=== PATIENT | male | born 1970 | race Caucasian/White ===

== ENCOUNTER 2016-10-11 14:03 | Emergency (ER) | payer MEDICAID, OTHER ==
[~2016-10-11] VITALS: Ht 182.9 cm; Wt 65.0 kg
[~2016-10-11 14:03] MED LIST: BACT800T5 PO; CIPR-9 PO; HYDR-3533 PO; Z.0.NO CURRENT MEDS
[2016-10-11 14:05] VITALS: BP 124/67; PULSE 94; RESP 15; TEMP 98.2; O2SAT 98
--- NOTE | 2016-10-11 15:57 | PD ---
HPI Chief Complaint: Injury Time Seen by Provider: 15:57 Travel History International Travel<30 days: No Contact w/Intl Traveler<30days: No Traveled to known affect area: No History of Present Illness HPI 46-year-old male presents to emergency Department with complaint of right hand pain since yesterday. He said he fell on his hand in some bushes and thought it would get better on its own but it gotten worse. He does have some scratches on his hand. He reports being up-to-date on his tetanus vaccination. Denies paresthesias, loss of sensation. Reports decreased range of motion to his second and third fingers secondary to pain and swelling. Denies fever, chills. Reports nausea without vomiting. Has taken some BC powder with minimal relief of symptoms. No known allergies. Denies significant past medical history. No other modifying factors or associated signs and symptoms. PFSH Past Medical History Diabetes: No Diminished Hearing: No Social History Alcohol Use: Yes ("ALL KINDS OF ALCOHOL AND VODKA") Tobacco Use: Yes (10 CIGARETTES DAY) Substance Use: Yes Allergies-Medications (Allergen,Severity, Reaction): Coded Allergies: No Known Allergies (Verified , 10/11/16) Reported Meds & Prescriptions Reported Meds & Active Scripts Active Ibuprofen 800 Mg Tab 800 Mg PO Q6HR PRN Bactrim DS (Sulfamethoxazole-Trimethoprim) 800-160 Mg Tab 1 Tab PO BID 10 Days Keflex (Cephalexin) 500 Mg Cap 500 Mg PO Q6H 10 Days Review of Systems Except as stated in HPI: all other systems reviewed are Neg Physical Exam Narrative GENERAL: Well-nourished, well-developed patient, in no acute distress; afebrile , nontoxic-appearing SKIN: Warm and dry. Right hand with multiple small abrasions. Right second finger and Dorsal aspect of right hand at the second and third metacarpal area with edema and erythema; with warmth to touch; and with red streaking from the area of the arm about mid forearm. No axillary lymphadenopathy. The right upper extremity is supple and non-tense with 2+ radial pulse and sensory intact and without edema. HEAD: Atraumatic. Normocephalic. EYES: Pupils equal and round. No scleral icterus. No injection or drainage. ENT: Mucosa pink and moist. Airway patent. NECK: Trachea midline. CARDIOVASCULAR: Regular rate. RESPIRATORY: No accessory muscle use. GASTROINTESTINAL: Flat. MUSCULOSKELETAL: Right hand at the second and third fingers there was decreased range of motion; with erythema, edema; no obvious deformity; with tenderness on palpation; sensory intact to all fingers. No obvious deformities. No clubbing. No cyanosis. NEUROLOGICAL: Awake and alert. Oriented 3. No obvious cranial nerve deficits. Motor grossly within normal limits. Normal speech. PSYCHIATRIC: Appropriate mood and affect; insight and judgment normal. Data Data Last Documented VS Vital Signs Date Time Temp Pulse Resp B/P Pulse Ox O2 Delivery O2 Flow Rate FiO2 10/11/16 14:05 98.2 94 15 124/67 98 Orders Clindamycin Inj (Cleocin Inj) (10/11/16 16:00) Ketorolac Inj (Toradol Inj) (10/11/16 16:00) Hand, Complete ([id number]) (10/11/16 15:58) [facility] Medical Decision Making Medical Screen Exam Complete: Yes Emergency Medical Condition: Yes Medical Record Reviewed: Yes Differential Diagnosis Hand fracture, hand sprain, cellulitis Narrative Course 46-year-old male with right hand injury and cellulitis. Patient is afebrile and nontoxic-appearing. He denies fever, chills. Reports nausea without vomiting. Toradol and clindamycin 600 mg IM ordered. Right hand x-ray ordered. 1648: And x-ray concludesSoft-tissue swelling involving the right second digit without fracture or dislocation. Arturo bandage provided for support. The patient will be treated for cellulitis. Ibuprofen, Keflex, Bactrim prescribed for home. Instructed patient to return to the emergency department in 2 days for recheck. Patient verbalizes understanding and agreement with treatment plan. Patient is medically cleared and stable for discharge. Discussed reasons to return to the emergency department. Instructed patient to follow up with primary care provider. Patient agrees with treatment plan. The patients vital signs are stable and the patient is stable for outpatient follow-up and treatment. Patient discharged home, stable and in no acute distress. Diagnosis Primary Impression: Sprain of right hand Qualified Code: S63.91XA - Sprain of right hand, initial encounter Additional Impression: Cellulitis of right hand Referrals: Primary Care Physician Patient Instructions: Cellulitis (ED), General Instructions, Hand Sprain (ED) Departure Forms: Tests/Procedures, Work Release Enter return to work date: Oct 15, 2016 Additional Instructions: Antibiotics as prescribed and complete full course Tylenol or ibuprofen as directed and as needed to reduce pain Rest, ice, compress, and elevate extremity to decrease pain and inflammation Arturo wrap for support Splint for support Avoid aggravating activity; increase activity as tolerated Follow-up with primary care provider Return to the emergency department in 2 days for recheck Return to the emergency department immediately with worsening symptoms Med/Other Pt SpecificInfo: Prescription(s) given Scripts Ibuprofen 800 Mg Reg286 Mg PO Q6HR PRN (PAIN) #30 TAB Ref 0 Prov:Rosalva Mak 10/11/16 Sulfamethoxazole-Trimethoprim (Bactrim DS)800-160 Mg Tab1 Tab PO BID 10 Days Ref 0 Prov:Rosalva Mak 10/11/16 Cephalexin (Keflex)500 Mg [id number] Mg PO Q6H 10 Days Ref 0 Prov:Rosalva Mak 10/11/16 Disposition: 01 DISCHARGE HOME Condition: Stable Rosalva Mak Oct 11, 2016 15:57
[2016-10-11] MEDS ORDERED: CLINDAMYCIN PHOS 600 MG/4 ML VIAL IM ONE (16:00)
[2016-10-11] MEDS ORDERED: KETOROLAC TROMETHAMINE 60 MG/2 ML (IM) VIAL IM ONE (16:00)
--- NOTE | 2016-10-11 16:38 | RADRPT ---
EXAM DATE/TIME: 10/11/2016 16:14 [facility] COMPARISON: No previous studies available for comparison. INDICATIONS : Patient fell yesterday and hurt second digit. MEDICAL HISTORY : None. SURGICAL HISTORY : None. ENCOUNTER: Initial ACUITY: 2 days PAIN SCORE: 10/10 LOCATION: Right second digit. FINDINGS: Soft-tissue swelling is noted involving the right second digit. There is no acute fracture or disloc ation of the right second digit. The remainder of the right hand is intact without fracture or dislo cation. CONCLUSION: Soft-tissue swelling involving the right second digit without fracture or dislocation. Rik Mata MD on October 11, 2016 at 16:29 Board Certified Radiologist. This report was verified electronically.
[2016-10-11] MEDS ORDERED: IBUP800T23 PO (16:50)
[2016-10-11] MEDS ORDERED: BACT800T5 PO (16:50)
[2016-10-11] MEDS ORDERED: CEPH-460 PO (16:50)
== END 2016-10-11 17:43 | disposition home or self-care (01) ==
LOC: NETRI 14:03
DX: S63.91XA Sprain of unspecified part of right wrist and hand, initial encounter (principal); L03.113 Cellulitis of right upper limb; W17.89XA Other fall from one level to another, initial encounter; Y92.007 Garden or yard of unspecified non-institutional (private) residence as the place of occurrence of the external cause
CPT/HCPCS: 73130; 96372; 99283; J1885

== ENCOUNTER 2016-10-16 13:43 | Inpatient (IN) | payer MEDICAID ==
[~2016-10-16] VITALS: Ht 172.7 cm; Wt 76.8 kg
[~2016-10-16 13:43] MED LIST changes: +CEPH-460 PO; -CIPR-9 PO; -HYDR-3533 PO; +IBUP800T23 PO; -Z.0.NO CURRENT MEDS
[2016-10-16 14:30] VITALS: BP 127/89; PULSE 90; RESP 20; TEMP 98.9; O2SAT 97
[2016-10-16] MEDS ORDERED: SODIUM CHLOR 0.9% 1000 ML INJ 1,000 ML IV SCH (14:54)
[2016-10-16] MEDS ORDERED: ACETAMINOPHEN 325 MG TAB PO PRN ×2 (15:00→16:15)
[2016-10-16] MEDS ORDERED: FLUMAZENIL 0.5 MG/5 ML VIAL IV PUSH PRN (15:00)
[2016-10-16] MEDS ORDERED: KETOROLAC TROMETHAMINE 30 MG/ML (IVP) VIAL IV PUSH ONE (15:00)
[2016-10-16] MEDS ORDERED: ONDANSETRON HCL 4 MG/2 ML VIAL IV PUSH PRN (15:00)
[2016-10-16] MEDS ORDERED: LORazepam 2 MG TAB PO PRN (15:00)
[2016-10-16] MEDS ORDERED: LORazepam 2 MG/ML VIAL IV PUSH PRN ×3 (15:00)
[2016-10-16] MEDS ORDERED: CLINDAMYCIN INJ 600 MG in SODIUM CHLORIDE 0.9% INJ 100 ML IV ONE (15:00)
[2016-10-16] MEDS ORDERED: ONDANSETRON HCL 4 MG/2 ML VIAL IVP ONE (15:00)
[2016-10-16] MEDS ORDERED: PROPOFOL 200 MG/20 ML AMP IV ONE (15:24)
[2016-10-16] MEDS ORDERED: ePHEDrine/NS 25 MG/5 ML SYR IV ONE (15:24)
[2016-10-16] MEDS ORDERED: ONDANSETRON HCL 4 MG/2 ML VIAL IV PUSH ONE (15:24)
[2016-10-16] MEDS ORDERED: SODIUM CHLOR 0.9% 1000 ML INJ 1,000 ML IV ONE (15:24)
[2016-10-16 15:33] LABS: AUTOMATED NEUTROPHIL # 8.4 TH/MM3 (1.8-7.7); BASOPHIL # 0.1 TH/MM3 (0-0.2); BASOPHIL % 0.7 % (0.0-2.0); EOSINOPHIL % 0.3 % (0.0-4.0); HEMATOCRIT 42.6 % (39.0-51.0); HEMO FLAGS DIFF FINAL; LYMPH % 11.2 % (9.0-44.0); LYMPHOCYTE # 1.2 TH/MM3 (1.0-4.8); MEAN CELL VOLUME 91.5 FL (80.0-100.0); MEAN CORPUSCULAR HEMOGLOBIN 30.6 PG (27.0-34.0); MEAN CORPUSCULAR HGB CONC 33.4 % (32.0-36.0); MONO % 9.6 % (0.0-8.0); NEUT % 78.2 % (16.0-70.0); PLATELET COUNT 282 TH/MM3 (150-450); RED BLOOD COUNT 4.65 MIL/MM3 (4.50-5.90); RED CELL DISTRIBUTION WIDTH 16.5 % (11.6-17.2); WHITE BLOOD COUNT 10.8 TH/MM3 (4.0-11.0)
--- NOTE | 2016-10-16 15:45 | PD ---
HPI Chief Complaint: Skin Problem Time Seen by Provider: 15:40 Travel History International Travel<30 days: No Contact w/Intl Traveler<30days: No Traveled to known affect area: No History of Present Illness HPI 46-year-old male that presents to the ED for evaluation of possible infection to his right index finger. Patient states that he was seen here last week and was given shots of antibiotics and told to take OTC meds. Patient states that he was noncompliant and he did not even feel the medications. Per patient he couldn't afford them. Patient comes here by ambulance complaining of severe pain to the right index finger. Per patient the pain is 8 out of 10. Patient is also a chronic alcoholic. He drinks heavily. Per patient he drank this morning but he states that he couldn't keep much down because he feels nauseous and feels that he has a fever. He states that he cannot move the right finger anymore because of the swelling. Per patient the pain does not radiate but stays in the finger. Patient has no PCP. Patient denies any history of IV drug abuse recently. He does have a history of substance abuse. He has no allergies to medication. No abdominal pain. Per patient he only feels nauseous and feels that he has chills and sweats. PFSH Past Medical History Diabetes: No Diminished Hearing: No Social History Alcohol Use: Yes ("ALL KINDS OF ALCOHOL AND VODKA") Tobacco Use: Yes (10 CIGARETTES DAY) Substance Use: Yes Allergies-Medications (Allergen,Severity, Reaction): Coded Allergies: No Known Allergies (Verified , 10/11/16) Reported Meds & Prescriptions Reported Meds & Active Scripts Active Ibuprofen 800 Mg Tab 800 Mg PO Q6HR PRN Bactrim DS (Sulfamethoxazole-Trimethoprim) 800-160 Mg Tab 1 Tab PO BID 10 Days Keflex (Cephalexin) 500 Mg Cap 500 Mg PO Q6H 10 Days Review of Systems Except as stated in HPI: all other systems reviewed are Neg Physical Exam Narrative GENERAL: SKIN: Warm and dry. HEAD: Atraumatic. Normocephalic. EYES: Pupils equal and round. No scleral icterus. No injection or drainage. ENT: No nasal bleeding or discharge. Mucous membranes pink and moist. Tongue is midline. No uvula deviation. NECK: Trachea midline. No JVD. CARDIOVASCULAR: Regular rate and rhythm. No murmurs, S3, S4. RESPIRATORY: No accessory muscle use. Clear to auscultation. Breath sounds equal bilaterally. GASTROINTESTINAL: Abdomen soft, non-tender, nondistended. Hepatic and splenic margins not palpable. MUSCULOSKELETAL: Extremities without clubbing, cyanosis, or edema. No obvious deformities. Patient has no range of motion of the right index finger. Patient keeps it flexed about 45. Patient cannot extend it or flex it without severe pain. Patient has a lot of erythema and purulence noted on the digit between the MIP and PIP joint. Good capillary refill. No obvious sign of tendon involvement but hard to assess because patient does have severe erythema and purulence on the finger. NEUROLOGICAL: Awake and alert. No obvious cranial nerve deficits. Motor grossly within normal limits. Five out of 5 muscle strength in the arms and legs. Normal speech. PSYCHIATRIC: Appropriate mood and affect; insight and judgment normal. Data Data Orders Complete Blood Count With Diff (10/16/16 14:40) Comprehensive Metabolic Panel (10/16/16 14:40) Lactic Acid Sepsis Protocol (10/16/16 14:40) Urinalysis - C+S If Indicated (10/16/16 14:40) Blood Culture (10/16/16 14:40) Blood Glucose (10/16/16 14:40) Ecg Monitoring (10/16/16 14:40) Iv Access Insert/Monitor (10/16/16 14:40) Oximetry (10/16/16 14:40) Oxygen Administration (10/16/16 14:40) Finger ([id number]) (10/16/16 ) Clindamycin Inj (Cleocin Inj) (10/16/16 15:00) Ondansetron Inj (Zofran Inj) (10/16/16 15:00) Sodium Chlor 0.9% 1000 Ml Inj (Ns 1000 M (10/16/16 14:54) Alcohol Withdrawal Asmt-Ciwa ONCE (10/16/16 14:54) Ondansetron Inj (Zofran Inj) (10/16/16 15:00) Acetaminophen (Tylenol) (10/16/16 15:00) Flumazenil Inj (Romazicon Inj) (10/16/16 15:00) Lorazepam (Ativan) (10/16/16 15:00) Lorazepam Inj (Ativan Inj) (10/16/16 15:00) Lorazepam (Ativan) (10/16/16 15:00) Lorazepam Inj (Ativan Inj) (10/16/16 15:00) Lorazepam Inj (Ativan Inj) (10/16/16 15:00) Lorazepam Inj (Ativan Inj) (10/16/16 15:00) Ketorolac Inj (Toradol Inj) (10/16/16 15:00) Wound Culture And Gram Stain (10/16/16 15:34) Morphine Inj (Morphine Inj) (10/16/16 16:00) Electrocardiogram (10/16/16 ) Labs Laboratory Tests Test 10/16/16 14:20 White Blood Count 10.8 TH/MM3 Red Blood Count 4.65 MIL/MM3 Hemoglobin 14.2 GM/DL Hematocrit 42.6 % Mean Corpuscular Volume 91.5 FL Mean Corpuscular Hemoglobin 30.6 PG Mean Corpuscular Hemoglobin 33.4 % Concent Red Cell Distribution Width 16.5 % Platelet Count 282 TH/MM3 Mean Platelet Volume 8.1 FL Neutrophils (%) (Auto) 78.2 % Lymphocytes (%) (Auto) 11.2 % Monocytes (%) (Auto) 9.6 % Eosinophils (%) (Auto) 0.3 % Basophils (%) (Auto) 0.7 % Neutrophils # (Auto) 8.4 TH/MM3 Lymphocytes # (Auto) 1.2 TH/MM3 Monocytes # (Auto) 1.0 TH/MM3 Eosinophils # (Auto) 0.0 TH/MM3 Basophils # (Auto) 0.1 TH/MM3 CBC Comment DIFF FINAL Differential Comment MDM Medical Decision Making Medical Screen Exam Complete: Yes Emergency Medical Condition: Yes Medical Record Reviewed: Yes Interpretation(s) CBC Diagram 10/16/16 14:20 xray showed no sign of acute disease Differential Diagnosis Abscesses versus cellulitis versus wound infection versus tenosynovitis Narrative Course 46-year-old male that presents to the ED for evaluation of right index finger infection. Patient was properly examined and was found to have signs and symptoms concerning for severe infection of the right index finger. Patient states finger is twice the size as the other fingers. Erythema and purulence noted. At this time I believe the patient will likely benefit from surgical incision and drainage. I spoke with Dr. Eathiraju over the phone who wanted patient to be admitted to help us and he will come here and evaluated. Patient was evaluated by the hand surgeon who agrees the patient does require surgery to fix the infection. He agrees with IV antibiotics and admission to medicine. Patient was told this and agrees with plan. Surgeon was the patient to be nothing by mouth. Labs were ordered. X-rays were ordered. Labs and imaging were for the most part okay. No sign of any other acute disease. [facility] contacted and Dr Patel agrees to admission. Diagnosis Primary Impression: Infection of index finger Additional Impression: Alcohol intoxication Qualified Code: F10.120 - Alcohol intoxication, uncomplicated Admitting Information Admitting Physician Requests: Alphonse Castaneda Oct 16, 2016 15:45
[2016-10-16] MEDS ORDERED: MORPHINE SULFATE 4 MG/ML INJ IV PUSH ONE (16:00)
--- NOTE | 2016-10-16 16:13 | HHI.HP ---
[facility] No Primary Care Physician Admission Diagnosis right index finger abscess with cellulitis, noncompliance, alcohol Diagnoses: Travel History International Travel<30 Days: No Contact w/Intl Traveler <30 Da: No Traveled to Known Affected Are: No Past Family Social History Allergies: Coded Allergies: No Known Allergies (Verified , 10/16/16) Physical Exam Physical Exam GENERAL: This is a well-nourished, well-developed patient, in no apparent distress. SKIN: No rashes, ecchymoses or lesions. Cool and dry. HEAD: Atraumatic. Normocephalic. No temporal or scalp tenderness. EYES: Pupils equal round and reactive. Extraocular motions intact. No scleral icterus. No injection or drainage. ENT: Nose without bleeding, purulent drainage or septal hematoma. Throat without erythema, tonsillar hypertrophy or exudate. Uvula midline. Airway patent. NECK: Trachea midline. No JVD or lymphadenopathy. Supple, nontender, no meningeal signs. CARDIOVASCULAR: Regular rate and rhythm without murmurs, gallops, or rubs. RESPIRATORY: Clear to auscultation. Breath sounds equal bilaterally. No wheezes , rales, or rhonchi. GASTROINTESTINAL: Abdomen soft, non-tender, nondistended. No hepato-splenomegaly , or palpable masses. No guarding. MUSCULOSKELETAL: Extremities without clubbing, cyanosis, or edema. No joint tenderness, effusion, or edema noted. No calf tenderness. Negative Homans sign bilaterally. NEUROLOGICAL: Awake and alert. Cranial nerves II through XII intact. Motor and sensory grossly within normal limits. Five out of 5 muscle strength in all muscle groups. Normal speech. Laboratory Laboratory Tests Test 10/16/16 14:20 White Blood Count 10.8 Red Blood Count 4.65 Hemoglobin 14.2 Hematocrit 42.6 Mean Corpuscular Volume 91.5 Mean Corpuscular Hemoglobin 30.6 Mean Corpuscular Hemoglobin 33.4 Concent Red Cell Distribution Width 16.5 Platelet Count 282 Mean Platelet Volume 8.1 Neutrophils (%) (Auto) 78.2 Lymphocytes (%) (Auto) 11.2 Monocytes (%) (Auto) 9.6 Eosinophils (%) (Auto) 0.3 Basophils (%) (Auto) 0.7 Neutrophils # (Auto) 8.4 Lymphocytes # (Auto) 1.2 Monocytes # (Auto) 1.0 Eosinophils # (Auto) 0.0 Basophils # (Auto) 0.1 CBC Comment DIFF FINAL Differential Comment Date/Time Procedure Status Source Growth 10/16/16 14:30 Aerobic Blood Culture Received Blood Peripheral Pending 10/16/16 14:30 Anaerobic Blood Culture Received Blood Peripheral Pending Result Diagram: 10/16/16 1420 Anirudh Patel DO Oct 16, 2016 4:13 pm
[2016-10-16 16:15] VITALS: BP 134/86; PULSE 89; RESP 20; TEMP 98.9; O2SAT 97
[2016-10-16 16:15] LABS: ALT (GPT) 36 U/L (12-78); ANION GAP 9 MEQ/L (5-15); AST (GOT) 40 U/L (15-37); BICARBONATE 26.2 MEQ/L (21.0-32.0); BLOOD UREA NITROGEN 5 MG/DL (7-18); CHLORIDE 105 MEQ/L (98-107); GLOMERULAR FILTRATION RATE 116 ML/MIN (>89); POTASSIUM 3.5 MEQ/L (3.5-5.1); SODIUM (NA) 140 MEQ/L (136-145)
[2016-10-16] MEDS ORDERED: MAGNESIUM HYDROXIDE SUSP 30 ML CUP PO PRN (16:15)
[2016-10-16] MEDS ORDERED: NALOXONE HCL 0.4 MG/ML AMP IV PRN (16:15)
[2016-10-16] MEDS ORDERED: TEMAZEPAM 15 MG CAP PO PRN (16:15)
[2016-10-16] MEDS ORDERED: Vancomycin Consult Pharmacy 1 EA OTHER SCH (16:15)
[2016-10-16 16:17] LABS: ALKALINE PHOSPHATASE 103 U/L (45-117); TOTAL BILIRUBIN ADULT 0.6 MG/DL (0.2-1.0)
--- NOTE | 2016-10-16 16:17 | RADRPT ---
EXAM DATE/TIME: 10/16/2016 15:10 [facility] COMPARISON: HAND RIGHT COMPLETE ([id number]), October 11, 2016, 16:14. INDICATIONS : Right second finger pain. Seeping wound. Previous falling injury. MEDICAL HISTORY : None. SURGICAL HISTORY : None. ENCOUNTER: Initial ACUITY: 1 week PAIN SCORE: 10/10 LOCATION: Right hand, 2nd finger FINDINGS: 3 views of the right second digit. There is diffuse soft tissue edema of the index finger. Bone align ment within normal limits. No evidence of fracture. No evidence of bone erosion. CONCLUSION: Severe diffuse soft tissue swelling of the index finger. No fracture identified. Dung Mitchell MD on October 16, 2016 at 16:14 Board Certified Radiologist. This report was verified electronically.
--- NOTE | 2016-10-16 16:43 | MB ---
cc: BROOKLYNN QUIJANO DATE OF CONSULTATION 10/16/16 REASON FOR CONSULTATION Right index finger infection. HISTORY OF PRESENT ILLNESS The patient is a 45-year-old right-hand dominant male who presented to the ED with complaints of infection of the right index finger of several days duration. He gives history of laceration to the region. The patient was seen in the emergency room initially and was put on p.o. antibiotics for couple of days ago. The patient did not take the antibiotics because of financial issues. He is presenting today with worsening pain involving the right index finger. He also complains of mild drainage of the purulent material over the index finger region. He also complains of numbness over the fingertip. The patient also complains of worsening pain with range of motion of the finger. The patient complains of stiffness of the right index finger. Denies any fever. PAST MEDICAL HISTORY/SURGICAL HISTORY Are noted Examination of right index finger reveals swelling involving the whole finger with redness. There is also evidence of pockets of purulent material over the dorsal aspect of the proximal phalanx and over the PIP joint region. Flexion deformity noted at the PIP joint region. Prominence also noted over the volar aspect of the index finger flexor tendon sheath region. He has intact capillary refill. Decreased sensation noted over the fingertip. Range of motion of the index finger is associated with pain and limited. Purulent material is being drained to pressure over the PIP joint region. No streaking proximal erythema noted. IMAGING STUDIES X-rays of the right index finger were reviewed; shows soft tissue swelling around the index finger. LABORATORY DATA Blood work is awaited. ASSESSMENT A 46-year-old male with infection right index finger with questionable PIP joint involvement. PLAN Admit the patient for IV antibiotics and we will take him emergently for incision and drainage. The patient has been advised to be nothing by mouth. Brooklynn Quijano MD SE/ /3:30 PM /4:38 PM [facility]
[2016-10-16] MEDS: LORazepam 1 MG TAB PO PRN (16:45)
[2016-10-16 16:49] LABS: BLOOD, URINE NEG (NEG); COMMENT (UR) CATH-CULT NOT IND; CULTURE IF INDICATED CATH CULTURE NOT IND; GLUCOSE,URINE NEG (NEG); KETONE, URINE NEG (NEG); NITRITE,URINE NEG (NEG); PH, URINE 6.5 (5.0-8.5); URINE COLOR LIGHT-YELLOW (YELLW/STRAW)
[2016-10-16 17:00] VITALS: BP 109/67; PULSE 82; RESP 18; O2SAT 99
[2016-10-16] MEDS: CIPROFLOXACIN 400 MG PREMIX 200 ML IV SCH (17:40)
[2016-10-16] MEDS: SODIUM CHLOR 0.9% 1000 ML INJ 1,000 ML IV SCH ×2 (17:40→20:15)
[2016-10-16] MEDS ORDERED: BUPIVACAINE HCL PF 0.5% 30 ML VIAL ONE (17:43)
[2016-10-16] MEDS ORDERED: BACITRACIN TOP OINT 15 GM TUBE ONE (17:44)
[2016-10-16] MEDS ORDERED: LIDOCAINE HCL 2% 50 ML VIAL ONE ×2 (17:44→17:45)
--- NOTE | 2016-10-16 17:49 | HHI.HP ---
[facility] No Primary Care Physician Admission Diagnosis right index finger abscess with cellulitis, noncompliance, alcohol Diagnoses: Chief Complaint: Right index finger infection. Travel History International Travel<30 Days: No Contact w/Intl Traveler <30 Da: No Traveled to Known Affected Are: No History of Present Illness Mr. Saldivar is a pleasant 46-year-old male with no significant medical history who presents back to the emergency department due to worsening right index finger infection, fever and chills that started several days ago. Patient came to the emergency department 2 days ago and was discharged after receiving intramuscular clindamycin and by mouth prescription of Keflex. Patient did not have money and thus did not fill prescription for Keflex. His index finger infection Getting worse and he reports subjective fever and chills. He also noted pus drainage from the right index finger. His hand is swollen and painful and the pain extends up to his elbow. Denies any chest pain , shortness of breath, cough. Denies any changes in bowel or bladder habits. Review of Systems ROS Limitations: Other (negative except as noted in the history of present illness) Past Family Social History Past Medical History No significant medical history Past Surgical History No major surgery in the past Reported Medications Does not take any medication on a regular basis. He was discharged with the following prescription two days prior to this admission: Ibuprofen 800 Mg Tab 800 Mg PO Q6HR PRN Bactrim DS (Sulfamethoxazole-Trimethoprim) 800-160 Mg Tab 1 Tab PO BID 10 Days Keflex (Cephalexin) 500 Mg Cap 500 Mg PO Q6H 10 Days Allergies: Coded Allergies: No Known Allergies (Verified , 10/16/16) Family History Mother COPD, diabetes. Dad still living at 77. Social History Smokes 10 cigarettes a day. Drinks 2-3 beers a day. Denies any illicit drug use. Per ER report patient has a history of substance abuse. Physical Exam Vital Signs Vital Signs Date Time Temp Pulse Resp B/P Pulse Ox O2 Delivery O2 Flow Rate FiO2 10/16/16 17:41 18 10/16/16 17:41 18 10/16/16 17:00 82 18 109/67 99 Room Air 10/16/16 16:15 98.9 89 20 134/86 97 Room Air 10/16/16 16:15 97 Room Air 10/16/16 14:30 98.9 90 20 127/89 97 Physical Exam GENERAL: This is a well-nourished, well-developed patient, in no apparent distress. SKIN: No rashes, ecchymoses or lesions. Warm and dry. HEAD: Atraumatic. Normocephalic. No temporal or scalp tenderness. EYES: Pupils equal round and reactive. No injection or drainage. ENT: Nose without bleeding, purulent drainage or septal hematoma. Airway patent. NECK: Trachea midline. No lymphadenopathy. Supple, nontender, no meningeal signs. CARDIOVASCULAR: Regular rate and rhythm without murmurs, gallops, or rubs. No JVD. RESPIRATORY: Clear to auscultation. Breath sounds equal bilaterally. No wheezes , rales, or rhonchi. GASTROINTESTINAL: Abdomen soft, non-tender, nondistended. No guarding. MUSCULOSKELETAL: Extremities without clubbing, cyanosis, or edema. Right index finger swollen, erythematous, draining with pus. Swelling and pain extends to the hand. Unable to move his right index finger much. NEUROLOGICAL: Awake and alert. Cranial nerves II through XII intact. No focal neurological deficits. Normal speech. Laboratory Laboratory Tests Test 10/16/16 10/16/16 14:20 15:00 White Blood Count 10.8 Red Blood Count 4.65 Hemoglobin 14.2 Hematocrit 42.6 Mean Corpuscular Volume 91.5 Mean Corpuscular Hemoglobin 30.6 Mean Corpuscular Hemoglobin 33.4 Concent Red Cell Distribution Width 16.5 Platelet Count 282 Mean Platelet Volume 8.1 Neutrophils (%) (Auto) 78.2 Lymphocytes (%) (Auto) 11.2 Monocytes (%) (Auto) 9.6 Eosinophils (%) (Auto) 0.3 Basophils (%) (Auto) 0.7 Neutrophils # (Auto) 8.4 Lymphocytes # (Auto) 1.2 Monocytes # (Auto) 1.0 Eosinophils # (Auto) 0.0 Basophils # (Auto) 0.1 CBC Comment DIFF FINAL Differential Comment Sodium Level 140 Potassium Level 3.5 Chloride Level 105 Carbon Dioxide Level 26.2 Anion Gap 9 Blood Urea Nitrogen 5 Creatinine 0.73 Estimat Glomerular Filtration 116 Rate Random Glucose 82 Lactic Acid Level 2.0 Calcium Level 9.2 Total Bilirubin 0.6 Aspartate Amino Transf 40 (AST/SGOT) Alanine Aminotransferase 36 (ALT/SGPT) Alkaline Phosphatase 103 Total Protein 8.4 Albumin 3.9 Urine Color LIGHT-YELLOW Urine Turbidity CLEAR Urine pH 6.5 Urine Specific Freer 1.004 Urine Protein NEG Urine Glucose (UA) NEG Urine Ketones NEG Urine Occult Blood NEG Urine Nitrite NEG Urine Bilirubin NEG Urine Urobilinogen LESS THAN 2.0 Urine Leukocyte Esterase NEG Urine RBC LESS THAN 1 Urine WBC 1 Microscopic Urinalysis Comment CATH-CULT NOT IND Date/Time Procedure Status Source Growth 10/16/16 16:30 Gram Stain - Final Resulted Wound Finger 10/16/16 16:30 Wound Culture Resulted Wound Finger Pending 10/16/16 14:30 Aerobic Blood Culture Received Blood Peripheral Pending 10/16/16 14:30 Anaerobic Blood Culture Received Blood Peripheral Pending Result Diagram: 10/16/16 1420 10/16/16 1420 Imaging Last Impressions Finger X-Ray 10/16/16 0000 Signed Impressions: Service Date/Time: Sunday, October 16, 2016 15:10 - CONCLUSION: Severe diffuse soft tissue swelling of the index finger. No fracture identified. Dung Mitchell MD Assessment and Plan Problem List: (1) Infection of index finger ICD Code: L08.9 Status: Acute Assessment and Plan Mr. Saldivar, 46 came to the ED due to right index finger infection, pus drainage , pain. He noticed index finger swelling several days ago and was seen in the ED 2-3 days ago. He was discharged after receiving IM clindamycin and he was advised to take by mouth Keflex. Patient did not fill his prescription. - Right index finger infection - purulent. - Failed outpatient therapy --> Indication for in-patient management. - Likely organism Staph Aureus. Gram Neg and anaerobic bacteria are also possible. - Hand surgery consulted. Patient will undergo I&D this evening. - Percocet and Morphine PRN for pain. - Start Vancomycin and Cipro IV for infection. - Follow C&S. - Tobacco abuse - Alcohol abuse - Counselled patient regarding smoke cessation. He does not want to quit. Full code. SCDs. Physician Certification 2 Midnight Certification Type: Admission for Inpatient Services Order for Inpatient Services The services are ordered in accordance with Medicare regulations or non- Medicare payer requirements, as applicable. In the case of services not specified as inpatient-only, they are appropriately provided as inpatient services in accordance with the 2-midnight benchmark. Estimated LOS (days): 2 days is the estimated time the patient will need to remain in the hospital, assuming treatment plan goals are met and no additional complications. Post-Hospital Plan: Home Anirudh Patel DO Oct 16, 2016 5:49 pm
[2016-10-16] MEDS ORDERED: VANCOMYCIN INJ 1,250 MG in SODIUM CHLOR 0.9% 250 ML INJ 250 ML IV ONE (18:00)
[2016-10-16 18:29] VITALS: BP 112/76
[2016-10-16] MEDS ORDERED: NEOMYCIN/POLYMYXIN 1 ML G.U. IRRIGANT TOPICAL ONE (18:59)
[2016-10-16] MEDS ORDERED: fentaNYL CITRATE 250 MCG/5 ML AMP ONE (19:05)
[2016-10-16] MEDS ORDERED: MIDAZOLAM HCL 2 MG/2 ML VIAL ONE (19:05)
[2016-10-16] MEDS ORDERED: MORPHINE SULFATE 4 MG/ML INJ ONE (19:05)
[2016-10-16] MEDS ORDERED: DO NOT ADM ANY ANTICOAGULANT DRUGS XX PRN (19:57)
--- NOTE | 2016-10-16 19:57 | PD.OP ---
Operative Report Preoperative Diagnosis: (1) Infection of index finger Postoperative Diagnosis: (1) Septic arthritis of interphalangeal joint of finger of right hand Procedure: Incision, drainage, arthrotomy, excisional debridement Proximal interphalangeal joint right index finger Anesthesia: general Surgeon: Josh Shi Trestleman(s): alonso Operation and Findings: septic arthritis PIP joint right index finger necrotic extensor mechanism right index finger PIP joint region extensive subcutaneous necrotic tissue right index finger Josh Sih MD Oct 16, 2016 19:57
[2016-10-16] MEDS ORDERED: DEXAMETHASONE SOD PHOS 4 MG/ML VIAL ONE (20:00)
[2016-10-16] MEDS: ONDANSETRON HCL 4 MG/2 ML VIAL IVP PRN (20:24)
[2016-10-16] MEDS ORDERED: *morphine SULFATE 8 MG/ML PERIprocedure ONLY ONE (20:36)
[2016-10-16] MEDS: SODIUM CHLORIDE 0.9% FLUSH 10 ML FLUSH IV FLUSH SCH (20:41)
[2016-10-16] MEDS ORDERED: VANCOMYCIN INJ 1,300 MG in SODIUM CHLORID 0.9% 500 ML INJ 500 ML IV SCH (21:00)
[2016-10-16 21:30] VITALS: BP 119/62; PULSE 80; RESP 18; TEMP 97.6; O2SAT 98
--- NOTE | 2016-10-16 22:27 | EKG ---
Date Performed: 10/16/2016 Time Performed: 16:10:23 PTAGE: 46 years EKG: Sinus rhythm BORDERLINE LEFT AXIS DEVIATION RIGHT BUNDLE BRANCH BLOCK ABNORMAL ECG PREVIOUS TRACING : 07/14/2005 20.20 Compared to prior tracing no significant change DOCTOR: Terri Echevarria Interpretating Date/Time 10/16/2016 22:25:51
[2016-10-17] VITALS (7 sets, daily range): BP systolic 98–113; BP diastolic 54–66; PULSE 68–96; RESP 16–18; TEMP 96.6–98.9; O2SAT 94–99
[2016-10-17] MEDS: LORazepam 2 MG/ML VIAL IV PUSH PRN ×3 (02:38→12:40)
[2016-10-17] MEDS: CIPROFLOXACIN 400 MG PREMIX 200 ML IV SCH ×2 (05:05→16:43)
[2016-10-17 05:22] LABS: BASOPHIL % 0.1 % (0.0-2.0); BICARBONATE 22.8 MEQ/L (21.0-32.0); HEMATOCRIT 39.8 % (39.0-51.0); HEMO FLAGS DIFF FINAL; LYMPH % 2.2 % (9.0-44.0); LYMPHOCYTE # 0.2 TH/MM3 (1.0-4.8); MEAN CELL VOLUME 92.6 FL (80.0-100.0); MEAN CORPUSCULAR HEMOGLOBIN 30.3 PG (27.0-34.0); MEAN CORPUSCULAR HGB CONC 32.8 % (32.0-36.0); MONO % 1.9 % (0.0-8.0); NEUT % 95.8 % (16.0-70.0); PLATELET COUNT 247 TH/MM3 (150-450); POTASSIUM 4.5 MEQ/L (3.5-5.1); RED CELL DISTRIBUTION WIDTH 16.3 % (11.6-17.2); WHITE BLOOD COUNT 10.4 TH/MM3 (4.0-11.0)
[2016-10-17] MEDS: VANCOMYCIN INJ 1,300 MG in SODIUM CHLORID 0.9% 500 ML INJ 500 ML IV SCH ×2 (06:40→17:47)
[2016-10-17] MEDS: SODIUM CHLORIDE 0.9% FLUSH 10 ML FLUSH IV FLUSH SCH ×2 (08:04→21:00)
[2016-10-17] MEDS: oxyCODONE/ACETAMINOPHEN 7.5 MG/325 MG TAB PO PRN ×2 (08:08→22:46)
--- NOTE | 2016-10-17 10:11 | HHI.PR ---
Subjective Remarks Follow-up for right index finger infection. She does currently doing well. He underwent surgical I&D yesterday. He is scheduled for repeat I&D today. No fever documented. The patient felt hot and chills. Objective Vitals Vital Signs Date Time Temp Pulse Resp B/P Pulse Ox O2 Delivery O2 Flow Rate FiO2 10/17/16 08:00 97.7 70 16 98/54 98 10/17/16 04:00 96.9 96 18 107/59 97 10/17/16 00:00 97.1 68 18 113/66 99 10/16/16 21:30 97.6 80 18 119/62 98 10/16/16 20:45 98.2 84 14 122/73 96 Nasal Cannula 3 10/16/16 20:30 89 14 116/57 96 Nasal Cannula 3 10/16/16 20:15 96 14 135/82 96 Nasal Cannula 3 10/16/16 20:00 113 16 127/84 93 Nasal Cannula 3 10/16/16 19:57 97.5 117 16 134/83 96 Nasal Cannula 3 10/16/16 18:29 78 18 112/76 97 10/16/16 17:41 18 10/16/16 17:41 18 10/16/16 17:00 82 18 109/67 99 Room Air 10/16/16 16:15 98.9 89 20 134/86 97 Room Air 10/16/16 16:15 97 Room Air 10/16/16 14:30 98.9 90 20 127/89 97 I/O 10/16/16 10/16/16 10/16/16 10/17/16 10/17/16 10/17/16 07:00 15:00 23:00 07:00 15:00 23:00 Intake Total 1700 ml 480 ml Output Total 20 ml 600 ml Balance 1680 ml -120 ml Intake Oral 0 ml 480 ml IV Total 600 ml Other 1100 ml Output Urine Total 0 ml 600 ml Estimated Blood Loss 20 ml Other 0 ml # Bowel Movements 0 Result Diagram: 10/17/16 0358 10/17/16 0358 Imaging Last Impressions Finger X-Ray 10/16/16 0000 Signed Impressions: Service Date/Time: Sunday, October 16, 2016 15:10 - CONCLUSION: Severe diffuse soft tissue swelling of the index finger. No fracture identified. Dung Mitchell MD Objective Remarks GENERAL: Alert, NAD. SKIN: Warm and dry. HEAD: Normocephalic. EYES: No scleral icterus. No injection or drainage. NECK: Supple, trachea midline. No JVD or lymphadenopathy. CARDIOVASCULAR: Regular rate and rhythm without murmurs, gallops, or rubs. RESPIRATORY: Breath sounds equal bilaterally. No accessory muscle use. GASTROINTESTINAL: Abdomen soft, non-tender, nondistended. MUSCULOSKELETAL: No cyanosis, or edema. Right arm attached to the poll to keep it elevated. BACK: Nontender without obvious deformity. No CVA tenderness. Procedures 10/16/2016 septic arthritis PIP joint right index finger necrotic extensor mechanism right index finger PIP joint region extensive subcutaneous necrotic tissue right index finger A/P Problem List: (1) Infection of index finger ICD Code: L08.9 Status: Acute Assessment and Plan Mr. Saldivar, 46 came to the ED due to right index finger infection, pus drainage , pain. He noticed index finger swelling several days ago and was seen in the ED 2-3 days ago. He was discharged after receiving IM clindamycin and he was advised to take by mouth Keflex. Patient did not fill his prescription. - Right index finger infection - purulent. - Failed outpatient therapy --> Indication for in-patient management. - Likely organism Staph Aureus. Gram Neg and anaerobic bacteria are also possible. - Hand surgery consulted. Patient will undergo repeat I&D today. - Percocet and Morphine PRN for pain. - Continue Vancomycin and Cipro IV for infection. - Follow C&S. - Tobacco abuse - Alcohol abuse - On 10/16/2016, Counselled patient regarding smoke cessation. He does not want to quit. Full code. SCDs. Potential discharge on 10/19/2016. Anirudh Patel DO Oct 17, 2016 10:11 am
[2016-10-17] MEDS: SODIUM CHLORIDE 0.9% FLUSH 10 ML FLUSH IV FLUSH PRN (12:40)
[2016-10-17] MEDS: SODIUM CHLOR 0.9% 1000 ML INJ 1,000 ML IV SCH ×2 (13:00→22:48)
[2016-10-17] MEDS ORDERED: NEOMYCIN/POLYMYXIN 1 ML G.U. IRRIGANT IRRIGATION ONE (15:14)
[2016-10-17] MEDS ORDERED: PROPOFOL 200 MG/20 ML AMP IV ONE (15:15)
[2016-10-17] MEDS ORDERED: LACTATED RINGER'S 1000 ML INJ 1,000 ML IV ONE (15:15)
[2016-10-17] MEDS ORDERED: ONDANSETRON HCL 4 MG/2 ML VIAL IV PUSH ONE (15:15)
[2016-10-17] MEDS ORDERED: MUPIROCIN 2% OINT 22 GM TUBE ONE (16:39)
[2016-10-17] MEDS ORDERED: BUPIVACAINE HCL PF 0.5% 30 ML VIAL ONE (16:39)
[2016-10-17] MEDS ORDERED: LIDOCAINE HCL 2% 50 ML VIAL ONE (16:39)
[2016-10-17] MEDS ORDERED: fentaNYL CITRATE 250 MCG/5 ML AMP ONE (16:40)
[2016-10-17] MEDS ORDERED: MIDAZOLAM HCL 2 MG/2 ML VIAL ONE (16:40)
[2016-10-17] MEDS ORDERED: FAMOTIDINE 20 MG/2 ML VIAL ONE (16:40)
[2016-10-17] MEDS ORDERED: DEXAMETHASONE SOD PHOS 4 MG/ML VIAL ONE (16:44)
[2016-10-17] MEDS ORDERED: ACETAMINOPHEN 1000 MG/100 ML VIAL IV ONE (17:08)
--- NOTE | 2016-10-17 18:09 | PD.OP ---
Operative Report Preoperative Diagnosis: (1) Septic arthritis of interphalangeal joint of finger of right hand Postoperative Diagnosis: (1) Septic arthritis of interphalangeal joint of finger of right hand Procedure: exploration, excisional debridement, wash Proximal interphalangeal joint right index finger Anesthesia: general Surgeon: Josh Shi Contingents Supervisor(s): alonso Operation and Findings: septic arthritis with necrotic soft tissue including extensor mechanism PIP joint right index finger Josh Shi MD Oct 17, 2016 18:09
[2016-10-17] MEDS: NICOTINE 14 MG/24 HR PATCH T-DERMAL SCH (22:48)
[2016-10-18] MEDS: LORazepam 2 MG/ML VIAL IV PUSH PRN (02:13)
[2016-10-18] MEDS: CIPROFLOXACIN 400 MG PREMIX 200 ML IV SCH ×2 (05:14→15:49)
[2016-10-18] MEDS: oxyCODONE/ACETAMINOPHEN 7.5 MG/325 MG TAB PO PRN ×4 (05:41→22:16)
[2016-10-18] MEDS: LORazepam 1 MG TAB PO PRN ×2 (05:41→22:16)
[2016-10-18] MEDS: VANCOMYCIN INJ 1,300 MG in SODIUM CHLORID 0.9% 500 ML INJ 500 ML IV SCH ×2 (06:00→18:00)
[2016-10-18] MEDS ORDERED: PROPOFOL 200 MG/20 ML AMP IV ONE (07:47)
[2016-10-18] MEDS ORDERED: ONDANSETRON HCL 4 MG/2 ML VIAL IV PUSH ONE (07:47)
[2016-10-18 08:00] VITALS: BP 106/62; PULSE 87; RESP 16; TEMP 97.1; O2SAT 99
[2016-10-18] MEDS: SODIUM CHLORIDE 0.9% FLUSH 10 ML FLUSH IV FLUSH SCH ×2 (09:00→19:29)
[2016-10-18] MEDS: SODIUM CHLOR 0.9% 1000 ML INJ 1,000 ML IV SCH ×2 (09:00→18:13)
[2016-10-18] MEDS: REMOVE OLD PATCH T-DERMAL SCH (09:00)
[2016-10-18] MEDS: MORPHINE SULFATE 8 MG/ML INJ IV PUSH PRN (09:14)
[2016-10-18] MEDS: NICOTINE 14 MG/24 HR PATCH T-DERMAL SCH (09:16)
--- NOTE | 2016-10-18 09:29 | MP ---
cc: JOSH QUIJANO MD DATE OF SURGERY: October 16, 2016 PREOPERATIVE DIAGNOSIS Infection right index finger. POSTOPERATIVE DIAGNOSIS Septic arthritis proximal interphalangeal joint right index finger. PROCEDURE Incision and drainage, arthrotomy, wash and excisional debridement proximal interphalangeal joint right index finger. SURGEON Dr. Quijano. ANESTHESIA General. ESTIMATED BLOOD LOSS Minimal. TOURNIQUET TIME 33 minutes at 250 mmHg. SPECIMEN Specimen was sent for culture and sensitivity, one from the subcutaneous region, one from the PIP joint right index finger. CONDITION The patient was recovered and sent to the recovery room in stable condition. INDICATION The patient is a 46-year-old male who presented to the ED with complaints of worsening pain/swelling involving the right index finger. The patient was seen in the ED 3-4 days ago, he was found to have infection of the right index finger. He was put on p.o. antibiotics. The patient could not afford p.o. antibiotics so he ended up with worsening pain. He presented to the ED with worsening painful symptoms involving the right index finger. On examination he had swelling involving the whole of the right index finger with the pockets of pus over the dorsal aspect of the PIP joint and the proximal phalanx region. The patient had diffuse tenderness and range of motion was very limited and painful. He did have decreased sensation over the pulp of the finger. X-ray showed diffuse soft tissue swelling and white count was 10.8 with neutrophil shift of 78%. The patient was consented for incision and drainage. He was explained the risks and benefits of the procedure. PROCEDURE The patient was brought to the operating room, under general anesthesia, the right upper extremity was thoroughly prepped and draped. After limb elevation the tourniquet was inflated to 250 mmHg. Incision was then made in a curvilinear fashion over the dorsal aspect of the PIP joint. Skin flaps were elevated. He had extensive necrotic tissue and purulent material within the subcutaneous region of the index finger. There was rent in the extensor mechanism over the PIP joint with purulent material from the region. There was extensive necrosis of the extensor mechanism both over the proximal phalanx, PIP joint region and over the middle phalanx region. Excisional debridement of necrotic tissue was carried out. The rent in the extensor mechanism was opened up proximally. There was extensive necrotic material surrounding the proximal phalanx which was debrided. The PIP joint was opened through this rent and he had partial loss of extensor tendon over the central slip region. The triangular ligament over the middle phalanx region was also necrotic with separation of the lateral bands of the middle phalanx region. Excisional debridement of necrotic tissue was carried out from the dorsal surface of the proximal phalanx and middle phalanx region. Excisional debridement of necrotic tissue of the extensor mechanism was carried out. Part of the extensor mechanism was also left intact which was not necrotic and appeared to be viable. Thorough wash was given using normal saline mixed with irrigant and hydrogen peroxide, about 1 liter of solution was used. Tourniquet was deflated. Total tourniquet time was 33 minutes. He had good distal circulation after release of tourniquet. Bleeding points were cauterized with bipolar cautery. Packing of the wounds were carried out and the skin flaps were loosely approximated using 4-0 Nylon in a horizontal mattress interrupted fashion. About 4 ccs of local anesthesia containing 2% lidocaine, 1% Marcaine was injected dorsally as a block. Dry dressing was applied which was held in place by Ann and betty Castaneda. He had good distal circulation at the end of the procedure. The patient was recovered and sent to the recovery room in stable condition. Plan will be to continue with IV antibiotics. We will obtain infectious disease consult and bring the patient tomorrow again for repeat wash and debridement. Josh Quijano MD SE/LORENA /8:01 PM /9:12 AM KHOA
--- NOTE | 2016-10-18 11:15 | HHI.PR ---
Subjective Remarks Follow-up for right index finger infection. Patient is doing well. No fever, chills. Initially he wanted to go home. However, after discussing with patient' s about his index finger infection and implication of not receiving proper medical and surgical care, he decided to stay in the hospital and consent for surgical intervention. Objective Vitals Vital Signs Date Time Temp Pulse Resp B/P Pulse Ox O2 Delivery O2 Flow Rate FiO2 10/18/16 08:00 97.1 87 16 106/62 99 10/17/16 23:55 96.6 78 17 106/59 94 10/17/16 20:00 98.9 80 17 104/55 97 10/17/16 18:25 90 16 130/80 100 Nasal Cannula 2 10/17/16 18:15 73 16 125/58 100 Nasal Cannula 2 10/17/16 18:09 97.6 86 15 114/78 100 Nasal Cannula 2 10/17/16 16:00 98.0 82 16 100/56 99 10/17/16 12:00 97.9 73 16 100/ 98 I/O 10/17/16 10/17/16 10/17/16 10/18/16 10/18/16 10/18/16 07:00 15:00 23:00 07:00 15:00 23:00 Intake Total 480 ml 2271 ml 980 ml 827 ml Output Total 600 ml 700 ml 610 ml 400 ml Balance -120 ml 1571 ml 370 ml 427 ml Intake Oral 480 ml 240 ml 280 ml 360 ml IV Total 2031 ml 467 ml Other 700 ml Output Urine Total 600 ml 700 ml 600 ml 400 ml Estimated Blood Loss 10 ml # Bowel Movements 0 0 Result Diagram: 10/17/16 0358 10/17/16 0358 Imaging Last Impressions Finger X-Ray 10/16/16 0000 Signed Impressions: Service Date/Time: Sunday, October 16, 2016 15:10 - CONCLUSION: Severe diffuse soft tissue swelling of the index finger. No fracture identified. Dung Mitchell MD Objective Remarks GENERAL: Alert, NAD. SKIN: Warm and dry. HEAD: Normocephalic. EYES: No scleral icterus. No injection or drainage. NECK: Supple, trachea midline. No JVD or lymphadenopathy. CARDIOVASCULAR: Regular rate and rhythm without murmurs, gallops, or rubs. RESPIRATORY: Breath sounds equal bilaterally. No accessory muscle use. GASTROINTESTINAL: Abdomen soft, non-tender, nondistended. MUSCULOSKELETAL: No cyanosis, or edema. Right arm attached to the poll to keep it elevated. BACK: Nontender without obvious deformity. No CVA tenderness. Procedures 10/16/2016 septic arthritis PIP joint right index finger necrotic extensor mechanism right index finger PIP joint region extensive subcutaneous necrotic tissue right index finger 10/17/2016 exploration, excisional debridement, wash Proximal interphalangeal joint right index finger 10/18/2016 exploration, excisional debridement, wash Proximal interphalangeal joint right index finger A/P Problem List: (1) Infection of index finger ICD Code: L08.9 Status: Acute Assessment and Plan Mr. Saldivar, 46 came to the ED due to right index finger infection, pus drainage , pain. He noticed index finger swelling several days ago and was seen in the ED 2-3 days ago. He was discharged after receiving IM clindamycin and he was advised to take by mouth Keflex. Patient did not fill his prescription. Culture growing MRSA and group B strep. Patient underwent 3 separate surgical intervention by hand surgery. - Right index finger infection - purulent. - Failed outpatient therapy --> Indication for in-patient management. - Cx growing MRSA and Group B Strep. - Percocet and Morphine PRN for pain. - We started patient empirically on Vancomycin and Cipro IV for infection. - ID consulted and currently patient is on Vancomycin. Cipro discontinued on 10/18/2016. - He will need a PICC line to continue IV abx for 2 weeks. - Tobacco abuse - Alcohol abuse - On 10/16/2016, Counselled patient regarding smoke cessation. He does not want to quit. Full code. SCDs. Discharge plan: Patient wants to go home on 10/19/2016. However, we will discharge him once okay with Hand surgery. Anirudh Patel DO Oct 18, 2016 11:15
[2016-10-18] MEDS: ONDANSETRON HCL 4 MG/2 ML VIAL IVP PRN (11:32)
[2016-10-18 12:00] VITALS: BP 109/61; PULSE 71; RESP 16; TEMP 97; O2SAT 99
[2016-10-18] MEDS ORDERED: BUPIVACAINE HCL PF 0.5% 30 ML VIAL ONE (12:35)
[2016-10-18] MEDS ORDERED: LIDOCAINE HCL 2% 50 ML VIAL ONE (12:35)
[2016-10-18] MEDS ORDERED: NEOMYCIN/POLYMYXIN 1 ML G.U. IRRIGANT TOPICAL ONE (13:42)
[2016-10-18] MEDS ORDERED: BACITRACIN TOP OINT 15 GM TUBE ONE (14:12)
--- NOTE | 2016-10-18 14:31 | PD.OP ---
Operative Report Preoperative Diagnosis: (1) Septic arthritis of interphalangeal joint of finger of right hand Postoperative Diagnosis: (1) Septic arthritis of interphalangeal joint of finger of right hand Procedure: exploration, excisional debridement, wash Proximal interphalangeal joint right index finger Anesthesia: general Surgeon: Josh Shi Home Care Manager Rn(s): alonso Operation and Findings: minimal necrotic tissue of the extensor mechanism and sub cutaneous tissue right index finger Josh Shi MD Oct 18, 2016 14:31
[2016-10-18] MEDS ORDERED: fentaNYL CITRATE 250 MCG/5 ML AMP ONE (14:38)
[2016-10-18] MEDS ORDERED: MIDAZOLAM HCL 2 MG/2 ML VIAL ONE (14:38)
[2016-10-18] MEDS ORDERED: *morphine SULFATE 8 MG/ML PERIprocedure ONLY ONE (14:57)
[2016-10-18 16:00] VITALS: BP 124/75; PULSE 82; RESP 16; TEMP 95.4; O2SAT 100
[2016-10-18] MEDS ORDERED: PHARMACY ORDERED LAB XX ONE (17:45)
[2016-10-18 20:00] VITALS: BP 104/51; PULSE 101; RESP 17; TEMP 97.1; O2SAT 98
--- NOTE | 2016-10-18 20:27 | MB ---
cc: ALEXSANDER NIEVES MD,SUJEYTANNER DATE OF CONSULTATION: 10/18/[address] Patel REASON FOR CONSULTATION Septic arthritis of the right index finger. Culture growing MRSA and Group A strep. HISTORY OF PRESENT ILLNESS This is a 46-year-old white male who presented to the emergency department with a right index finger wound. The patient was initially seen in the emergency department on October 11. At that time, he had he had an injury to the finger when he fell on his hands while working with bushes. He was felt to have a sprain of the hand and also was felt to have cellulitis. He was given clindamycin IM and was given a prescription for Keflex and Bactrim. He did not fill the prescriptions. He presented again on October 16 with pain to his right index finger. He reportedly was also having nausea and he was having difficulty moving the finger and had severe swelling as well. X-ray was performed and it showed severe diffuse soft tissue swelling of the index finger. No fracture was identified. The patient was evaluated by hand surgery and he was taken to surgery for I&D of the finger and arthrotomy of the PIP joint. Culture was sent on 10/16 and it came back with MRSA, Staph aureus and Group A beta strep. The patient has undergone two other debridements including debridement today. He states that he has no other complaint besides some pain in the index finger. He is awake and alert. He has no fever, chills, nausea or vomiting. White blood cell count is normal. PAST MEDICAL HISTORY The patient denies diabetes, hypertension or other past medical history. ALLERGIES NO KNOWN DRUG ALLERGIES. MEDICATIONS 1. Vancomycin. 2. Nicotine patch. 3. Ciprofloxacin. 4. Percocet 7.5 q.6 p.r.n. 5. Morphine sulfate p.r.n. 6. Zofran. 7. Ativan. SOCIAL HISTORY The patient smokes 10 cigarettes a day. Positive alcohol use. No illicit drugs. 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 FAMILY HISTORY Noncontributory. REVIEW OF SYSTEMS Negative on 10-point review except for pain in the right hand. PHYSICAL EXAMINATION GENERAL: He is a slender male, he is in no acute distress. He is awake and alert and oriented. VITAL SIGNS: Temperature 95.4, BP 124/75, respirations 16, heart rate 82. HEENT: Extraocular movements grossly intact. Pupils reactive to light without icterus. Oropharynx - no visible lesions. NECK: Supple without adenopathy. LUNGS: Clear breath sounds bilateral. HEART: Regular rate and rhythm without murmurs, rubs or gallops. ABDOMEN: Bowel sounds present, soft, no tenderness appreciated. RECTAL: Not performed. EXTREMITIES: No clubbing, no cyanosis or edema except for the right hand where there is obvious edema. The right hand is wrapped in a surgical dressing which overlies the wound at the right index finger. The dressing was not taken down for inspection at this time. NEUROLOGIC: Nonfocal. SKIN: No diffuse rash. PSYCHIATRIC: The patient calm and cooperative. LABORATORY DATA WBC 10.4, platelets 247, creatinine 0.79, BUN 11. IMPRESSION Septic arthritis of the right PIP index finger joint. Infection due to MRSA. RECOMMENDATIONS 1. Continue vancomycin intravenous. 2. Discontinue ciprofloxacin. 3. Plan on intravenous vancomycin for two weeks from the time of positive culture. Thank you for this consultation. Alexsander Nieves MD FD/JF /6:00 PM /7:58 PM MTDD
[2016-10-19] VITALS: BP 112/61; PULSE 83; RESP 17; TEMP 97.6; O2SAT 97
[2016-10-19 04:00] VITALS: BP 111/66; PULSE 74; RESP 17; TEMP 97.3; O2SAT 96
[2016-10-19] MEDS: SODIUM CHLOR 0.9% 1000 ML INJ 1,000 ML IV SCH ×3 (05:00→22:00)
[2016-10-19] MEDS: VANCOMYCIN INJ 1,300 MG in SODIUM CHLORID 0.9% 500 ML INJ 500 ML IV SCH ×2 (05:01→17:47)
[2016-10-19] MEDS: CIPROFLOXACIN 400 MG PREMIX 200 ML IV SCH (05:01)
[2016-10-19] MEDS: oxyCODONE/ACETAMINOPHEN 7.5 MG/325 MG TAB PO PRN ×4 (05:27→21:59)
[2016-10-19 08:00] VITALS: BP 109/65; PULSE 67; RESP 12; TEMP 97.1; O2SAT 98
[2016-10-19] MEDS: MORPHINE SULFATE 8 MG/ML INJ IV PUSH PRN (08:07)
[2016-10-19] MEDS: SODIUM CHLORIDE 0.9% FLUSH 10 ML FLUSH IV FLUSH PRN (08:08)
[2016-10-19] MEDS: NICOTINE 14 MG/24 HR PATCH T-DERMAL SCH (08:10)
[2016-10-19] MEDS: REMOVE OLD PATCH T-DERMAL SCH (08:10)
[2016-10-19] MEDS: SODIUM CHLORIDE 0.9% FLUSH 10 ML FLUSH IV FLUSH SCH ×2 (09:00→22:00)
[2016-10-19] MEDS ORDERED: OXYC1TAB35 PO (09:10)
[2016-10-19] MEDS ORDERED: ZYVO600T PO (09:10)
--- NOTE | 2016-10-19 09:15 | HHI.FF ---
Face to Face Verification Diagnosis: (1) Septic arthritis of interphalangeal joint of finger of right hand Home Health Nursing Order: Medical education Signs/symptoms of disease process Wound care and dressing changes Nursing assessment with vital signs I have seen patient Priyank Saldivar on 10/19/16. My clinical findings support the need for the requested home health care services because: Deconditioned w/ increased weakness Need for psychosocial assistance Impaired cognition/judgement High risk of falls Infection w/ risk of complications I certify that my clinical findings support that this patient is homebound because: Post-op weakness Unsafe to leave home unassisted Need for psychosocial assistance Unable to use public transportation Anirudh Patel DO Oct 19, 2016 9:15 am
--- NOTE | 2016-10-19 09:26 | HHI.PR ---
Subjective Remarks Follow-up for right index finger infection. Patient is doing well. No fever, chills. He does feel somewhat dizzy when gets up. Wants to go home. He is not very interested to do IV abx. He would prefer to do oral abx. Objective Vitals Vital Signs Date Time Temp Pulse Resp B/P Pulse Ox O2 Delivery O2 Flow Rate FiO2 10/19/16 04:00 97.3 74 17 111/66 96 10/19/16 00:00 97.6 83 17 112/61 97 10/18/16 20:00 97.1 101 17 104/51 98 10/18/16 16:00 95.4 82 16 124/75 100 10/18/16 15:29 98.7 69 20 115/74 96 Room Air 10/18/16 15:15 69 20 115/74 96 Room Air 10/18/16 15:00 84 20 118/53 99 Room Air 10/18/16 14:45 79 20 121/79 99 Nasal Cannula 2 10/18/16 14:33 98.7 72 20 126/79 100 Nasal Cannula 2 10/18/16 12:00 97.0 71 16 109/61 99 I/O 10/18/16 10/18/16 10/18/16 10/19/16 10/19/16 10/19/16 07:00 15:00 23:00 07:00 15:00 23:00 Intake Total 827 ml 300 ml 530 ml 240 ml Output Total 400 ml 300 ml 300 ml Balance 427 ml 300 ml 230 ml -60 ml Intake Oral 360 ml 0 ml 480 ml 240 ml IV Total 467 ml 50 ml Other 300 ml Output Urine Total 400 ml 300 ml 300 ml # Voids 1 # Bowel Movements 0 Result Diagram: 10/17/16 0358 10/19/16 0330 Imaging Last Impressions Finger X-Ray 10/16/16 0000 Signed Impressions: Service Date/Time: Sunday, October 16, 2016 15:10 - CONCLUSION: Severe diffuse soft tissue swelling of the index finger. No fracture identified. Dung Mitchell MD Objective Remarks GENERAL: Alert, NAD. SKIN: Warm and dry. HEAD: Normocephalic. EYES: No scleral icterus. No injection or drainage. NECK: Supple, trachea midline. No JVD or lymphadenopathy. CARDIOVASCULAR: Regular rate and rhythm without murmurs, gallops, or rubs. RESPIRATORY: Breath sounds equal bilaterally. No accessory muscle use. GASTROINTESTINAL: Abdomen soft, non-tender, nondistended. MUSCULOSKELETAL: No cyanosis, or edema. right hand wrapped. Able to move his fingers. BACK: Nontender without obvious deformity. No CVA tenderness. Procedures 10/16/2016 septic arthritis PIP joint right index finger necrotic extensor mechanism right index finger PIP joint region extensive subcutaneous necrotic tissue right index finger 10/17/2016 exploration, excisional debridement, wash Proximal interphalangeal joint right index finger 10/18/2016 exploration, excisional debridement, wash Proximal interphalangeal joint right index finger A/P Problem List: (1) Infection of index finger ICD Code: L08.9 Status: Acute Assessment and Plan Mr. Saldivar, 46 came to the ED due to right index finger infection, pus drainage , pain. He noticed index finger swelling several days ago and was seen in the ED 2-3 days ago. He was discharged after receiving IM clindamycin and he was advised to take by mouth Keflex. Patient did not fill his prescription. Culture growing MRSA and group B strep. Patient underwent 3 separate surgical intervention by hand surgery. - Right index finger infection - purulent. - Failed outpatient therapy --> Indication for in-patient management. - Cx growing MRSA and Group B Strep. - Percocet and Morphine PRN for pain. - We started patient empirically on Vancomycin and Cipro IV for infection. - ID consulted and currently patient is on Vancomycin. Cipro discontinued on 10/18/2016. - Discussed with ID --> Zyvox for two weeks would be reasonable. CM to look into Zyvox arrangement for the patient. - Discussed with Dr. Lee (Hand surgery). After evaluating patient in the afternoon, if Hand surgery clears him for discharge, we will discharge him home. - Will try to arrange home health. - Dizziness - probably due to medications and less fluid intake. Encouraged patient to increase his fluid intake. - Tobacco abuse - Alcohol abuse - On 10/16/2016, Counselled patient regarding smoke cessation. He does not want to quit. Full code. SCDs. Discharge plan: Patient wants to go home on today, 10/19/2016. May discharge him later in the afternoon ONLY if okay with Hand surgery. Anirudh Patel DO Oct 19, 2016 9:26 am
[2016-10-19] MEDS: LORazepam 1 MG TAB PO PRN (10:20)
[2016-10-19 12:00] VITALS: BP 131/58; PULSE 90; RESP 16; TEMP 97; O2SAT 98
--- NOTE | 2016-10-19 14:04 | HHI.PR ---
Subjective Remarks complains of mild pain over the right index finger complaint with limb elevation no fever no tingling or numbness Objective Vital Signs Date Time Temp Pulse Resp B/P Pulse Ox O2 Delivery O2 Flow Rate FiO2 10/19/16 12:35 18 10/19/16 12:00 97.0 90 16 131/58 98 10/19/16 08:12 18 10/19/16 08:00 97.1 67 12 109/65 98 10/19/16 04:00 97.3 74 17 111/66 96 10/19/16 00:00 97.6 83 17 112/61 97 10/18/16 20:00 97.1 101 17 104/51 98 10/18/16 16:00 95.4 82 16 124/75 100 10/18/16 15:29 98.7 69 20 115/74 96 Room Air 10/18/16 15:15 69 20 115/74 96 Room Air 10/18/16 15:00 84 20 118/53 99 Room Air 10/18/16 14:45 79 20 121/79 99 Nasal Cannula 2 10/18/16 14:33 98.7 72 20 126/79 100 Nasal Cannula 2 I/O 10/18/16 10/18/16 10/18/16 10/19/16 10/19/16 10/19/16 07:00 15:00 23:00 07:00 15:00 23:00 Intake Total 827 ml 300 ml 530 ml 240 ml Output Total 400 ml 300 ml 300 ml Balance 427 ml 300 ml 230 ml -60 ml Intake Oral 360 ml 0 ml 480 ml 240 ml IV Total 467 ml 50 ml Other 300 ml Output Urine Total 400 ml 300 ml 300 ml # Voids 1 # Bowel Movements 0 right index finger: dressing in place. examination after removal of dressing reveals wound with packing in place decreased swelling no active drainage. flexion deformity noted at the PIP joint range of motion of finger is limited intact sensation distally cultures: positive for MRSA Result Diagram: 10/17/16 0358 10/19/16 0330 Assessment and Plan Assessment and Plan 46 year old male with septic arthritis PIP joint right index finger s/p multiple debridements Plan: packing removed, finger soaked in dilute betadine solution for 10 mins dry dressing applied active and passive range of motion exercises Continue with IV antibiotics based on ID recommendations hand surgery will follow Josh Shi MD Oct 19, 2016 14:04
--- NOTE | 2016-10-19 14:40 | HHI.FF ---
Infusion Therapy Location of Infusion Therapy: Ambulatory Infusion Therapy Order Patient Information Patient Weight 76.8 kg Diagnosis: (1) Septic arthritis of interphalangeal joint of finger of right hand Coded Allergies: *MDRO Multi-Drug Resistant Organism (Verified Allergy, Intermediate, ) 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 (10/17/2016) Administer Medication Vancomycin 2 grams IV q 24 hours Stop Treatment: Nov 02, 2016 Additional Information Venous access: PICC Line Additional Instructions [x] Peripheral flush and dressing changes per protocol [x] Implanted port and central online retailer: * Implanted port: 10 ml Normal Saline followed by 5 ml Heparin 100 units/ml Heparin flush after each use and monthly to maintain. [] May leave port accessed during therapy. [] May leave peripheral site accessed for duration of therapy. [x] If patient has SOB or respiratory distress, check oxygen saturation. If less than 90% or clinical signs of respiratory distress, administer oxygen at 2 L/min. via nasal cannula and notify physician. [x] Anaphylaxis/Reaction orders: * Stop infusion. * Keep IV line open with saline flush. * Notify physician. * Monitor vital signs every 15 minutes until symptoms resolve. * Check Oxygen saturation; Oxygen at 2 L/min. via nasal cannula if less than 90% or clinical signs of respiratory distress. * Administer diphenhydramine (Benadryl) 25 mg IV STAT, (unless patient has received as pre-med). May repeat once, if necessary. * Solu-Cortef 250 mg IVP over 30-60 seconds, use 100 mg vials for each dissolution. * Epinephrine (1mg/1 ml) 0.3 mg subcutaneously or IVP now with any signs of respiratory distress. * Check with physician for new additional pre-med orders if patient is re- challenged or re-treated. [x] May remove PICC line when treatment complete, after confirming with Physician. [x] If the patient is admitted to the hospital, the ED, or transferred via [facility] , complete transfer form including medication reconciliation order sheet. Laboratory Tests Weekly Labs: BMP, Vancomycin Trough Marko Branham MD Oct 19, 2016 14:40
--- NOTE | 2016-10-19 14:55 | HHI.IDPN ---
Note Infectious Disease Note patient notes pain in the r. index finger along with dizziness and nausea. Receiving IV morphine. Notes also ringing in the ears. Afebrile. PAST MEDICAL HISTORY The patient denies diabetes, hypertension or other past medical history. ALLERGIES NO KNOWN DRUG ALLERGIES. ANTIBIOTICS Vancomycin. Current Medications Medications (Trade) Dose Ordered Sig/Shan Route PRN Reason Start Time Stop Time Status Last Admin Dose Admin Flumazenil (Romazicon Inj) 0.2 mg Q1M PRN IV PUSH SEE LABEL COMMENTS 10/16/16 15:00 Lorazepam (Ativan) 1 mg Q4H PRN PO CIWA 8 - 10 10/16/16 15:00 10/19/16 10:20 Lorazepam (Ativan Inj) 1 mg Q4H PRN IV PUSH CIWA 8 - 10 10/16/16 15:00 Lorazepam (Ativan) 2 mg Q2H PRN PO CIWA 11-14 10/16/16 15:00 Lorazepam (Ativan Inj) 2 mg Q2H PRN IV PUSH CIWA 11-14 10/16/16 15:00 10/18/16 02:13 Lorazepam (Ativan Inj) 2 mg Q1H PRN IV PUSH CIWA 15-20 10/16/16 15:00 Lorazepam (Ativan Inj) 2 mg Q15M PRN IV PUSH CIWA > 20 10/16/16 15:00 Sodium Chloride (NS Flush) 2 ml UNSCH PRN IV FLUSH FLUSH AFTER USING IV ACCESS 10/16/16 16:15 10/19/16 08:08 Sodium Chloride (NS Flush) 2 ml BID IV FLUSH 10/16/16 21:00 10/19/16 09:00 Acetaminophen (Tylenol) 650 mg Q4H PRN PO headache, fever, pain 1-4 10/16/16 16:15 10/18/16 19:28 Ondansetron HCl (Zofran Inj) 4 mg Q6H PRN IVP NAUSEA OR VOMITING 10/16/16 16:15 10/18/16 11:32 Magnesium Hydroxide (Milk Of Magnesia Liq) 30 ml Q12H PRN PO CONSTIPATION 10/16/16 16:15 Temazepam (Restoril) 15 mg HS PRN PO INSOMNIA 10/16/16 16:15 Naloxone HCl 0.4 mg 0.4 mg UNSCH PRN IV SEE LABEL COMMENTS 10/16/16 16:15 Pharmacy Profile Note (Vancomycin Consult Pharmacy) 0 ml @ 0 mls/hr UNSCH OTHER 10/16/16 16:15 Oxycodone/ Acetaminophen 1 tab 1 tab Q6H PRN PO PAIN SCALE 5 TO 10 10/16/16 17:00 10/19/16 11:35 Vancomycin HCl/ Sodium Chloride (Vancomycin Inj/ NS 500 ml Inj) 513 ml @ 250 mls/hr Q12H IV 10/17/16 06:00 10/19/16 05:01 Nicotine (Habitrol 14 Mg Patch.24 Hr) 1 patch DAILY T-DERMAL 10/17/16 21:45 10/19/16 08:10 Miscellaneous Information 1 DAILY T-DERMAL 10/18/16 09:00 10/19/16 08:10 Miscellaneous Information SPECIFIC LAB TO BE DRAWN:VANCO TROUGH DATE TO BE DR... ONCE ONCE .XX 10/19/16 17:45 10/19/16 17:46 Sodium Chloride (NS 1000 ml Inj) 1,000 ml @ 125 mls/hr Q8H IV 10/19/16 15:00 SOCIAL HISTORY The patient smokes 10 cigarettes a day. Positive alcohol use. No illicit drugs. 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 OBJ: Vital Signs Date Time Temp Pulse Resp B/P Pulse Ox O2 Delivery O2 Flow Rate FiO2 10/19/16 12:35 18 10/19/16 12:00 97.0 90 16 131/58 98 10/19/16 08:12 18 10/19/16 08:00 97.1 67 12 109/65 98 10/19/16 04:00 97.3 74 17 111/66 96 10/19/16 00:00 97.6 83 17 112/61 97 10/18/16 20:00 97.1 101 17 104/51 98 10/18/16 16:00 95.4 82 16 124/75 100 10/18/16 15:29 98.7 69 20 115/74 96 Room Air 10/18/16 15:15 69 20 115/74 96 Room Air 10/18/16 15:00 84 20 118/53 99 Room Air Laboratory Tests Test 10/19/16 03:30 Creatinine 0.76 MG/DL Estimat Glomerular Filtration 111 ML/MIN Rate Microbiology Date/Time Procedure Status Source Growth 10/16/16 16:30 Gram Stain - Final Complete Wound Finger 10/16/16 16:30 Wound Culture - Final Complete S. Aureus Mrsa Staphylococcus Aureus Group A Beta Strep 10/16/16 19:11 Gram Stain - Final Resulted Abscess Finger 10/16/16 19:11 Wound Culture - Preliminary Resulted Group A Beta Strep Staphylococcus Aureus S. Aureus Mrsa 10/16/16 19:11 Acid Fast Stain - Final Resulted Abscess Finger NO ACID FAST BACILLI SEEN 10/16/16 19:11 Mycobacterial Culture Resulted Abscess Finger Pending 10/16/16 19:11 Fungal Smear - Final Resulted Abscess Finger NO FUNGAL ELEMENTS SEEN. 10/16/16 19:11 Fungal Culture Resulted Abscess Finger Pending 10/16/16 19:12 Gram Stain - Final Complete Abscess Finger 10/16/16 19:12 Wound Culture - Final Complete Group A Beta Strep Staphylococcus Aureus S. Aureus Mrsa 10/16/16 19:12 Acid Fast Stain - Final Resulted Abscess Finger NO ACID FAST BACILLI SEEN 10/16/16 19:12 Mycobacterial Culture Resulted Abscess Finger Pending 10/16/16 19:12 Fungal Smear - Final Resulted Abscess Finger NO FUNGAL ELEMENTS SEEN. 10/16/16 19:12 Fungal Culture Resulted Abscess Finger Pending PHYSICAL EXAMINATION GENERAL: Distress from dizziness. He is awake and alert and oriented. HEENT: Extraocular movements grossly intact. Pupils reactive to light without icterus. Oropharynx - no visible lesions. NECK: Supple without adenopathy. LUNGS: Clear breath sounds. HEART: Regular rate and rhythm without murmurs, rubs or gallops. ABDOMEN: Bowel sounds present, soft, no tenderness. EXTREMITIES: No clubbing, no cyanosis. Right index finger wound clean. (+)erythema and swelling. NEUROLOGIC: Nonfocal. SKIN: No diffuse rash. PSYCHIATRIC: The patient calm and cooperative. IMPRESSION Septic arthritis of the right PIP index finger joint. Infection due to MRSA, strep, staph aureus. RECOMMENDATIONS Continue Vancomycin intravenous for 2 more weeks until 11/02/16. I have written the orders for infusion therapy and asked case management to arrange. This will likely be on Saturday before arrangements for antibiotics and transportation to the infusion clinic can be made. Patient made aware of the seriousness of his infection and the need to be compliant. I have ordered PICC. Discussed with Dr. Shi. I will sign off now. Please call ID if further input is needed. Marko Branham MD Oct 19, 2016 14:55
[2016-10-19] MEDS: ONDANSETRON HCL 4 MG/2 ML VIAL IVP PRN (15:21)
[2016-10-19 16:00] VITALS: BP_SYST 115; BP_SYST 122; BP_SYST 130; BP_DIAS 65; BP_DIAS 71; BP_DIAS 77; PULSE 78; RESP 16; TEMP 98; O2SAT 98
[2016-10-19] MEDS ORDERED: SODIUM CHLORIDE 0.9% FLUSH 10 ML FLUSH IV FLUSH PRN (17:15)
--- NOTE | 2016-10-19 17:34 | RADRPT ---
EXAM DATE/TIME: 10/19/2016 17:25 [facility] COMPARISON: CHEST SINGLE AP, March 17, 2016, 12:54. INDICATIONS : Evaluate for picc line placement. MEDICAL HISTORY : None. SURGICAL HISTORY : None. ENCOUNTER: Subsequent ACUITY: 1 day PAIN SCORE: 0/10 LOCATION: chest FINDINGS: A single view of the chest demonstrates the lungs to be symmetrically aerated without evidence of mas s, infiltrate or effusion. The cardiomediastinal contours are unremarkable. Osseous structures are intact. CONCLUSION: PICC line in good position without pneumothorax. Nicola Min MD FACR on October 19, 2016 at 17:32 Board Certified Radiologist. This report was verified electronically.
[2016-10-19] MEDS ORDERED: PHARMACY ORDERED LAB ONE (17:45)
[2016-10-19 20:00] VITALS: BP 115/69; PULSE 67; RESP 20; TEMP 98.3; O2SAT 99
[2016-10-20] VITALS: BP 120/80; PULSE 68; RESP 20; TEMP 97.8; O2SAT 97
[2016-10-20] MEDS: VANCOMYCIN INJ 1,300 MG in SODIUM CHLORID 0.9% 500 ML INJ 500 ML IV SCH ×2 (04:51→17:42)
[2016-10-20] MEDS: oxyCODONE/ACETAMINOPHEN 7.5 MG/325 MG TAB PO PRN ×3 (04:51→18:37)
[2016-10-20] MEDS: SODIUM CHLOR 0.9% 1000 ML INJ 1,000 ML IV SCH ×4 (04:52→21:19)
[2016-10-20 08:00] VITALS: BP 116/72; PULSE 67; RESP 20; TEMP 95.7; O2SAT 99
--- NOTE | 2016-10-20 08:05 | HHI.PR ---
Subjective Remarks Patient seen and examined this morning. His vitals are stable, he is afebrile. He is complaining of some dizziness that he has been experiencing since his surgery, but overall this is improving each day. He is tolerating his diet. He is ambulatory without issues. He has a place to say upon discharge. Plan explained to patient that he will be discharged Saturday once his IV abx arranged. He agreed with plan. Objective Vital Signs Date Time Temp Pulse Resp B/P Pulse Ox O2 Delivery O2 Flow Rate FiO2 10/20/16 00:00 97.8 68 20 120/80 97 10/19/16 20:00 98.3 67 20 115/69 99 10/19/16 18:33 18 10/19/16 16:00 122/71 10/19/16 16:00 130/77 10/19/16 16:00 98.0 78 16 115/65 98 10/19/16 12:00 97.0 90 16 131/58 98 10/19/16 08:12 18 10/19/16 08:00 97.1 67 12 109/65 98 I/O 10/19/16 10/19/16 10/19/16 10/20/16 10/20/16 10/20/16 07:00 15:00 23:00 07:00 15:00 23:00 Intake Total 240 ml 640 ml 480 ml 960 ml Output Total 300 ml 1650 ml 800 ml 1400 ml Balance -60 ml -1010 ml -320 ml -440 ml Intake Oral 240 ml 640 ml 480 ml 960 ml Output Urine Total 300 ml 1650 ml 800 ml 1400 ml # Bowel Movements 1 1 Result Diagram: 10/17/16 0358 10/19/16 0330 Imaging Last Impressions Chest X-Ray 10/19/16 0000 Signed Impressions: Service Date/Time: Wednesday, October 19, 2016 17:25 - CONCLUSION: PICC line in good position without pneumothorax. Nicola Min MD FACR Finger X-Ray 10/16/16 0000 Signed Impressions: Service Date/Time: Sunday, October 16, 2016 15:10 - CONCLUSION: Severe diffuse soft tissue swelling of the index finger. No fracture identified. Dung Mitchell MD Other Results GENERAL: Alert, NAD, eating breakfast. SKIN: Warm and dry. HEAD: Normocephalic. EYES: No scleral icterus. No injection or drainage. NECK: Supple, trachea midline. No JVD or lymphadenopathy. CARDIOVASCULAR: Regular rate and rhythm without murmurs, gallops, or rubs. RESPIRATORY: Breath sounds equal bilaterally. No accessory muscle use. GASTROINTESTINAL: Abdomen soft, non-tender, nondistended. MUSCULOSKELETAL: No cyanosis, or edema. right hand wrapped. Able to move his fingers. BACK: Nontender without obvious deformity. No CVA tenderness. A/P Problem List: (1) Alcohol intoxication ICD Code: F10.129 (2) Infection of index finger ICD Code: L08.9 (3) Cigar smoker ICD Code: F17.290 Assessment and Plan 46-year-old male with right index finger infection who failed outpatient treatment status post surgical intervention by hand surgery 3. The patient was essentially supposed to be discharged home yesterday pending clearance by hand surgery. 1. Right index finger infection: Culture positive for MRSA and group B strep. The patient was empirically treated with vancomycin and Cipro upon admission to the hospital, is currently just on vancomycin. Case management was assisted with getting Vancomycin (for approximately 2 weeks upon discharge) for the patient as an outpatient. He had a PICC line placed yesterday. Per IDs note, arrangements for outpatient antibiotics, transportation to the transfusion center likely not to be complete until Saturday. Case management is assisting with this. 2. Tobacco use: Counseled. Nicotine patch. 3. Alcohol abuse: Counseled. She will protocol. Fluids: Normal saline at 125 cc/h Electrolytes: Within normal limits Nutrition: Regular diet as tolerated Bilateral SCDs for DVT prophylaxis Discharge Planning Patient to be discharged Saturday, per case management note when antibiotic will be approved by insurance and set up as an outpatient. Problem Qualifiers (1) Alcohol intoxication: Qualified Code: F10.120 - Alcohol intoxication, uncomplicated Aida Rodriguez MD R3 Oct 20, 2016 08:05
[2016-10-20] MEDS: REMOVE OLD PATCH T-DERMAL SCH (08:37)
[2016-10-20] MEDS: NICOTINE 14 MG/24 HR PATCH T-DERMAL SCH (08:37)
[2016-10-20] MEDS: SODIUM CHLORIDE 0.9% FLUSH 10 ML FLUSH IV FLUSH SCH ×3 (08:37→21:00)
[2016-10-20 12:00] VITALS: BP 114/70; PULSE 60; RESP 20; TEMP 97.8; O2SAT 98
[2016-10-20 16:00] VITALS: BP 124/96; PULSE 82; RESP 19; TEMP 97.9; O2SAT 96
[2016-10-20 20:00] VITALS: BP 106/63; PULSE 70; RESP 18; TEMP 95.6; O2SAT 99
--- NOTE | 2016-10-20 22:52 | MP ---
cc: BROOKLYNN QUIJANO DATE OF SURGERY 10/17/16 PREOPERATIVE DIAGNOSIS Septic arthritis proximal interphalangeal joint right index finger. POSTOPERATIVE DIAGNOSIS Septic arthritis proximal interphalangeal joint right index finger. PROCEDURE Exploration, excisional debridement, wash proximal interphalangeal joint right index finger. SURGEON Dr. Yuli Quijano ANESTHESIA General ESTIMATED BLOOD LOSS Minimal TOURNIQUET TIME 23 minutes at 250 mmHg DISPOSITION PACU stable. PROCEDURE IN DETAIL The patient is a 46-year-old male admitted with history of infection of the right index finger. The patient had exploration yesterday and was found to have septic arthritis involving the proximal interphalangeal joint of the right index finger along with necrotic extensor mechanism. He had wash, exploration, arthrotomy and excisional debridement. He was brought in today for repeat debridement and wash. The patient was explained risk and benefits of the procedure. The patient was brought to the operating room under general anesthesia. The right upper extremity was thoroughly prepped and draped. After limb elevation, tourniquet was inflated 250 mmHg. The previously placed sutures to hold the skin flaps were removed. There was evidence of necrotic material involving the extensor mechanism. There was also evidence of inflammatory tissue over the dorsal aspect of the proximal phalanx and middle phalanx region. No evidence of purulent material was noted. The flap of skin also had lesions. Excisional debridement of necrotic extensor mechanism and granulation tissue from the dorsal aspect of the proximal phalanx and middle phalanx region and from the PIP joint was carried out. Thorough wash was given using normal saline mixed with irrigant and normal saline mixed with peroxide, about a liter of solution was used. Also noted was he had loss of the triangular ligament holding the lateral bands and also had deficiency of the central tendon partially. Tourniquet was deflated. Total tourniquet time was 23 minutes. He had good distal circulation on release of tourniquet. Bleeding points were cauterized with bipolar cautery. Skin flaps were then approximated using 4-0 nylon in a horizontal mattress interrupted fashion. After packing the wound loosely with 1/4" Iodoform packing material, Bulky hand dressing was applied. The patient was recovered, sent to go stable condition. The patient was found MRSA on cultures. We will continue with IV antibiotics will plan to bring the patient tomorrow for repeat wash and debridement. MD MONE Lorenzana /6:13 PM /10:36 PM [facility] SYSTEMAnnmarie
[2016-10-21] VITALS: BP_SYST 107; BP_SYST 125; BP_DIAS 70; BP_DIAS 77; PULSE 63; PULSE 65; RESP 18; TEMP 96.6; TEMP 96.7; O2SAT 100; O2SAT 94
[2016-10-21] MEDS: oxyCODONE/ACETAMINOPHEN 7.5 MG/325 MG TAB PO PRN ×4 (01:06→20:28)
[2016-10-21] MEDS: VANCOMYCIN INJ 1,300 MG in SODIUM CHLORID 0.9% 500 ML INJ 500 ML IV SCH ×2 (04:52→17:59)
[2016-10-21] MEDS ORDERED: PHARMACY ORDERED LAB ONE (05:45)
--- NOTE | 2016-10-21 07:30 | HHI.PR ---
Subjective Remarks Patient seen and examined this morning. His vitals are stable, he is afebrile. He is complaining of some dizziness that he has been experiencing since his surgery, but overall this is improving each day. He is tolerating his diet. He is ambulatory without issues. Reports some electrical shock like pain in the finger that makes it difficult for him to sleep. Plan explained to patient that he will be discharged Saturday once his IV abx arranged. He agreed with plan. Objective Vital Signs Date Time Temp Pulse Resp B/P Pulse Ox O2 Delivery O2 Flow Rate FiO2 10/21/16 00:00 96.7 63 18 125/77 100 10/20/16 20:00 95.6 70 18 106/63 99 10/20/16 16:00 97.9 82 19 124/96 96 10/20/16 12:00 97.8 60 20 114/70 98 10/20/16 11:37 18 10/20/16 08:00 95.7 67 20 116/72 99 I/O 10/20/16 10/20/16 10/20/16 10/21/16 10/21/16 10/21/16 07:00 15:00 23:00 07:00 15:00 23:00 Intake Total 960 ml 1038 ml 1910 ml 1195 ml Output Total 1400 ml 1750 ml 450 ml 700 ml Balance -440 ml -712 ml 1460 ml 495 ml Intake Oral 960 ml 1038 ml 960 ml 240 ml IV Total 950 ml 955 ml Output Urine Total 1400 ml 1750 ml 450 ml 700 ml # Bowel Movements 0 Result Diagram: 10/17/16 0358 10/21/16 0500 Imaging Last Impressions Chest X-Ray 10/19/16 0000 Signed Impressions: Service Date/Time: Wednesday, October 19, 2016 17:25 - CONCLUSION: PICC line in good position without pneumothorax. Nicola Min MD FACR Finger X-Ray 10/16/16 0000 Signed Impressions: Service Date/Time: Sunday, October 16, 2016 15:10 - CONCLUSION: Severe diffuse soft tissue swelling of the index finger. No fracture identified. Dung Mitchell MD Objective Remarks GENERAL: Alert, NAD, eating breakfast. SKIN: Warm and dry. HEAD: Normocephalic. EYES: No scleral icterus. No injection or drainage. NECK: Supple, trachea midline. No JVD or lymphadenopathy. CARDIOVASCULAR: Regular rate and rhythm without murmurs, gallops, or rubs. RESPIRATORY: Breath sounds equal bilaterally. No accessory muscle use. GASTROINTESTINAL: Abdomen soft, non-tender, nondistended. MUSCULOSKELETAL: No cyanosis, or edema. right hand wrapped. Able to move his fingers. BACK: Nontender without obvious deformity. No CVA tenderness. A/P Problem List: (1) Alcohol intoxication ICD Code: F10.129 (2) Infection of index finger ICD Code: L08.9 (3) Cigar smoker ICD Code: F17.290 Assessment and Plan 46-year-old male with right index finger infection who failed outpatient treatment status post surgical intervention by hand surgery 3. The patient was essentially supposed to be discharged home yesterday pending clearance by hand surgery. 1. Right index finger infection: Culture positive for MRSA and group B strep. The patient was empirically treated with vancomycin and Cipro upon admission to the hospital, is currently just on vancomycin. Case management was assisted with getting Vancomycin (for approximately 2 weeks upon discharge) for the patient as an outpatient. He had a PICC line placed 10/18. Per IDs note, arrangements for outpatient antibiotics, transportation to the transfusion center likely not to be complete until Saturday. Case management is assisting with this. - For his "shock like pain" he is experiencing, will try him on some gabapentin and see if this helps 2. Tobacco use: Counseled. Nicotine patch. 3. Alcohol abuse: Counseled. She will protocol. Fluids: HLIV Electrolytes: Within normal limits Nutrition: Regular diet as tolerated Bilateral SCDs for DVT prophylaxis Discharge Planning Patient to be discharged Saturday, per case management note when antibiotic will be approved by insurance and set up as an outpatient. Problem Qualifiers (1) Alcohol intoxication: Qualified Code: F10.120 - Alcohol intoxication, uncomplicated Aida Rodriguez MD R3 Oct 21, 2016 07:30
[2016-10-21] MEDS ORDERED: GABAPENTIN 400 MG CAP PO ONE (07:45)
[2016-10-21 08:00] VITALS: BP 118/65; PULSE 63; RESP 16; TEMP 95.4; O2SAT 98
[2016-10-21] MEDS: NICOTINE 14 MG/24 HR PATCH T-DERMAL SCH (08:13)
[2016-10-21] MEDS: SODIUM CHLORIDE 0.9% FLUSH 10 ML FLUSH IV FLUSH SCH ×3 (08:16→20:28)
[2016-10-21] MEDS: REMOVE OLD PATCH T-DERMAL SCH (08:17)
[2016-10-21 12:00] VITALS: BP 114/70; PULSE 79; RESP 16; TEMP 96.7; O2SAT 100
[2016-10-21 16:00] VITALS: BP 112/69; PULSE 70; RESP 16; TEMP 98; O2SAT 99
--- NOTE | 2016-10-21 19:08 | PD.ORT.PN ---
Subjective Subjective Remarks Patient reports pain controlled right hand. Reports paresthesias on dorsum of index finger. Objective Vitals Vital Signs Date Time Temp Pulse Resp B/P Pulse Ox O2 Delivery O2 Flow Rate FiO2 10/21/16 16:00 98.0 70 16 112/69 99 10/21/16 14:58 18 10/21/16 12:00 96.7 79 16 114/70 100 10/21/16 08:00 95.4 63 16 118/65 98 10/21/16 00:00 96.7 63 18 125/77 100 10/20/16 20:00 95.6 70 18 106/63 99 I/O 10/20/16 10/20/16 10/20/16 10/21/16 10/21/16 10/21/16 07:00 15:00 23:00 07:00 15:00 23:00 Intake Total 960 ml 1038 ml 1910 ml 1195 ml 240 ml Output Total 1400 ml 1750 ml 450 ml 700 ml Balance -440 ml -712 ml 1460 ml 495 ml 240 ml Intake Oral 960 ml 1038 ml 960 ml 240 ml 240 ml IV Total 950 ml 955 ml Output Urine Total 1400 ml 1750 ml 450 ml 700 ml # Voids 3 # Bowel Movements 0 0 Result Diagram: 10/17/16 0358 10/21/16 0500 Objective Remarks Dressing removed, finger soaked, healing incision on dorsum without purulence, extensor lag, able to fire fds/fdp, sensation decreased tip of finger, <2 sec capillary refill Assessment & Plan Assessment and Plan 46 year old male with septic arthritis PIP joint right index finger s/p multiple debridements Plan: Dressing changed, daily dressing changes active and passive range of motion exercises Continue with IV antibiotics based on ID recommendations ok to d/c tomorrow per hand surgery with followup with Dr Lee this week Kenisha Varma MD Oct 21, 2016 19:07
[2016-10-21 20:00] VITALS: BP 143/78; PULSE 79; RESP 20; TEMP 98.2; O2SAT 100
[2016-10-22] VITALS: BP 139/74; PULSE 82; RESP 20; TEMP 97.6; O2SAT 97
[2016-10-22] MEDS: oxyCODONE/ACETAMINOPHEN 7.5 MG/325 MG TAB PO PRN ×2 (04:44→11:55)
[2016-10-22] MEDS: VANCOMYCIN INJ 1,300 MG in SODIUM CHLORID 0.9% 500 ML INJ 500 ML IV SCH (04:44)
[2016-10-22] MEDS: NICOTINE 14 MG/24 HR PATCH T-DERMAL SCH (07:55)
[2016-10-22] MEDS: REMOVE OLD PATCH T-DERMAL SCH (07:55)
[2016-10-22] MEDS: SODIUM CHLORIDE 0.9% FLUSH 10 ML FLUSH IV FLUSH SCH ×2 (07:56)
[2016-10-22 08:00] VITALS: BP 111/59; PULSE 78; RESP 14; TEMP 97.3; O2SAT 99
--- NOTE | 2016-10-22 17:12 | HHI.DS ---
Discharge Summary Admission Date Oct 16, 2016 at 17:49 Discharge Date: Oct 22, 2016 Admitting Diagnosis right index finger abscess with cellulitis, noncompliance, alcohol (1) Septic arthritis of interphalangeal joint of finger of right hand ICD Code: M00.841 Diagnosis: Principal (2) Alcohol intoxication ICD Code: F10.129 Diagnosis: Principal Procedures 10/16/2016 septic arthritis PIP joint right index finger necrotic extensor mechanism right index finger PIP joint region extensive subcutaneous necrotic tissue right index finger 10/17/2016 exploration, excisional debridement, wash Proximal interphalangeal joint right index finger 10/18/2016 exploration, excisional debridement, wash Proximal interphalangeal joint right index finger Brief History - From Admission Mr. Saldivar is a pleasant 46-year-old male with no significant medical history who presents back to the emergency department due to worsening right index finger infection, fever and chills that started several days ago. Patient came to the emergency department 2 days ago and was discharged after receiving intramuscular clindamycin and by mouth prescription of Keflex. Patient did not have money and thus did not fill prescription for Keflex. His index finger infection Getting worse and he reports subjective fever and chills. He also noted pus drainage from the right index finger. His hand is swollen and painful and the pain extends up to his elbow. Denies any chest pain , shortness of breath, cough. Denies any changes in bowel or bladder habits. CBC/BMP: 10/21/16 0500 Significant Findings Laboratory Tests Test 10/19/16 10/21/16 17:36 05:00 Vancomycin Level Trough 12.8 MCG/ML 12.9 MCG/ML (5.0-10.0) (5.0-10.0) Imaging Last Impressions Chest X-Ray 10/19/16 0000 Signed Impressions: Service Date/Time: Wednesday, October 19, 2016 17:25 - CONCLUSION: PICC line in good position without pneumothorax. Nicola Min MD FACR Finger X-Ray 10/16/16 0000 Signed Impressions: Service Date/Time: Sunday, October 16, 2016 15:10 - CONCLUSION: Severe diffuse soft tissue swelling of the index finger. No fracture identified. Dung Mitchell MD PE at Discharge GENERAL: Alert, NAD. SKIN: Warm and dry. HEAD: Normocephalic. EYES: No scleral icterus. No injection or drainage. NECK: Supple, trachea midline. No JVD or lymphadenopathy. CARDIOVASCULAR: Regular rate and rhythm without murmurs, gallops, or rubs. RESPIRATORY: Breath sounds equal bilaterally. No accessory muscle use. GASTROINTESTINAL: Abdomen soft, non-tender, nondistended. MUSCULOSKELETAL: No cyanosis, or edema. right hand wrapped. Able to move his fingers. sensation intact. BACK: Nontender without obvious deformity. No CVA tenderness. Pt update on day of discharge f/u hand infection. patient has no complaint. Denied any pain. Patient anxious to go home. remains afebrile Hospital Course 46-year-old male with right index finger infection who failed outpatient treatment 1. Right index finger infection: ID and hand surgeon consulted in which patient had multiple exploration, excisional debridement, wash proximal interphalangeal joint right index finger X 3 by hand surgeon. Culture positive for MRSA and group B strep. The patient was empirically treated with vancomycin and Cipro upon admission to the hospital,then cipro was d/c and vancomycin continued He had a PICC line placed 10/18. patient dc on vancomycin per ID. Infusion set up by case management. 2. Tobacco use: Counseled. Nicotine patch. 3. Alcohol abuse: Counseled. He was put on CIWA protocol Pt Condition on Discharge: Good Discharge Disposition: Disch w/ Home Health Serv Discharge Time: <= 30 minutes Discharge Instructions DIET: Follow Instructions for: Heart Healthy Diet Activities you can perform: See Additionl Instruction Other Activity Instructions: active and passive range of motion exercises Follow up Referrals: Hand Surgery - 1 Week with Josh Shi MD PCP Follow-up - 1 Week New Medications: Oxycodone-Acetaminophen (Oxycodone-Acetaminophen) 7.5-325 mg Tab 1 TAB PO Q6H PRN PAIN SCALE 5 TO 10 #30 TAB Discontinued Medications: Cephalexin (Keflex) 500 Mg Cap 500 MG PO Q6H Infection Days 10 Ref 0 CAP Ibuprofen (Ibuprofen) 800 Mg Tab 800 MG PO Q6HR PRN PAIN #30 Ref 0 TAB Sulfamethoxazole-Trimethoprim (Bactrim DS) 800-160 Mg Tab 1 TAB PO BID Infection Days 10 Ref 0 TAB Minoo Adame MD Oct 22, 2016 17:12
--- NOTE | 2016-10-23 11:42 | MP ---
cc: BROOKLYNN QUIJANO MD DATE OF SURGERY: 10/18/2016 PREOPERATIVE DIAGNOSIS Septic arthritis proximal interphalangeal joint, right index finger. POSTOPERATIVE DIAGNOSIS Septic arthritis proximal interphalangeal joint, right index finger. PROCEDURE Exploration, excisional debridement, wash, proximal interphalangeal joint right index finger. SURGEON Dr. Quijano ANESTHESIA General. ESTIMATED BLOOD LOSS Minimal. TOURNIQUET TIME 22 minutes at 250 mmHg. SPECIMEN Specimen was discarded. DISPOSITION To PACU stable. INDICATION The patient is a 46-year-old male admitted with a right index finger infection. The patient underwent multiple excisional debridements for septic arthritis proximal interphalangeal joint. He was brought in today for repeat procedure and wash. He was explained the risks and benefits of the procedure. DETAILS OF PROCEDURE The patient was brought to the operating room and induced under general anesthesia. The right upper extremity was thoroughly prepped and draped. After limb elevation the tourniquet was inflated to 250 mmHg. The previously placed sutures were removed and skin flaps were elevated. There was evidence of minimal necrotic tissue involving the extensor mechanism which was debrided. There was also evidence of necrotic tissue in the subcutaneous region which was debrided. The patient as previously noted had a loss of triangular ligament between the lateral bands as well as a partial rent in the central slip of the extensor tendon. Thorough wash was given initially with hydrogen peroxide mixed with normal saline and then normal saline mixed with irrigant. About a liter of solution was used. The rent in the extensor mechanism was loosely approximated using 3-0 Vicryl in an interrupted fashion. The lateral bands were then approximated over the dorsal aspect of the middle phalanx using 5-0 Vicryl in a multiple interrupted fashion. Tourniquet was deflated. Total tourniquet time was 23 minutes.He had good distal circulation after the release of tourniquet. The wound was packed with 1/4 inch Iodoform packing material. The skin was loosely approximated using 4-0 nylon in a horizontal mattress fashion. About 3 cc of local anesthesia containing a mixture of 2% lidocaine and 0.5% Marcaine was injected as a digital block proximally. A bulky hand dressing was applied which was held in place by [facility]. The patient was recovered and sent to the recovery room in stable condition. The plan will be to continue with IV antibiotics based on Infectious Disease recommendations. MD ZAHIDA Lorenzana /2:36 PM /11:34 AM [facility] HOSPITALAnnmarie
== END 2016-10-22 14:24 | disposition home health service (06) | DRG 514 ==
LOC: HOR 13:43 → NEDA 16:09 → OBSVTOIN 17:49 → N07A 20:58
PROVIDERS: ADMIT Hospitalist; ATTEND Family Medicine
PROC: 0RBW0ZZ Excision of Right Finger Phalangeal Joint, Open Approach (ICD-10-PCS; principal; 2016-10-16 18:39)
PROC: 0RBW0ZZ Excision of Right Finger Phalangeal Joint, Open Approach (ICD-10-PCS; 2016-10-17)
PROC: 0RBW0ZZ Excision of Right Finger Phalangeal Joint, Open Approach (ICD-10-PCS; 2016-10-18)
PROC: 02HV33Z Insertion of Infusion Device into Superior Vena Cava, Percutaneous Approach (ICD-10-PCS; 2016-10-19)
DX: M00.041 Staphylococcal arthritis, right hand (principal); B95.62 Methicillin resistant Staphylococcus aureus infection as the cause of diseases classified elsewhere; M00.2 Other streptococcal arthritis and polyarthritis; B95.0 Streptococcus, group A, as the cause of diseases classified elsewhere; F17.210 Nicotine dependence, cigarettes, uncomplicated; R42 Dizziness and giddiness; F10.10 Alcohol abuse, uncomplicated; Z91.14 Patient's other noncompliance with medication regimen
CPT/HCPCS: 36569; 71010; 73140; 76937; 80048; 80053; 80202; 81001; 82565; 83605; 85025; 86403; 87015; 87040; 87070; 87102; 87116; 87147; 87186; 87205; 87206; 93005; J0131; J0744; J1100; J1642; J1885; J2060; J2250; J2270; J2405; J3010; J3370; J7030; J7040; J7120

== ENCOUNTER 2016-10-30 15:27 | Inpatient (IN) | payer MEDICAID ==
[~2016-10-30] VITALS: Ht 180.3 cm; Wt 63.2 kg
[~2016-10-30 15:27] MED LIST changes: -BACT800T5 PO; -CEPH-460 PO; -IBUP800T23 PO; +OXYC1TAB35 PO
[2016-10-30 15:37] VITALS: BP 112/68; PULSE 78; RESP 20; TEMP 98; O2SAT 97
--- NOTE | 2016-10-30 15:41 | PD ---
Physical Exam Time Seen by Provider: 15:39 Narrative 46 year old male presents with R 3rd finger pain, gradually worsening, admitted here on 10/16 for finger infection. Had [address] Shi during hospitalization. Home health nurse called Dr. Shi today who recommended ED evaluation. VSS Seen at triage desk. Awaiting bed placement. Data Data Last Documented VS Vital Signs Date Time Temp Pulse Resp B/P Pulse Ox O2 Delivery O2 Flow Rate FiO2 10/30/16 15:37 98.0 78 20 112/68 97 Room Air [facility] Medical Record Reviewed: Yes Supervised Visit with MELLISSA: Yes Tal Leiva Oct 30, 2016 15:41
[2016-10-30] MEDS ORDERED: SODIUM CHLOR 0.9% 1000 ML INJ 1,000 ML IV SCH (16:00)
--- NOTE | 2016-10-30 16:13 | PD ---
HPI Chief Complaint: Skin Problem Time Seen by Provider: 15:47 Travel History International Travel<30 days: No Contact w/Intl Traveler<30days: No Traveled to known affect area: No History of Present Illness HPI 46-year-old male complaining of pain and redness swelling right index finger. Patient was admitted on October 16, 2016 with right index finger abscess and septic arthritis. Patient had surgery done by Dr. Shi on the right index finger and was given IV antibiotic. She was given IV vancomycin and had the PICC line placement on the left arm. Patient was discharged for outpatient IV vancomycin infusion. Patient states that he took the PICC line out 2 days ago. Patient has not had any IV antibiotics for the past 3 days. Patient states that he drank beers today prior coming to the emergency room. Patient complains of severe sharp pain localized to the right index finger. Patient denies any pain radiation. On a scale of 1-10 the pain is a 10. PFSH Past Medical History Medical History: Denies Significant Hx Diminished Hearing: No Tetanus Vaccination: < 5 Years Influenza Vaccination: No Social History Alcohol Use: Yes ("ALL KINDS OF ALCOHOL AND VODKA" - 4 BEERS TODAY) Tobacco Use: Yes (10 CIGARETTES DAY) Substance Use: No (PT DENIES) Allergies-Medications (Allergen,Severity, Reaction): Coded Allergies: *MDRO Multi-Drug Resistant Organism (Verified Allergy, Intermediate, ) 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 (10/17/2016) Reported Meds & Prescriptions Reported Meds & Active Scripts Active Oxycodone-Acetaminophen 7.5-325 mg Tab 1 Tab PO Q6H PRN Review of Systems General / Constitutional: No: Fever Eyes: No: Visual changes HENT: No: Headaches Cardiovascular: No: Chest Pain or Discomfort Respiratory: No: Shortness of Breath Gastrointestinal: No: Abdominal Pain Genitourinary: No: Dysuria Musculoskeletal: Positive: Pain Skin: No Rash Neurologic: No: Weakness Psychiatric: No: Depression Endocrine: No: Polydipsia Hematologic/Lymphatic: No: Easy Bruising Physical Exam Narrative GENERAL: Well-nourished, well-developed patient. SKIN: Focused skin assessment warm/dry. HEAD: Normocephalic. EYES: No scleral icterus. No injection or drainage. NECK: Supple, trachea midline. No JVD or lymphadenopathy. CARDIOVASCULAR: Regular rate and rhythm without murmurs, gallops, or rubs. RESPIRATORY: Breath sounds equal bilaterally. No accessory muscle use. GASTROINTESTINAL: Abdomen soft, non-tender, nondistended. MUSCULOSKELETAL: No cyanosis, or edema. BACK: Nontender without obvious deformity. No CVA tenderness. Examination the right index finger shows redness swelling tenderness of the right index finger with healing wound on the dorsal aspect of the right index finger. No discharge noted. No induration. Data Data Last Documented VS Vital Signs Date Time Temp Pulse Resp B/P Pulse Ox O2 Delivery O2 Flow Rate FiO2 10/30/16 15:50 18 10/30/16 15:37 98.0 78 112/68 97 Room Air Orders Complete Blood Count With Diff (10/30/16 15:56) Basic Metabolic Panel (Bmp) (10/30/16 15:56) Prothrombin Time / Inr (Pt) (10/30/16 15:56) Act Partial Throm Time (Ptt) (10/30/16 15:56) Blood Culture (10/30/16 15:56) Iv Access Insert/Monitor (10/30/16 15:56) Ecg Monitoring (10/30/16 15:56) Oximetry (10/30/16 15:56) Sodium Chlor 0.9% 1000 Ml Inj (Ns 1000 M (10/30/16 16:00) MDM Medical Decision Making Medical Screen Exam Complete: Yes Emergency Medical Condition: Yes Differential Diagnosis Differential diagnosis including healing wound right index finger, cellulitis, septic arthritis. Narrative Course 46-year-old male with right index finger redness swelling tenderness. Patient has history of septic arthritis right index finger status post right index finger surgery. Patient took the PICC line out 2 days ago and has not get any antibiotic IV since then. Patient was on IV vancomycin. I spoke with Dr. Lee, advised medical admission and hand surgeon consultation. Vancomycin 1 g IV given. Morphine 4 mg IV. Zofran 4 mg IV. Normal saline solution 1 25 cc an hour. Diagnosis Primary Impression: Septic arthritis of interphalangeal joint of finger of right hand Additional Impression: Noncompliance Admitting Information Admitting Physician Requests: Admit Jong Rodgers MD Oct 30, 2016 16:13
[2016-10-30] MEDS ORDERED: ONDANSETRON HCL 4 MG/2 ML VIAL IV PUSH ONE (16:15)
[2016-10-30] MEDS ORDERED: MORPHINE SULFATE 4 MG/ML INJ IV PUSH ONE (16:15)
[2016-10-30] MEDS ORDERED: VANCOMYCIN INJ 1,000 MG in SODIUM CHLOR 0.9% 250 ML INJ 250 ML IV ONE ×2 (16:15→18:00)
[2016-10-30 16:29] LABS: AUTOMATED NEUTROPHIL # 5.5 TH/MM3 (1.8-7.7); BASOPHIL # 0.1 TH/MM3 (0-0.2); BASOPHIL % 1.7 % (0.0-2.0); EOSINOPHIL # 0.1 TH/MM3 (0-0.4); EOSINOPHIL % 0.7 % (0.0-4.0); HEMATOCRIT 39.1 % (39.0-51.0); HEMO FLAGS DIFF FINAL; LYMPH % 19.7 % (9.0-44.0); LYMPHOCYTE # 1.5 TH/MM3 (1.0-4.8); MEAN CELL VOLUME 90.6 FL (80.0-100.0); MEAN CORPUSCULAR HEMOGLOBIN 30.4 PG (27.0-34.0); MEAN CORPUSCULAR HGB CONC 33.5 % (32.0-36.0); NEUT % 70.9 % (16.0-70.0); PLATELET COUNT 375 TH/MM3 (150-450); RED BLOOD COUNT 4.31 MIL/MM3 (4.50-5.90); RED CELL DISTRIBUTION WIDTH 16.4 % (11.6-17.2); WHITE BLOOD COUNT 7.8 TH/MM3 (4.0-11.0)
[2016-10-30 16:41] LABS: APTT (PATIENT) 28.7 SEC (24.3-30.1); INTERNATIONAL NORMALIZED RATIO 0.9 RATIO; PROTHROMBIN TIME - PATIENT 10.1 SEC (9.8-11.6)
[2016-10-30 16:49] LABS: BICARBONATE 24.9 MEQ/L (21.0-32.0); POTASSIUM 3.8 MEQ/L (3.5-5.1)
[2016-10-30] MEDS ORDERED: ONDANSETRON HCL 4 MG/2 ML VIAL IVP PRN (17:00)
[2016-10-30] MEDS ORDERED: NALOXONE HCL 0.4 MG/ML AMP IV PRN (17:00)
[2016-10-30] MEDS ORDERED: ACETAMINOPHEN 325 MG TAB PO PRN (17:00)
[2016-10-30] MEDS ORDERED: MAGNESIUM HYDROXIDE SUSP 30 ML CUP PO PRN (17:00)
[2016-10-30] MEDS: SODIUM CHLOR 0.9% 1000 ML INJ 1,000 ML IV SCH (17:02)
[2016-10-30 17:05] VITALS: BP 87/49; PULSE 70; RESP 18; O2SAT 97
[2016-10-30] MEDS ORDERED: Vancomycin Consult Pharmacy 1 EA OTHER SCH (17:15)
[2016-10-30] MEDS ORDERED: oxyCODONE/ACETAMINOPHEN 5 MG/325 MG TAB PO PRN (17:15)
[2016-10-30 17:24] VITALS: O2SAT 97
[2016-10-30] MEDS: PANTOPRAZOLE SOD 40 MG DELAYED RELEASE TAB PO SCH (17:30)
[2016-10-30] MEDS: FOLIC ACID 1 MG TAB PO SCH (17:30)
[2016-10-30] MEDS ORDERED: LORazepam 2 MG/ML VIAL IV PUSH PRN ×2 (17:30)
[2016-10-30] MEDS ORDERED: cloNIDine HCL 0.1 MG TAB PO PRN (17:30)
[2016-10-30] MEDS ORDERED: SODIUM CHLOR 0.9% 1000 ML INJ 1,000 ML IV ONE (17:30)
[2016-10-30] MEDS: THIAMINE HCL 100 MG TAB PO SCH (17:30)
[2016-10-30] MEDS ORDERED: FLUMAZENIL 0.5 MG/5 ML VIAL IV PUSH PRN (17:30)
[2016-10-30] MEDS: MULTIVITAMINS/MINERALS THERAPEUTIC TAB PO SCH (17:30)
[2016-10-30] MEDS ORDERED: LORazepam 2 MG TAB PO PRN (17:30)
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
--- NOTE | 2016-10-30 18:12 | MB ---
cc: BROOKLYNN QUIJANO DATE OF CONSULTATION 10/30/16 REASON FOR CONSULTATION Right index finger infection. HISTORY OF PRESENT ILLNESS The patient is a 46-year-old male seen by me for right index finger infection. The patient was found to have septic arthritis involving the PIP joint of the right index finger. The patient underwent multiple debridements and wash. the patient was discharged home on IV antibiotics. He had a PICC line placed. The patient was having home care nurse for daily dressing changes. The patient two days ago pulled of his PICC line and he is not having any dressing and he has been doing yard work without any dressing over the right index finger. The home care nurse called in today as he is noncompliant with the antibiotics or dressing. The patient was sent to the hospital for the same. The patient complains of pain and deformity of the right index finger. Denies any drainage. Denies any fever. He also complains of limited range of motion of the right index finger. PAST SURGICAL HISTORY Arthrotomy wash, debridement right index finger PIP joint about 10 days ago. PHYSICAL EXAMINATION The patient is alert, oriented x3. Examination of right index finger reveals open wound with scab on the dorsal aspect of the PIP joint with devitalized extensor mechanism, questionable exposure of the PIP joint noted. There is flexion deformity of the PIP joint, surrounding swelling and erythema noted. No drainage noted. Range of motion of the index finger PIP joint is limited and painful. He has intact sensation distally. ASSESSMENT A 46-year-old male with septic arthritis proximal interphalangeal joint right index finger status post debridement with open wound and exposed joint. PLAN Admit the patient for IV antibiotics. We will obtain infectious disease consult and post him tomorrow for joint debridement and wound VAC placement. We will keep n.p.o. from 7 a.m. Brooklynn Quijano MD SE/ /5:54 PM /6:02 PM KHOA
[2016-10-30 18:44] LABS: INDIRECT BILIRUBIN 0.3 MG/DL (0.0-0.8); TOTAL BILIRUBIN ADULT 0.4 MG/DL (0.2-1.0)
[2016-10-30 19:00] VITALS: O2SAT 97
[2016-10-30 20:00] VITALS: BP 112/70; PULSE 74; RESP 17; TEMP 96; O2SAT 100
[2016-10-30] MEDS: SODIUM CHLORIDE 0.9% FLUSH 10 ML FLUSH IV FLUSH SCH (21:00)
[2016-10-31] VITALS: BP 114/64; PULSE 76; RESP 17; TEMP 98; O2SAT 98
[2016-10-31] MEDS: DOCUSATE SODIUM 100 MG CAP PO SCH ×3 (00:20→20:42)
[2016-10-31] MEDS: ACETAMINOPHEN/HYDROcodone 325 MG/10 MG TAB PO PRN ×4 (00:22→18:08)
[2016-10-31] MEDS: SODIUM CHLOR 0.9% 1000 ML INJ 1,000 ML IV SCH (00:23)
[2016-10-31] MEDS: VANCOMYCIN INJ 1,250 MG in SODIUM CHLOR 0.9% 250 ML INJ 250 ML IV SCH ×3 (03:41→15:45)
[2016-10-31 07:56] LABS: BASOPHIL % 0.5 % (0.0-2.0); EOSINOPHIL # 0.2 TH/MM3 (0-0.4); EOSINOPHIL % 3.8 % (0.0-4.0); HEMATOCRIT 38.7 % (39.0-51.0); HEMO FLAGS DIFF FINAL; LYMPH % 14.9 % (9.0-44.0); MEAN CELL VOLUME 90.9 FL (80.0-100.0); MEAN CORPUSCULAR HGB CONC 33.1 % (32.0-36.0); MONO % 6.2 % (0.0-8.0); NEUT % 74.6 % (16.0-70.0); PLATELET COUNT 337 TH/MM3 (150-450); RED BLOOD COUNT 4.26 MIL/MM3 (4.50-5.90); RED CELL DISTRIBUTION WIDTH 16.6 % (11.6-17.2); WHITE BLOOD COUNT 6.6 TH/MM3 (4.0-11.0)
[2016-10-31 08:00] VITALS: BP 100/60; PULSE 67; RESP 16; TEMP 97.2; O2SAT 98
[2016-10-31 08:13] LABS: ANION GAP 8 MEQ/L (5-15); AST (GOT) 36 U/L (15-37); BICARBONATE 26.9 MEQ/L (21.0-32.0); BLOOD UREA NITROGEN 9 MG/DL (7-18); CHLORIDE 104 MEQ/L (98-107); GLOMERULAR FILTRATION RATE 108 ML/MIN (>89); POTASSIUM 4.1 MEQ/L (3.5-5.1); SODIUM (NA) 139 MEQ/L (136-145)
[2016-10-31 08:19] LABS: ALKALINE PHOSPHATASE 92 U/L (45-117); ALT (GPT) 35 U/L (12-78); TOTAL BILIRUBIN ADULT 0.6 MG/DL (0.2-1.0)
[2016-10-31] MEDS: FOLIC ACID 1 MG TAB PO SCH (09:32)
[2016-10-31] MEDS: MULTIVITAMINS/MINERALS THERAPEUTIC TAB PO SCH (09:32)
[2016-10-31] MEDS: SODIUM CHLORIDE 0.9% FLUSH 10 ML FLUSH IV FLUSH SCH ×2 (09:33→20:42)
[2016-10-31] MEDS: PANTOPRAZOLE SOD 40 MG DELAYED RELEASE TAB PO SCH (09:33)
[2016-10-31] MEDS: THIAMINE HCL 100 MG TAB PO SCH (09:33)
--- NOTE | 2016-10-31 10:03 | HHI.PR ---
Subjective Remarks The pt said that the vancomycin continues to make him nauseous. Otherwise he had questions about the procedure later today. He says his blurry vision comes and goes. Objective Vitals Vital Signs Date Time Temp Pulse Resp B/P Pulse Ox O2 Delivery O2 Flow Rate FiO2 10/31/16 08:00 97.2 67 16 100/60 98 10/31/16 00:00 98.0 76 17 114/64 98 10/30/16 20:00 96.0 74 17 112/70 100 10/30/16 19:00 97 10/30/16 17:24 97 21 10/30/16 17:05 70 18 87/49 97 Room Air 10/30/16 15:50 18 10/30/16 15:37 98.0 78 20 112/68 97 Room Air I/O 10/30/16 10/30/16 10/30/16 10/31/16 10/31/16 10/31/16 07:00 15:00 23:00 07:00 15:00 23:00 Intake Total 240 ml 240 ml Output Total 800 ml Balance 240 ml -560 ml Intake Oral 240 ml 240 ml Output Urine Total 800 ml # Voids 1 Result Diagram: 10/31/16 0620 10/31/16 0620 Objective Remarks GENERAL: This is a well-nourished, well-developed patient, vomiting. SKIN: No rashes, ecchymoses or lesions. Cool and dry. HEAD: Atraumatic. Normocephalic. No temporal or scalp tenderness. EYES: Pupils equal round and reactive. Extraocular motions intact. No scleral icterus. No injection or drainage. ENT: Nose without bleeding, purulent drainage or septal hematoma. Throat without erythema, tonsillar hypertrophy or exudate. Uvula midline. Airway patent. NECK: Trachea midline. No JVD or lymphadenopathy. Supple, nontender, no meningeal signs. CARDIOVASCULAR: Regular rate and rhythm without murmurs, gallops, or rubs. RESPIRATORY: Clear to auscultation. Breath sounds equal bilaterally. No wheezes , rales, or rhonchi. GASTROINTESTINAL: Abdomen soft, non-tender, nondistended. No hepato-splenomegaly , or palpable masses. No guarding. MUSCULOSKELETAL: Extremities with clubbing. Right hand and index with dressing, CDI. No calf tenderness. Negative Homans sign bilaterally. NEUROLOGICAL: Awake and alert. Cranial nerves II through XII intact. Motor and sensory grossly within normal limits. Five out of 5 muscle strength in all muscle groups. Normal speech. Medications and IVs Current Medications Medications (Trade) Dose Ordered Sig/Shan Route Start Time Stop Time Status Last Admin (NS 1000 ml Inj) 1,000 ml @ 125 mls/hr Q8H IV 10/30/16 16:15 10/31/16 00:23 (NS Flush) 2 ml UNSCH PRN IV FLUSH 10/30/16 17:00 (NS Flush) 2 ml BID IV FLUSH 10/30/16 21:00 10/31/16 09:33 (Tylenol) 650 mg Q4H PRN PO 10/30/16 17:00 (Zofran Inj) 4 mg Q6H PRN IVP 10/30/16 17:00 (Colace) 100 mg Q12H PO 10/30/16 21:00 10/31/16 09:33 (Milk Of Magnesia Liq) 30 ml Q12H PRN PO 10/30/16 17:00 (Narcan Inj) 0.4 mg UNSCH PRN IV 10/30/16 17:00 (Humphrey 10-325 Mg) 1 tab Q4H PRN PO 10/30/16 17:15 10/31/16 09:32 Hydromorphone HCl 1 mg 1 mg Q3H PRN IV 10/30/16 17:15 (Vancomycin Consult Pharmacy) 0 ml @ 0 mls/hr UNSCH OTHER 10/30/16 17:15 (Protonix) 40 mg DAILY PO 10/30/16 17:30 10/31/16 09:33 (Folate) 1 mg DAILY PO 10/30/16 17:30 11/04/16 17:29 10/31/16 09:32 (Vitamin B1) 100 mg DAILY PO 10/30/16 17:30 10/31/16 09:33 (Theragran M Tab) 1 tab DAILY PO 10/30/16 17:30 11/04/16 17:29 10/31/16 09:32 (Catapres) 0.1 mg Q6H PRN PO 10/30/16 17:30 (Romazicon Inj) 0.2 mg Q1M PRN IV PUSH 10/30/16 17:30 (Ativan) 1 mg Q4H PRN PO 10/30/16 17:30 (Ativan) 2 mg Q2H PRN PO 10/30/16 17:30 (Ativan Inj) 2 mg Q1H PRN IV PUSH 10/30/16 17:30 (Ativan Inj) 2 mg Q15M PRN IV PUSH 10/30/16 17:30 Acetaminophen/ Hydrocodone Bitart 1 tab 1 tab Q6H PRN PO 10/30/16 18:15 (Vancomycin Inj/ NS 250 ml Inj) 262.5 ml @ 250 mls/hr Q12H IV 10/31/16 03:00 10/31/16 03:41 Miscellaneous Information SPECIFIC LAB TO BE DRAWN:VANCO TROUGH DATE TO BE DRAyan.. ONCE ONCE .XX 11/01/16 14:45 11/01/16 14:46 Current Medications Medications (Trade) Dose Ordered Sig/Shan Route Start Time Stop Time Status Last Admin (NS 1000 ml Inj) 1,000 ml @ 125 mls/hr Q8H IV 10/30/16 16:15 10/31/16 00:23 (NS Flush) 2 ml UNSCH PRN IV FLUSH 10/30/16 17:00 (NS Flush) 2 ml BID IV FLUSH 10/30/16 21:00 10/31/16 09:33 (Tylenol) 650 mg Q4H PRN PO 10/30/16 17:00 (Zofran Inj) 4 mg Q6H PRN IVP 10/30/16 17:00 (Colace) 100 mg Q12H PO 10/30/16 21:00 10/31/16 09:33 (Milk Of Magnesia Liq) 30 ml Q12H PRN PO 10/30/16 17:00 (Narcan Inj) 0.4 mg UNSCH PRN IV 10/30/16 17:00 (Humphrey 10-325 Mg) 1 tab Q4H PRN PO 10/30/16 17:15 10/31/16 09:32 Hydromorphone HCl 1 mg 1 mg Q3H PRN IV 10/30/16 17:15 (Vancomycin Consult Pharmacy) 0 ml @ 0 mls/hr UNSCH OTHER 10/30/16 17:15 (Protonix) 40 mg DAILY PO 10/30/16 17:30 10/31/16 09:33 (Folate) 1 mg DAILY PO 10/30/16 17:30 11/04/16 17:29 10/31/16 09:32 (Vitamin B1) 100 mg DAILY PO 10/30/16 17:30 10/31/16 09:33 (Theragran M Tab) 1 tab DAILY PO 10/30/16 17:30 11/04/16 17:29 10/31/16 09:32 (Catapres) 0.1 mg Q6H PRN PO 10/30/16 17:30 (Romazicon Inj) 0.2 mg Q1M PRN IV PUSH 10/30/16 17:30 (Ativan) 1 mg Q4H PRN PO 10/30/16 17:30 (Ativan) 2 mg Q2H PRN PO 10/30/16 17:30 (Ativan Inj) 2 mg Q1H PRN IV PUSH 10/30/16 17:30 (Ativan Inj) 2 mg Q15M PRN IV PUSH 10/30/16 17:30 Acetaminophen/ Hydrocodone Bitart 1 tab 1 tab Q6H PRN PO 10/30/16 18:15 (Vancomycin Inj/ NS 250 ml Inj) 262.5 ml @ 250 mls/hr Q12H IV 10/31/16 03:00 10/31/16 03:41 Miscellaneous Information SPECIFIC LAB TO BE DRAWN:VANCO TROUGH DATE TO BE DRAyan.. ONCE ONCE .XX 11/01/16 14:45 11/01/16 14:46 A/P Assessment and Plan Mr. Saldivar is a 46-year-old male who presented today with recurrent right index finger pain and infection. He initially lacerated his hand on a brigitte paint can, subsequently infected with MRSA, being admitted for septic arthritis on 10/16, underwent three I & D's of right index finger and discharged with PICC line, HHC and Vancomycin IV scheduled until 11/03. Septic arthritis Recurrent secondary to noncompliance. Hand surgery consult appreciated. Reviewed previous cultures, which grew Strep A, Staph aureus, and MRSA sensitive to vancomycin. - Resume IV vancomycin with pharmacy to assist with dosing. Discuss with ID about changing it as the pt endorses nausea with every dose. - Blood cultures drawn and pending. - Pain control with Humphrey and Dilaudid per pain scale. - antiemetics as needed. - debridement and wound vac 10/31 per hand surgery. Chronic alcohol abuse Does not appear to be withdrawing. - CIWA protocol. - Seizure precautions. - Folate, thiamine and multivitamin ordered. - Consult CM ETOH alcohol abuse. - Cessation instruction provided. Hypotension Possibly secondary to infection vs N/V. - IV fluids as needed. Nausea and vomiting Pt seems to think it's s/t vancomycin. LFT's and Lipase unremarkable. - Zofran as needed. - Protonix 40 mg PO daily. - KUB. - discuss with ID about changing vancomycin. DVT prophylaxis: SCDs. Discharge Planning Awaiting clinical improvement. Juliocesar Garay DO Oct 31, 2016 10:03
[2016-10-31] MEDS ORDERED: METOCLOPRAMIDE HCL 10 MG/2 ML VIAL IV PUSH ONE (10:15)
[2016-10-31] MEDS: DEXT 5%-NACL 0.9% 1000 ML INJ 1,000 ML IV SCH ×2 (11:09→20:42)
--- NOTE | 2016-10-31 11:31 | RADRPT ---
EXAM DATE/TIME: 10/31/2016 10:37 [facility] COMPARISON: CHEST SINGLE AP, March 17, 2016, 12:54. CT ABDOMEN & PELVIS W CONTRAST, March 17, 2016, 14:02. INDICATIONS : Vomiting. MEDICAL HISTORY : Severe diffuse soft tissue swelling of the index finger. SURGICAL HISTORY : None. ENCOUNTER: Subsequent ACUITY: 1 week PAIN SCORE: 0/10 LOCATION: Abdomen. FINDINGS: Supine view of the abdomen was performed. The abdominal bowel gas pattern is normal. No abnormal ma sses, calcifications, or organomegaly is seen. Costochondral calcification is identified on the righ t. The osseous structures are otherwise unremarkable. CONCLUSION: No acute disease. Arthur Molina MD on October 31, 2016 at 11:20 Board Certified Radiologist. This report was verified electronically.
[2016-10-31 12:00] VITALS: BP 109/68; PULSE 63; RESP 17; TEMP 96.9; O2SAT 99
[2016-10-31] MEDS ORDERED: PROPOFOL 200 MG/20 ML AMP IV ONE (13:37)
[2016-10-31] MEDS ORDERED: LACTATED RINGER'S 1000 ML INJ 1,000 ML IV ONE (13:37)
[2016-10-31] MEDS ORDERED: ONDANSETRON HCL 4 MG/2 ML VIAL IV PUSH ONE (13:37)
[2016-10-31] MEDS ORDERED: DEXAMETHASONE SOD PHOS 4 MG/ML VIAL ONE (14:52)
[2016-10-31] MEDS ORDERED: MIDAZOLAM HCL 2 MG/2 ML VIAL ONE (14:52)
[2016-10-31] MEDS ORDERED: LIDOCAINE HCL 2% 50 ML VIAL ONE (15:13)
[2016-10-31] MEDS ORDERED: VANCOMYCIN HCL 1000 MG VIAL ONE (15:20)
[2016-10-31] MEDS ORDERED: FAMOTIDINE 20 MG/2 ML VIAL ONE (15:25)
[2016-10-31] MEDS ORDERED: DO NOT ADM ANY ANTICOAGULANT DRUGS PRN (16:54)
[2016-10-31] MEDS ORDERED: fentaNYL CITRATE 250 MCG/5 ML AMP ONE (17:08)
[2016-10-31 17:40] VITALS: BP 112/55; PULSE 59; RESP 17; TEMP 96.6; O2SAT 98
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
[2016-10-31 20:00] VITALS: BP 103/50; PULSE 70; RESP 20; TEMP 98.1; O2SAT 97
[2016-11-01] VITALS (7 sets, daily range): BP systolic 104–114; BP diastolic 53–62; PULSE 63–84; RESP 17–21; TEMP 98–98.6; O2SAT 96–100
[2016-11-01] MEDS: ACETAMINOPHEN/HYDROcodone 325 MG/5 MG TAB PO PRN (01:01)
[2016-11-01] MEDS: VANCOMYCIN INJ 1,250 MG in SODIUM CHLOR 0.9% 250 ML INJ 250 ML IV SCH ×2 (02:52→14:52)
[2016-11-01] MEDS: DOCUSATE SODIUM 100 MG CAP PO SCH ×2 (07:43→20:39)
[2016-11-01] MEDS: SODIUM CHLORIDE 0.9% FLUSH 10 ML FLUSH IV FLUSH SCH ×2 (07:43→21:00)
[2016-11-01] MEDS: PANTOPRAZOLE SOD 40 MG DELAYED RELEASE TAB PO SCH (07:43)
[2016-11-01] MEDS: THIAMINE HCL 100 MG TAB PO SCH (07:43)
[2016-11-01] MEDS: FOLIC ACID 1 MG TAB PO SCH (07:43)
[2016-11-01] MEDS: ACETAMINOPHEN/HYDROcodone 325 MG/10 MG TAB PO PRN ×4 (07:43→20:40)
[2016-11-01] MEDS: MULTIVITAMINS/MINERALS THERAPEUTIC TAB PO SCH (07:43)
--- NOTE | 2016-11-01 12:23 | HHI.PR ---
Subjective Remarks The patient was eating lunch. He said that his pain was relatively controlled on the pain pills. He was wondering if he would need further surgery. He had no acute complaints at this time. No further nausea or vomiting. Objective Vitals Vital Signs Date Time Temp Pulse Resp B/P Pulse Ox O2 Delivery O2 Flow Rate FiO2 11/01/16 11:51 98.4 65 17 104/54 99 11/01/16 08:43 17 11/01/16 08:19 98.1 63 17 107/57 97 11/01/16 04:00 98.1 63 21 110/53 96 11/01/16 00:02 98.0 66 19 114/55 96 10/31/16 20:00 98.1 70 20 103/50 97 10/31/16 18:29 3.00 10/31/16 17:40 96.6 59 17 112/55 98 10/31/16 17:30 66 16 124/73 94 Room Air 10/31/16 17:15 68 16 123/77 96 Room Air 10/31/16 17:00 73 16 133/77 94 Room Air 10/31/16 16:59 97.4 94 16 128/82 98 Room Air I/O 10/31/16 10/31/16 10/31/16 11/01/16 11/01/16 11/01/16 07:00 15:00 23:00 07:00 15:00 23:00 Intake Total 240 ml 2703 ml 1971 ml 1168 ml 120 ml Output Total 800 ml 975 ml 1510 ml 2500 ml Balance -560 ml 1728 ml 461 ml -1332 ml 120 ml Intake Oral 240 ml 0 ml 460 ml 120 ml 120 ml IV Total 2703 ml 511 ml 1048 ml Other 1000 ml Output Urine Total 800 ml 975 ml 1500 ml 2500 ml Estimated Blood Loss 10 ml Other 0 ml # Voids 1 # Bowel Movements 0 0 0 Result Diagram: 10/31/16 0620 10/31/16 0620 Imaging Last Impressions Abdomen X-Ray 10/31/16 0000 Signed Impressions: Service Date/Time: Monday, October 31, 2016 10:37 - CONCLUSION: No acute disease. Arthur Molina MD Objective Remarks GENERAL: This is a well-nourished, well-developed patient in [facility]. SKIN: No rashes, ecchymoses or lesions. Cool and dry. HEAD: Atraumatic. Normocephalic. No temporal or scalp tenderness. EYES: Pupils equal round and reactive. Extraocular motions intact. No scleral icterus. No injection or drainage. ENT: Nose without bleeding, purulent drainage or septal hematoma. Throat without erythema, tonsillar hypertrophy or exudate. Uvula midline. Airway patent. NECK: Trachea midline. No JVD or lymphadenopathy. Supple, nontender, no meningeal signs. CARDIOVASCULAR: Regular rate and rhythm without murmurs, gallops, or rubs. RESPIRATORY: Clear to auscultation. Breath sounds equal bilaterally. No wheezes , rales, or rhonchi. GASTROINTESTINAL: Abdomen soft, non-tender, nondistended. No hepato-splenomegaly , or palpable masses. No guarding. MUSCULOSKELETAL: Extremities with clubbing. Right hand and index with dressing, wound vac in place. NEUROLOGICAL: Awake and alert. Cranial nerves II through XII intact. Motor and sensory grossly within normal limits. Five out of 5 muscle strength in all muscle groups. Normal speech. PSYCH: Mood and affect appropriate. Procedures Right hand debridement/ wound vac placement 10/31. Medications and IVs Current Medications Medications (Trade) Dose Ordered Sig/Shan Route Start Time Stop Time Status Last Admin (NS Flush) 2 ml UNSCH PRN IV FLUSH 10/30/16 17:00 (NS Flush) 2 ml BID IV FLUSH 10/30/16 21:00 10/31/16 09:33 (Tylenol) 650 mg Q4H PRN PO 10/30/16 17:00 (Zofran Inj) 4 mg Q6H PRN IVP 10/30/16 17:00 (Colace) 100 mg Q12H PO 10/30/16 21:00 11/01/16 07:43 (Milk Of Magnesia Liq) 30 ml Q12H PRN PO 10/30/16 17:00 (Narcan Inj) 0.4 mg UNSCH PRN IV 10/30/16 17:00 ([place] 10-325 Mg) 1 tab Q4H PRN PO 10/30/16 17:15 11/01/16 11:52 Hydromorphone HCl 1 mg 1 mg Q3H PRN IV 10/30/16 17:15 (Vancomycin Consult Pharmacy) 0 ml @ 0 mls/hr UNSCH OTHER 10/30/16 17:15 (Protonix) 40 mg DAILY PO 10/30/16 17:30 11/01/16 07:43 (Folate) 1 mg DAILY PO 10/30/16 17:30 11/04/16 17:29 11/01/16 07:43 (Vitamin B1) 100 mg DAILY PO 10/30/16 17:30 11/01/16 07:43 (Theragran M Tab) 1 tab DAILY PO 10/30/16 17:30 11/04/16 17:29 11/01/16 07:43 (Catapres) 0.1 mg Q6H PRN PO 10/30/16 17:30 (Romazicon Inj) 0.2 mg Q1M PRN IV PUSH 10/30/16 17:30 (Ativan) 1 mg Q4H PRN PO 10/30/16 17:30 (Ativan) 2 mg Q2H PRN PO 10/30/16 17:30 (Ativan Inj) 2 mg Q1H PRN IV PUSH 10/30/16 17:30 (Ativan Inj) 2 mg Q15M PRN IV PUSH 10/30/16 17:30 Acetaminophen/ Hydrocodone Bitart 1 tab 1 tab Q6H PRN PO 10/30/16 18:15 11/01/16 01:01 (Vancomycin Inj/ NS 250 ml Inj) 262.5 ml @ 250 mls/hr Q12H IV 10/31/16 03:00 11/01/16 02:52 Miscellaneous Information SPECIFIC LAB TO BE DRAWN:VANCO TROUGH DATE TO BE DRAyan.. ONCE ONCE .XX 11/01/16 14:45 11/01/16 14:46 Miscellaneous Information ALL NURSING DEPARTME... UNSCH PRN .XX 10/31/16 16:54 11/01/16 16:53 A/P Assessment and Plan Mr. Saldivar is a 46-year-old male who presented today with recurrent right index finger pain and infection. He initially lacerated his hand on a brigitte paint can, subsequently infected with MRSA, being admitted for septic arthritis on 10/16, underwent three I & D's of right index finger and discharged with PICC line, HHC and Vancomycin IV scheduled until 11/03. Septic arthritis Recurrent secondary to noncompliance. Hand surgery consult appreciated. Reviewed previous cultures, which grew Strep A, Staph aureus, and MRSA sensitive to vancomycin. Debridement and wound vac 10/31 per hand surgery. - Resume IV vancomycin with pharmacy to assist with dosing. - Blood cultures drawn and NGTD. - Pain control with [place] and Dilaudid per pain scale. - antiemetics as needed. - wound care per hand surgery. Chronic alcohol abuse Does not appear to be withdrawing. - CIWA protocol. - Seizure precautions. - Folate, thiamine and multivitamin ordered. - Consult CM ETOH alcohol abuse. - Cessation instruction provided. Nausea and vomiting Pt seems to think it's s/t vancomycin. KUB, LFT's and Lipase unremarkable. Seems to be resolved. - Zofran as needed. - Protonix 40 mg PO daily. - ADAT. DVT prophylaxis: SCDs. Discharge Planning Awaiting clinical improvement. Juliocesar Garay DO Nov 01, 2016 12:23
--- NOTE | 2016-11-01 13:02 | MP ---
cc: BROOKLYNN QUIJANO MD DATE OF SURGERY October 31, 2016 PREOPERATIVE DIAGNOSIS Septic arthritis proximal interphalangeal joint right index finger. POSTOPERATIVE DIAGNOSIS Septic arthritis proximal interphalangeal joint right index finger. PROCEDURE Excisional debridement and wound VAC application right index finger. SURGEON Dr. Quijano ANESTHESIA General. ESTIMATED BLOOD LOSS Minimal. TOURNIQUET TIME 17 minutes at 250 mmHg2. DISPOSITION To PACU stable. SPECIMEN Sent for pathology. INDICATIONS FOR PROCEDURE The patient is a 46-year-old male diagnosed with septic arthritis involving the right index finger PIP joint. The patient underwent multiple debridements and was discharged home on a PICC line. The patient was not compliant with the PICC line and the dressing. He was readmitted to the hospital for open wound over the dorsal aspect of the PIP joint. The patient also had apparently taken off the sutures and was not having any dressings and the wound care nurse phoned in and he was brought into the hospital for IV antibiotics and possible repeat debridement. On examination he had flexion deformity of the PIP joint with a scab and exposed PIP joint. The length of the open wound was about 3-4 mm in width at the PIP joint of about 0.5 cm. He had surrounding swelling and erythema. He was consented for excisional debridement of wound, possible wound VAC application proximal interphalangeal joint right index finger. The risks and benefits of the procedure was explained to the patient. OPERATIVE PROCEDURE The patient was brought to the operating room and under general anesthesia the right upper extremity was thoroughly prepped and draped. After limb elevation for 2 minutes, the tourniquet was inflated to 250 mmHg. The scab was excised from the region. On excising the scab there was evidence of exposed PIP joint. The extensor mechanism over the dorsal aspect of the PIP joint was scabbed and devitalized. An excisional debridement of the necrotic extensor tendon was carried out. This resulted in complete exposure of the PIP joint on the dorsal aspect with no extensor mechanism. Skin flaps were elevated, the skin edges were trimmed and using curette granulation tissue was cleared over the dorsal surface of the PIP joint and the remaining extensor mechanism. Thorough wash was given using normal saline mixed with vancomycin. There was softening of the bone over the base of the middle phalanx which was rongeured and specimen was sent for pathology to rule out osteomyelitis. The tourniquet was deflated at 17 minutes. He had good distal circulation of his tourniquet. Bleeding points were cauterized with bipolar cautery. The patient was made to proceed with wound VAC application. We will bring the patient in in two days' time. Wound VAC was applied and over the index finger and was set to a pressure of 125 mm intermittent, 3 minutes on and 1 minute off. The patient had good distal circulation at the end of the procedure. This was held in place by Sof-Rol and Arturo wrap. PLAN The plan will be to continue with IV vancomycin based on Infectious Disease recommendation. We will bring the patient back in 2 days' time for repeat debridement, would VAC application, possible closure. Brooklynn Quijano MD SE/SSB /5:04 PM /12:47 PM KHOA
[2016-11-01] MEDS ORDERED: PHARMACY ORDERED LAB ONE (14:45)
--- NOTE | 2016-11-01 17:06 | HHI.PR ---
Subjective Remarks complains of mild pain complaint with limb elevation wound vac on Objective Vital Signs Date Time Temp Pulse Resp B/P Pulse Ox O2 Delivery O2 Flow Rate FiO2 11/01/16 12:52 19 11/01/16 11:51 98.4 65 17 104/54 99 11/01/16 09:07 98 21 11/01/16 08:19 98.1 63 17 107/57 97 11/01/16 04:00 98.1 63 21 110/53 96 11/01/16 00:02 98.0 66 19 114/55 96 10/31/16 20:00 98.1 70 20 103/50 97 10/31/16 18:29 3.00 10/31/16 17:40 96.6 59 17 112/55 98 10/31/16 17:30 66 16 124/73 94 Room Air 10/31/16 17:15 68 16 123/77 96 Room Air I/O 10/31/16 10/31/16 10/31/16 11/01/16 11/01/16 11/01/16 07:00 15:00 23:00 07:00 15:00 23:00 Intake Total 240 ml 2703 ml 1971 ml 1168 ml 1663 ml Output Total 800 ml 975 ml 1510 ml 2500 ml 1200 ml Balance -560 ml 1728 ml 461 ml -1332 ml 463 ml Intake Oral 240 ml 0 ml 460 ml 120 ml 1080 ml IV Total 2703 ml 511 ml 1048 ml 583 ml Other 1000 ml Output Urine Total 800 ml 975 ml 1500 ml 2500 ml 1200 ml Drainage Total 0 ml Estimated Blood Loss 10 ml Other 0 ml # Voids 1 # Bowel Movements 0 0 0 0 right index finger: wound vac in place. intact distal circulation decreased sensation over the dorsal aspect. path: pending Result Diagram: 10/31/16 0620 10/31/16 0620 Assessment and Plan Assessment and Plan 46 year old male with septic boutonniere deformity right index finger s/p debridement and wound vac placement Plan: for repeat surgery tomorrow 11/02, debridement, possible closure, possible wound vac application keep the patient npo from midnight limb elevation continue with wound vac. Josh Shi MD Nov 01, 2016 17:06
[2016-11-02] VITALS: BP 109/60; PULSE 78; RESP 20; TEMP 97.6; O2SAT 97
[2016-11-02] MEDS: ACETAMINOPHEN/HYDROcodone 325 MG/10 MG TAB PO PRN ×5 (00:58→22:31)
[2016-11-02] MEDS: VANCOMYCIN 1,500 MG/NS 500 ML IV SCH ×6 (02:39→15:00)
[2016-11-02 04:00] VITALS: BP 114/64; PULSE 84; RESP 18; TEMP 98; O2SAT 99
[2016-11-02] MEDS: THIAMINE HCL 100 MG TAB PO SCH (07:35)
[2016-11-02] MEDS: DOCUSATE SODIUM 100 MG CAP PO SCH ×2 (07:35→20:29)
[2016-11-02] MEDS: MULTIVITAMINS/MINERALS THERAPEUTIC TAB PO SCH (07:35)
[2016-11-02] MEDS: FOLIC ACID 1 MG TAB PO SCH (07:35)
[2016-11-02] MEDS: PANTOPRAZOLE SOD 40 MG DELAYED RELEASE TAB PO SCH (07:35)
[2016-11-02] MEDS: SODIUM CHLORIDE 0.9% FLUSH 10 ML FLUSH IV FLUSH SCH ×2 (07:36→20:29)
[2016-11-02 08:00] VITALS: BP 102/62; PULSE 63; RESP 18; TEMP 97.9; O2SAT 99
--- NOTE | 2016-11-02 11:43 | HHI.PR ---
Subjective Remarks The patient was complaining of pain in his hand. He said he worked with occupational therapist. He said he has still not had a bowel movement. He was waiting for pain medication. No other acute complaints. Discussed with nursing. Objective Vitals Vital Signs Date Time Temp Pulse Resp B/P Pulse Ox O2 Delivery O2 Flow Rate FiO2 11/02/16 08:36 19 11/02/16 08:00 97.9 63 18 102/62 99 11/02/16 04:00 98.0 84 18 114/64 99 11/02/16 00:00 97.6 78 20 109/60 97 11/01/16 20:00 98.2 73 20 111/62 100 11/01/16 17:18 98.6 84 19 109/62 100 11/01/16 11:51 98.4 65 17 104/54 99 I/O 11/01/16 11/01/16 11/01/16 11/02/16 11/02/16 11/02/16 07:00 15:00 23:00 07:00 15:00 23:00 Intake Total 1168 ml 1663 ml 480 ml 500 ml 0 ml Output Total 2500 ml 1200 ml 400 ml 400 ml Balance -1332 ml 463 ml 80 ml 100 ml 0 ml Intake Oral 120 ml 1080 ml 480 ml 0 ml 0 ml IV Total 1048 ml 583 ml 0 ml 500 ml Output Urine Total 2500 ml 1200 ml 400 ml 400 ml Drainage Total 0 ml 0 ml 0 ml # Bowel Movements 0 0 0 0 Result Diagram: 10/31/16 0620 11/02/16 0425 Imaging Last Impressions Abdomen X-Ray 10/31/16 0000 Signed Impressions: Service Date/Time: Monday, October 31, 2016 10:37 - CONCLUSION: No acute disease. Arthur Molina MD Objective Remarks GENERAL: This is a well-nourished, well-developed patient in [facility]. SKIN: No rashes, ecchymoses or lesions. Cool and dry. HEAD: Atraumatic. Normocephalic. No temporal or scalp tenderness. EYES: Pupils equal round and reactive. Extraocular motions intact. No scleral icterus. No injection or drainage. ENT: Nose without bleeding, purulent drainage or septal hematoma. Throat without erythema, tonsillar hypertrophy or exudate. Uvula midline. Airway patent. NECK: Trachea midline. No JVD or lymphadenopathy. Supple, nontender, no meningeal signs. CARDIOVASCULAR: Regular rate and rhythm without murmurs, gallops, or rubs. RESPIRATORY: Clear to auscultation. Breath sounds equal bilaterally. No wheezes , rales, or rhonchi. GASTROINTESTINAL: Abdomen soft, non-tender, nondistended. No hepato-splenomegaly , or palpable masses. No guarding. MUSCULOSKELETAL: Extremities with clubbing. Right hand and index with dressing, wound vac in place. NEUROLOGICAL: Awake and alert. Cranial nerves II through XII intact. Motor and sensory grossly within normal limits. Five out of 5 muscle strength in all muscle groups. Normal speech. PSYCH: Mood and affect appropriate. Procedures Right hand debridement/ wound vac placement 10/31. Medications and IVs Current Medications Medications (Trade) Dose Ordered Sig/Shan Route Start Time Stop Time Status Last Admin (NS Flush) 2 ml UNSCH PRN IV FLUSH 10/30/16 17:00 (NS Flush) 2 ml BID IV FLUSH 10/30/16 21:00 11/01/16 21:00 (Tylenol) 650 mg Q4H PRN PO 10/30/16 17:00 (Zofran Inj) 4 mg Q6H PRN IVP 10/30/16 17:00 (Colace) 100 mg Q12H PO 10/30/16 21:00 11/02/16 07:35 (Milk Of Magnkathrine Liq) 30 ml Q12H PRN PO 10/30/16 17:00 (Narcan Inj) 0.4 mg UNSCH PRN IV 10/30/16 17:00 ([place] 10-325 Mg) 1 tab Q4H PRN PO 10/30/16 17:15 11/02/16 07:36 Hydromorphone HCl 1 mg 1 mg Q3H PRN IV 10/30/16 17:15 (Vancomycin Consult Pharmacy) 0 ml @ 0 mls/hr UNSCH OTHER 10/30/16 17:15 (Protonix) 40 mg DAILY PO 10/30/16 17:30 11/02/16 07:35 (Folate) 1 mg DAILY PO 10/30/16 17:30 11/04/16 17:29 11/02/16 07:35 (Vitamin B1) 100 mg DAILY PO 10/30/16 17:30 11/02/16 07:35 (Theragran M Tab) 1 tab DAILY PO 10/30/16 17:30 11/04/16 17:29 11/02/16 07:35 (Catapres) 0.1 mg Q6H PRN PO 10/30/16 17:30 (Romazicon Inj) 0.2 mg Q1M PRN IV PUSH 10/30/16 17:30 (Ativan) 1 mg Q4H PRN PO 10/30/16 17:30 (Ativan) 2 mg Q2H PRN PO 10/30/16 17:30 (Ativan Inj) 2 mg Q1H PRN IV PUSH 10/30/16 17:30 (Ativan Inj) 2 mg Q15M PRN IV PUSH 10/30/16 17:30 Acetaminophen/ Hydrocodone Bitart 1 tab 1 tab Q6H PRN PO 10/30/16 18:15 11/01/16 01:01 (Vancomycin Inj/ NS 500 ml Inj) 515 ml @ 257.5 mls/ hr Q12H IV 11/02/16 03:00 11/02/16 02:39 Miscellaneous Information SPECIFIC LAB TO BE DRAWN:VANCOMYCIN TROUGH DATE TO... ONCE ONCE .XX 11/04/16 02:45 11/04/16 02:46 A/P Assessment and Plan Mr. Saldivar is a 46-year-old male who presented today with recurrent right index finger pain and infection. He initially lacerated his hand on a brigitte paint can, subsequently infected with MRSA, being admitted for septic arthritis on 10/16, underwent three I & D's of right index finger and discharged with PICC line, HHC and Vancomycin IV scheduled until 11/03. Septic arthritis Recurrent secondary to noncompliance. Hand surgery consult appreciated. Reviewed previous cultures, which grew Strep A, Staph aureus, and MRSA sensitive to vancomycin. Debridement and wound vac 10/31 per hand surgery. - Resumed IV vancomycin with pharmacy to assist with dosing. - Blood cultures drawn and NGTD. - Pain control with [place] and Dilaudid per pain scale. - antiemetics as needed. - wound care per hand surgery. Further surgery scheduled 11/02. Chronic alcohol abuse Does not appear to be withdrawing. - CIWA protocol. - Seizure precautions. - Folate, thiamine and multivitamin ordered. - Consult CM ETOH alcohol abuse. - Cessation instruction provided. Nausea and vomiting Pt seems to think it's s/t vancomycin. KUB, LFT's and Lipase unremarkable. Seems to be resolved. - Zofran as needed. - Protonix 40 mg PO daily. - ADAT. DVT prophylaxis: SCDs. Discharge Planning Awaiting hand surgery clearance. Juliocesar Garay DO Nov 02, 2016 11:43
[2016-11-02] MEDS: SENNOSIDES 8.6 MG TAB PO SCH (11:45)
[2016-11-02] MEDS: POLYETHYLENE GLYCOL 17 GM PKG PO SCH (11:45)
[2016-11-02 12:00] VITALS: BP 102/63; PULSE 60; RESP 17; TEMP 97.8; O2SAT 98
[2016-11-02] MEDS ORDERED: MIDAZOLAM HCL 2 MG/2 ML VIAL ONE (13:20)
[2016-11-02] MEDS ORDERED: VANCOMYCIN HCL 1000 MG VIAL ONE (14:00)
[2016-11-02] MEDS ORDERED: SODIUM CHLORIDE 0.9% 20 ML VIAL ONE (14:04)
[2016-11-02] MEDS ORDERED: BACITRACIN TOP OINT 15 GM TUBE ONE (14:27)
--- NOTE | 2016-11-02 14:51 | PD.OP ---
Operative Report Preoperative Diagnosis: (1) Septic arthritis of interphalangeal joint of finger of right hand Postoperative Diagnosis: (1) Septic arthritis of interphalangeal joint of finger of right hand Procedure: exploration, wash, excisional debridement and partial closure right index PIP joint region Anesthesia: general Surgeon: Josh Shi Child Life Therapist(s): alonso Operation and Findings: septic boutonniere PIP joint right index finger devitalized extensor mechanism no purulence noted Josh Shi MD Nov 02, 2016 14:51
[2016-11-02] MEDS ORDERED: PROPOFOL 200 MG/20 ML AMP IV ONE (15:06)
[2016-11-02] MEDS ORDERED: *morphine SULFATE 8 MG/ML PERIprocedure ONLY ONE (15:07)
[2016-11-02] MEDS ORDERED: DO NOT ADM ANY ANTICOAGULANT DRUGS PRN (15:30)
[2016-11-02 16:00] VITALS: BP 114/69; PULSE 64; RESP 18; TEMP 97.3; O2SAT 100
[2016-11-02] MEDS: HYDROmorphone HCL PF 1 MG/ML VIAL IV PRN (18:39)
[2016-11-02 20:26] VITALS: BP 110/59; PULSE 80; RESP 16; TEMP 97.7; O2SAT 98
[2016-11-03 00:02] VITALS: BP 99/61; PULSE 69; RESP 16; TEMP 98.8; O2SAT 98
[2016-11-03] MEDS ORDERED: PHARMACY ORDERED LAB ONE (02:45)
[2016-11-03] MEDS: ACETAMINOPHEN/HYDROcodone 325 MG/10 MG TAB PO PRN ×4 (03:00→22:07)
[2016-11-03] MEDS: VANCOMYCIN 1,500 MG/NS 500 ML IV SCH ×2 (03:18)
[2016-11-03] MEDS: HYDROmorphone HCL PF 1 MG/ML VIAL IV PRN (05:00)
[2016-11-03 08:00] VITALS: BP 104/63; PULSE 66; RESP 21; TEMP 97.1; O2SAT 100
[2016-11-03 09:35] VITALS: O2SAT 96
[2016-11-03] MEDS: POLYETHYLENE GLYCOL 17 GM PKG PO SCH (10:12)
[2016-11-03] MEDS: PANTOPRAZOLE SOD 40 MG DELAYED RELEASE TAB PO SCH (10:12)
[2016-11-03] MEDS: SENNOSIDES 8.6 MG TAB PO SCH (10:12)
[2016-11-03] MEDS: THIAMINE HCL 100 MG TAB PO SCH (10:12)
[2016-11-03] MEDS: DOCUSATE SODIUM 100 MG CAP PO SCH ×2 (10:13→21:00)
[2016-11-03] MEDS: FOLIC ACID 1 MG TAB PO SCH (10:13)
[2016-11-03] MEDS: MULTIVITAMINS/MINERALS THERAPEUTIC TAB PO SCH (10:13)
[2016-11-03] MEDS ORDERED: KETOROLAC TROMETHAMINE 30 MG/ML (IVP) VIAL IV PUSH ONE ×2 (11:00)
--- NOTE | 2016-11-03 11:08 | HHI.PR ---
Subjective Remarks The patient said that he was finally able to get some rest. He said he still has not had a bowel movement. He did say he had a new tingling sensation in his right hand. He said it was gone now but it was there following the surgery yesterday. No other acute complaints. Objective Vitals Vital Signs Date Time Temp Pulse Resp B/P Pulse Ox O2 Delivery O2 Flow Rate FiO2 11/03/16 08:00 97.1 66 21 104/63 100 11/03/16 00:02 98.8 69 16 99/61 98 11/02/16 20:26 97.7 80 16 110/59 98 11/02/16 16:43 20 11/02/16 16:00 97.3 64 18 114/69 100 11/02/16 15:25 98.2 62 20 114/57 99 Nasal Cannula 2 11/02/16 15:15 62 20 114/57 99 Nasal Cannula 2 11/02/16 15:00 67 20 106/62 100 Nasal Cannula 2 11/02/16 14:47 98.2 76 20 116/70 98 Nasal Cannula 2 11/02/16 12:00 97.8 60 17 102/63 98 I/O 11/02/16 11/02/16 11/02/16 11/03/16 11/03/16 11/03/16 07:00 15:00 23:00 07:00 15:00 23:00 Intake Total 500 ml 1250 ml 680 ml 716 ml Output Total 400 ml 1230 ml 800 ml 600 ml Balance 100 ml 20 ml -120 ml 116 ml Intake Oral 0 ml 0 ml 480 ml 360 ml IV Total 500 ml 500 ml 200 ml 356 ml Other 750 ml Output Urine Total 400 ml 1200 ml 800 ml 600 ml Drainage Total 0 ml 0 ml Estimated Blood Loss 30 ml # Bowel Movements 0 0 Result Diagram: 10/31/16 0620 11/03/16 0441 Imaging Last Impressions Abdomen X-Ray 10/31/16 0000 Signed Impressions: Service Date/Time: Monday, October 31, 2016 10:37 - CONCLUSION: No acute disease. Arthur Molina MD Objective Remarks GENERAL: This is a well-nourished, well-developed patient in [facility]. SKIN: No rashes, ecchymoses or lesions. Cool and dry. HEAD: Atraumatic. Normocephalic. No temporal or scalp tenderness. EYES: Pupils equal round and reactive. Extraocular motions intact. No scleral icterus. No injection or drainage. ENT: Nose without bleeding, purulent drainage or septal hematoma. Throat without erythema, tonsillar hypertrophy or exudate. Uvula midline. Airway patent. NECK: Trachea midline. No JVD or lymphadenopathy. Supple, nontender, no meningeal signs. CARDIOVASCULAR: Regular rate and rhythm without murmurs, gallops, or rubs. RESPIRATORY: Clear to auscultation. Breath sounds equal bilaterally. No wheezes , rales, or rhonchi. GASTROINTESTINAL: Abdomen soft, non-tender, nondistended. No hepato-splenomegaly , or palpable masses. No guarding. MUSCULOSKELETAL: Extremities without clubbing. Right hand and index with dressing, wound vac in place. Circulation intact. NEUROLOGICAL: Awake and alert. Cranial nerves II through XII intact. Motor and sensory grossly within normal limits. Five out of 5 muscle strength in all muscle groups. Normal speech. PSYCH: Mood and affect appropriate. Procedures Right hand debridement/ wound vac placement 10/31. Exploration, wash, excisional debridement and partial closure right index PIP joint region 11/02. Medications and IVs Current Medications Medications (Trade) Dose Ordered Sig/Shan Route Start Time Stop Time Status Last Admin (NS Flush) 2 ml UNSCH PRN IV FLUSH 10/30/16 17:00 (NS Flush) 2 ml BID IV FLUSH 10/30/16 21:00 11/02/16 20:29 (Tylenol) 650 mg Q4H PRN PO 10/30/16 17:00 (Zofran Inj) 4 mg Q6H PRN IVP 10/30/16 17:00 (Colace) 100 mg Q12H PO 10/30/16 21:00 11/03/16 10:13 (Milk Of Magnesia Liq) 30 ml Q12H PRN PO 10/30/16 17:00 (Narcan Inj) 0.4 mg UNSCH PRN IV 10/30/16 17:00 ([place] 10-325 Mg) 1 tab Q4H PRN PO 10/30/16 17:15 11/03/16 10:18 Hydromorphone HCl 1 mg 1 mg Q3H PRN IV 10/30/16 17:15 11/03/16 05:00 (Vancomycin Consult Pharmacy) 0 ml @ 0 mls/hr UNSCH OTHER 10/30/16 17:15 (Protonix) 40 mg DAILY PO 10/30/16 17:30 11/03/16 10:12 (Folate) 1 mg DAILY PO 10/30/16 17:30 11/04/16 17:29 11/03/16 10:13 (Vitamin B1) 100 mg DAILY PO 10/30/16 17:30 11/03/16 10:12 (Theragran M Tab) 1 tab DAILY PO 10/30/16 17:30 11/04/16 17:29 11/03/16 10:13 (Catapres) 0.1 mg Q6H PRN PO 10/30/16 17:30 (Romazicon Inj) 0.2 mg Q1M PRN IV PUSH 10/30/16 17:30 (Ativan) 1 mg Q4H PRN PO 10/30/16 17:30 (Ativan) 2 mg Q2H PRN PO 10/30/16 17:30 (Ativan Inj) 2 mg Q1H PRN IV PUSH 10/30/16 17:30 (Ativan Inj) 2 mg Q15M PRN IV PUSH 10/30/16 17:30 ([place] 5-325 Mg) 1 tab Q6H PRN PO 10/30/16 18:15 11/01/16 01:01 (Senokot) 17.2 mg DAILY PO 11/02/16 11:45 11/03/16 10:12 (Miralax) 17 gm DAILY PO 11/02/16 11:45 11/03/16 10:12 Miscellaneous Information ALL NURSING DEPARTME... UNSCH PRN .XX 11/02/16 15:30 11/03/16 15:29 (Vancomycin Inj/ NS 250 ml Inj) 262.5 ml @ 262.5 mls/ hr Q12H IV 11/03/16 15:00 Miscellaneous Information SPECIFIC LAB TO BE RYDER... ONCE ONCE .XX 11/05/16 02:45 11/05/16 02:46 (Toradol Inj) 15 mg ONCE ONCE IV PUSH 11/03/16 11:00 11/03/16 11:01 UNV (Toradol Inj) 15 mg ONCE ONCE IV PUSH 11/03/16 11:00 11/03/16 11:01 UNV A/P Assessment and Plan Mr. Saldivar is a 46-year-old male who presented today with recurrent right index finger pain and infection. He initially lacerated his hand on a brigitte paint can, subsequently infected with MRSA, being admitted for septic arthritis on 10/16, underwent three I & D's of right index finger and discharged with PICC line, HHC and Vancomycin IV scheduled until 11/03. Septic arthritis Recurrent secondary to noncompliance. Hand surgery consult appreciated. Reviewed previous cultures, which grew Strep A, Staph aureus, and MRSA sensitive to vancomycin. Debridement and wound vac 10/31 per hand surgery. S/p exploration, wash, excisional debridement and partial closure right index PIP joint region 11/02. - Resumed IV vancomycin with pharmacy to assist with dosing. - Blood cultures drawn and NGTD. - Pain control with [place] and Dilaudid per pain scale. Toradol as needed. - antiemetics as needed. - wound care per hand surgery. Chronic alcohol abuse Does not appear to be withdrawing. - CIWA protocol. - Seizure precautions. - Folate, thiamine and multivitamin ordered. - Consult CM ETOH alcohol abuse. - Cessation instruction provided. Nausea and vomiting Pt seems to think it's s/t vancomycin. KUB, LFT's and Lipase unremarkable. Seems to be resolved. - Zofran as needed. - Protonix 40 mg PO daily. - ADAT. Constipation The pt still has not had a bowel movement. He says this is typical for him. - continue bowel regimen. Add lactulose. DVT prophylaxis: SCDs. Discharge Planning Awaiting hand surgery clearance. Juliocesar Garay DO Nov 03, 2016 11:08
[2016-11-03] MEDS ORDERED: LACTULOSE SYRUP 20 GM/30 ML CUP PO ONE (11:15)
[2016-11-03] MEDS: SODIUM CHLORIDE 0.9% FLUSH 10 ML FLUSH IV FLUSH SCH ×2 (11:44→22:06)
[2016-11-03 12:00] VITALS: BP 109/59; PULSE 73; RESP 19; TEMP 97.9; O2SAT 100
[2016-11-03] MEDS: VANCOMYCIN INJ 1,250 MG in SODIUM CHLOR 0.9% 250 ML INJ 250 ML IV SCH (14:44)
[2016-11-03 16:00] VITALS: BP 129/71; PULSE 81; RESP 18; TEMP 98.8; O2SAT 100
--- NOTE | 2016-11-03 17:40 | MP ---
cc: JOSH QUIJANO MD DATE OF SURGERY: 11/03/2016. PREOPERATIVE DIAGNOSIS: Septic arthritis proximal interphalangeal joint right index finger. POSTOPERATIVE DIAGNOSIS: Septic arthritis proximal interphalangeal joint right index finger. OPERATIVE PROCEDURE PERFORMED: Exploration, wash, excisional debridement and partial closure of the proximal interphalangeal joint region right index finger. SURGEON: Josh Quijano M.D. ANESTHESIA: General. ESTIMATED BLOOD LOSS: Minimal. TOURNIQUET TIME: 19 minutes at 250 mmHg. DISPOSITION: The patient was recovered and sent to the recovery room in good condition. INDICATIONS FOR THE PROCEDURE: The patient is a 46-year-old male with septic arthritis of the proximal interphalangeal joint status post multiple debridements who was brought in two days ago for excisional debridement, wash and wound VAC application. The patient was brought in today for exploration, wash and possible change of wound the wound VAC. He was explained the risks and benefits of the procedure. DESCRIPTION OF THE PROCEDURE IN DETAIL: The patient was brought to the operating room. Under general anesthesia, the wound VAC was removed. The right upper extremity was thoroughly prepped and draped. After limb elevation, the tourniquet was inflated to 250 mmHg. On exploration, he had exposed proximal interphalangeal joint with flexion deformity of the proximal interphalangeal joint and devitalized remaining extensor mechanism. No evidence of purulence within the joint or surrounding region noted. Skin flaps were elevated and no evidence of purulent material was noted over the lateral aspect. Thorough wash was given with normal saline mixed with hydrogen peroxide and this was then followed by normal saline mixed with vancomycin. I was able to bring the skin together at the proximal aspect of the wound. The skin over the proximal interphalangeal joint region was still tight and so decision was made to proceed with partial closure with Vesseloops. Karissa and Vesseloops were placed and this was tied in a shoelace pattern loosely approximating the skin edges. The tourniquet was deflated. The total tourniquet time was 19 minutes. He had good distal circulation after release of the tourniquet. Bleeding was controlled with pressure. Xeroform and bacitracin dressing was applied. A finger dressing was applied which was held in place by Sof-Rol and BETSY wrap. He had good distal circulation at the end of the procedure. The patient was recovered sent to recovery in stable condition. The plan will be to take the patient for possible full closure of the wound in two days time. Will continue with limb elevation and IV antibiotics. Josh Quijano MD SE/ANASTACIA /2:55 PM /5:24 PM KHOA
--- NOTE | 2016-11-03 18:10 | HHI.PR ---
Subjective Remarks complains of mild pain complaint with limb elevation also complains of numbness over the dorsal aspect of the index finger Objective Vital Signs Date Time Temp Pulse Resp B/P Pulse Ox O2 Delivery O2 Flow Rate FiO2 11/03/16 16:00 98.8 81 18 129/71 100 11/03/16 12:00 97.9 73 19 109/59 100 11/03/16 11:46 16 11/03/16 09:35 96 21 11/03/16 08:00 97.1 66 21 104/63 100 11/03/16 00:02 98.8 69 16 99/61 98 11/02/16 20:26 97.7 80 16 110/59 98 I/O 11/02/16 11/02/16 11/02/16 11/03/16 11/03/16 11/03/16 07:00 15:00 23:00 07:00 15:00 23:00 Intake Total 500 ml 1250 ml 680 ml 716 ml 900 ml Output Total 400 ml 1230 ml 800 ml 600 ml 2 ml Balance 100 ml 20 ml -120 ml 116 ml 898 ml Intake Oral 0 ml 0 ml 480 ml 360 ml 900 ml IV Total 500 ml 500 ml 200 ml 356 ml Other 750 ml Output Urine Total 400 ml 1200 ml 800 ml 600 ml Stool Total 2 ml Drainage Total 0 ml 0 ml Estimated Blood Loss 30 ml # Voids 4 # Bowel Movements 0 0 1 right index finger: dressing in place intact sensation over the pulp region. decreased sensation over the dorsal aspect limited range of motion Result Diagram: 10/31/16 0620 11/03/16 0441 Assessment and Plan Assessment and Plan 46 year old male with septic boutonniere deformity right index finger s/p multiple debridements and partial closure of the incision site Plan: for repeat surgery tomorrow 11/04/16 for wash and possible closure keep the patient npo from midnight limb elevation Josh Shi MD Nov 03, 2016 18:10
[2016-11-03 20:00] VITALS: BP 118/56; PULSE 70; RESP 16; TEMP 98.1; O2SAT 96
[2016-11-04 00:25] VITALS: BP 110/63; PULSE 71; RESP 17; TEMP 97.9; O2SAT 97
[2016-11-04] MEDS: ACETAMINOPHEN/HYDROcodone 325 MG/10 MG TAB PO PRN ×4 (01:55→21:34)
[2016-11-04] MEDS: VANCOMYCIN INJ 1,250 MG in SODIUM CHLOR 0.9% 250 ML INJ 250 ML IV SCH ×2 (01:55→15:40)
[2016-11-04] MEDS ORDERED: MUPIROCIN 2% OINT 22 GM TUBE ONE (07:43)
[2016-11-04] MEDS ORDERED: LIDOCAINE HCL 2% 50 ML VIAL ONE (07:43)
[2016-11-04] MEDS ORDERED: BUPIVACAINE HCL PF 0.5% 30 ML VIAL ONE (07:43)
[2016-11-04] MEDS ORDERED: VANCOMYCIN HCL 1000 MG VIAL ONE (08:05)
--- NOTE | 2016-11-04 08:55 | PD.OP ---
Operative Report Preoperative Diagnosis: (1) Septic arthritis of interphalangeal joint of finger of right hand Postoperative Diagnosis: (1) Septic arthritis of interphalangeal joint of finger of right hand Procedure: exploration, wash, excisional debridement and closure PIP joint right index finger Anesthesia: general Surgeon: Josh Shi Lumber Buyer(s): alonso Operation and Findings: minimal devitalized tissues extensor mechanism, no purulence PIP joint region right index finger Josh Shi MD Nov 04, 2016 08:55
[2016-11-04] MEDS: SENNOSIDES 8.6 MG TAB PO SCH (09:00)
[2016-11-04] MEDS: DOCUSATE SODIUM 100 MG CAP PO SCH ×2 (09:00→21:00)
[2016-11-04] MEDS: POLYETHYLENE GLYCOL 17 GM PKG PO SCH (09:00)
[2016-11-04] MEDS ORDERED: DO NOT ADM ANY ANTICOAGULANT DRUGS PRN (09:30)
[2016-11-04] MEDS: THIAMINE HCL 100 MG TAB PO SCH (10:16)
[2016-11-04] MEDS: FOLIC ACID 1 MG TAB PO SCH (10:17)
[2016-11-04] MEDS: PANTOPRAZOLE SOD 40 MG DELAYED RELEASE TAB PO SCH (10:17)
[2016-11-04] MEDS: MULTIVITAMINS/MINERALS THERAPEUTIC TAB PO SCH (10:17)
[2016-11-04] MEDS: SODIUM CHLORIDE 0.9% FLUSH 10 ML FLUSH IV FLUSH SCH ×2 (10:21→21:00)
--- NOTE | 2016-11-04 11:01 | MP ---
cc: BROOKLYNN QUIJANO MD DATE OF SURGERY: 11/04/2016 PREOPERATIVE DIAGNOSIS: Septic arthritis, proximal interphalangeal joint right index finger. POSTOPERATIVE DIAGNOSIS Septic arthritis, proximal interphalangeal joint right index finger. PROCEDURE Exploration, wash, excisional debridement and closure, proximal interphalangeal joint region, right index finger. SURGEON Dr. Quijano ANESTHESIA General ESTIMATED BLOOD LOSS Minimal. TOURNIQUET No tourniquet was used. The patient was recovered and is in stable condition. INDICATIONS FOR PROCEDURE The patient is a 46-year-old male diagnosed with septic arthritis proximal interphalangeal joint status post multiple debridements and wound Vac application was brought in today for wash and possible closure of the wound. The patient was explained the risk and benefits of the procedure. DESCRIPTION OF PROCEDURE The patient was brought to the operating room under general anesthesia. The right upper extremity was thoroughly prepped and draped. The previously placed vessel loop obtaining partial closure of the wound was removed. The skin flaps were elevated and excisional debridement of devitalized extensor mechanism was carried out. No evidence of purulence was noted. Thorough wash was given using normal saline mixed with hydrogen peroxide and this was then followed by normal saline mixed with vancomycin. The skin edges were freshened and the skin was approximated over the PIP joint region with multiple 4-0 nylon mattress sutures. Packing of the wound was carried out with one-fourth iodoform packing material. No tourniquet was used. He had good distal circulation at the end of the procedure. About 1 cc of 0.5% Marcaine was injected proximally as a block. Xeroform, bacitracin dressing applied. Bulky hand dressing was applied which was held in place by Sof-Rol and bias hand wrap. The patient was recovered sent to the Recovery Room in stable condition. The plan will be to change the packing tomorrow and see how the patient progresses and continue with IV antibiotics. Brooklynn Quijano MD SE/NARCISA /8:58 AM /10:39 AM KHOA
[2016-11-04] MEDS ORDERED: PROPOFOL 200 MG/20 ML AMP IV ONE (11:54)
[2016-11-04] MEDS ORDERED: ONDANSETRON HCL 4 MG/2 ML VIAL IV PUSH ONE (11:54)
[2016-11-04] MEDS ORDERED: ePHEDrine/NS 25 MG/5 ML SYR IV ONE (11:54)
[2016-11-04 12:00] VITALS: BP 108/55; PULSE 73; RESP 18; TEMP 96; O2SAT 100
--- NOTE | 2016-11-04 14:18 | HHI.PR ---
Subjective Remarks The patient was anxious to go home soon. He said the procedure went well today. He wanted to know if he would be able to get antibiotics at home versus going to the infusion Center. No acute complaints. Objective Vitals Vital Signs Date Time Temp Pulse Resp B/P Pulse Ox O2 Delivery O2 Flow Rate FiO2 11/04/16 12:00 96.0 73 18 108/55 100 11/04/16 09:25 97.8 62 14 106/62 98 Room Air 11/04/16 09:15 65 14 110/60 98 Room Air 11/04/16 09:00 73 14 114/55 99 Room Air 11/04/16 08:59 97.7 65 14 118/67 99 Room Air 11/04/16 00:25 97.9 71 17 110/63 97 11/03/16 20:00 98.1 70 16 118/56 96 11/03/16 16:00 98.8 81 18 129/71 100 I/O 11/03/16 11/03/16 11/03/16 11/04/16 11/04/16 11/04/16 07:00 15:00 23:00 07:00 15:00 23:00 Intake Total 716 ml 900 ml 580 ml 300 ml Output Total 600 ml 2 ml 700 ml 5 ml Balance 116 ml 898 ml -120 ml 295 ml Intake Oral 360 ml 900 ml 580 ml 0 ml IV Total 356 ml 50 ml Other 250 ml Output Urine Total 600 ml 700 ml Stool Total 2 ml Estimated Blood Loss 5 ml # Voids 4 3 0 # Bowel Movements 1 1 1 Result Diagram: 10/31/16 0620 11/04/16 0425 Imaging Last Impressions Abdomen X-Ray 10/31/16 0000 Signed Impressions: Service Date/Time: Monday, October 31, 2016 10:37 - CONCLUSION: No acute disease. Arthur Molina MD Objective Remarks GENERAL: This is a well-nourished, well-developed patient in [facility]. SKIN: No rashes, ecchymoses or lesions. Cool and dry. HEAD: Atraumatic. Normocephalic. No temporal or scalp tenderness. EYES: Pupils equal round and reactive. Extraocular motions intact. No scleral icterus. No injection or drainage. ENT: Nose without bleeding, purulent drainage or septal hematoma. Throat without erythema, tonsillar hypertrophy or exudate. Uvula midline. Airway patent. NECK: Trachea midline. No JVD or lymphadenopathy. Supple, nontender, no meningeal signs. CARDIOVASCULAR: Regular rate and rhythm without murmurs, gallops, or rubs. RESPIRATORY: Clear to auscultation. Breath sounds equal bilaterally. No wheezes , rales, or rhonchi. GASTROINTESTINAL: Abdomen soft, non-tender, nondistended. No hepato-splenomegaly , or palpable masses. No guarding. MUSCULOSKELETAL: Extremities without clubbing. Right hand and index with dressing. NEUROLOGICAL: Awake and alert. Cranial nerves II through XII intact. Motor and sensory grossly within normal limits. Five out of 5 muscle strength in all muscle groups. Normal speech. PSYCH: Mood and affect appropriate. Procedures Right hand debridement/ wound vac placement 10/31. Exploration, wash, excisional debridement and partial closure right index PIP joint region 11/02. Medications and IVs Current Medications Medications (Trade) Dose Ordered Sig/Shan Route Start Time Stop Time Status Last Admin (NS Flush) 2 ml UNSCH PRN IV FLUSH 10/30/16 17:00 (NS Flush) 2 ml BID IV FLUSH 10/30/16 21:00 11/04/16 10:21 (Tylenol) 650 mg Q4H PRN PO 10/30/16 17:00 (Zofran Inj) 4 mg Q6H PRN IVP 10/30/16 17:00 (Colace) 100 mg Q12H PO 10/30/16 21:00 11/03/16 10:13 (Milk Of Magnesia Liq) 30 ml Q12H PRN PO 10/30/16 17:00 (Narcan Inj) 0.4 mg UNSCH PRN IV 10/30/16 17:00 ([place] 10-325 Mg) 1 tab Q4H PRN PO 10/30/16 17:15 11/04/16 10:17 Hydromorphone HCl 1 mg 1 mg Q3H PRN IV 10/30/16 17:15 11/03/16 05:00 (Vancomycin Consult Pharmacy) 0 ml @ 0 mls/hr UNSCH OTHER 10/30/16 17:15 (Protonix) 40 mg DAILY PO 10/30/16 17:30 11/04/16 10:17 (Folate) 1 mg DAILY PO 10/30/16 17:30 11/04/16 17:29 11/04/16 10:17 (Vitamin B1) 100 mg DAILY PO 10/30/16 17:30 11/04/16 10:16 (Theragran M Tab) 1 tab DAILY PO 10/30/16 17:30 11/04/16 17:29 11/04/16 10:17 (Catapres) 0.1 mg Q6H PRN PO 10/30/16 17:30 (Romazicon Inj) 0.2 mg Q1M PRN IV PUSH 10/30/16 17:30 (Ativan) 1 mg Q4H PRN PO 10/30/16 17:30 (Ativan) 2 mg Q2H PRN PO 10/30/16 17:30 (Ativan Inj) 2 mg Q1H PRN IV PUSH 10/30/16 17:30 (Ativan Inj) 2 mg Q15M PRN IV PUSH 10/30/16 17:30 ([place] 5-325 Mg) 1 tab Q6H PRN PO 10/30/16 18:15 11/01/16 01:01 (Senokot) 17.2 mg DAILY PO 11/02/16 11:45 11/03/16 10:12 Polyethylene Glycol 17 gm 17 gm DAILY PO 11/02/16 11:45 11/03/16 10:12 (Vancomycin Inj/ NS 250 ml Inj) 262.5 ml @ 262.5 mls/ hr Q12H IV 11/03/16 15:00 11/04/16 01:55 Miscellaneous Information SPECIFIC LAB TO BE RYDER... ONCE ONCE .XX 11/05/16 02:45 11/05/16 02:46 Miscellaneous Information ALL NURSING DEPARTME... UNSCH PRN .XX 11/04/16 09:30 11/05/16 09:29 A/P Assessment and Plan Mr. Saldivar is a 46-year-old male who presented today with recurrent right index finger pain and infection. He initially lacerated his hand on a brigitte paint can, subsequently infected with MRSA, being admitted for septic arthritis on 10/16, underwent three I & D's of right index finger and discharged with PICC line, HHC and Vancomycin IV scheduled until 11/03. Septic arthritis Recurrent secondary to noncompliance. Hand surgery consult appreciated. Reviewed previous cultures, which grew Strep A, Staph aureus, and MRSA sensitive to vancomycin. Debridement and wound vac 10/31 per hand surgery. S/p exploration, wash, excisional debridement and partial closure right index PIP joint region 11/02. S/p exploration, wash, excisional debridement and closure PIP joint right index finger 11/04. - Resumed IV vancomycin with pharmacy to assist with dosing. ID following. - Blood cultures drawn and NGTD. - Pain control with [place] and Dilaudid per pain scale. Toradol as needed. - antiemetics as needed. - wound care per hand surgery. Chronic alcohol abuse Does not appear to be withdrawing. - CIWA protocol. - Seizure precautions. - Folate, thiamine and multivitamin ordered. - Consult CM ETOH alcohol abuse. - Cessation instruction provided. Constipation The pt still has not had a bowel movement. He says this is typical for him. - continue bowel regimen. Add lactulose. Resolved. DVT prophylaxis: SCDs. Discharge Planning Awaiting hand surgery clearance. Juliocesar Garay DO Nov 04, 2016 14:18
[2016-11-04 15:59] VITALS: BP 108/57; PULSE 80; RESP 17; TEMP 98.1; O2SAT 99
[2016-11-04 20:00] VITALS: BP 108/52; PULSE 75; RESP 18; TEMP 98.2; O2SAT 98
[2016-11-04 21:37] VITALS: O2SAT 99
[2016-11-04] MEDS: HYDROmorphone HCL PF 1 MG/ML VIAL IV PRN (23:00)
[2016-11-04] MEDS: SODIUM CHLORIDE 0.9% FLUSH 10 ML FLUSH IV FLUSH PRN (23:01)
[2016-11-05] VITALS: BP 110/58; PULSE 76; RESP 20; TEMP 97.8; O2SAT 99
[2016-11-05] MEDS ORDERED: PHARMACY ORDERED LAB ONE (02:45)
[2016-11-05] MEDS: VANCOMYCIN INJ 1,250 MG in SODIUM CHLOR 0.9% 250 ML INJ 250 ML IV SCH (02:47)
[2016-11-05 08:00] VITALS: BP 104/60; PULSE 71; RESP 17; TEMP 98.2; O2SAT 97
[2016-11-05] MEDS: DOCUSATE SODIUM 100 MG CAP PO SCH ×2 (08:03→20:39)
[2016-11-05] MEDS: SENNOSIDES 8.6 MG TAB PO SCH (08:03)
[2016-11-05] MEDS: POLYETHYLENE GLYCOL 17 GM PKG PO SCH (08:03)
[2016-11-05] MEDS: PANTOPRAZOLE SOD 40 MG DELAYED RELEASE TAB PO SCH (08:03)
[2016-11-05] MEDS: THIAMINE HCL 100 MG TAB PO SCH (08:03)
[2016-11-05] MEDS: HYDROmorphone HCL PF 1 MG/ML VIAL IV PRN ×3 (08:04→23:00)
[2016-11-05] MEDS: SODIUM CHLORIDE 0.9% FLUSH 10 ML FLUSH IV FLUSH SCH ×2 (08:04→20:40)
[2016-11-05] MEDS: ACETAMINOPHEN/HYDROcodone 325 MG/10 MG TAB PO PRN ×2 (11:57→20:40)
[2016-11-05 12:00] VITALS: BP 114/60; PULSE 73; RESP 18; TEMP 97.5; O2SAT 98
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
--- NOTE | 2016-11-05 14:30 | HHI.PR ---
Subjective Remarks The patient was resting comfortably in bed. He was disappointed that he would have to be in the hospital until the end of October. He said he had some pain along the digits surgery but otherwise was doing well. He has been having bowel movements. Discussed with infectious disease. Objective Vitals Vital Signs Date Time Temp Pulse Resp B/P Pulse Ox O2 Delivery O2 Flow Rate FiO2 11/05/16 12:00 97.5 73 18 114/60 98 11/05/16 08:00 98.2 71 17 104/60 97 11/04/16 21:37 99 21 11/04/16 20:00 98.2 75 18 108/52 98 11/04/16 15:59 98.1 80 17 108/57 99 I/O 11/04/16 11/04/16 11/04/16 11/05/16 11/05/16 11/05/16 07:00 15:00 23:00 07:00 15:00 23:00 Intake Total 1020 ml 480 ml 480 ml 120 ml Output Total 5 ml 700 ml 700 ml Balance 1015 ml -220 ml -220 ml 120 ml Intake Oral 720 ml 480 ml 480 ml 120 ml IV Total 50 ml Other 250 ml Output Urine Total 700 ml 700 ml Estimated Blood Loss 5 ml # Voids 3 4 # Bowel Movements 1 0 0 0 Result Diagram: 11/04/16 0425 Imaging Last Impressions Abdomen X-Ray 10/31/16 0000 Signed Impressions: Service Date/Time: Monday, October 31, 2016 10:37 - CONCLUSION: No acute disease. Arthur Molina MD Objective Remarks GENERAL: This is a well-nourished, well-developed patient in [facility]. SKIN: No rashes, ecchymoses or lesions. Cool and dry. HEAD: Atraumatic. Normocephalic. No temporal or scalp tenderness. EYES: Pupils equal round and reactive. Extraocular motions intact. No scleral icterus. No injection or drainage. ENT: Nose without bleeding, purulent drainage or septal hematoma. Throat without erythema, tonsillar hypertrophy or exudate. Uvula midline. Airway patent. NECK: Trachea midline. No JVD or lymphadenopathy. Supple, nontender, no meningeal signs. CARDIOVASCULAR: Regular rate and rhythm without murmurs, gallops, or rubs. RESPIRATORY: Clear to auscultation. Breath sounds equal bilaterally. No wheezes , rales, or rhonchi. GASTROINTESTINAL: Abdomen soft, non-tender, nondistended. No hepato-splenomegaly , or palpable masses. No guarding. MUSCULOSKELETAL: Extremities without clubbing. Right hand and index with dressing. NEUROLOGICAL: Awake and alert. Cranial nerves II through XII intact. Motor and sensory grossly within normal limits. Five out of 5 muscle strength in all muscle groups. Normal speech. PSYCH: Mood and affect appropriate. Procedures Right hand debridement/ wound vac placement 10/31. Exploration, wash, excisional debridement and partial closure right index PIP joint region 11/02. Medications and IVs Current Medications Medications (Trade) Dose Ordered Sig/Shan Route Start Time Stop Time Status Last Admin (NS Flush) 2 ml UNSCH PRN IV FLUSH 10/30/16 17:00 11/04/16 23:01 (NS Flush) 2 ml BID IV FLUSH 10/30/16 21:00 11/05/16 08:04 (Tylenol) 650 mg Q4H PRN PO 10/30/16 17:00 (Zofran Inj) 4 mg Q6H PRN IVP 10/30/16 17:00 (Colace) 100 mg Q12H PO 10/30/16 21:00 11/05/16 08:03 (Milk Of Magnkathrine Liq) 30 ml Q12H PRN PO 10/30/16 17:00 (Narcan Inj) 0.4 mg UNSCH PRN IV 10/30/16 17:00 ([place] 10-325 Mg) 1 tab Q4H PRN PO 10/30/16 17:15 11/05/16 11:57 Hydromorphone HCl 1 mg 1 mg Q3H PRN IV 10/30/16 17:15 11/05/16 08:04 (Vancomycin Consult Pharmacy) 0 ml @ 0 mls/hr UNSCH OTHER 10/30/16 17:15 (Protonix) 40 mg DAILY PO 10/30/16 17:30 11/05/16 08:03 (Vitamin B1) 100 mg DAILY PO 10/30/16 17:30 11/05/16 08:03 (Catapres) 0.1 mg Q6H PRN PO 10/30/16 17:30 (Romazicon Inj) 0.2 mg Q1M PRN IV PUSH 10/30/16 17:30 (Ativan) 1 mg Q4H PRN PO 10/30/16 17:30 (Ativan) 2 mg Q2H PRN PO 10/30/16 17:30 (Ativan Inj) 2 mg Q1H PRN IV PUSH 10/30/16 17:30 (Ativan Inj) 2 mg Q15M PRN IV PUSH 10/30/16 17:30 ([place] 5-325 Mg) 1 tab Q6H PRN PO 10/30/16 18:15 11/01/16 01:01 (Senokot) 17.2 mg DAILY PO 11/02/16 11:45 11/05/16 08:03 Polyethylene Glycol 17 gm 17 gm DAILY PO 11/02/16 11:45 11/05/16 08:03 (Vancomycin Inj/ NS 250 ml Inj) 250 ml @ 250 mls/hr Q8H IV 11/05/16 14:00 Miscellaneous Information SPECIFIC LAB TO BE DRAWN:VA... ONCE ONCE .XX 11/07/16 01:45 11/07/16 01:46 A/P Assessment and Plan Mr. Saldivar is a 46-year-old male who presented today with recurrent right index finger pain and infection. He initially lacerated his hand on a brigitte paint can, subsequently infected with MRSA, being admitted for septic arthritis on 10/16, underwent three I & D's of right index finger and discharged with PICC line, HHC and Vancomycin IV scheduled until 11/03. Septic arthritis Recurrent secondary to noncompliance. Hand surgery consult appreciated. Reviewed previous cultures, which grew Strep A, Staph aureus, and MRSA sensitive to vancomycin. Blood cultures with no growth. Debridement and wound vac 10/31 per hand surgery. S/p exploration, wash, excisional debridement and partial closure right index PIP joint region 11/02. S/p exploration, wash, excisional debridement and closure PIP joint right index finger 11/04. - Resumed IV vancomycin with pharmacy to assist with dosing. ID following. Stop date 11/18. Pt will need to complete treatment in-house s/t noncompliance. - Pain control with [place] and Dilaudid per pain scale. Toradol as needed. - antiemetics as needed. - wound care per hand surgery. Chronic alcohol abuse Does not appear to be withdrawing. - CIWA protocol. - Seizure precautions. - Folate, thiamine and multivitamin ordered. - Consult CM ETOH alcohol abuse. - Cessation instruction provided. Constipation The pt still has not had a bowel movement. He says this is typical for him. - continue bowel regimen. Add lactulose. Resolved. DVT prophylaxis: SCDs. Discharge Planning D/c following last dose of antibiotics 11/18. Juliocesar Garay DO Nov 05, 2016 14:30
[2016-11-05] MEDS: VANCOMYCIN 1,000 MG/NS 250 ML IV SCH ×4 (15:35→22:53)
[2016-11-05 16:00] VITALS: BP 122/59; PULSE 89; RESP 20; TEMP 97.8; O2SAT 98
--- NOTE | 2016-11-05 17:17 | HHI.PR ---
Subjective Remarks complains of mild pain complaint with limb elevation also complains of numbness over the dorsal aspect of the index finger Objective Vital Signs Date Time Temp Pulse Resp B/P Pulse Ox O2 Delivery O2 Flow Rate FiO2 11/05/16 12:00 97.5 73 18 114/60 98 11/05/16 08:00 98.2 71 17 104/60 97 11/04/16 21:37 99 21 11/04/16 20:00 98.2 75 18 108/52 98 I/O 11/04/16 11/04/16 11/04/16 11/05/16 11/05/16 11/05/16 07:00 15:00 23:00 07:00 15:00 23:00 Intake Total 1020 ml 480 ml 480 ml 880 ml Output Total 5 ml 700 ml 700 ml 1000 ml Balance 1015 ml -220 ml -220 ml -120 ml Intake Oral 720 ml 480 ml 480 ml 880 ml IV Total 50 ml Other 250 ml Output Urine Total 700 ml 700 ml 1000 ml Estimated Blood Loss 5 ml # Voids 3 4 # Bowel Movements 1 0 0 0 0 examination of the right index finger: intact dressing mild gaping of the wound noted mild surrounding swelling and erythema noted decreased sensation dorsally limited range of motion at the PIP joint with flexion deformity intact capillary refill Result Diagram: 11/04/16 0425 Assessment and Plan Assessment and Plan 46 year old male with septic boutonniere deformity right index finger s/p multiple debridements and closure of the incision site Plan: Surrounding skin is cleaned with alcohol wipes packing was pulled out a little bit dry dressing applied active and passive range of motion exercises hand surgery will follow. Josh Shi MD Nov 05, 2016 17:17
[2016-11-06] MEDS: ACETAMINOPHEN/HYDROcodone 325 MG/10 MG TAB PO PRN ×3 (04:13→22:00)
[2016-11-06] MEDS: VANCOMYCIN 1,000 MG/NS 250 ML IV SCH ×4 (07:20→13:39)
[2016-11-06 08:00] VITALS: BP 104/57; PULSE 69; RESP 16; TEMP 96.8; O2SAT 100
[2016-11-06] MEDS: SENNOSIDES 8.6 MG TAB PO SCH (09:00)
[2016-11-06] MEDS: POLYETHYLENE GLYCOL 17 GM PKG PO SCH (09:00)
[2016-11-06] MEDS: THIAMINE HCL 100 MG TAB PO SCH (09:00)
[2016-11-06] MEDS: DOCUSATE SODIUM 100 MG CAP PO SCH ×2 (09:00→21:38)
[2016-11-06] MEDS: SODIUM CHLORIDE 0.9% FLUSH 10 ML FLUSH IV FLUSH SCH ×2 (09:12→21:38)
[2016-11-06] MEDS: ACETAMINOPHEN/HYDROcodone 325 MG/5 MG TAB PO PRN (09:13)
[2016-11-06] MEDS: PANTOPRAZOLE SOD 40 MG DELAYED RELEASE TAB PO SCH (09:13)
[2016-11-06] MEDS: HYDROmorphone HCL PF 1 MG/ML VIAL IV PRN (11:31)
[2016-11-06 12:00] VITALS: BP 97/54; PULSE 77; RESP 17; TEMP 97.1; O2SAT 98
--- NOTE | 2016-11-06 15:57 | HHI.PR ---
Subjective Remarks The patient was complaining of significant pain in the finger he had surgery on. He also noticed that he had dry skin on his right forearm. He also requested a nicotine patch. Discussed with nursing. Objective Vitals Vital Signs Date Time Temp Pulse Resp B/P Pulse Ox O2 Delivery O2 Flow Rate FiO2 11/06/16 12:00 97.1 77 17 97/54 98 11/06/16 08:00 96.8 69 16 104/57 100 11/06/16 05:13 18 11/05/16 23:30 18 11/05/16 16:00 97.8 89 20 122/59 98 I/O 11/05/16 11/05/16 11/05/16 11/06/16 11/06/16 11/06/16 07:00 15:00 23:00 07:00 15:00 23:00 Intake Total 480 ml 880 ml 610 ml Output Total 700 ml 1000 ml 900 ml Balance -220 ml -120 ml -290 ml Intake Oral 480 ml 880 ml 360 ml IV Total 250 ml Output Urine Total 700 ml 1000 ml 900 ml # Bowel Movements 0 0 0 Result Diagram: 11/06/16 0545 Imaging Last Impressions Abdomen X-Ray 10/31/16 0000 Signed Impressions: Service Date/Time: Monday, October 31, 2016 10:37 - CONCLUSION: No acute disease. Arthur Molina MD Objective Remarks GENERAL: This is a well-nourished, well-developed patient in [facility]. SKIN: No rashes, ecchymoses or lesions. Cool and dry. HEAD: Atraumatic. Normocephalic. No temporal or scalp tenderness. EYES: Pupils equal round and reactive. Extraocular motions intact. No scleral icterus. No injection or drainage. ENT: Nose without bleeding, purulent drainage or septal hematoma. Throat without erythema, tonsillar hypertrophy or exudate. Uvula midline. Airway patent. NECK: Trachea midline. No JVD or lymphadenopathy. Supple, nontender, no meningeal signs. CARDIOVASCULAR: Regular rate and rhythm without murmurs, gallops, or rubs. RESPIRATORY: Clear to auscultation. Breath sounds equal bilaterally. No wheezes , rales, or rhonchi. GASTROINTESTINAL: Abdomen soft, non-tender, nondistended. No hepato-splenomegaly , or palpable masses. No guarding. MUSCULOSKELETAL: Extremities without clubbing. Right hand and index with dressing. NEUROLOGICAL: Awake and alert. Cranial nerves II through XII intact. Motor and sensory grossly within normal limits. Five out of 5 muscle strength in all muscle groups. Normal speech. PSYCH: Mood and affect appropriate. Procedures Right hand debridement/ wound vac placement 10/31. Exploration, wash, excisional debridement and partial closure right index PIP joint region 11/02. Medications and IVs Current Medications Medications (Trade) Dose Ordered Sig/Shan Route Start Time Stop Time Status Last Admin (NS Flush) 2 ml UNSCH PRN IV FLUSH 10/30/16 17:00 11/04/16 23:01 (NS Flush) 2 ml BID IV FLUSH 10/30/16 21:00 11/06/16 09:12 (Tylenol) 650 mg Q4H PRN PO 10/30/16 17:00 (Zofran Inj) 4 mg Q6H PRN IVP 10/30/16 17:00 (Colace) 100 mg Q12H PO 10/30/16 21:00 11/05/16 20:39 (Milk Of Magnesia Liq) 30 ml Q12H PRN PO 10/30/16 17:00 (Narcan Inj) 0.4 mg UNSCH PRN IV 10/30/16 17:00 ([place] 10-325 Mg) 1 tab Q4H PRN PO 10/30/16 17:15 11/06/16 04:13 Hydromorphone HCl 1 mg 1 mg Q3H PRN IV 10/30/16 17:15 11/06/16 11:31 (Vancomycin Consult Pharmacy) 0 ml @ 0 mls/hr UNSCH OTHER 10/30/16 17:15 (Protonix) 40 mg DAILY PO 10/30/16 17:30 11/06/16 09:13 (Vitamin B1) 100 mg DAILY PO 10/30/16 17:30 11/06/16 09:00 (Catapres) 0.1 mg Q6H PRN PO 10/30/16 17:30 (Romazicon Inj) 0.2 mg Q1M PRN IV PUSH 10/30/16 17:30 (Ativan) 1 mg Q4H PRN PO 10/30/16 17:30 (Ativan) 2 mg Q2H PRN PO 10/30/16 17:30 (Ativan Inj) 2 mg Q1H PRN IV PUSH 10/30/16 17:30 (Ativan Inj) 2 mg Q15M PRN IV PUSH 10/30/16 17:30 ([place] 5-325 Mg) 1 tab Q6H PRN PO 10/30/16 18:15 11/06/16 09:13 (Senokot) 17.2 mg DAILY PO 11/02/16 11:45 11/05/16 08:03 Polyethylene Glycol 17 gm 17 gm DAILY PO 11/02/16 11:45 11/05/16 08:03 (Vancomycin Inj/ NS 250 ml Inj) 250 ml @ 250 mls/hr Q8H IV 11/05/16 14:00 11/06/16 13:39 Miscellaneous Information SPECIFIC LAB TO BE DRAWN:VANCO TROUGH DATE TO... ONCE ONCE .XX 11/06/16 21:45 11/06/16 21:46 A/P Assessment and Plan Mr. Saldivar is a 46-year-old male who presented today with recurrent right index finger pain and infection. He initially lacerated his hand on a brigitte paint can, subsequently infected with MRSA, being admitted for septic arthritis on 10/16, underwent three I & D's of right index finger and discharged with PICC line, HHC and Vancomycin IV scheduled until 11/03. Septic arthritis Recurrent secondary to noncompliance. Hand surgery consult appreciated. Reviewed previous cultures, which grew Strep A, Staph aureus, and MRSA sensitive to vancomycin. Blood cultures with no growth. Debridement and wound vac 10/31 per hand surgery. S/p exploration, wash, excisional debridement and partial closure right index PIP joint region 11/02. S/p exploration, wash, excisional debridement and closure PIP joint right index finger 11/04. - Resumed IV vancomycin with pharmacy to assist with dosing. ID following. Stop date 11/18. Pt will need to complete treatment in-house s/t noncompliance. - Pain control with [place] and Dilaudid per pain scale. Toradol as needed. Wean narcotics. - antiemetics as needed. - wound care per hand surgery. Chronic alcohol abuse Does not appear to be withdrawing. - CIWA protocol. - Seizure precautions. - Folate, thiamine and multivitamin ordered. - Consult CM ETOH alcohol abuse. - Cessation instruction provided. Constipation The pt still has not had a bowel movement. He says this is typical for him. - continue bowel regimen. Add lactulose. Resolved. DVT prophylaxis: SCDs. Discharge Planning D/c following last dose of antibiotics 11/18. Juliocesar Garay DO Nov 06, 2016 15:57
[2016-11-06 16:00] VITALS: BP 105/59; PULSE 70; RESP 17; TEMP 97.5; O2SAT 98
[2016-11-06] MEDS ORDERED: KETOROLAC TROMETHAMINE 30 MG/ML (IVP) VIAL IV PUSH ONE (17:00)
[2016-11-06] MEDS: NICOTINE 14 MG/24 HR PATCH T-DERMAL SCH (18:39)
[2016-11-06 20:00] VITALS: BP 105/54; PULSE 72; RESP 18; TEMP 97.9; O2SAT 99
[2016-11-06] MEDS ORDERED: PHARMACY ORDERED LAB ONE (21:45)
[2016-11-06] MEDS: LACTIC ACID (AMMONIUM LACTATE) 12% LOTION 225 GM BTL TOPICAL SCH (21:59)
[2016-11-07] VITALS: BP 121/63; PULSE 71; RESP 16; TEMP 97.8; O2SAT 100
[2016-11-07] MEDS: VANCOMYCIN 1,000 MG/NS 250 ML IV SCH ×6 (02:13→17:30)
[2016-11-07] MEDS: ACETAMINOPHEN/HYDROcodone 325 MG/10 MG TAB PO PRN ×4 (04:13→18:21)
[2016-11-07 08:00] VITALS: BP 92/55; PULSE 62; RESP 18; TEMP 97.4; O2SAT 100
[2016-11-07] MEDS: DOCUSATE SODIUM 100 MG CAP PO SCH ×2 (09:00→21:00)
[2016-11-07] MEDS: POLYETHYLENE GLYCOL 17 GM PKG PO SCH (09:00)
[2016-11-07] MEDS: SENNOSIDES 8.6 MG TAB PO SCH (09:00)
[2016-11-07] MEDS: REMOVE OLD PATCH T-DERMAL SCH (09:00)
[2016-11-07] MEDS: PANTOPRAZOLE SOD 40 MG DELAYED RELEASE TAB PO SCH (09:49)
[2016-11-07] MEDS: THIAMINE HCL 100 MG TAB PO SCH (09:51)
[2016-11-07] MEDS: NICOTINE 14 MG/24 HR PATCH T-DERMAL SCH (09:51)
[2016-11-07] MEDS: SODIUM CHLORIDE 0.9% FLUSH 10 ML FLUSH IV FLUSH SCH ×2 (09:52→22:29)
[2016-11-07] MEDS: LACTIC ACID (AMMONIUM LACTATE) 12% LOTION 225 GM BTL TOPICAL SCH ×2 (09:54→22:36)
--- NOTE | 2016-11-07 09:54 | HHI.PR ---
Subjective Remarks Patient reports that he is feeling ok. Pain on the finger is controlled. He does not have much motion in the finger joints. Afebrile. Objective Vitals Vital Signs Date Time Temp Pulse Resp B/P Pulse Ox O2 Delivery O2 Flow Rate FiO2 11/07/16 08:00 97.4 62 18 92/55 100 11/07/16 00:00 97.8 71 16 121/63 100 11/06/16 23:00 18 11/06/16 20:00 97.9 72 18 105/54 99 11/06/16 16:00 97.5 70 17 105/59 98 11/06/16 12:00 97.1 77 17 97/54 98 I/O 11/06/16 11/06/16 11/06/16 11/07/16 11/07/16 11/07/16 07:00 15:00 23:00 07:00 15:00 23:00 Intake Total 610 ml 960 ml 490 ml 360 ml Output Total 900 ml Balance -290 ml 960 ml 490 ml 360 ml Intake Oral 360 ml 960 ml 240 ml 360 ml IV Total 250 ml 250 ml Output Urine Total 900 ml # Voids 5 3 3 # Bowel Movements 0 2 0 0 Result Diagram: 11/06/16 0545 Imaging Last Impressions Abdomen X-Ray 10/31/16 0000 Signed Impressions: Service Date/Time: Monday, October 31, 2016 10:37 - CONCLUSION: No acute disease. Arthur Molina MD Objective Remarks GENERAL: This is a well-nourished, well-developed patient, in no apparent distress. CARDIOVASCULAR: Regular rate and rhythm without murmurs, gallops, or rubs. RESPIRATORY: Clear to auscultation. Breath sounds equal bilaterally. No wheezes , rales, or rhonchi. GASTROINTESTINAL: Abdomen soft, non-tender, nondistended. Normal active bowel sounds MUSCULOSKELETAL: RIght index finger has a clean dressing and is wrapped. He has no motion in the finger joints. NEURO: Alert & Oriented x4 to person, place, time, situation. Moves all ext x4 Procedures Right hand debridement/ wound vac placement 10/31. Exploration, wash, excisional debridement and partial closure right index PIP joint region 11/02. A/P Assessment and Plan 46-year-old male who presented today with recurrent right index finger pain and infection. He initially lacerated his hand on a brigitte paint can, subsequently infected with MRSA, admitted for septic arthritis on 10/16, underwent three I & D 's of right index finger and discharged with PICC line, HHC and Vancomycin IV scheduled until 11/03. Patient discontinued HHC and took out his PICC. He returned with worsening infection: Septic arthritis Recurrent secondary to noncompliance. Hand surgery consult appreciated. Reviewed previous cultures, which grew Strep A, Staph aureus, and MRSA sensitive to vancomycin. Blood cultures with no growth. Debridement and wound vac 10/31 per hand surgery. S/p exploration, wash, excisional debridement and partial closure right index PIP joint region 11/02. S/p exploration, wash, excisional debridement and closure PIP joint right index finger 11/04. - Continue IV vancomycin with pharmacy to assist with dosing. ID following. Stop date 11/18. Pt will need to complete treatment in-house s/t noncompliance. - Pain control with [place] and Dilaudid per pain scale. Toradol as needed. Wean narcotics. - antiemetics as needed. - wound care per hand surgery. Chronic alcohol abuse: Out of withdrawal window: - Cessation instruction provided. DVT prophylaxis: SCDs. Discharge Planning Patient to complete antibiotics on 11/18, then can be discharged. Lisa Velasquez MD Nov 07, 2016 09:54
[2016-11-07 12:00] VITALS: BP 101/61; PULSE 69; RESP 18; TEMP 97.7; O2SAT 100
[2016-11-07 16:00] VITALS: BP 107/62; PULSE 84; RESP 18; TEMP 96.9; O2SAT 95
[2016-11-07 20:00] VITALS: BP 130/61; PULSE 73; RESP 16; TEMP 97.9; O2SAT 100
[2016-11-07] MEDS: HYDROmorphone HCL PF 1 MG/ML VIAL IV PRN (22:32)
[2016-11-08] VITALS: BP 101/55; PULSE 64; RESP 16; TEMP 97.8; O2SAT 96
[2016-11-08] MEDS: VANCOMYCIN 1,000 MG/NS 250 ML IV SCH ×6 (03:28→17:22)
[2016-11-08] MEDS: ACETAMINOPHEN/HYDROcodone 325 MG/10 MG TAB PO PRN ×5 (04:14→23:34)
[2016-11-08 08:00] VITALS: BP 99/50; PULSE 63; RESP 18; TEMP 97.1; O2SAT 100
[2016-11-08] MEDS: REMOVE OLD PATCH T-DERMAL SCH (09:00)
[2016-11-08] MEDS: DOCUSATE SODIUM 100 MG CAP PO SCH ×3 (09:00→21:21)
[2016-11-08] MEDS: POLYETHYLENE GLYCOL 17 GM PKG PO SCH (09:00)
[2016-11-08] MEDS: SENNOSIDES 8.6 MG TAB PO SCH (09:00)
[2016-11-08] MEDS: PANTOPRAZOLE SOD 40 MG DELAYED RELEASE TAB PO SCH (09:10)
[2016-11-08] MEDS: THIAMINE HCL 100 MG TAB PO SCH (09:10)
[2016-11-08] MEDS: SODIUM CHLORIDE 0.9% FLUSH 10 ML FLUSH IV FLUSH SCH ×2 (09:10→21:00)
[2016-11-08] MEDS: NICOTINE 14 MG/24 HR PATCH T-DERMAL SCH (09:11)
[2016-11-08] MEDS: LACTIC ACID (AMMONIUM LACTATE) 12% LOTION 225 GM BTL TOPICAL SCH ×2 (09:11→21:00)
--- NOTE | 2016-11-08 09:26 | HHI.PR ---
Subjective Remarks Patient reports he is feeling okay. Pain is controlled. No fevers or chills. Objective Vitals Vital Signs Date Time Temp Pulse Resp B/P Pulse Ox O2 Delivery O2 Flow Rate FiO2 11/08/16 08:00 97.1 63 18 99/50 100 11/08/16 05:14 18 11/08/16 00:00 97.8 64 16 101/55 96 11/07/16 23:02 18 11/07/16 20:00 97.9 73 16 130/61 100 11/07/16 16:00 96.9 84 18 107/62 95 11/07/16 12:00 97.7 69 18 101/61 100 I/O 11/07/16 11/07/16 11/07/16 11/08/16 11/08/16 11/08/16 07:00 15:00 23:00 07:00 15:00 23:00 Intake Total 360 ml 720 ml 620 ml 480 ml Output Total 300 ml 400 ml Balance 360 ml 420 ml 220 ml 480 ml Intake Oral 360 ml 480 ml 620 ml 480 ml IV Total 240 ml Output Urine Total 300 ml 400 ml # Voids 3 3 # Bowel Movements 0 0 0 0 Result Diagram: 11/06/16 0545 Objective Remarks GENERAL: This is a well-nourished, well-developed patient, in no apparent distress. CARDIOVASCULAR: Regular rate and rhythm without murmurs, gallops, or rubs. RESPIRATORY: Clear to auscultation. Breath sounds equal bilaterally. No wheezes , rales, or rhonchi. GASTROINTESTINAL: Abdomen soft, non-tender, nondistended. Normal active bowel sounds MUSCULOSKELETAL: Right index finger has a clean dressing and is wrapped. He has no motion in the finger joints. NEURO: Alert & Oriented x4 to person, place, time, situation. Moves all ext x4 Procedures Right hand debridement/ wound vac placement 10/31. Exploration, wash, excisional debridement and partial closure right index PIP joint region 11/02. A/P Assessment and Plan 46-year-old male who presented today with recurrent right index finger pain and infection. He initially lacerated his hand on a brigitte paint can, subsequently infected with MRSA, admitted for septic arthritis on 10/16, underwent three I & D 's of right index finger and discharged with PICC line, HHC and Vancomycin IV scheduled until 11/03. Patient discontinued HHC and took out his PICC. He returned with worsening infection: Septic arthritis Recurrent secondary to noncompliance. Hand surgery consult appreciated. Reviewed previous cultures, which grew Strep A, Staph aureus, and MRSA sensitive to vancomycin. Blood cultures with no growth. Debridement and wound vac 10/31 per hand surgery. S/p exploration, wash, excisional debridement and partial closure right index PIP joint region 11/02. S/p exploration, wash, excisional debridement and closure PIP joint right index finger 11/04. - Continue IV vancomycin with pharmacy to assist with dosing. ID following. Stop date 11/18. Pt will need to complete treatment in-house s/t noncompliance. He understand the need to continue with treatment. - Pain control with [place] and Dilaudid per pain scale. Toradol as needed. Wean narcotics. - antiemetics as needed. - wound care per hand surgery. Chronic alcohol abuse: Out of withdrawal window: - Cessation instruction provided. DVT prophylaxis: SCDs. Discharge Planning Patient to complete antibiotics on 11/18, then can be discharged. Lisa Velasquez MD Nov 08, 2016 09:26
[2016-11-08 12:00] VITALS: BP 103/56; PULSE 65; RESP 18; TEMP 96.9; O2SAT 100
--- NOTE | 2016-11-08 12:59 | HHI.PR ---
Subjective Remarks complains of mild pain complains of deformity and stiffness complaint with limb elevation also complains of numbness over the dorsal aspect of the index finger Objective Vital Signs Date Time Temp Pulse Resp B/P Pulse Ox O2 Delivery O2 Flow Rate FiO2 11/08/16 12:00 96.9 65 18 103/56 100 11/08/16 08:00 97.1 63 18 99/50 100 11/08/16 05:14 18 11/08/16 00:00 97.8 64 16 101/55 96 11/07/16 23:02 18 11/07/16 20:00 97.9 73 16 130/61 100 11/07/16 16:00 96.9 84 18 107/62 95 I/O 11/07/16 11/07/16 11/07/16 11/08/16 11/08/16 11/08/16 07:00 15:00 23:00 07:00 15:00 23:00 Intake Total 360 ml 720 ml 620 ml 480 ml 502 ml Output Total 300 ml 400 ml Balance 360 ml 420 ml 220 ml 480 ml 502 ml Intake Oral 360 ml 480 ml 620 ml 480 ml IV Total 240 ml 502 ml Output Urine Total 300 ml 400 ml # Voids 3 3 # Bowel Movements 0 0 0 0 right index finger: sutures in place mild swelling and erythema noted flexion deformity noted at the PIP joint limited range of motion at the PIP and DIP joints. 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 Josh Shi MD Nov 08, 2016 12:59
[2016-11-08 16:00] VITALS: BP 101/56; PULSE 64; RESP 19; TEMP 98.2; O2SAT 100
[2016-11-08 20:00] VITALS: BP 129/67; PULSE 86; RESP 16; TEMP 99.4; O2SAT 100
[2016-11-08] MEDS: HYDROmorphone HCL PF 1 MG/ML VIAL IV PRN (21:21)
[2016-11-08 23:36] VITALS: BP 108/58; PULSE 81; RESP 16; TEMP 98.4; O2SAT 98
[2016-11-09] MEDS ORDERED: PHARMACY ORDERED LAB ONE (01:45)
[2016-11-09] MEDS: VANCOMYCIN 1,000 MG/NS 250 ML IV SCH ×2 (02:29)
[2016-11-09 08:00] VITALS: BP 104/57; PULSE 79; RESP 14; TEMP 97; O2SAT 100
[2016-11-09] MEDS: ACETAMINOPHEN/HYDROcodone 325 MG/10 MG TAB PO PRN ×3 (08:21→17:59)
[2016-11-09] MEDS: THIAMINE HCL 100 MG TAB PO SCH (08:21)
[2016-11-09] MEDS: PANTOPRAZOLE SOD 40 MG DELAYED RELEASE TAB PO SCH (08:21)
[2016-11-09] MEDS: REMOVE OLD PATCH T-DERMAL SCH (08:22)
[2016-11-09] MEDS: SODIUM CHLORIDE 0.9% FLUSH 10 ML FLUSH IV FLUSH SCH ×2 (08:22→21:36)
[2016-11-09] MEDS: NICOTINE 14 MG/24 HR PATCH T-DERMAL SCH (08:22)
[2016-11-09] MEDS: DOCUSATE SODIUM 100 MG CAP PO SCH ×2 (08:25→21:00)
[2016-11-09] MEDS: SENNOSIDES 8.6 MG TAB PO SCH (08:25)
[2016-11-09] MEDS: POLYETHYLENE GLYCOL 17 GM PKG PO SCH (08:25)
[2016-11-09] MEDS: VANCOMYCIN INJ 1,100 MG in SODIUM CHLOR 0.9% 250 ML INJ 250 ML IV SCH ×2 (10:27→17:54)
[2016-11-09] MEDS: LACTIC ACID (AMMONIUM LACTATE) 12% LOTION 225 GM BTL TOPICAL SCH ×2 (10:28→21:00)
[2016-11-09 12:00] VITALS: BP 115/63; PULSE 77; RESP 18; TEMP 97.4; O2SAT 99
[2016-11-09 16:00] VITALS: BP 117/58; PULSE 80; RESP 20; TEMP 96.8; O2SAT 99
--- NOTE | 2016-11-09 17:15 | HHI.PR ---
Subjective Remarks complains of mild pain complains of deformity and stiffness complaint with limb elevation has been wearing finger splint Objective Vital Signs Date Time Temp Pulse Resp B/P Pulse Ox O2 Delivery O2 Flow Rate FiO2 11/09/16 16:00 96.8 80 20 117/58 99 11/09/16 12:00 97.4 77 18 115/63 99 11/09/16 09:21 16 11/09/16 08:00 97.0 79 14 104/57 100 11/08/16 23:36 98.4 81 16 108/58 98 11/08/16 22:43 18 11/08/16 20:00 99.4 86 16 129/67 100 I/O 11/08/16 11/08/16 11/08/16 11/09/16 11/09/16 11/09/16 07:00 15:00 23:00 07:00 15:00 23:00 Intake Total 480 ml 982 ml 610 ml 360 ml 1450 ml Output Total 700 ml 800 ml Balance 480 ml 282 ml 610 ml 360 ml 650 ml Intake Oral 480 ml 480 ml 360 ml 360 ml 1200 ml IV Total 502 ml 250 ml 250 ml Output Urine Total 700 ml 800 ml # Voids 3 3 3 # Bowel Movements 0 0 0 0 2 right index finger: dressing and splint in place sutured incision site no purulence mild erythema mild flexion deformity range of motion painful Result Diagram: 11/08/161935 Assessment and Plan Assessment and Plan 46 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 other surgical options discussed with the patient included amputation. hand surgery will follow. Josh Shi MD Nov 09, 2016 17:15
--- NOTE | 2016-11-09 17:26 | HHI.PR ---
Subjective Remarks Follow up right index finger infection and pain. Patient seen and examined today. He states his pain is still there but is only worse when he hits it against something. He states he takes the Dilaudid at night and that helps him sleep with the pain. Denies any fever, chills, chest pain or sob. Objective Vitals Vital Signs Date Time Temp Pulse Resp B/P Pulse Ox O2 Delivery O2 Flow Rate FiO2 11/09/16 16:00 96.8 80 20 117/58 99 11/09/16 12:00 97.4 77 18 115/63 99 11/09/16 09:21 16 11/09/16 08:00 97.0 79 14 104/57 100 11/08/16 23:36 98.4 81 16 108/58 98 11/08/16 22:43 18 11/08/16 20:00 99.4 86 16 129/67 100 I/O 11/08/16 11/08/16 11/08/16 11/09/16 11/09/16 11/09/16 07:00 15:00 23:00 07:00 15:00 23:00 Intake Total 480 ml 982 ml 610 ml 360 ml 1450 ml Output Total 700 ml 800 ml Balance 480 ml 282 ml 610 ml 360 ml 650 ml Intake Oral 480 ml 480 ml 360 ml 360 ml 1200 ml IV Total 502 ml 250 ml 250 ml Output Urine Total 700 ml 800 ml # Voids 3 3 3 # Bowel Movements 0 0 0 0 2 Result Diagram: 11/08/161935 Objective Remarks GENERAL: This is a well-nourished, well-developed patient, in no apparent distress. CARDIOVASCULAR: Regular rate and rhythm without murmurs, gallops, or rubs. RESPIRATORY: Clear to auscultation. Breath sounds equal bilaterally. No wheezes , rales, or rhonchi. GASTROINTESTINAL: Abdomen soft, non-tender, nondistended. Normal active bowel sounds MUSCULOSKELETAL: Right index finger is in a splint and is wrapped. He has no motion in the finger joints. NEURO: Alert & Oriented x4 to person, place, time, situation. Moves all ext x4 Procedures Right hand debridement/ wound vac placement 10/31. Exploration, wash, excisional debridement and partial closure right index PIP joint region 11/02. Procedures Right hand debridement/ wound vac placement 10/31. Exploration, wash, excisional debridement and partial closure right index PIP joint region 11/02. Medications and IVs Current Medications Medications (Trade) Dose Ordered Sig/Shan Route Start Time Stop Time Status Last Admin (NS Flush) 2 ml UNSCH PRN IV FLUSH 10/30/16 17:00 11/04/16 23:01 (NS Flush) 2 ml BID IV FLUSH 10/30/16 21:00 11/09/16 08:22 (Tylenol) 650 mg Q4H PRN PO 10/30/16 17:00 (Zofran Inj) 4 mg Q6H PRN IVP 10/30/16 17:00 (Colace) 100 mg Q12H PO 10/30/16 21:00 11/06/16 21:38 (Milk Of Magnkathrine Liq) 30 ml Q12H PRN PO 10/30/16 17:00 (Narcan Inj) 0.4 mg UNSCH PRN IV 10/30/16 17:00 Acetaminophen/ Hydrocodone Bitart 1 tab 1 tab Q4H PRN PO 10/30/16 17:15 11/09/16 12:46 (Vancomycin Consult Pharmacy) 0 ml @ 0 mls/hr UNSCH OTHER 10/30/16 17:15 (Protonix) 40 mg DAILY PO 10/30/16 17:30 11/09/16 08:21 (Vitamin B1) 100 mg DAILY PO 10/30/16 17:30 11/09/16 08:21 (Catapres) 0.1 mg Q6H PRN PO 10/30/16 17:30 (Romazicon Inj) 0.2 mg Q1M PRN IV PUSH 10/30/16 17:30 (Ativan) 1 mg Q4H PRN PO 10/30/16 17:30 (Ativan) 2 mg Q2H PRN PO 10/30/16 17:30 11/09/16 10:49 (Ativan Inj) 2 mg Q1H PRN IV PUSH 10/30/16 17:30 (Ativan Inj) 2 mg Q15M PRN IV PUSH 10/30/16 17:30 (Senokot) 17.2 mg DAILY PO 11/02/16 11:45 11/05/16 08:03 (Miralax) 17 gm DAILY PO 11/02/16 11:45 11/05/16 08:03 ([place] 5-325 Mg) 1 tab Q4H PRN PO 11/06/16 17:00 (Dilaudid Pf Inj) 0.5 mg Q6H PRN IV 11/06/16 21:00 11/08/16 21:21 (Habitrol 14 Mg Patch.24 Hr) 1 patch DAILY T-DERMAL 11/06/16 17:00 11/09/16 08:22 Miscellaneous Information 1 DAILY T-DERMAL 11/07/16 09:00 11/09/16 08:22 Lactic Acid 1 applic 1 applic BID TOPICAL 11/06/16 21:00 11/09/16 10:28 (Vancomycin Inj/ NS 250 ml Inj) 261 ml @ 250 mls/hr Q8H IV 11/09/16 10:00 11/09/16 10:27 Miscellaneous Information SPECIFIC LAB TO BE RYDER... ONCE ONCE .XX 11/10/16 09:45 11/10/16 09:46 A/P Problem List: (1) Septic arthritis of interphalangeal joint of finger of right hand ICD Code: M00.841 Status: Acute Assessment and Plan 46-year-old male who presented today with recurrent right index finger pain and infection. He initially lacerated his hand on a brigitte paint can, subsequently infected with MRSA, admitted for septic arthritis on 10/16, underwent three I & D 's of right index finger and discharged with PICC line, HHC and Vancomycin IV scheduled until 11/03. Patient discontinued HHC and took out his PICC. He returned with worsening infection: Septic arthritis Recurrent secondary to noncompliance. Hand surgery consult appreciated. Reviewed previous cultures, which grew Strep A, Staph aureus, and MRSA sensitive to vancomycin. Blood cultures with no growth. Debridement and wound vac 10/31 per hand surgery. S/p exploration, wash, excisional debridement and partial closure right index PIP joint region 11/02. S/p exploration, wash, excisional debridement and closure PIP joint right index finger 11/04. - Continue IV vancomycin with pharmacy to assist with dosing. ID following. Stop date 11/18. Pt will need to complete treatment in-house s/t noncompliance. He understand the need to continue with treatment. - Pain control with [place] and Dilaudid per pain scale. Toradol as needed. Wean narcotics. - antiemetics as needed. - wound care per hand surgery, Cont finger splint per hand surgery Chronic alcohol abuse: Out of withdrawal window: - Cessation instruction provided. DVT prophylaxis: SCDs. Discussed with Patient and Dr. Booth Discharge Planning Once patient completes IV antibiotics on 11/18 Kenisha Gee Nov 09, 2016 17:26
[2016-11-09] MEDS: SODIUM CHLORIDE 0.9% FLUSH 10 ML FLUSH IV FLUSH PRN (17:54)
[2016-11-09 20:00] VITALS: BP 104/58; PULSE 85; RESP 20; TEMP 98.1; O2SAT 100
[2016-11-10] VITALS: BP 105/55; PULSE 86; RESP 18; TEMP 97.9; O2SAT 97
[2016-11-10] MEDS: ACETAMINOPHEN/HYDROcodone 325 MG/10 MG TAB PO PRN ×3 (00:30→18:49)
[2016-11-10] MEDS: LORazepam 1 MG TAB PO PRN ×2 (00:36→10:34)
[2016-11-10] MEDS: HYDROmorphone HCL PF 1 MG/ML VIAL IV PRN ×3 (02:48→22:30)
[2016-11-10] MEDS: VANCOMYCIN INJ 1,100 MG in SODIUM CHLOR 0.9% 250 ML INJ 250 ML IV SCH ×2 (02:48→10:34)
[2016-11-10 08:00] VITALS: BP 107/57; PULSE 76; RESP 20; TEMP 97.9; O2SAT 98
[2016-11-10] MEDS: LACTIC ACID (AMMONIUM LACTATE) 12% LOTION 225 GM BTL TOPICAL SCH ×2 (09:00→20:54)
[2016-11-10] MEDS: DOCUSATE SODIUM 100 MG CAP PO SCH ×2 (09:00→20:54)
[2016-11-10] MEDS: SODIUM CHLORIDE 0.9% FLUSH 10 ML FLUSH IV FLUSH SCH ×2 (09:00→20:54)
[2016-11-10] MEDS: SENNOSIDES 8.6 MG TAB PO SCH (09:00)
[2016-11-10] MEDS: REMOVE OLD PATCH T-DERMAL SCH (09:00)
[2016-11-10] MEDS: POLYETHYLENE GLYCOL 17 GM PKG PO SCH (09:00)
[2016-11-10] MEDS: PANTOPRAZOLE SOD 40 MG DELAYED RELEASE TAB PO SCH (09:34)
[2016-11-10] MEDS: THIAMINE HCL 100 MG TAB PO SCH (09:34)
[2016-11-10] MEDS: NICOTINE 14 MG/24 HR PATCH T-DERMAL SCH (09:34)
[2016-11-10] MEDS ORDERED: PHARMACY ORDERED LAB ONE (09:45)
[2016-11-10 12:00] VITALS: BP 121/68; PULSE 76; RESP 20; TEMP 96.1; O2SAT 100
--- NOTE | 2016-11-10 14:26 | HHI.PR ---
Subjective Remarks Follow-up for right index finger infection and anxiety. This patient states that he's been having a lot of anxiety regarding all the problems with his finger. He states that normally when he stopped the hospital he also has a lot of stressors and anxiety, but not as bad as when he is in the hospital. He is requesting Ativan. He states that he has not been sleeping well. He denies any fevers or chills. He understands that benzodiazepines can be addictive, states he is only addicted to alcohol. He voices understanding that alcohol will eventually cause significant health problems. He would like to avoid amputation of his right index finger if possible. He is no longer able to extend his right index finger. Objective Vitals Vital Signs Date Time Temp Pulse Resp B/P Pulse Ox O2 Delivery O2 Flow Rate FiO2 11/10/16 12:00 96.1 76 20 121/68 100 11/10/16 08:00 97.9 76 20 107/57 98 11/10/16 03:26 16 11/10/16 01:30 18 11/10/16 00:00 97.9 86 18 105/55 97 11/09/16 20:00 98.1 85 20 104/58 100 11/09/16 16:00 96.8 80 20 117/58 99 I/O 11/09/16 11/09/16 11/09/16 11/10/16 11/10/16 11/10/16 07:00 15:00 23:00 07:00 15:00 23:00 Intake Total 360 ml 1450 ml 610 ml 730 ml Output Total 800 ml 1000 ml Balance 360 ml 650 ml 610 ml -270 ml Intake Oral 360 ml 1200 ml 360 ml 480 ml IV Total 250 ml 250 ml 250 ml Output Urine Total 800 ml 1000 ml # Voids 3 1 # Bowel Movements 0 2 0 Result Diagram: 11/08/16 1936 Imaging Last Impressions Abdomen X-Ray 10/31/16 0000 Signed Impressions: Service Date/Time: Monday, October 31, 2016 10:37 - CONCLUSION: No acute disease. Arthur Molina MD Objective Remarks GENERAL: Well-developed well-nourished. In no acute distress. SKIN: Warm and dry. Right index finger as below. HEENT: Normocephalic. Pupils equal and round. Mucous membranes pink and moist. CARDIOVASCULAR: Regular rate and rhythm. No murmur appreciated. RESPIRATORY: No accessory muscle use. Clear to auscultation. Breath sounds equal bilaterally. GASTROINTESTINAL: Abdomen soft, non-tender, nondistended. Bowel sounds x4. MUSCULOSKELETAL: Right index finger in a splint and clean dressing. Radial and ulnar pulses on the right arm intact. No clubbing or cyanosis. No edema. NEUROLOGICAL: Awake and alert. No focal neurological deficits. Moves upper and lower extremities spontaneously. Normal speech. PSYCHIATRIC: Slightly anxious mood and affect; insight and judgment normal. Procedures Right hand debridement/ wound vac placement 10/31. Exploration, wash, excisional debridement and partial closure right index PIP joint region 11/02. A/P Problem List: (1) Septic arthritis of interphalangeal joint of finger of right hand ICD Code: M00.841 Status: Acute Assessment and Plan 46-year-old male who presented today with recurrent right index finger pain and infection. He initially lacerated his hand on a brigitte paint can, subsequently infected with MRSA, admitted for septic arthritis on 10/16, underwent three I & D 's of right index finger and discharged with PICC line, HHC and Vancomycin IV scheduled until 11/03. Patient discontinued HHC and took out his PICC. He returned with worsening infection: Septic arthritis Recurrent secondary to noncompliance. Hand surgery consult appreciated. Reviewed previous cultures, which grew Strep A, Staph aureus, and MRSA sensitive to vancomycin. Blood cultures with no growth. Debridement and wound vac 10/31 per hand surgery. S/p exploration, wash, excisional debridement and partial closure right index PIP joint region 11/02. S/p exploration, wash, excisional debridement and closure PIP joint right index finger 11/04. - Continue IV vancomycin with pharmacy to assist with dosing. ID following. Stop date 11/18. Pt will need to complete treatment in-house s/t noncompliance. He understand the need to continue with treatment. - Pain control with [place] prn and IV Dilaudid for breakthrough. - wound care per hand surgery, Cont finger splint per hand surgery Chronic alcohol abuse: - Out of withdrawal window, no further need for CIWA - Again counseled on cessation Anxiety/insomnia: - Discussed with RN - Counseled against using benzodiazepines long-term - Agreeable to start on citalopram - Temazepam as needed for sleep QUIRINO?: Creatinine being monitored for vancomycin, currently most recently 1.18, increased from 0.92 previously. Pharmacy consulted for vancomycin dosing. Follow-up BMP today. DVT prophylaxis: SCDs. Discharge Planning Discharge planning once patient completes IV antibiotics on 11/18. Miguel Stephens Nov 10, 2016 14:26
[2016-11-10 16:00] VITALS: BP 121/54; PULSE 90; RESP 18; TEMP 98.1; O2SAT 99
[2016-11-10 18:56] LABS: BICARBONATE 28.1 MEQ/L (21.0-32.0)
[2016-11-10 20:00] VITALS: BP 111/57; PULSE 87; RESP 20; TEMP 98.5; O2SAT 98
[2016-11-10] MEDS: VANCOMYCIN INJ 1,500 MG in SODIUM CHLORID 0.9% 500 ML INJ 500 ML IV SCH (22:25)
[2016-11-11] VITALS: BP 97/52; PULSE 73; RESP 20; TEMP 98.4; O2SAT 100
[2016-11-11] MEDS: ACETAMINOPHEN/HYDROcodone 325 MG/10 MG TAB PO PRN ×3 (02:21→17:25)
[2016-11-11] MEDS: TEMAZEPAM 15 MG CAP PO PRN (02:21)
[2016-11-11 08:00] VITALS: BP 104/59; PULSE 73; RESP 18; TEMP 97.5; O2SAT 100
--- NOTE | 2016-11-11 08:07 | HHI.PR ---
Subjective Remarks Follow-up for right index finger infection and insomnia. Patient states that he got a few hours of good sleep last night. He does complain of sharp pain in his right index finger, but was going to wait for the nurse for pain medicine when she came in. He denies any fevers or chills. Objective Vitals Vital Signs Date Time Temp Pulse Resp B/P Pulse Ox O2 Delivery O2 Flow Rate FiO2 11/11/16 00:00 98.4 73 20 97/52 100 11/10/16 20:00 98.5 87 20 111/57 98 11/10/16 16:00 98.1 90 18 121/54 99 11/10/16 12:00 96.1 76 20 121/68 100 I/O 11/10/16 11/10/16 11/10/16 11/11/16 11/11/16 11/11/16 07:00 15:00 23:00 07:00 15:00 23:00 Intake Total 730 ml 480 ml 360 ml 240 ml Output Total 1000 ml 400 ml Balance -270 ml 480 ml -40 ml 240 ml Intake Oral 480 ml 480 ml 360 ml 240 ml IV Total 250 ml Output Urine Total 1000 ml 400 ml # Voids 1 2 # Bowel Movements 1 0 0 Result Diagram: 11/10/16 1711 Objective Remarks GENERAL: Well-developed well-nourished. In no acute distress. SKIN: Warm and dry. Right index finger as below. HEENT: Normocephalic. Pupils equal and round. Mucous membranes pink and moist. CARDIOVASCULAR: Regular rate and rhythm. No murmur appreciated. RESPIRATORY: No accessory muscle use. Clear to auscultation. Breath sounds equal bilaterally. GASTROINTESTINAL: Abdomen soft, non-tender, nondistended. Bowel sounds x4. MUSCULOSKELETAL: Right index finger in a splint and clean dressing. Radial and ulnar pulses on the right arm intact. No clubbing or cyanosis. No edema. NEUROLOGICAL: Awake and alert. No focal neurological deficits. Moves upper and lower extremities spontaneously. Normal speech. PSYCHIATRIC: Slightly anxious mood and affect; insight and judgment normal. Procedures Right hand debridement/ wound vac placement 10/31. Exploration, wash, excisional debridement and partial closure right index PIP joint region 11/02. A/P Problem List: (1) Septic arthritis of interphalangeal joint of finger of right hand ICD Code: M00.841 Status: Acute Assessment and Plan 46-year-old male who presented today with recurrent right index finger pain and infection. He initially lacerated his hand on a brigitte paint can, subsequently infected with MRSA, admitted for septic arthritis on 10/16, underwent three I & D 's of right index finger and discharged with PICC line, HHC and Vancomycin IV scheduled until 11/03. Patient discontinued HHC and took out his PICC. He returned with worsening infection: Septic arthritis Recurrent secondary to noncompliance. Hand surgery consult appreciated. Reviewed previous cultures, which grew Strep A, Staph aureus, and MRSA sensitive to vancomycin. Blood cultures with no growth. Debridement and wound vac 10/31 per hand surgery. S/p exploration, wash, excisional debridement and partial closure right index PIP joint region 11/02. S/p exploration, wash, excisional debridement and closure PIP joint right index finger 11/04. - Continue IV vancomycin with pharmacy to assist with dosing. ID following. Stop date 11/18. Pt will need to complete treatment in-house s/t noncompliance. He understand the need to continue with treatment. - Pain control with [place] prn and IV Dilaudid for breakthrough. - wound care per hand surgery, Cont finger splint per hand surgery Chronic alcohol abuse: - Out of withdrawal window, no further need for CIWA - Again counseled on cessation Anxiety/insomnia: - Discussed with RN - Counseled against using benzodiazepines long-term - Agreeable to start on citalopram - Temazepam as needed for sleep Increased creatinine: Creatinine being monitored for vancomycin. Creatinine did increase to 1.18, up from 0.92 previously. Pharmacy consulted for vancomycin dosing. Follow-up BMP with stable creatinine 1.12. Continue to monitor and follow-up creatinine levels. DVT prophylaxis: SCDs. Discharge Planning Discharge planning once patient completes IV antibiotics on 11/18. Miguel Stephens Nov 11, 2016 08:07 Trisha Lara MD Nov 11, 2016 17:34
[2016-11-11] MEDS: VANCOMYCIN INJ 1,500 MG in SODIUM CHLORID 0.9% 500 ML INJ 500 ML IV SCH ×2 (08:43→22:44)
[2016-11-11] MEDS: NICOTINE 14 MG/24 HR PATCH T-DERMAL SCH (08:43)
[2016-11-11] MEDS: REMOVE OLD PATCH T-DERMAL SCH (08:44)
[2016-11-11] MEDS: THIAMINE HCL 100 MG TAB PO SCH (08:45)
[2016-11-11] MEDS: CITALOPRAM HYDROBROMIDE 20 MG TAB PO SCH (08:45)
[2016-11-11] MEDS: SODIUM CHLORIDE 0.9% FLUSH 10 ML FLUSH IV FLUSH SCH ×2 (08:46→21:00)
[2016-11-11] MEDS: PANTOPRAZOLE SOD 40 MG DELAYED RELEASE TAB PO SCH (08:46)
[2016-11-11] MEDS: SENNOSIDES 8.6 MG TAB PO SCH (08:46)
[2016-11-11] MEDS: DOCUSATE SODIUM 100 MG CAP PO SCH ×2 (08:46→21:00)
[2016-11-11] MEDS: POLYETHYLENE GLYCOL 17 GM PKG PO SCH (08:46)
[2016-11-11] MEDS: LACTIC ACID (AMMONIUM LACTATE) 12% LOTION 225 GM BTL TOPICAL SCH ×2 (08:53→21:35)
[2016-11-11] MEDS ORDERED: FLUoxetine HCL 20 MG CAP PO SCH (09:00)
[2016-11-11 12:00] VITALS: BP 110/56; PULSE 78; RESP 18; TEMP 97.4; O2SAT 100
[2016-11-11] MEDS: HYDROmorphone HCL PF 1 MG/ML VIAL IV PRN ×2 (12:23→21:40)
[2016-11-11 20:00] VITALS: BP 101/59; PULSE 78; RESP 17; TEMP 98.1; O2SAT 100
[2016-11-12] VITALS: BP 104/57; PULSE 78; RESP 17; TEMP 97.1; O2SAT 98
[2016-11-12] MEDS: ACETAMINOPHEN/HYDROcodone 325 MG/5 MG TAB PO PRN (01:02)
[2016-11-12] MEDS: HYDROmorphone HCL PF 1 MG/ML VIAL IV PRN ×3 (04:09→17:20)
[2016-11-12] MEDS: POLYETHYLENE GLYCOL 17 GM PKG PO SCH (07:48)
[2016-11-12] MEDS: SENNOSIDES 8.6 MG TAB PO SCH (07:48)
[2016-11-12] MEDS: DOCUSATE SODIUM 100 MG CAP PO SCH ×2 (07:48→21:00)
[2016-11-12] MEDS: NICOTINE 14 MG/24 HR PATCH T-DERMAL SCH (07:51)
[2016-11-12] MEDS: THIAMINE HCL 100 MG TAB PO SCH (07:52)
[2016-11-12] MEDS: REMOVE OLD PATCH T-DERMAL SCH (07:52)
[2016-11-12] MEDS: PANTOPRAZOLE SOD 40 MG DELAYED RELEASE TAB PO SCH (07:52)
[2016-11-12] MEDS: ACETAMINOPHEN/HYDROcodone 325 MG/10 MG TAB PO PRN ×2 (07:52→21:02)
[2016-11-12] MEDS: CITALOPRAM HYDROBROMIDE 20 MG TAB PO SCH (07:52)
[2016-11-12] MEDS: LACTIC ACID (AMMONIUM LACTATE) 12% LOTION 225 GM BTL TOPICAL SCH ×2 (07:53→21:00)
[2016-11-12 08:00] VITALS: BP 90/50; PULSE 71; RESP 17; TEMP 97; O2SAT 97
[2016-11-12] MEDS: SODIUM CHLORIDE 0.9% FLUSH 10 ML FLUSH IV FLUSH SCH ×2 (09:00→21:03)
[2016-11-12] MEDS ORDERED: PHARMACY ORDERED LAB ONE (09:45)
[2016-11-12] MEDS: VANCOMYCIN INJ 1,500 MG in SODIUM CHLORID 0.9% 500 ML INJ 500 ML IV SCH ×2 (10:19→21:02)
[2016-11-12 12:00] VITALS: BP 95/63; PULSE 68; RESP 18; TEMP 97.8; O2SAT 97
--- NOTE | 2016-11-12 13:21 | HHI.PR ---
Subjective Remarks complains of mild pain complaint with limb elevation has been wearing finger splint Objective Vital Signs Date Time Temp Pulse Resp B/P Pulse Ox O2 Delivery O2 Flow Rate FiO2 11/12/16 12:00 97.8 68 18 95/63 97 11/12/16 08:00 97.0 71 17 90/50 97 11/12/16 00:00 97.1 78 17 104/57 98 11/11/16 22:10 20 11/11/16 20:00 98.1 78 17 101/59 100 I/O 11/11/16 11/11/16 11/11/16 11/12/16 11/12/16 11/12/16 07:00 15:00 23:00 07:00 15:00 23:00 Intake Total 240 ml 800 ml 480 ml 240 ml Output Total 500 ml 150 ml Balance 240 ml 300 ml 330 ml 240 ml Intake Oral 240 ml 800 ml 480 ml 240 ml Output Urine Total 500 ml 150 ml # Voids 2 2 2 # Bowel Movements 0 1 right index finger: splint in place surgical incision site clean and dry with sutures in place mild surrounding redness range of motion is limited Result Diagram: 11/12/16 0945 Assessment and Plan Assessment and Plan 46 year 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 Josh Shi MD Nov 12, 2016 13:21
--- NOTE | 2016-11-12 13:31 | HHI.PR ---
Subjective Remarks Follow up for right index finger infection and insomnia. Patient seen and examined, Dr. Lee at bedside as well changing right index finger dressing. Patient states that pain is well controlled. Tolerating PO diet, with occasional nausea. Positive BM yesterday. Denies any shortness of breath, chest pain or vomiting. Objective Vitals Vital Signs Date Time Temp Pulse Resp B/P Pulse Ox O2 Delivery O2 Flow Rate FiO2 11/12/16 12:00 97.8 68 18 95/63 97 11/12/16 08:00 97.0 71 17 90/50 97 11/12/16 00:00 97.1 78 17 104/57 98 11/11/16 22:10 20 11/11/16 20:00 98.1 78 17 101/59 100 I/O 11/11/16 11/11/16 11/11/16 11/12/16 11/12/16 11/12/16 07:00 15:00 23:00 07:00 15:00 23:00 Intake Total 240 ml 800 ml 480 ml 240 ml Output Total 500 ml 150 ml Balance 240 ml 300 ml 330 ml 240 ml Intake Oral 240 ml 800 ml 480 ml 240 ml Output Urine Total 500 ml 150 ml # Voids 2 2 2 # Bowel Movements 0 1 Result Diagram: 11/12/16 0945 Imaging Last Impressions Abdomen X-Ray 10/31/16 0000 Signed Impressions: Service Date/Time: Monday, October 31, 2016 10:37 - CONCLUSION: No acute disease. Arthur Molina MD Objective Remarks GENERAL: Well-nourished, well-developed patient in [facility]. SKIN: Warm and dry. No rash. HEAD: Normocephalic. Atraumatic. EYES: Pupils equal and round. No scleral icterus. No injection or drainage. ENT: No nasal bleeding or discharge. Mucous membranes pink and moist. NECK: Supple. Trachea midline. CARDIOVASCULAR: Regular rate and rhythm. S1, S2 noted. No murmur appreciated. RESPIRATORY: No accessory muscle use. Clear to auscultation. Breath sounds equal bilaterally. GASTROINTESTINAL: Abdomen soft, non-tender, nondistended. Normoactive bowel sounds x4. MUSCULOSKELETAL: Right index finger dressing noted, changed by Dr. Lee today. Sutures intact. Limited ROM to right index finger. Small amount of erythema noted. Bilateral radial pulses present. NEUROLOGICAL: Awake and alert. No obvious cranial nerve deficits. Motor grossly within normal limits. 5/5 muscle strength in bilateral upper and lower extremities. Normal speech. PSYCHIATRIC: Appropriate mood and affect; insight and judgment normal. Procedures Right hand debridement/ wound vac placement 10/31. Exploration, wash, excisional debridement and partial closure right index PIP joint region 11/02. A/P Problem List: (1) Septic arthritis of interphalangeal joint of finger of right hand ICD Code: M00.841 Status: Acute Assessment and Plan 46-year-old male who presented today with recurrent right index finger pain and infection. He initially lacerated his hand on a brigitte paint can, subsequently infected with MRSA, admitted for septic arthritis on 10/16, underwent three I & D 's of right index finger and discharged with PICC line, HHC and Vancomycin IV scheduled until 11/03. Patient discontinued HHC and took out his PICC. He returned with worsening infection: Septic arthritis Recurrent secondary to noncompliance. Hand surgery following. Previous cultures reviewed, Strep A, Staph aureus, and MRSA sensitive to vancomycin. Blood cultures with no growth. Debridement and wound vac 10/31 per hand surgery. S/p exploration, wash, excisional debridement and partial closure right index PIP joint region 11/02. S/p exploration, wash, excisional debridement and closure PIP joint right index finger 11/04. - Continue IV vancomycin with pharmacy to assist with dosing. ID following. Stop date 11/18. Pt will need to complete treatment in-house s/t noncompliance. He understand the need to continue with treatment. - Pain control with [place] prn and IV Dilaudid for breakthrough. - Wound care per hand surgery, Cont finger splint per hand surgery, dressing changed today by Dr. Lee. Chronic alcohol abuse: - Out of withdrawal window, no further need for CIWA - Counseled again on cessation. Anxiety/insomnia: - Discussed with RN - Counseled against using benzodiazepines long-term - Continue citalopram - Temazepam PRN for sleep Increased creatinine: Creatinine being monitored for vancomycin. 11/12 creatinine 0.95. Pharmacy following for vanco dosing. Continue to monitor and follow-up creatinine levels. DVT prophylaxis: SCDs. Juliane Banerjee Nov 12, 2016 13:31 Trisha Lraa MD Nov 12, 2016 15:04
[2016-11-12 16:00] VITALS: BP 97/70; PULSE 72; RESP 18; TEMP 96.3; O2SAT 97
[2016-11-12 20:04] VITALS: BP 106/55; PULSE 80; RESP 17; TEMP 98.5; O2SAT 98
[2016-11-13] VITALS (7 sets, daily range): BP systolic 99–139; BP diastolic 58–73; PULSE 60–84; RESP 17–18; TEMP 96.6–98.4; O2SAT 92–99
[2016-11-13] MEDS: HYDROmorphone HCL PF 1 MG/ML VIAL IV PRN ×3 (00:04→20:59)
[2016-11-13] MEDS: ACETAMINOPHEN/HYDROcodone 325 MG/5 MG TAB PO PRN (05:47)
[2016-11-13] MEDS: DOCUSATE SODIUM 100 MG CAP PO SCH (09:00)
[2016-11-13] MEDS: SODIUM CHLORIDE 0.9% FLUSH 10 ML FLUSH IV FLUSH SCH ×2 (09:00→21:00)
[2016-11-13] MEDS: REMOVE OLD PATCH T-DERMAL SCH (09:00)
[2016-11-13] MEDS: POLYETHYLENE GLYCOL 17 GM PKG PO SCH (09:00)
[2016-11-13] MEDS: SENNOSIDES 8.6 MG TAB PO SCH (09:00)
[2016-11-13] MEDS: NICOTINE 14 MG/24 HR PATCH T-DERMAL SCH (09:16)
[2016-11-13] MEDS: VANCOMYCIN INJ 1,500 MG in SODIUM CHLORID 0.9% 500 ML INJ 500 ML IV SCH ×2 (09:16→20:59)
[2016-11-13] MEDS: PANTOPRAZOLE SOD 40 MG DELAYED RELEASE TAB PO SCH (09:17)
[2016-11-13] MEDS: LACTIC ACID (AMMONIUM LACTATE) 12% LOTION 225 GM BTL TOPICAL SCH ×2 (09:17→21:00)
[2016-11-13] MEDS: CITALOPRAM HYDROBROMIDE 20 MG TAB PO SCH (09:17)
[2016-11-13] MEDS: THIAMINE HCL 100 MG TAB PO SCH (09:17)
--- NOTE | 2016-11-13 12:09 | HHI.PR ---
Subjective Remarks Follow-up for right finger infection. The patient complains of stomach upset. He denies any nausea, vomiting, abdominal pain, diarrhea. He states that he is hungry, he just doesn't want to eat. He denies any fevers or chills. Objective Vitals Vital Signs Date Time Temp Pulse Resp B/P Pulse Ox O2 Delivery O2 Flow Rate FiO2 11/13/16 08:00 98.4 79 17 99/62 98 11/13/16 04:38 96.7 60 17 139/65 94 11/13/16 00:07 96.6 78 18 137/66 92 11/12/16 20:04 98.5 80 17 106/55 98 11/12/16 16:00 96.3 72 18 97/70 97 I/O 11/12/16 11/12/16 11/12/16 11/13/16 11/13/16 11/13/16 07:00 15:00 23:00 07:00 15:00 23:00 Intake Total 240 ml 600 ml 760 ml 980 ml Output Total 950 ml 1000 ml Balance 240 ml -350 ml -240 ml 980 ml Intake Oral 240 ml 600 ml 760 ml 480 ml IV Total 500 ml Output Urine Total 950 ml 1000 ml # Voids 2 2 # Bowel Movements 0 Result Diagram: 11/12/16 0945 Objective Remarks GENERAL: Well-developed well-nourished. In no acute distress. SKIN: Warm and dry. Right index finger as below. HEENT: Normocephalic. Pupils equal and round. Mucous membranes pink and moist. CARDIOVASCULAR: Regular rate and rhythm. No murmur appreciated. RESPIRATORY: No accessory muscle use. Clear to auscultation. Breath sounds equal bilaterally. GASTROINTESTINAL: Abdomen soft, non-tender, nondistended. Bowel sounds x4. MUSCULOSKELETAL: Right index finger in a splint and clean dressing. Radial and ulnar pulses on the right arm intact. No clubbing or cyanosis. No edema. NEUROLOGICAL: Awake and alert. No focal neurological deficits. Moves upper and lower extremities spontaneously. Normal speech. PSYCHIATRIC: Slightly anxious mood and affect; insight and judgment normal. Procedures Right hand debridement/ wound vac placement 10/31. Exploration, wash, excisional debridement and partial closure right index PIP joint region 11/02. A/P Problem List: (1) Septic arthritis of interphalangeal joint of finger of right hand ICD Code: M00.841 Status: Acute Assessment and Plan 46-year-old male who presented today with recurrent right index finger pain and infection. He initially lacerated his hand on a brigitte paint can, subsequently infected with MRSA, admitted for septic arthritis on 10/16, underwent three I & D 's of right index finger and discharged with PICC line, HHC and Vancomycin IV scheduled until 11/03. Patient discontinued HHC and took out his PICC. He returned with worsening infection: Septic arthritis Recurrent secondary to noncompliance. Hand surgery consult appreciated. Reviewed previous cultures, which grew Strep A, Staph aureus, and MRSA sensitive to vancomycin. Blood cultures with no growth. Debridement and wound vac 10/31 per hand surgery. S/p exploration, wash, excisional debridement and partial closure right index PIP joint region 11/02. S/p exploration, wash, excisional debridement and closure PIP joint right index finger 11/04. - Continue IV vancomycin with pharmacy to assist with dosing. ID following. Stop date 11/18. Pt will need to complete treatment in-house s/t noncompliance. He understand the need to continue with treatment. - Pain control with [place] prn and IV Dilaudid for breakthrough. - wound care per hand surgery, Cont finger splint per hand surgery Chronic alcohol abuse: - Out of withdrawal window, no further need for CIWA - Again counseled on cessation Anxiety/insomnia: - Counseled against using benzodiazepines long-term - Started on citalopram - Temazepam as needed for sleep GI upset: Unclear etiology. Possible medication effect. Continue PPI. Discontinue bowel regimen. Decrease nicotine patch dose. Monitor. DVT prophylaxis: SCDs. Discharge Planning Discharge planning once patient completes IV antibiotics on 11/18. Miguel Stephens Nov 13, 2016 12:09 Trisha Lara MD Nov 13, 2016 14:23
[2016-11-13] MEDS ORDERED: POLYETHYLENE GLYCOL 17 GM PKG PO PRN (12:15)
[2016-11-13] MEDS: ACETAMINOPHEN/HYDROcodone 325 MG/10 MG TAB PO PRN (17:32)
[2016-11-14] MEDS: ACETAMINOPHEN/HYDROcodone 325 MG/10 MG TAB PO PRN ×5 (03:28→22:12)
[2016-11-14] MEDS: TEMAZEPAM 15 MG CAP PO PRN (03:28)
[2016-11-14 08:00] VITALS: BP 90/55; PULSE 66; RESP 14; TEMP 97.7; O2SAT 99
[2016-11-14] MEDS: REMOVE OLD PATCH T-DERMAL SCH (09:00)
[2016-11-14] MEDS: CITALOPRAM HYDROBROMIDE 20 MG TAB PO SCH (09:50)
[2016-11-14] MEDS: PANTOPRAZOLE SOD 40 MG DELAYED RELEASE TAB PO SCH (09:50)
[2016-11-14] MEDS: THIAMINE HCL 100 MG TAB PO SCH (09:50)
[2016-11-14] MEDS: NICOTINE 7 MG/24 HR PATCH T-DERMAL SCH (09:51)
[2016-11-14] MEDS: SODIUM CHLORIDE 0.9% FLUSH 10 ML FLUSH IV FLUSH SCH ×2 (09:52→21:00)
[2016-11-14] MEDS: LACTIC ACID (AMMONIUM LACTATE) 12% LOTION 225 GM BTL TOPICAL SCH ×2 (09:52→21:00)
[2016-11-14] MEDS: VANCOMYCIN INJ 1,500 MG in SODIUM CHLORID 0.9% 500 ML INJ 500 ML IV SCH (09:55)
[2016-11-14 12:00] VITALS: BP 100/55; PULSE 74; RESP 15; TEMP 98.1; O2SAT 99
--- NOTE | 2016-11-14 12:25 | HHI.PR ---
Subjective Remarks Follow up pain/infection in left finger and upset stomach. Patient states he feels good, only has pain when he accidently hits his finger on something. He states his upset stomach has resolved, he was able to eat breakfast. Denies any chest pain, nausea or vomiting. Objective Vitals Vital Signs Date Time Temp Pulse Resp B/P Pulse Ox O2 Delivery O2 Flow Rate FiO2 11/14/16 08:00 97.7 66 14 90/55 99 11/14/16 04:32 16 11/13/16 23:44 98.3 79 18 103/58 95 11/13/16 21:46 18 11/13/16 19:50 98.1 72 17 109/61 98 11/13/16 16:00 96.8 84 18 105/73 99 I/O 11/13/16 11/13/16 11/13/16 11/14/16 11/14/16 11/14/16 07:00 15:00 23:00 07:00 15:00 23:00 Intake Total 980 ml 240 ml 480 ml 730 ml Output Total 900 ml 800 ml Balance 980 ml -660 ml 480 ml -70 ml Intake Oral 480 ml 240 ml 480 ml 480 ml IV Total 500 ml 0 ml 250 ml Output Urine Total 900 ml 800 ml # Voids 2 2 # Bowel Movements 0 Result Diagram: 11/14/16 0444 Imaging Last Impressions Abdomen X-Ray 10/31/16 0000 Signed Impressions: Service Date/Time: Monday, October 31, 2016 10:37 - CONCLUSION: No acute disease. Arthur Molina MD Objective Remarks GENERAL: This is a well-nourished, well-developed patient, in no apparent distress. CARDIOVASCULAR: Regular rate and rhythm without murmurs, gallops, or rubs. RESPIRATORY: Clear to auscultation. Breath sounds equal bilaterally. No wheezes , rales, or rhonchi. GASTROINTESTINAL: Abdomen soft, non-tender, nondistended. Normal active bowel sounds MUSCULOSKELETAL: Right index finger is in a splint and is wrapped. He has no motion in the finger joints. NEURO: Alert & Oriented x4 to person, place, time, situation. Moves all ext x4 Procedures Right hand debridement/ wound vac placement 10/31. Exploration, wash, excisional debridement and partial closure right index PIP joint region 11/02. Medications and IVs Current Medications Medications (Trade) Dose Ordered Sig/Shan Route Start Time Stop Time Status Last Admin (NS Flush) 2 ml UNSCH PRN IV FLUSH 10/30/16 17:00 11/09/16 17:54 (NS Flush) 2 ml BID IV FLUSH 10/30/16 21:00 11/14/16 09:52 (Tylenol) 650 mg Q4H PRN PO 10/30/16 17:00 (Zofran Inj) 4 mg Q6H PRN IVP 10/30/16 17:00 (Milk Of Magnesia Liq) 30 ml Q12H PRN PO 10/30/16 17:00 (Narcan Inj) 0.4 mg UNSCH PRN IV 10/30/16 17:00 Acetaminophen/ Hydrocodone Bitart 1 tab 1 tab Q4H PRN PO 10/30/16 17:15 11/14/16 09:49 (Vancomycin Consult Pharmacy) 0 ml @ 0 mls/hr UNSCH OTHER 10/30/16 17:15 (Protonix) 40 mg DAILY PO 10/30/16 17:30 11/14/16 09:50 (Vitamin B1) 100 mg DAILY PO 10/30/16 17:30 11/14/16 09:50 (Catapres) 0.1 mg Q6H PRN PO 10/30/16 17:30 (Romazicon Inj) 0.2 mg Q1M PRN IV PUSH 10/30/16 17:30 ([place] 5-325 Mg) 1 tab Q4H PRN PO 11/06/16 17:00 11/13/16 05:47 (Dilaudid Pf Inj) 0.5 mg Q6H PRN IV 11/06/16 21:00 11/13/16 20:59 Lactic Acid 1 applic 1 applic BID TOPICAL 11/06/16 21:00 11/14/16 09:52 (Vancomycin Inj/ NS 500 ml Inj) 515 ml @ 250 mls/hr Q12H IV 11/10/16 22:00 11/14/16 09:55 (Restoril) 15 mg HS PRN PO 11/10/16 14:30 11/14/16 03:28 (CeleXA) 20 mg DAILY PO 11/11/16 09:00 11/14/16 09:50 (Miralax) 17 gm DAILY PRN PO 11/13/16 12:15 (Habitrol 7 Mg Patch.24 Hr) 1 patch DAILY T-DERMAL 11/14/16 09:00 11/14/16 09:51 Miscellaneous Information 1 DAILY T-DERMAL 11/14/16 09:00 11/14/16 09:00 A/P Problem List: (1) Septic arthritis of interphalangeal joint of finger of right hand ICD Code: M00.841 Status: Acute Assessment and Plan 46-year-old male who presented today with recurrent right index finger pain and infection. He initially lacerated his hand on a [place] paint can, subsequently infected with MRSA, admitted for septic arthritis on 10/16, underwent three I & D 's of right index finger and discharged with PICC line, HHC and Vancomycin IV scheduled until 11/03. Patient discontinued HHC and took out his PICC. He returned with worsening infection: Septic arthritis Recurrent secondary to noncompliance. Hand surgery consult appreciated. Reviewed previous cultures, which grew Strep A, Staph aureus, and MRSA sensitive to vancomycin. Blood cultures with no growth. Debridement and wound vac 10/31 per hand surgery. S/p exploration, wash, excisional debridement and partial closure right index PIP joint region 11/02. S/p exploration, wash, excisional debridement and closure PIP joint right index finger 11/04. - Continue IV vancomycin with pharmacy to assist with dosing. ID following. Stop date 11/18. Pt will need to complete treatment in-house s/t noncompliance. He understand the need to continue with treatment. - Pain control with [place] and Dilaudid per pain scale. Toradol as needed. Wean narcotics. - antiemetics as needed. - wound care per hand surgery, Cont finger splint per hand surgery Chronic alcohol abuse/ tobacco use, Out of withdrawal window: -Encouraged to quit -Cessation instruction provided. -Cont nicotine patch Anxiety/insomnia: - Counseled against using benzodiazepines long-term - Cont on citalopram - Temazepam as needed for sleep GI upset: resolved DVT prophylaxis: SCDs. Discussed with Patient and Dr. Lara Discharge Planning Once patient completes IV antibiotics on 11/18 Kenisha Gee Nov 14, 2016 12:24 Trisha Lara MD Nov 14, 2016 14:43
[2016-11-14 20:00] VITALS: BP 115/69; PULSE 70; RESP 16; TEMP 98.7; O2SAT 98
[2016-11-15] VITALS: BP 90/57; PULSE 66; RESP 15; TEMP 98.6; O2SAT 96
[2016-11-15] MEDS: VANCOMYCIN INJ 1,500 MG in SODIUM CHLORID 0.9% 500 ML INJ 500 ML IV SCH ×3 (00:09→21:41)
[2016-11-15] MEDS: ACETAMINOPHEN/HYDROcodone 325 MG/10 MG TAB PO PRN ×5 (03:06→22:21)
[2016-11-15 08:00] VITALS: BP 106/61; PULSE 66; RESP 16; TEMP 98.3; O2SAT 99
[2016-11-15] MEDS: REMOVE OLD PATCH T-DERMAL SCH (09:00)
[2016-11-15] MEDS: LACTIC ACID (AMMONIUM LACTATE) 12% LOTION 225 GM BTL TOPICAL SCH ×2 (09:00→21:00)
[2016-11-15] MEDS: NICOTINE 7 MG/24 HR PATCH T-DERMAL SCH (09:39)
[2016-11-15] MEDS: SODIUM CHLORIDE 0.9% FLUSH 10 ML FLUSH IV FLUSH SCH ×2 (09:39→21:00)
[2016-11-15] MEDS: CITALOPRAM HYDROBROMIDE 20 MG TAB PO SCH (09:39)
[2016-11-15] MEDS: THIAMINE HCL 100 MG TAB PO SCH (09:39)
[2016-11-15] MEDS: PANTOPRAZOLE SOD 40 MG DELAYED RELEASE TAB PO SCH (09:39)
--- NOTE | 2016-11-15 11:37 | HHI.PR ---
Subjective Remarks Follow-up right index finger abscess/infection 11/15/16-patient seen and examined, Objective Vitals Vital Signs Date Time Temp Pulse Resp B/P Pulse Ox O2 Delivery O2 Flow Rate FiO2 11/15/16 11:08 18 11/15/16 08:00 98.3 66 16 106/61 99 11/15/16 00:00 98.6 66 15 90/57 96 11/14/16 20:00 98.7 70 16 115/69 98 11/14/16 12:00 98.1 74 15 100/55 99 I/O 11/14/16 11/14/16 11/14/16 11/15/16 11/15/16 11/15/16 07:00 15:00 23:00 07:00 15:00 23:00 Intake Total 730 ml 450 ml 486 ml Output Total 800 ml Balance -70 ml 450 ml 486 ml Intake Oral 480 ml 450 ml 240 ml IV Total 250 ml 246 ml Output Urine Total 800 ml # Voids 4 Result Diagram: 11/14/16 0444 Imaging Last Impressions Abdomen X-Ray 10/31/16 0000 Signed Impressions: Service Date/Time: Monday, October 31, 2016 10:37 - CONCLUSION: No acute disease. Arthur Molina MD Objective Remarks GENERAL: NAD SKIN: Warm and dry. HEAD: Normocephalic. EYES: No scleral icterus. No injection or drainage. NECK: Supple, trachea midline. No JVD or lymphadenopathy. CARDIOVASCULAR: Regular rate and rhythm without murmurs, gallops, or rubs. RESPIRATORY: Breath sounds equal bilaterally. No accessory muscle use. GASTROINTESTINAL: Abdomen soft, non-tender, nondistended. MUSCULOSKELETAL: No cyanosis, or edema. splint to right index finger BACK: Nontender without obvious deformity. No CVA tenderness. Procedures Right hand debridement/ wound vac placement 10/31. Exploration, wash, excisional debridement and partial closure right index PIP joint region 11/02. A/P Problem List: (1) Septic arthritis of interphalangeal joint of finger of right hand ICD Code: M00.841 Status: Acute Assessment and Plan 46-year-old man with Septic arthritis Debridement and wound vac 10/31 per hand surgery. S/p exploration, wash, excisional debridement and partial closure right index PIP joint region 11/02. S/p exploration, wash, excisional debridement and closure PIP joint right index finger 11/04. - Continue IV vancomycin .Stop date 11/18. - Pain control with [place] and Dilaudid per pain scale. Toradol as needed. Wean narcotics. - antiemetics as needed. - wound care per hand surgery, Cont finger splint per hand surgery Chronic alcohol abuse/ tobacco use -Cessation instruction provided. -Cont nicotine patch Anxiety/insomnia: - Cont on citalopram - Temazepam as needed for sleep DVT prophylaxis: SCDs. Ran Phillips MD Nov 15, 2016 11:37
[2016-11-15 12:00] VITALS: BP 110/60; PULSE 71; RESP 16; TEMP 98.2; O2SAT 99
--- NOTE | 2016-11-15 13:41 | HHI.PR ---
Subjective Remarks complains of mild pain complaint with limb elevation has been wearing finger splint 11 days since closure Objective Vital Signs Date Time Temp Pulse Resp B/P Pulse Ox O2 Delivery O2 Flow Rate FiO2 11/15/16 11:08 18 11/15/16 08:00 98.3 66 16 106/61 99 11/15/16 00:00 98.6 66 15 90/57 96 11/14/16 20:00 98.7 70 16 115/69 98 I/O 11/14/16 11/14/16 11/14/16 11/15/16 11/15/16 11/15/16 07:00 15:00 23:00 07:00 15:00 23:00 Intake Total 730 ml 450 ml 486 ml Output Total 800 ml Balance -70 ml 450 ml 486 ml Intake Oral 480 ml 450 ml 240 ml IV Total 250 ml 246 ml Output Urine Total 800 ml # Voids 4 right index finger: finger splint in place wound clean and dry with sutures in place flexion deformity noted at the PIP joint limited painful flexion intact sensation Result Diagram: 11/14/16 0444 Assessment and Plan Assessment and Plan 46 year old male with septic boutonniere deformity right index finger s/p multiple debridements and closure of the incision site [id number] Plan: Surrounding skin is cleaned with alcohol wipes dry dressing applied active and passive range of motion exercises finger splint to keep the finger in extension intermittently antibiotics based on ID recommendations hand surgery will follow. Josh Shi MD Nov 15, 2016 13:41
[2016-11-15 20:00] VITALS: BP 97/62; PULSE 75; RESP 20; TEMP 97.7; O2SAT 98
[2016-11-16] MEDS: ACETAMINOPHEN/HYDROcodone 325 MG/10 MG TAB PO PRN ×2 (04:59→09:19)
[2016-11-16 08:00] VITALS: BP 99/61; PULSE 65; RESP 16; TEMP 96.7; O2SAT 100
[2016-11-16] MEDS: LACTIC ACID (AMMONIUM LACTATE) 12% LOTION 225 GM BTL TOPICAL SCH ×2 (09:00→21:00)
[2016-11-16] MEDS: SODIUM CHLORIDE 0.9% FLUSH 10 ML FLUSH IV FLUSH SCH (09:00)
[2016-11-16] MEDS: REMOVE OLD PATCH T-DERMAL SCH (09:00)
[2016-11-16] MEDS: NICOTINE 7 MG/24 HR PATCH T-DERMAL SCH (09:18)
[2016-11-16] MEDS: THIAMINE HCL 100 MG TAB PO SCH (09:18)
[2016-11-16] MEDS: PANTOPRAZOLE SOD 40 MG DELAYED RELEASE TAB PO SCH (09:19)
[2016-11-16] MEDS: CITALOPRAM HYDROBROMIDE 20 MG TAB PO SCH (09:19)
[2016-11-16] MEDS: VANCOMYCIN INJ 1,500 MG in SODIUM CHLORID 0.9% 500 ML INJ 500 ML IV SCH (10:35)
--- NOTE | 2016-11-16 11:50 | HHI.PR ---
Subjective Remarks Patient seen and examined today in follow-up on septic arthritis. Patient states that he still having significant pain. He cannot bend his finger. He indicates and certainly states that he may have to amputate his finger. Nursing staff indicates that he does have some changes with his veins in his arms with cordlike appearance and palpation Objective Vitals Vital Signs Date Time Temp Pulse Resp B/P Pulse Ox O2 Delivery O2 Flow Rate FiO2 11/16/16 08:00 96.7 65 16 99/61 100 11/15/16 20:00 97.7 75 20 97/62 98 11/15/16 15:41 18 11/15/16 12:00 98.2 71 16 110/60 99 I/O 11/15/16 11/15/16 11/15/16 11/16/16 11/16/16 11/16/16 07:00 15:00 23:00 07:00 15:00 23:00 Intake Total 486 ml 830 ml 480 ml Output Total 850 ml Balance 486 ml -20 ml 480 ml Intake Oral 240 ml 830 ml 480 ml IV Total 246 ml Output Urine Total 850 ml # Voids 2 3 # Bowel Movements 0 0 Result Diagram: 11/16/16 0444 Objective Remarks GENERAL: Well-developed, well-nourished, in no acute distress. alert and orientated HEENT: Head is normocephalic without any lesions or masses noted. Facial features are symmetric. Eyes: Extraocular muscles are intact. Conjunctivae were clear. NECK: Supple without any masses. Trachea midline no deviation. No JVD, CARDIAC: Regular rhythm, regular rate. S1/S2 are heard. No murmurs gallops or rubs. LUNGS: Clear auscultation bilaterally. No wheeze, rhonchi or rales. No use of accessory muscles on inspiration or expiration. ABDOMEN: Soft, nontender. Nondistended. Bowel sounds heard in all 4 quadrants. No organomegaly or masses. Negative rebound, negative guarding EXTREMITIES: No edema, pulses are equal bilaterally. No cyanosis or clubbing NEUROLOGY: Mood and affect appear appropriate. Cranial nerves II through XII grossly intact. Moving all extremities, speech is clear RIGHT HAND: Patient right hand is in bandage with splint on the second digit Procedures Right hand debridement/ wound vac placement 10/31. Exploration, wash, excisional debridement and partial closure right index PIP joint region 11/02. Urinary Catheter: No Vascular Central Line Catheter: No A/P Assessment and Plan Septic arthritis right hand second digit Hand specialist following the patient Status post Debridement and wound vac 10/31 per hand surgery, S/p exploration, wash, excisional debridement and partial closure right index PIP joint region . S/p exploration, wash, excisional debridement and closure PIP joint right index finger 11/04. wound care per hand surgery, Cont finger splint per hand surgery Continue IV vancomycin .Stop date recommended by infectious disease 11/18. Pain control with [place], Wean narcotics. Chronic alcohol abuse/ tobacco use Cessation instruction provided. Cont nicotine patch Anxiety/insomnia: Cont on citalopram Temazepam as needed for sleep DVT prophylaxis: Sequential compression devices Jhoan Rosado Nov 16, 2016 11:50
[2016-11-16] MEDS ORDERED: ONDANSETRON ODT 4 MG TAB PO PRN (12:00)
[2016-11-16] MEDS: ACETAMINOPHEN/HYDROcodone 325 MG/7.5 MG TAB PO PRN ×2 (15:58→21:45)
--- NOTE | 2016-11-16 16:45 | RADHPO ---
EXAM DATE/TIME: 11/16/2016 15:58 [facility] COMPARISON: No previous studies available for comparison. INDICATIONS : Bilateral arm swelling. MEDICAL HISTORY : Excessive sweating. Bilateral arm swelling. MRSA. SURGICAL HISTORY : Right second digit surgery. ENCOUNTER: Initial ACUITY: 1 day PAIN SCORE: 10/10 LOCATION: Bilateral arm. FINDINGS: RIGHT UPPER EXTREMITY: There is spontaneous flow documented in the brachial, cephalic, axillary, and subclavian veins. The vessels are compressible and augmentation response is documented. No filling defects are seen. The flow is phasic with respiration. Direction of flow in the jugular vein is caudal. There is occlusiv e thrombus in the basilic vein which is noncompressible. LEFT UPPER EXTREMITY: There is spontaneous flow documented in the brachial, cephalic, axillary, and subclavian veins. The vessels are compressible and augmentation response is documented. No filling defects are seen. The flow is phasic with respiration. Direction of flow in the jugular vein is caudal. There is thrombus in portions of the basilic vein which is noncompressible. CONCLUSION: Thrombus in both basilic veins right greater than left. This is superficial venous thrombosis. Ther e is no deep venous thrombosis in the other vessels are patent. Juliocesar Ghosh MD on November 16, 2016 at 16:40 Board Certified Radiologist. This report was verified electronically.
[2016-11-16] MEDS: ENOXAPARIN SODIUM 60 MG/0.6 ML SYRINGE SQ SCH (18:27)
[2016-11-16 20:00] VITALS: BP 110/67; PULSE 72; RESP 21; TEMP 97.9; O2SAT 100
[2016-11-16] MEDS: SULFAMETHOXAZOLE-TRIMETHOPRIM DS 800-160 MG TAB PO SCH (21:44)
[2016-11-17] MEDS: ACETAMINOPHEN/HYDROcodone 325 MG/7.5 MG TAB PO PRN ×2 (04:23→10:40)
[2016-11-17] MEDS: ENOXAPARIN SODIUM 60 MG/0.6 ML SYRINGE SQ SCH ×2 (06:14→18:31)
[2016-11-17 08:00] VITALS: BP 109/65; PULSE 64; RESP 18; TEMP 97.8; O2SAT 99
[2016-11-17] MEDS: SULFAMETHOXAZOLE-TRIMETHOPRIM DS 800-160 MG TAB PO SCH ×2 (08:58→20:40)
[2016-11-17] MEDS: THIAMINE HCL 100 MG TAB PO SCH (08:58)
[2016-11-17] MEDS: CITALOPRAM HYDROBROMIDE 20 MG TAB PO SCH (08:58)
[2016-11-17] MEDS: PANTOPRAZOLE SOD 40 MG DELAYED RELEASE TAB PO SCH (08:58)
[2016-11-17] MEDS: NICOTINE 7 MG/24 HR PATCH T-DERMAL SCH (08:59)
[2016-11-17] MEDS: REMOVE OLD PATCH T-DERMAL SCH (08:59)
[2016-11-17] MEDS: LACTIC ACID (AMMONIUM LACTATE) 12% LOTION 225 GM BTL TOPICAL SCH ×2 (09:00→20:41)
--- NOTE | 2016-11-17 12:54 | HHI.PR ---
Subjective Remarks Patient seen and examined today in follow-up for septic arthritis. Patient states that he still experiencing significant amount of pain in his hand. He states that ibuprofen works better for him than the narcotic pain medication that we are giving him. Objective Vitals Vital Signs Date Time Temp Pulse Resp B/P Pulse Ox O2 Delivery O2 Flow Rate FiO2 11/17/16 11:40 18 11/17/16 08:00 97.8 64 18 109/65 99 11/16/16 20:00 97.9 72 21 110/67 100 I/O 11/16/16 11/16/16 11/16/16 11/17/16 11/17/16 11/17/16 07:00 15:00 23:00 07:00 15:00 23:00 Intake Total 480 ml 620 ml 660 ml 120 ml Output Total 900 ml Balance 480 ml -280 ml 660 ml 120 ml Intake Oral 480 ml 620 ml 660 ml 120 ml Output Urine Total 900 ml # Voids 3 2 2 # Bowel Movements 0 Result Diagram: 11/16/16 0444 Objective Remarks GENERAL: Well-developed, well-nourished, in no acute distress. alert and orientated HEENT: Head is normocephalic without any lesions or masses noted. Facial features are symmetric. Eyes: Extraocular muscles are intact. Conjunctivae were clear. NECK: Supple without any masses. Trachea midline no deviation. No JVD, CARDIAC: Regular rhythm, regular rate. S1/S2 are heard. No murmurs gallops or rubs. LUNGS: Clear auscultation bilaterally. No wheeze, rhonchi or rales. No use of accessory muscles on inspiration or expiration. ABDOMEN: Soft, nontender. Nondistended. Bowel sounds heard in all 4 quadrants. No organomegaly or masses. Negative rebound, negative guarding EXTREMITIES: No edema, pulses are equal bilaterally. No cyanosis or clubbing NEUROLOGY: Mood and affect appear appropriate. Cranial nerves II through XII grossly intact. Moving all extremities, speech is clear RIGHT HAND: Patient right hand is in bandage with splint on the second digit Procedures Right hand debridement/ wound vac placement 10/31. Exploration, wash, excisional debridement and partial closure right index PIP joint region 11/02. Urinary Catheter: No Vascular Central Line Catheter: No A/P Assessment and Plan Septic arthritis right hand second digit Hand specialist following the patient Status post Debridement and wound vac 10/31 per hand surgery, S/p exploration, wash, excisional debridement and partial closure right index PIP joint region . S/p exploration, wash, excisional debridement and closure PIP joint right index finger 11/04. wound care per hand surgery, Cont finger splint per hand surgery Discuss with infectious disease, Dr. Branham, considering the patient's bilateral upper extremity thrombophlebitis it was recommended Discontinued IV vancomycin, starting Bactrim DS 1 tablet twice daily for 1 week Patient states that ibuprofen works better than [place]. We'll start ibuprofen and use [place] as needed for breakthrough pain. Bilateral upper extremity thrombophlebitis and basilic veins. IVs were discontinued Warm compresses Hematology was consulted for further recommendations. Did discuss with them on 11/16/16. Recommended full dose anticoagulation with Lovenox Chronic alcohol abuse/ tobacco use Cessation instruction provided. Cont nicotine patch Anxiety/insomnia: Cont on citalopram Temazepam as needed for sleep DVT prophylaxis: Sequential compression devices Jhoan Rosado Nov 17, 2016 12:54
[2016-11-17] MEDS: IBUPROFEN 600 MG TAB PO SCH ×2 (14:18→21:40)
[2016-11-17] MEDS: ACETAMINOPHEN/HYDROcodone 325 MG/5 MG TAB PO PRN (18:32)
[2016-11-17 20:00] VITALS: BP 114/71; PULSE 62; RESP 18; TEMP 97.5; O2SAT 100
[2016-11-17] MEDS: TEMAZEPAM 15 MG CAP PO PRN (21:40)
--- NOTE | 2016-11-17 21:51 | MB ---
cc: GWEN ANGEL M.D. DATE OF CONSULTATION 11/17/16 REASON FOR CONSULTATION Consult requested by RYAN Rosado for evaluation of bilateral superficial upper extremity thrombosis. HISTORY OF PRESENT ILLNESS This is a 46-year-old male who is admitted to the hospital for a recurrent infection of the right index finger. The patient has MRSA infection and he has been on antibiotics. He had developed a septic arthritis and he has been on vancomycin. The patient had developed swelling of both arms and Doppler ultrasound shows superficial thrombophlebitis. I have been asked to see the patient for further evaluation. The patient was started on Lovenox twice a day after the PA has discussed with me. This was done to prevent the extension of the superficial thrombophlebitis. The patient is doing well with the Lovenox. He still has swelling and pain in both arms. The patient does not have any previous history of any thromboembolic disease. He does not have any family history of thromboembolic disease either. The rest of the review systems is negative. PAST MEDICAL HISTORY None. PAST SURGICAL HISTORY I&D of the right index finger after he had an accident. ALLERGIES None. MEDICATIONS Please see EMR. FAMILY HISTORY No family history of thromboembolic disease. SOCIAL HISTORY The patient drinks alcohol every day. He also smokes cigarettes, 10 cigars per day. He is homeless. PHYSICAL EXAMINATION GENERAL: This is a well-developed, well-nourished white male in no apparent distress. VITAL SIGNS: Temperature 97.8, heart rate is 64, blood pressure 109/65, O2 saturation 99%. HEENT: PERRLA, EOMI, anicteric. No oral lesions are noted. NECK: Supple. LYMPH NODE SURVEY: There is no cervical, supraclavicular or axillary lymphadenopathy noted. LUNGS: Lungs are clear. No wheezing, rhonchi or rales. HEART: Heart is regular rate and rhythm. ABDOMEN: Abdomen is soft, nontender. No hepatosplenomegaly. EXTREMITIES: Swelling of both upper extremities noted. ASSESSMENT Superficial venous thrombosis of the both upper extremities in basilic vein, more in the right than the left. PLAN I have reviewed his available records and I have discussed with the patient regarding the superficial thrombophlebitis. Given that the thrombophlebitis is in both arms the patient was started on therapeutic Lovenox yesterday to prevent the extension of the clot. So far he has been tolerating it well. Also, it was recommended that the patient should get warm compresses. When the patient is discharged to home I do not think that he needs to continue with the Lovenox. My recommendation is continue warm compresses and aspirin. He is homeless, it is going to be difficult to manage anticoagulation in this setting. The patient was reassured that the thrombophlebitis will eventually resolve. He has asked several questions and these were answered to his satisfaction. Thank you for asking my opinion Shena Angel MD /SABIHA /9:27 PM /9:37 PM K[facility]
[2016-11-18] MEDS: IBUPROFEN 600 MG TAB PO SCH ×3 (05:57→21:36)
[2016-11-18] MEDS: ENOXAPARIN SODIUM 60 MG/0.6 ML SYRINGE SQ SCH ×2 (05:59→18:00)
[2016-11-18] MEDS: ACETAMINOPHEN/HYDROcodone 325 MG/5 MG TAB PO PRN ×3 (06:09→18:35)
[2016-11-18 07:38] LABS: POTASSIUM 4.4 MEQ/L (3.5-5.1)
[2016-11-18 07:47] LABS: BICARBONATE 27.4 MEQ/L (21.0-32.0)
[2016-11-18 08:00] VITALS: BP 110/64; PULSE 67; RESP 18; TEMP 97.2; O2SAT 100
[2016-11-18] MEDS: REMOVE OLD PATCH T-DERMAL SCH (09:00)
[2016-11-18] MEDS: LACTIC ACID (AMMONIUM LACTATE) 12% LOTION 225 GM BTL TOPICAL SCH ×2 (09:00→20:34)
[2016-11-18] MEDS: NICOTINE 7 MG/24 HR PATCH T-DERMAL SCH (10:59)
[2016-11-18] MEDS: PANTOPRAZOLE SOD 40 MG DELAYED RELEASE TAB PO SCH (10:59)
[2016-11-18] MEDS: SULFAMETHOXAZOLE-TRIMETHOPRIM DS 800-160 MG TAB PO SCH ×2 (10:59→20:34)
[2016-11-18] MEDS: CITALOPRAM HYDROBROMIDE 20 MG TAB PO SCH (10:59)
[2016-11-18] MEDS: THIAMINE HCL 100 MG TAB PO SCH (10:59)
--- NOTE | 2016-11-18 11:30 | HHI.PR ---
Subjective Remarks Patient seen and examined today in follow-up for septic arthritis of finger. Patient states that his pain is improved. We did discuss what the dovetailer recommended about his thrombophlebitis. He does understand. Objective Vitals Vital Signs Date Time Temp Pulse Resp B/P Pulse Ox O2 Delivery O2 Flow Rate FiO2 11/18/16 08:00 97.2 67 18 110/64 100 11/18/16 07:44 18 11/18/16 07:44 18 11/17/16 20:00 97.5 62 18 114/71 100 11/17/16 11:40 18 I/O 11/17/16 11/17/16 11/17/16 11/18/16 11/18/16 11/18/16 07:00 15:00 23:00 07:00 15:00 23:00 Intake Total 120 ml 720 ml 960 ml 480 ml Balance 120 ml 720 ml 960 ml 480 ml Intake Oral 120 ml 720 ml 960 ml 480 ml # Voids 2 5 8 3 # Bowel Movements 0 0 0 Result Diagram: 11/18/16 0719 Objective Remarks GENERAL: Well-developed, well-nourished, in no acute distress. alert and orientated HEENT: Head is normocephalic without any lesions or masses noted. Facial features are symmetric. Eyes: Extraocular muscles are intact. Conjunctivae were clear. NECK: Supple without any masses. Trachea midline no deviation. No JVD, CARDIAC: Regular rhythm, regular rate. S1/S2 are heard. No murmurs gallops or rubs. LUNGS: Clear auscultation bilaterally. No wheeze, rhonchi or rales. No use of accessory muscles on inspiration or expiration. ABDOMEN: Soft, nontender. Nondistended. Bowel sounds heard in all 4 quadrants. No organomegaly or masses. Negative rebound, negative guarding EXTREMITIES: No edema, pulses are equal bilaterally. No cyanosis or clubbing. Palpable cord veins noted on the left forearm NEUROLOGY: Mood and affect appear appropriate. Cranial nerves II through XII grossly intact. Moving all extremities, speech is clear RIGHT HAND: Patient right hand is in bandage with splint on the second digit Procedures Right hand debridement/ wound vac placement 10/31. Exploration, wash, excisional debridement and partial closure right index PIP joint region 11/02. Urinary Catheter: No Vascular Central Line Catheter: No A/P Assessment and Plan Septic arthritis right hand second digit Hand specialist following the patient Status post Debridement and wound vac 10/31 per hand surgery, S/p exploration, wash, excisional debridement and partial closure right index PIP joint region . S/p exploration, wash, excisional debridement and closure PIP joint right index finger 11/04. wound care per hand surgery, Cont finger splint per hand surgery Discuss with infectious disease, Dr. Branham, considering the patient's bilateral upper extremity thrombophlebitis it was recommended Discontinued IV vancomycin, starting Bactrim DS 1 tablet twice daily for 1 week Continue ibuprofen for pain and [place] as needed for breakthrough pain. Bilateral upper extremity thrombophlebitis and basilic veins. IVs were discontinued Warm compresses Hematology was consulted for further recommendations. Did discuss with them on 11/16/16. Recommended full dose anticoagulation with Lovenox Hematology indicates that patient can remain on Lovenox while in the hospital, however he indicates that he will not need Lovenox upon discharge. Chronic alcohol abuse/ tobacco use Cessation instruction provided. Cont nicotine patch Anxiety/insomnia: Cont on citalopram Temazepam as needed for sleep DVT prophylaxis: Sequential compression devices Discharge Planning Discharge planning once cleared by hand specialist. Jhoan Rosado Nov 18, 2016 11:30
[2016-11-18 20:00] VITALS: BP 118/71; PULSE 71; RESP 16; TEMP 95.5; O2SAT 97
[2016-11-18] MEDS: TEMAZEPAM 15 MG CAP PO PRN (21:36)
--- NOTE | 2016-11-18 23:08 | PD.ONC.PN ---
Subjective Subjective Remarks no new c/o Objective Data Date Time Temp Pulse Resp B/P Pulse Ox O2 Delivery O2 Flow Rate FiO2 11/18/16 22:36 16 11/18/16 19:14 18 11/18/16 08:00 97.2 67 18 110/64 100 11/18/16 11/18/16 11/18/16 07:00 15:00 23:00 Intake Total 480 ml 920 ml Balance 480 ml 920 ml Result Diagram: 11/18/16 0719 Laboratory Results Laboratory Tests Test 11/18/16 07:19 Sodium Level 141 MEQ/L Potassium Level 4.4 MEQ/L Chloride Level 104 MEQ/L Carbon Dioxide Level 27.4 MEQ/L Anion Gap 10 MEQ/L Blood Urea Nitrogen 26 MG/DL Creatinine 1.20 MG/DL Estimat Glomerular Filtration 65 ML/MIN Rate Random Glucose 96 MG/DL Calcium Level 9.0 MG/DL Administered Medications Medications (Trade) Dose Ordered Sig/Shan Route PRN Reason Start Time Stop Time Status Last Admin Dose Admin Pantoprazole Sodium (Protonix) 40 mg DAILY PO 10/30/16 17:30 11/18/16 10:59 Thiamine HCl (Vitamin B1) 100 mg DAILY PO 10/30/16 17:30 11/18/16 10:59 Lactic Acid (Lac-Hydrin 12% Lotion) 1 applic BID TOPICAL 11/06/16 21:00 11/18/16 20:34 Temazepam (Restoril) 15 mg HS PRN PO INSOMNIA 11/10/16 14:30 11/18/16 21:36 Citalopram Hydrobromide (CeleXA) 20 mg DAILY PO 11/11/16 09:00 11/18/16 10:59 Nicotine (Habitrol 7 Mg Patch.24 Hr) 1 patch DAILY T-DERMAL 11/14/16 09:00 11/18/16 10:59 Miscellaneous Information 1 DAILY T-DERMAL 11/14/16 09:00 11/18/16 09:00 Acetaminophen/ Hydrocodone Bitart ([place] 5-325 Mg) 1 tab Q6HR PRN PO BREAKTHROUGH PAIN 11/16/16 12:00 11/18/16 18:35 Enoxaparin Sodium (Lovenox Inj) 60 mg Q12H SQ 11/16/16 18:00 11/18/16 05:59 Trimethoprim/ Sulfamethoxazole (Bactrim Ds 800-160 Mg) 1 tab Q12HR PO 11/16/16 21:00 11/18/16 20:34 Ibuprofen (Motrin) 600 mg Q8HR PO 11/17/16 14:00 11/18/16 21:36 Objective Remarks GENERAL: Well-nourished, well-developed patient. SKIN: Warm and dry. HEAD: Normocephalic. EYES: No scleral icterus. No injection or drainage. NECK: Supple, trachea midline. No JVD or lymphadenopathy. LYMPHATIC: No adenopathy. CARDIOVASCULAR: Regular rate and rhythm without murmurs. RESPIRATORY: Breath sounds equal bilaterally. No accessory muscle use. GASTROINTESTINAL: Abdomen soft, non-tender, nondistended. EXTREMITIES: No cyanosis, or edema. Thrombosed supf veins both UE NEUROLOGICAL: No obvious focal deficit. Awake, alert, and oriented x3. Assessment/Plan Problem List: (1) Superficial thrombophlebitis Status: Acute Plan: Both UE. continue lovenox till he stays in the hospital. I do not recommend oral anticoag. advice to continue warm compresses and take ASA. D/W RN sign off available prn. Renny Angel MD Nov 18, 2016 23:07
[2016-11-19] MEDS: IBUPROFEN 600 MG TAB PO SCH ×2 (05:39→14:41)
[2016-11-19] MEDS: ENOXAPARIN SODIUM 60 MG/0.6 ML SYRINGE SQ SCH (05:39)
[2016-11-19] MEDS: ACETAMINOPHEN/HYDROcodone 325 MG/5 MG TAB PO PRN ×2 (05:44→13:01)
[2016-11-19 08:00] VITALS: BP 102/68; PULSE 70; RESP 18; TEMP 97.1; O2SAT 99
[2016-11-19] MEDS: REMOVE OLD PATCH T-DERMAL SCH (09:00)
[2016-11-19] MEDS: LACTIC ACID (AMMONIUM LACTATE) 12% LOTION 225 GM BTL TOPICAL SCH (09:00)
[2016-11-19] MEDS: PANTOPRAZOLE SOD 40 MG DELAYED RELEASE TAB PO SCH (09:22)
[2016-11-19] MEDS: THIAMINE HCL 100 MG TAB PO SCH (09:22)
[2016-11-19] MEDS: CITALOPRAM HYDROBROMIDE 20 MG TAB PO SCH (09:22)
[2016-11-19] MEDS: SULFAMETHOXAZOLE-TRIMETHOPRIM DS 800-160 MG TAB PO SCH (09:22)
[2016-11-19] MEDS: NICOTINE 7 MG/24 HR PATCH T-DERMAL SCH (09:23)
[2016-11-19] MEDS ORDERED: HYDR-3516 PO (14:25)
--- NOTE | 2016-11-19 15:05 | HHI.PR ---
Subjective Remarks Patient seen and examined today in follow-up for septic arthritis. Patient states that he is doing better. However pain medicine not controlling his pain completely. States that the ibuprofen does work better than the [place] Objective Vitals Vital Signs Date Time Temp Pulse Resp B/P Pulse Ox O2 Delivery O2 Flow Rate FiO2 11/19/16 14:01 18 11/19/16 08:00 97.1 70 18 102/68 99 11/19/16 06:39 16 11/18/16 20:00 95.5 71 16 118/71 97 I/O 11/18/16 11/18/16 11/18/16 11/19/16 11/19/16 11/19/16 07:00 15:00 23:00 07:00 15:00 23:00 Intake Total 480 ml 920 ml 480 ml 480 ml Balance 480 ml 920 ml 480 ml 480 ml Intake Oral 480 ml 920 ml 480 ml 480 ml # Voids 3 3 2 2 3 # Bowel Movements 0 1 0 0 Result Diagram: 11/18/16 0719 Objective Remarks GENERAL: Well-developed, well-nourished, in no acute distress. alert and orientated HEENT: Head is normocephalic without any lesions or masses noted. Facial features are symmetric. Eyes: Extraocular muscles are intact. Conjunctivae were clear. NECK: Supple without any masses. Trachea midline no deviation. No JVD, CARDIAC: Regular rhythm, regular rate. S1/S2 are heard. No murmurs gallops or rubs. LUNGS: Clear auscultation bilaterally. No wheeze, rhonchi or rales. No use of accessory muscles on inspiration or expiration. ABDOMEN: Soft, nontender. Nondistended. Bowel sounds heard in all 4 quadrants. No organomegaly or masses. Negative rebound, negative guarding EXTREMITIES: No edema, pulses are equal bilaterally. No cyanosis or clubbing. Palpable cord veins noted on the left forearm NEUROLOGY: Mood and affect appear appropriate. Cranial nerves II through XII grossly intact. Moving all extremities, speech is clear RIGHT HAND: Patient right hand is in bandage with splint on the second digit Procedures Right hand debridement/ wound vac placement 10/31. Exploration, wash, excisional debridement and partial closure right index PIP joint region 11/02. Urinary Catheter: No Vascular Central Line Catheter: No A/P Assessment and Plan Septic arthritis right hand second digit Hand specialist following the patient Status post Debridement and wound vac 10/31 per hand surgery, S/p exploration, wash, excisional debridement and partial closure right index PIP joint region . S/p exploration, wash, excisional debridement and closure PIP joint right index finger 11/04. wound care per hand surgery, Cont finger splint per hand surgery Discuss with infectious disease, Dr. Branham, considering the patient's bilateral upper extremity thrombophlebitis it was recommended Discontinued IV vancomycin, started Bactrim DS 1 tablet twice daily for 1 week Continue ibuprofen for pain and [place] as needed for breakthrough pain. Last discussion with hand specialist indicated that he planned on removing sutures today and cleared him for discharge. Hand specialist plans on being here this afternoon Bilateral upper extremity thrombophlebitis and basilic veins. IVs were discontinued Warm compresses Hematology was consulted for further recommendations. Did discuss with them on 11/16/16. Recommended full dose anticoagulation with Lovenox Hematology indicates that patient can remain on Lovenox while in the hospital, however he indicates that he will not need Lovenox upon discharge. Chronic alcohol abuse/ tobacco use Cessation instruction provided. Cont nicotine patch Anxiety/insomnia: Cont on citalopram Temazepam as needed for sleep DVT prophylaxis: Sequential compression devices Discharge Planning Discharge planning once cleared by hand specialist. Jhoan Rosado November 19, 2016 15:05
[2016-11-19] MEDS ORDERED: BACT800T5 PO ×2 (15:06→15:59)
[2016-11-19] MEDS ORDERED: CELE20TA PO (15:06)
--- NOTE | 2016-11-19 15:07 | HHI.DCPOC ---
Discharge Care Plan Diagnosis: (1) Septic arthritis of interphalangeal joint of finger of right hand Goals to Promote Your Health * To prevent worsening of your condition and complications * To maintain your health at the optimal level Directions to Meet Your Goals Take your medications as prescribed Follow your dietary instruction Follow activity as directed Keep your appointments as scheduled Take your immunizations and boosters as scheduled If your symptoms worsen call your PCP, if no PCP go to Urgent Care Center or Emergency Room Smoking is Dangerous to Your Health. Avoid second hand smoke Call the 24-hour hour crisis hotline for domestic abuse at Jhoan Rosado November 19, 2016 15:07
[2016-11-19 15:41] VITALS: RESP 18
--- NOTE | 2016-11-19 15:44 | HHI.PR ---
Subjective Remarks complains of mild pain complaint with limb elevation has been wearing finger splint 14 days since closure has bilateral superficial thrombus upper extremity on Lovenox Objective Vital Signs Date Time Temp Pulse Resp B/P Pulse Ox O2 Delivery O2 Flow Rate FiO2 11/19/16 14:01 18 11/19/16 08:00 97.1 70 18 102/68 99 11/19/16 06:39 16 11/18/16 20:00 95.5 71 16 118/71 97 I/O 11/18/16 11/18/16 11/18/16 11/19/16 11/19/16 11/19/16 07:00 15:00 23:00 07:00 15:00 23:00 Intake Total 480 ml 920 ml 480 ml 480 ml Balance 480 ml 920 ml 480 ml 480 ml Intake Oral 480 ml 920 ml 480 ml 480 ml # Voids 3 3 2 2 3 # Bowel Movements 0 1 0 0 right index finger: dressing in place healing surgical incision site with suture in place no redness or swelling noted no drainage limited range of motion of the PIP joint , MP joint range of motion is full, DIP is limited Result Diagram: 11/18/16 0719 Assessment and Plan Assessment and Plan 46 year old male with septic boutonniere deformity right index finger s/p multiple debridements and closure of the incision site [id number] Plan: Surrounding skin is cleaned with alcohol wipes dry dressing applied active and passive range of motion exercises finger splint to keep the finger in extension intermittently antibiotics based on ID recommendations cleared for discharge from hand surgery follow up in office in one week for suture removal Josh Shi MD November 19, 2016 15:44
--- NOTE | 2016-11-19 16:14 | HHI.DS ---
Discharge Summary Admission Date Oct 30, 2016 at 16:41 Discharge Date: November 19, 2016 Admitting Diagnosis right index finger septic arthritis (1) Septic arthritis of interphalangeal joint of finger of right hand ICD Code: M00.841 Procedures Right hand debridement/ wound vac placement 10/31. Exploration, wash, excisional debridement and partial closure right index PIP joint region 11/02. Brief History - From Admission Mr. Saldivar is a 46-year-old male who presented today with recurrent right index finger pain and infection. He initially lacerated his hand on a brigitte paint can, subsequently infected with MRSA, being admitted for septic arthritis on 10/16, underwent three I & D's of right index finger and discharged with PICC line, HHC and Vancomycin IV scheduled until 11/03. Patient states that he did not like the [facility] nurses, got frustrated and pulled out his PICC. He has been without Vanco for three days now, with worsening pain, fever and chills. Also admits to associated vomiting last am. He also feels his vision has been hazy since last admission and is unchanged. When asked about his eyesight, he denies any eye problems and feels it is due to the infection. Denies any associated headache. At this time, patient is complaining of a continuous "electric shock" pain from his right index finger down to his elbow. Does admit to right index finger numbness. He denies any use of narcotics for pain and admits to drinking four beers prior to coming to ED today, does drink daily. Patient was reevaluated by Dr. Lee, hand surgeon, who assessed and redressed the wound. Plans for OR tomorrow afternoon. CBC/BMP: 11/18/16 0719 Significant Findings Laboratory Tests Test 11/18/16 07:19 Blood Urea Nitrogen 26 MG/DL (7-18) Estimat Glomerular Filtration 65 ML/MIN (>89) Rate Imaging Last Impressions Upper Extremity Ultrasound 11/16/16 0000 Signed Impressions: Service Date/Time: Wednesday, November 16, 2016 15:58 - CONCLUSION: Thrombus in both basilic veins right greater than left. This is superficial venous thrombosis. There is no deep venous thrombosis in the other vessels are patent. Juliocesar Ghosh MD Abdomen X-Ray 10/31/16 0000 Signed Impressions: Service Date/Time: Monday, October 31, 2016 10:37 - CONCLUSION: No acute disease. Arthur Molina MD PE at Discharge GENERAL: Well-developed, well-nourished, in no acute distress. alert and orientated HEENT: Head is normocephalic without any lesions or masses noted. Facial features are symmetric. Eyes: Extraocular muscles are intact. Conjunctivae were clear. NECK: Supple without any masses. Trachea midline no deviation. No JVD, CARDIAC: Regular rhythm, regular rate. S1/S2 are heard. No murmurs gallops or rubs. LUNGS: Clear auscultation bilaterally. No wheeze, rhonchi or rales. No use of accessory muscles on inspiration or expiration. ABDOMEN: Soft, nontender. Nondistended. Bowel sounds heard in all 4 quadrants. No organomegaly or masses. Negative rebound, negative guarding EXTREMITIES: No edema, pulses are equal bilaterally. No cyanosis or clubbing. Palpable cord veins noted on the left forearm NEUROLOGY: Mood and affect appear appropriate. Cranial nerves II through XII grossly intact. Moving all extremities, speech is clear RIGHT HAND: Patient right hand is in bandage with splint on the second digit Hospital Course 46-year-old male who originally presented to hospital because of recurrent right index finger pain and infection. Patient initially injured himself with a brigitte pain can and was infected with MRSA. Patient diagnosed with septic arthritis on 10/16/16 and underwent incision and drainage surgery at least 3 times. The patient was discharged with a PICC line with home health care for IV vancomycin. However the patient did not like the nurses and he was frustrated with PEG so he pulled it out. The patient returned to the hospital because of worsening pain and swelling. Patient still with significant infection. Patient underwent 3 further incision and drainage and debridement surgeries while in the hospital this time. Patient was started on IV antibiotics again. However due to the patient's noncompliance in outpatient setting and unreliability the patient was maintained in the hospital until he completed his IV antibiotics. 2 days ago patient started developing thrombophlebitis of the bilateral upper extremities. Ultrasounds were performed which did show thrombophlebitis of the bilateral basilic veins. Hematology was consulted who recommended aspirin, warm compresses and full dose Lovenox while in the hospital in order to reduce the spread of the clot. However he indicates that patient does not need outpatient anticoagulation. IV antibiotics were discontinued at that time, infectious disease recommended continuation of Bactrim twice daily. Patient be continued on antibiotics for total of 6 weeks to include IV antibiotics in which she received 3 weeks already. Patient will continue on Bactrim for another 3 weeks. Patient clinically improved at this time. Hand specialist indicates patient may be discharged home. Will plan discharge accordingly. Prescriptions have been written. Pt Condition on Discharge: Stable Discharge Disposition: Discharge Home Discharge Time: > 30 minutes Discharge Instructions DIET: Follow Instructions for: As Tolerated, No Restrictions Activities you can perform: Regular-No Restrictions Activities to Avoid: Driving for 24 hrs Follow up Referrals: Hand Surgery - 1 Week PCP Follow-up - 1 Week New Medications: Citalopram (Celexa) 20 Mg Tab 20 MG PO DAILY Anxiety Days 30 TAB Hydrocodone-Acetaminophen (Hydrocodone-Acetaminophen) 5-325 mg Tab 1 TAB PO Q6HR PRN BREAKTHROUGH PAIN #15 TAB Sulfamethoxazole-Trimethoprim (Bactrim DS) 800-160 Mg Tab 1 TAB PO Q12HR Infection Days 21 TAB Discontinued Medications: Oxycodone-Acetaminophen (Oxycodone-Acetaminophen) 7.5-325 mg Tab 1 TAB PO Q6H PRN PAIN SCALE 5 TO 10 #30 TAB Additional Information Written by Jhoan Rosado, acting as scribe for Dr. Phillips on 11/19/16 at 16: 10. This note was transcribed by scribjovany Phillips. I, Dr. Ran Phillips personally performed the history, physical exam, and medical decision making; and confirmed the accuracy of the information in the transcribed note. Authenticated by Dr. Ran Phillips on 11/19/16 at 16:37. Jhoan Rosado November 19, 2016 16:14 Ran Phillips MD November 19, 2016 16:37
== END 2016-11-19 17:18 | disposition home or self-care (01) | DRG 513 ==
LOC: NEPD 15:27 → NEDA 16:41 → N07B 19:16 → PH3A 11-14 17:20 → PH5A 11-15 15:27
PROVIDERS: ADMIT Hospitalist; ATTEND Hospitalist
PROC: 0LB70ZZ Excision of Right Hand Tendon, Open Approach (ICD-10-PCS; principal; 2016-10-31 15:30)
PROC: 3E1038Z Irrigation of Skin and Mucous Membranes using Irrigating Substance, Percutaneous Approach (ICD-10-PCS; 2016-11-02)
PROC: 0HQGXZZ Repair Left Hand Skin, External Approach (ICD-10-PCS; 2016-11-02)
PROC: 0LB70ZZ Excision of Right Hand Tendon, Open Approach (ICD-10-PCS; 2016-11-04)
DX: M00.041 Staphylococcal arthritis, right hand (principal); I82.613 Acute embolism and thrombosis of superficial veins of upper extremity, bilateral; I95.9 Hypotension, unspecified; M20.022 Boutonniere deformity of left finger(s); M00.2 Other streptococcal arthritis and polyarthritis; B95.62 Methicillin resistant Staphylococcus aureus infection as the cause of diseases classified elsewhere; B95.0 Streptococcus, group A, as the cause of diseases classified elsewhere; K59.00 Constipation, unspecified; R11.2 Nausea with vomiting, unspecified; F10.20 Alcohol dependence, uncomplicated; G47.00 Insomnia, unspecified; F41.9 Anxiety disorder, unspecified; F17.210 Nicotine dependence, cigarettes, uncomplicated; Z59.0 Homelessness; Z91.19 Patient's noncompliance with other medical treatment and regimen
CPT/HCPCS: 74000; 80048; 80053; 80076; 80202; 82565; 83690; 85025; 85610; 85652; 85730; 87040; 88305; 88311; 93970; 99284; J1100; J1170; J1650; J1885; J2250; J2270; J2405; J2765; J3010; J3370; J7030; J7040; J7042; J7050; J7120

== ENCOUNTER 2017-02-04 01:15 | Observation (INO) | payer MEDICAID, OTHER ==
[~2017-02-04] VITALS: Ht 180.3 cm; Wt 65.0 kg
[2017-02-04] VITALS (9 sets, daily range): BP systolic 80–101; BP diastolic 48–68; PULSE 66–109; RESP 14–16; TEMP 97.8–98.4; O2SAT 95–100
[~2017-02-04 01:15] MED LIST changes: +BACT800T5 PO; +CELE20TA PO; +HYDR-3516 PO; -OXYC1TAB35 PO
[2017-02-04] MEDS ORDERED: VANCOMYCIN INJ 1,000 MG in SODIUM CHLOR 0.9% 250 ML INJ 250 ML IV ONE (02:00)
[2017-02-04 02:20] LABS: AUTOMATED NEUTROPHIL # 6.9 TH/MM3 (1.8-7.7); BASOPHIL # 0.1 TH/MM3 (0-0.2); EOSINOPHIL # 0.1 TH/MM3 (0-0.4); EOSINOPHIL % 0.7 % (0.0-4.0); HEMATOCRIT 39.1 % (39.0-51.0); HEMO FLAGS DIFF FINAL; LYMPH % 27.1 % (9.0-44.0); MEAN CORPUSCULAR HEMOGLOBIN 31.8 PG (27.0-34.0); MEAN CORPUSCULAR HGB CONC 34.1 % (32.0-36.0); MONO % 8.3 % (0.0-8.0); NEUT % 62.9 % (16.0-70.0); PLATELET COUNT 313 TH/MM3 (150-450); RED CELL DISTRIBUTION WIDTH 14.1 % (11.6-17.2)
[2017-02-04 02:27] LABS: ALT (GPT) 311 U/L (12-78); ANION GAP 12 MEQ/L (5-15); AST (GOT) 170 U/L (15-37); BICARBONATE 24.2 MEQ/L (21.0-32.0); BLOOD UREA NITROGEN 13 MG/DL (7-18); CHLORIDE 105 MEQ/L (98-107); GLOMERULAR FILTRATION RATE 56 ML/MIN (>89); POTASSIUM 3.8 MEQ/L (3.5-5.1); SODIUM (NA) 141 MEQ/L (136-145)
[2017-02-04 02:29] LABS: ALKALINE PHOSPHATASE 102 U/L (45-117); TOTAL BILIRUBIN ADULT 0.3 MG/DL (0.2-1.0)
--- NOTE | 2017-02-04 02:47 | PD ---
HPI Chief Complaint: Injury Time Seen by Provider: 01:39 Travel History International Travel<30 days: No Contact w/Intl Traveler<30days: No Traveled to known affect area: No History of Present Illness HPI This is a 46-year-old male who has a history of drug abuse who presents to the emergency department with redness and swelling involving his right second PIP joint over the area where he said surgery done by Dr. Tomas in the past. He's had septic arthritis in that joint. The pain is severe, constant, worse with movement of the finger. He says he used a line of cocaine today to try to dull the pain. PFSH Past Medical History Medical History: Denies Significant Hx Diminished Hearing: No Social History Alcohol Use: Yes (DAILY) Tobacco Use: Yes (10 CIGARETTES DAY) Substance Use: Yes (COCAINE) Allergies-Medications (Allergen,Severity, Reaction): Coded Allergies: *MDRO Multi-Drug Resistant Organism (Verified Allergy, Intermediate, ) 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 (10/17/2016) Reported Meds & Prescriptions Reported Meds & Active Scripts Active Bactrim DS (Sulfamethoxazole-Trimethoprim) 800-160 Mg Tab 1 Tab PO Q12HR 21 Days Celexa (Citalopram Hydrobromide) 20 Mg Tab 20 Mg PO DAILY 30 Days Hydrocodone-Acetaminophen 5-325 mg Tab 1 Tab PO Q6HR PRN Review of Systems Except as stated in HPI: all other systems reviewed are Neg Physical Exam Narrative GENERAL:Well appearing, no acute distress SKIN: Erythema and warmth of the dorsal aspect of the right second PIP joint with some evidence of possible purulence immediately below the skin. HEAD: Atraumatic. Normocephalic. EYES: Pupils equal and round. No injection or drainage. ENT: Moist mucous membranes NECK: Trachea midline. CARDIOVASCULAR: Regular rate and rhythm. No murmur appreciated. RESPIRATORY: Clear to auscultation. Breath sounds equal bilaterally. GASTROINTESTINAL: Abdomen soft, non-tender, nondistended. MUSCULOSKELETAL: Pain with flexion and extension of the right second digit. NEUROLOGICAL: Awake and alert. No obvious cranial nerve deficits. Moving all extremities. PSYCHIATRIC: Appropriate mood and affect; insight and judgment normal. Data Data Last Documented VS Vital Signs Date Time Temp Pulse Resp B/P Pulse Ox O2 Delivery O2 Flow Rate FiO2 02/04/17 01:16 98.4 109 16 101/58 98 Room Air Orders Complete Blood Count With Diff (02/04/17 01:49) Comprehensive Metabolic Panel (02/04/17 01:49) ^ Insert Iv (02/04/17 01:49) Vancomycin Inj (Vancomycin Inj) (02/04/17 02:00) Consult Hand Surgery (02/04/17 ) Admit Order (Ed Use Only) (02/04/17 03:03) Vancomycin Consult Pharmacy (Vancomycin (02/04/17 03:15) Place In Observation (02/04/17 ) Vital Signs (Adult) Q4H (02/04/17 03:01) Activity Oob Ad Zenia (02/04/17 03:01) Sodium Chlor 0.9% 1000 Ml Inj (Ns 1000 M (02/04/17 03:01) Sodium Chloride 0.9% Flush (Ns Flush) (02/04/17 03:15) Sodium Chloride 0.9% Flush (Ns Flush) (02/04/17 09:00) Ondansetron Inj (Zofran Inj) (02/04/17 03:15) Comprehensive Metabolic Panel (02/05/17 06:00) Complete Blood Count With Diff (02/05/17 06:00) Scd Bilateral/Knee High PETRA.BID (02/04/17 03:01) Floyd Bilateral/Knee High PETRA.QSHIFT (02/04/17 03:01) Acetaminophen (Tylenol) (02/04/17 03:15) Oxycodone (Roxicodone) (02/04/17 03:15) Oxycodone (Roxicodone) (02/04/17 03:15) Docusate Sodium-Senna (Irma-Colace) (02/04/17 09:00) Magnesium Hydroxide Liq (Milk Of Magnesi (02/04/17 03:15) Sennosides (Senokot) (02/04/17 03:15) Bisacodyl Supp (Dulcolax Supp) (02/04/17 03:15) Lactulose Liq (Lactulose Liq) (02/04/17 03:15) Lorazepam Inj (Ativan Inj) (02/04/17 03:15) Labs Laboratory Tests Test 02/04/17 01:40 White Blood Count 11.0 TH/MM3 Red Blood Count 4.20 MIL/MM3 Hemoglobin 13.3 GM/DL Hematocrit 39.1 % Mean Corpuscular Volume 93.0 FL Mean Corpuscular Hemoglobin 31.8 PG Mean Corpuscular Hemoglobin 34.1 % Concent Red Cell Distribution Width 14.1 % Platelet Count 313 TH/MM3 Mean Platelet Volume 8.9 FL Neutrophils (%) (Auto) 62.9 % Lymphocytes (%) (Auto) 27.1 % Monocytes (%) (Auto) 8.3 % Eosinophils (%) (Auto) 0.7 % Basophils (%) (Auto) 1.0 % Neutrophils # (Auto) 6.9 TH/MM3 Lymphocytes # (Auto) 3.0 TH/MM3 Monocytes # (Auto) 0.9 TH/MM3 Eosinophils # (Auto) 0.1 TH/MM3 Basophils # (Auto) 0.1 TH/MM3 CBC Comment DIFF FINAL Differential Comment Sodium Level 141 MEQ/L Potassium Level 3.8 MEQ/L Chloride Level 105 MEQ/L Carbon Dioxide Level 24.2 MEQ/L Anion Gap 12 MEQ/L Blood Urea Nitrogen 13 MG/DL Creatinine 1.38 MG/DL Estimat Glomerular Filtration 56 ML/MIN Rate Random Glucose 85 MG/DL Calcium Level 8.6 MG/DL Total Bilirubin 0.3 MG/DL Aspartate Amino Transf 170 U/L (AST/SGOT) Alanine Aminotransferase 311 U/L (ALT/SGPT) Alkaline Phosphatase 102 U/L Total Protein 7.6 GM/DL Albumin 4.0 GM/DL MDM Medical Decision Making Medical Screen Exam Complete: Yes Emergency Medical Condition: Yes Interpretation(s) afebrile, mild tachycardia, normotensive no leukocytosis mild renal insufficiency, transaminitis Differential Diagnosis septic arthritis, cellulitis, wound infection, flexor tenosynovitis Narrative Course This is a 46-year-old male who has a history of MRSA in his right second finger PIP joint who presents to the emergency department with severe pain in his right second finger and increasing redness. On exam there is some erythema overlying the joint but the palmar surface of the finger appears normal. It's difficult to assess pain with joint movement because he does have chronic passive flexion and limited range of motion at the PIP. I spoke to Dr. Tomas and he agreed to place the patient on antibiotics and he will consult on the patient tomorrow. Physician Communication Physician Communication Discussed with Dr. Tomas and Dr. Abdi Diagnosis Primary Impression: Finger infection Admitting Information Admitting Physician Requests: Observation Radha Zaidi MD Feb 04, 2017 02:47
[2017-02-04] MEDS ORDERED: LORazepam 1 MG TAB PO PRN (03:15)
[2017-02-04] MEDS ORDERED: LORazepam 2 MG TAB PO PRN (03:15)
[2017-02-04] MEDS ORDERED: LACTULOSE SYRUP 20 GM/30 ML CUP PO PRN (03:15)
[2017-02-04] MEDS ORDERED: LORazepam 2 MG/ML VIAL IV PUSH PRN ×5 (03:15)
[2017-02-04] MEDS ORDERED: Vancomycin Consult Pharmacy 1 EA OTHER SCH (03:15)
[2017-02-04] MEDS ORDERED: FLUMAZENIL 0.5 MG/5 ML VIAL IV PUSH PRN (03:15)
[2017-02-04] MEDS ORDERED: BISACODYL 10 MG SUPP RECTAL PRN (03:15)
[2017-02-04] MEDS ORDERED: SODIUM CHLORIDE 0.9% FLUSH 10 ML FLUSH IV FLUSH PRN (03:15)
[2017-02-04] MEDS ORDERED: SENNOSIDES 8.6 MG TAB PO PRN (03:15)
[2017-02-04] MEDS ORDERED: MAGNESIUM HYDROXIDE SUSP 30 ML CUP PO PRN (03:15)
[2017-02-04] MEDS ORDERED: ONDANSETRON HCL 4 MG/2 ML VIAL IVP PRN (03:15)
[2017-02-04] MEDS ORDERED: HALOPERIDOL LACTATE 5 MG/ML AMP IM PRN (03:15)
--- NOTE | 2017-02-04 03:27 | HHI.HP ---
[facility] Ad[facility] Diagnosis finger infection Diagnoses: (1) Finger infection Diagnosis: Principal (2) QUIRINO (acute kidney injury) Diagnosis: Principal (3) Alcohol abuse Diagnosis: Principal (4) Cocaine abuse Diagnosis: Principal (5) Tobacco abuse Diagnosis: Principal Travel History International Travel<30 Days: No Contact w/Intl Traveler <30 Da: No Traveled to Known Affected Are: No History of Present Illness This is a 46-year-old male with a PMH of Right Index Finger Septic Arthritis, Alcohol Abuse, Cocaine Abuse and Tobacco Abuse who presented to the ER w/ complaints of right index finger pain and redness x2 days. Denies fever or chills. States he used Cocaine in attempts to control pain. Previous h/o Septic Arthritis 10/16/16 s/p I&D x3 and d/c'd w/ PICC for long-term IV Abx, however pt non-compliant, re-admitted 10/30/16 for similar complaints, s/p Wound Vac 10/31 and I&D 11/02/[address] Shi. Returns now w/ recurrent complaints. On arrival, BP 101/58, HR 109, O2 sat 90% on RA, Afebrile. CBC unremarkable. Chemistry essentially unremarkable except for creatinine 1.38, previously 1.20 on 11/18/16. Dr. Shi consulted by ER physician, elisa dubose in am for decision regarding need for surgical intervention. H/o MRSA from Wound Culture 10/16/16, s/p Vanc in ER. Review of Systems Except as stated in HPI: all other systems reviewed are Neg ROS: 14 point review of systems otherwise negative. Past Family Social History Past Medical History PMH: Right Index Finger Septic Arthritis, Alcohol Abuse, Cocaine Abuse and Tobacco Abuse Past Surgical History PAST SURGICAL HISTORY: Right Index Finger Surgery Allergies: Coded Allergies: *MDRO Multi-Drug Resistant Organism (Verified Allergy, Intermediate, ) 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 (10/17/2016) Family History PAST FAMILY HISTORY: Reviewed. No h/o DM or CAD Social History PAST SOCIAL HISTORY: Drinks daily, up to 30 beers/day. Smokes 1/2ppd. + Cocaine, admits to recent ingestion. Physical Exam Vital Signs Vital Signs Date Time Temp Pulse Resp B/P Pulse Ox O2 Delivery O2 Flow Rate FiO2 02/04/17 01:16 98.4 109 16 101/58 98 Room Air Physical Exam PE: GENERAL: Middle-aged white male in no acute distress. HEENT: PERRLA, EOMI. No scleral icterus or conjunctival pallor. No lid lag or facial droop. CARDIOVASCULAR: Regular rate and rhythm. No obvious murmurs to auscultation. No chest tenderness to palpation. RESPIRATORY: No obvious rhonchi or wheezing. Clear to auscultation. Breath sounds equal bilaterally. GASTROINTESTINAL: Abdomen soft, non-tender, nondistended. BS normal. MUSCULOSKELETAL: Extremities without clubbing, cyanosis, or edema. No obvious deformities. Right index finger with some erythema NEUROLOGICAL: Awake, alert and oriented x4. No focal neurologic deficits. Moving both upper and lower extremities spontaneously. Laboratory Laboratory Tests Test 02/04/17 01:40 White Blood Count 11.0 Red Blood Count 4.20 Hemoglobin 13.3 Hematocrit 39.1 Mean Corpuscular Volume 93.0 Mean Corpuscular Hemoglobin 31.8 Mean Corpuscular Hemoglobin 34.1 Concent Red Cell Distribution Width 14.1 Platelet Count 313 Mean Platelet Volume 8.9 Neutrophils (%) (Auto) 62.9 Lymphocytes (%) (Auto) 27.1 Monocytes (%) (Auto) 8.3 Eosinophils (%) (Auto) 0.7 Basophils (%) (Auto) 1.0 Neutrophils # (Auto) 6.9 Lymphocytes # (Auto) 3.0 Monocytes # (Auto) 0.9 Eosinophils # (Auto) 0.1 Basophils # (Auto) 0.1 CBC Comment DIFF FINAL Differential Comment Sodium Level 141 Potassium Level 3.8 Chloride Level 105 Carbon Dioxide Level 24.2 Anion Gap 12 Blood Urea Nitrogen 13 Creatinine 1.38 Estimat Glomerular Filtration 56 Rate Random Glucose 85 Calcium Level 8.6 Total Bilirubin 0.3 Aspartate Amino Transf 170 (AST/SGOT) Alanine Aminotransferase 311 (ALT/SGPT) Alkaline Phosphatase 102 Total Protein 7.6 Albumin 4.0 Result Diagram: 02/04/17 0140 02/04/17 014 Assessment and Plan Problem List: (1) Finger infection ICD Code: L08.9 Status: Acute (2) QUIRINO (acute kidney injury) ICD Code: N17.9 Status: Acute (3) Alcohol abuse ICD Code: F10.10 Status: Acute (4) Cocaine abuse ICD Code: F14.10 Status: Acute (5) Tobacco abuse ICD Code: Z72.0 Status: Acute Assessment and Plan A/P 1. Right Finger Infection: h/o right index finger septic arthritis, s/p multiple debridements, Wound Culture 10/16/16 +MRSA, s/p IV Vanc via PICC, now w / recurrent symptoms. Dr. Shi consulted by ER physician, will eval in am for decision regarding surgical intervention. S/p Blood Cultures, Vanc in ER. Will follow up cultures, continue IV Abx. 2. QUIRINO: Creatinine 1.38, producing 1.20 on 11/18/16. IVF for hydration, repeat labs in am. 3. Alcohol Abuse: Drinks daily. High risk for withdrawal. CIWA, Seizure Precautions, MVT/Thiamine/Folate replacement. 4. Cocaine Abuse: IVDU. Recent ingestion. Ativan prn if needed. 5. Tobacco Abuse: Counselled. NicoDerm/Ativan prn if needed. 6. DVT Prophylaxis: SCD/Teds. 7. Social work for d/c planning as needed. 8. Case discussed w/ ER physician at length. Sarah Abdi MD Feb 04, 2017 03:27
[2017-02-04] MEDS: SODIUM CHLOR 0.9% 1000 ML INJ 1,000 ML IV SCH ×3 (03:38→23:01)
[2017-02-04] MEDS: DOCUSATE SODIUM 50 MG/SENNA 8.6 MG TAB PO SCH ×2 (08:27→21:00)
[2017-02-04] MEDS: SODIUM CHLORIDE 0.9% FLUSH 10 ML FLUSH IV FLUSH SCH ×2 (08:28→21:07)
[2017-02-04] MEDS: THIAMINE HCL 100 MG TAB PO SCH (08:41)
[2017-02-04] MEDS: FOLIC ACID 1 MG TAB PO SCH (08:41)
[2017-02-04] MEDS: MULTIVITAMINS/MINERALS THERAPEUTIC TAB PO SCH (08:41)
--- NOTE | 2017-02-04 10:55 | HHI.PR ---
Subjective Remarks Follow up for right index finger cellulitis. The patient reports continue right index finger pain, erythema, edema. He is unable to flex or extend the finger since his prior surgeries. He states yesterday he peeled the scab off the finger and expelled some green pus. He denies fevers or chills. He denies chest pain or shortness of breath. He has no other medical complaints at this time. Of note, patient reports drinking 30 beers a day, denies any problem with alcohol withdrawal but believes he had a seizure many years ago. Objective Vitals Vital Signs Date Time Temp Pulse Resp B/P Pulse Ox O2 Delivery O2 Flow Rate FiO2 02/04/17 07:00 80 02/04/17 01:16 98.4 109 16 101/58 98 Room Air Result Diagram: 02/04/17 01402/04/17 0140 Objective Remarks GENERAL: Well-nourished, well-developed middle aged male patient in [facility]. SKIN: Warm and dry. No rash. HEENT: Normocephalic. Atraumatic. Pupils equal and round. Mucous membranes pink and moist. NECK: Supple. Trachea midline. CARDIOVASCULAR: Regular rate and rhythm. S1, S2 noted. No murmur appreciated. RESPIRATORY: No accessory muscle use. Clear to auscultation. Breath sounds equal bilaterally. GASTROINTESTINAL: Abdomen soft, non-tender, nondistended. Normoactive bowel sounds x4. MUSCULOSKELETAL: No obvious deformities. Extremities without clubbing, cyanosis , or edema. Right index finger with erythema/edema/pain and overlying scab at PIP joint that is fixed in semi-flexed position. NEUROLOGICAL: Awake and alert. No obvious cranial nerve deficits. Motor grossly within normal limits. Normal speech. PSYCHIATRIC: Appropriate mood and affect; insight and judgment normal. Medications and IVs Current Medications Medications (Trade) Dose Ordered Sig/Shan Route Start Time Stop Time Status Last Admin Pharmacy Profile Note 0 ml @ 0 mls/hr UNSCH OTHER 02/04/17 03:15 (NS 1000 ml Inj) 1,000 ml @ 100 mls/hr Q10H IV 02/04/17 03:01 02/04/17 03:38 (NS Flush) 2 ml UNSCH PRN IV FLUSH 02/04/17 03:15 (NS Flush) 2 ml BID IV FLUSH 02/04/17 09:00 (Zofran Inj) 4 mg Q6H PRN IVP 02/04/17 03:15 (Tylenol) 650 mg Q6H PRN PO 02/04/17 03:15 (Roxicodone) 10 mg Q4H PRN PO 02/04/17 03:15 02/04/17 08:44 (Roxicodone) 5 mg Q4H PRN PO 02/04/17 03:15 (Irma-Colace) 1 tab BID PO 02/04/17 09:00 (Milk Of Magnesia Liq) 30 ml Q12H PRN PO 02/04/17 03:15 (Senokot) 17.2 mg Q12H PRN PO 02/04/17 03:15 (Dulcolax Supp) 10 mg DAILY PRN RECTAL 02/04/17 03:15 (Lactulose Liq) 30 ml DAILY PRN PO 02/04/17 03:15 (Ativan Inj) 1 mg Q2H PRN IV PUSH 02/04/17 03:15 (Folate) 1 mg DAILY PO 02/04/17 09:00 02/09/17 08:59 02/04/17 08:41 (Vitamin B1) 100 mg DAILY PO 02/04/17 09:00 02/04/17 08:41 (Theragran M Tab) 1 tab DAILY PO 02/04/17 09:00 02/09/17 08:59 02/04/17 08:41 (Romazicon Inj) 0.2 mg Q1M PRN IV PUSH 02/04/17 03:15 (Ativan) 1 mg Q4H PRN PO 02/04/17 03:15 (Ativan Inj) 1 mg Q4H PRN IV PUSH 02/04/17 03:15 (Ativan) 2 mg Q2H PRN PO 02/04/17 03:15 (Ativan Inj) 2 mg Q2H PRN IV PUSH 02/04/17 03:15 (Ativan Inj) 2 mg Q1H PRN IV PUSH 02/04/17 03:15 (Ativan Inj) 2 mg Q15M PRN IV PUSH 02/04/17 03:15 Haloperidol Lactate 2 mg 2 mg Q15M PRN IM 02/04/17 03:15 (Vancomycin Inj/ NS 250 ml Inj) 250 ml @ 200 mls/hr Q12H IV 02/04/17 15:00 Miscellaneous Information SPECIFIC LAB TO BE RYDER... ONCE ONCE .XX 02/05/17 14:45 02/05/17 14:46 A/P Problem List: (1) Finger infection ICD Code: L08.9 Status: Acute (2) QUIRINO (acute kidney injury) ICD Code: N17.9 Status: Acute (3) Alcohol abuse ICD Code: F10.10 Status: Acute (4) Cocaine abuse ICD Code: F14.10 Status: Acute (5) Tobacco abuse ICD Code: Z72.0 Status: Acute Assessment and Plan 46-year-old male with a PMH of Right Index Finger Septic Arthritis, Alcohol Abuse, Cocaine Abuse and Tobacco Abuse who presented to the ER w/ complaints of right index finger pain and redness x2 days. Previous h/o Septic Arthritis s/p I&D x3 and d/c'd w/ PICC for long-term IV Abx, however pt non-compliant, re-admitted 10/30/16 for similar complaints, s/p Wound Vac 10/31 and I&D 11/02/[address] Shi. Right Finger Cellulitis: h/o right index finger septic arthritis, s/p multiple debridements, Wound Culture 10/16/16 +MRSA. Blood cultures collected and pending. Continue IV Vanco with pharmacy consult. Dr. Shi consulted by ER physician, will eval in am for decision regarding surgical intervention. 1220hrs: discussed with Dr. Lee, plans for amputation in OR today, wants stat finger xrays preoperatively. Recommends IV Vanco for now, can transition to Bactrim DS 1 tab po bid x7days after surgery. Patient may be able to go home tomorrow after seen by Dr. Lee. 1620hrs: Discussed with Dr. Lee post surgery, says patient can go home tonight or stay overnight for pain control. Discussed with the patient, he wants to wait until the morning because he is worried about the pain once numbing med wears off. Will plan to keep patient overnight. Discharge in the am. Instructed patient he can fill Bactrim prescription at [facility] for free. Will need rx for pain medication. Of note patient hypotensive s/p surgery with SBP in the 80s. Will give IVF bolus x1L. Monitor BP. QUIRINO: Creatinine 1.38, producing 1.20 on 11/18/16. IVF for hydration, repeat labs in am. Alcohol Abuse: Drinks daily, reports up to 30+ beers. High risk for withdrawal. Continue CIWA, Seizure Precautions, MVT/Thiamine/Folate replacement. Cocaine Abuse: IVDU. Recent ingestion. Ativan prn if needed. Tobacco Abuse: Counselled. Patient smokes 10cigarettes daily. Give Nicotine patch 14mg qd, increase dose if needed. DVT Prophylaxis: SCD/Teds. Discharge Planning Going to OR today for finger amputation. Kymberly Figueroa PA-C Feb 04, 2017 10:55 am
[2017-02-04] MEDS: REMOVE OLD PATCH T-DERMAL SCH (11:00)
[2017-02-04] MEDS ORDERED: PROPOFOL 200 MG/20 ML AMP IV ONE (11:06)
[2017-02-04] MEDS ORDERED: LACTATED RINGER'S 1000 ML INJ 1,000 ML IV ONE (11:06)
[2017-02-04] MEDS ORDERED: ePHEDrine/NS 25 MG/5 ML SYR IV ONE (11:06)
[2017-02-04] MEDS ORDERED: ONDANSETRON HCL 4 MG/2 ML VIAL IV PUSH ONE (11:06)
[2017-02-04] MEDS ORDERED: BUPIVACAINE HCL PF 0.5% 30 ML VIAL ONE (12:52)
[2017-02-04] MEDS ORDERED: METOCLOPRAMIDE HCL 10 MG/2 ML VIAL ONE (13:06)
[2017-02-04] MEDS ORDERED: FAMOTIDINE 20 MG/2 ML VIAL ONE (13:06)
[2017-02-04] MEDS ORDERED: MIDAZOLAM HCL 2 MG/2 ML VIAL ONE ×2 (13:06→15:00)
[2017-02-04] MEDS ORDERED: DEXAMETHASONE SOD PHOS 4 MG/ML VIAL ONE (13:06)
[2017-02-04] MEDS ORDERED: SUGAMMADEX SODIUM 200 MG/2 ML VIAL IV PUSH ONE ×2 (13:08)
[2017-02-04] MEDS ORDERED: NEOMYCIN/POLYMYXIN 1 ML G.U. IRRIGANT IR ONE (13:41)
[2017-02-04] MEDS ORDERED: VANCOMYCIN HCL 1000 MG VIAL ONE (13:47)
--- NOTE | 2017-02-04 13:54 | RADRPT ---
EXAM DATE/TIME: 02/04/2017 12:27 [facility] COMPARISON: No previous studies available for comparison. INDICATIONS : Finger pain.. MEDICAL HISTORY : None. SURGICAL HISTORY : Prior surgery to right hand. ENCOUNTER: Initial ACUITY: 1 day PAIN SCORE: 10/10 LOCATION: Right hand, second digit. FINDINGS: Three view right second finger demonstrate there is a hyper flexion deformity of the second proximal phalangeal bone joint. May even be fused on the lateral film there is very little joint space remain ing. DIP joint is unremarkable. There is no evidence of an acute fracture. No foreign body identif ied. CONCLUSION: Flexion deformity of the second PIP joint, may be fused. Juan Antonio Park MD on February 04, 2017 at 12:42 Board Certified Radiologist. This report was verified electronically.
[2017-02-04] MEDS ORDERED: LIDOCAINE HCL 1% 50 ML VIAL ONE (14:16)
[2017-02-04] MEDS ORDERED: BACITRACIN TOP OINT 15 GM TUBE ONE (14:27)
--- NOTE | 2017-02-04 14:54 | PD.OP ---
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
[2017-02-04] MEDS ORDERED: DO NOT ADM ANY ANTICOAGULANT DRUGS PRN (14:55)
[2017-02-04] MEDS ORDERED: VANCOMYCIN INJ 750 MG in SODIUM CHLOR 0.9% 250 ML INJ 250 ML IV SCH (15:00)
[2017-02-04] MEDS ORDERED: fentaNYL CITRATE 250 MCG/5 ML AMP ONE (15:00)
[2017-02-04] MEDS: NICOTINE 14 MG/24 HR PATCH T-DERMAL SCH (16:24)
[2017-02-04] MEDS ORDERED: BACT800T5 PO (16:29)
[2017-02-04] MEDS ORDERED: SODIUM CHLOR 0.9% 1000 ML INJ 1,000 ML IV ONE (16:30)
--- NOTE | 2017-02-04 16:35 | HHI.DCPOC ---
Discharge Care Plan Diagnosis: (1) Finger infection (2) Amputation of right index finger Goals to Promote Your Health * To prevent worsening of your condition and complications * To maintain your health at the optimal level Directions to Meet Your Goals Take your medications as prescribed Follow your dietary instruction Follow activity as directed Keep your appointments as scheduled Take your immunizations and boosters as scheduled If your symptoms worsen call your PCP, if no PCP go to Urgent Care Center or Emergency Room Smoking is Dangerous to Your Health. Avoid second hand smoke Call the 24-hour hour crisis hotline for domestic abuse at Kymberly Figueroa PA-C Feb 04, 2017 4:35 pm
[2017-02-04] MEDS: ACETAMINOPHEN 325 MG TAB PO PRN (20:04)
[2017-02-04] MEDS: SULFAMETHOXAZOLE-TRIMETHOPRIM DS 800-160 MG TAB PO SCH (21:06)
[2017-02-05 02:57] VITALS: BP 93/53; PULSE 64; RESP 19; TEMP 98.5; O2SAT 99
[2017-02-05 04:17] VITALS: BP 97/52; PULSE 73; RESP 19; TEMP 98.5; O2SAT 99
[2017-02-05] MEDS: ACETAMINOPHEN 325 MG TAB PO PRN (04:28)
[2017-02-05 05:49] LABS: AUTOMATED NEUTROPHIL # 4.5 TH/MM3 (1.8-7.7); BASOPHIL # 0.1 TH/MM3 (0-0.2); BASOPHIL % 1.5 % (0.0-2.0); EOSINOPHIL # 0.1 TH/MM3 (0-0.4); EOSINOPHIL % 1.8 % (0.0-4.0); HEMATOCRIT 33.7 % (39.0-51.0); HEMO FLAGS DIFF FINAL; LYMPH % 24.8 % (9.0-44.0); LYMPHOCYTE # 1.8 TH/MM3 (1.0-4.8); MEAN CELL VOLUME 93.3 FL (80.0-100.0); MEAN CORPUSCULAR HEMOGLOBIN 31.7 PG (27.0-34.0); MONO % 9.1 % (0.0-8.0); NEUT % 62.8 % (16.0-70.0); PLATELET COUNT 269 TH/MM3 (150-450); RED BLOOD COUNT 3.62 MIL/MM3 (4.50-5.90); RED CELL DISTRIBUTION WIDTH 14.1 % (11.6-17.2); WHITE BLOOD COUNT 7.1 TH/MM3 (4.0-11.0)
[2017-02-05 06:18] LABS: ANION GAP 10 MEQ/L (5-15); BLOOD UREA NITROGEN 12 MG/DL (7-18); CHLORIDE 109 MEQ/L (98-107); GLOMERULAR FILTRATION RATE 89 ML/MIN (>89); POTASSIUM 3.5 MEQ/L (3.5-5.1); SODIUM (NA) 142 MEQ/L (136-145)
[2017-02-05 06:37] LABS: ALKALINE PHOSPHATASE 110 U/L (45-117); ALT (GPT) 244 U/L (12-78); AST (GOT) 127 U/L (15-37); TOTAL BILIRUBIN ADULT 0.1 MG/DL (0.2-1.0)
[2017-02-05] MEDS: FOLIC ACID 1 MG TAB PO SCH (07:38)
[2017-02-05] MEDS: NICOTINE 14 MG/24 HR PATCH T-DERMAL SCH (07:38)
[2017-02-05] MEDS: MULTIVITAMINS/MINERALS THERAPEUTIC TAB PO SCH (07:39)
[2017-02-05] MEDS: THIAMINE HCL 100 MG TAB PO SCH (07:39)
[2017-02-05] MEDS: SULFAMETHOXAZOLE-TRIMETHOPRIM DS 800-160 MG TAB PO SCH (07:39)
[2017-02-05] MEDS: REMOVE OLD PATCH T-DERMAL SCH (07:43)
[2017-02-05] MEDS: SODIUM CHLOR 0.9% 1000 ML INJ 1,000 ML IV SCH (07:44)
[2017-02-05] MEDS: DOCUSATE SODIUM 50 MG/SENNA 8.6 MG TAB PO SCH (07:44)
[2017-02-05] MEDS ORDERED: OXYC-395 PO (07:47)
--- NOTE | 2017-02-05 07:58 | HHI.PR ---
Subjective Remarks Follow-up for right index finger amputation. The patient complains of pain in his right hand today, oxycodone on has helped, but he is upset because he has been getting 5 mg oxycodone instead of 10 mg. He is able to move all his fingers on his right hand and his right wrist. Otherwise he has been doing well overnight and has no other acute complaints. Tolerating diet. He is still drinking alcohol. He verbalizes understanding that he cannot drink alcohol or use other substances with the pain medicine. He states that previously he did not follow-up with Dr. Lee as outpatient. He verbalizes understanding that he will need to follow-up with hand surgery as outpatient. Objective Vitals Vital Signs Date Time Temp Pulse Resp B/P Pulse Ox O2 Delivery O2 Flow Rate FiO2 02/05/17 05:29 14 02/05/17 04:17 98.5 73 19 97/52 99 02/05/17 04:10 12 02/05/17 02:57 98.5 64 19 93/53 99 02/04/17 21:28 91/56 02/04/17 19:35 88/68 02/04/17 18:27 82/50 02/04/17 17:42 82/48 02/04/17 16:15 68 80/48 02/04/17 16:05 98.1 70 14 100 02/04/17 15:30 97.4 69 14 100/55 99 Room Air 02/04/17 15:15 79 14 92/54 99 Room Air 02/04/17 15:00 76 14 99/50 99 Room Air 02/04/17 14:57 97.4 85 14 102/54 100 Room Air 02/04/17 13:05 66 101/54 96 02/04/17 12:39 88/52 02/04/17 12:36 97.8 66 16 95 I/O 02/04/17 02/04/17 02/04/17 02/05/17 02/05/17 02/05/17 07:00 15:00 23:00 07:00 15:00 23:00 Intake Total 1500 ml 999 ml 1500 ml Output Total 200 ml 900 ml Balance 1300 ml 99 ml 1500 ml Intake Oral 700 ml IV Total 300 ml 999 ml 800 ml Other 1200 ml Output Urine Total 200 ml 900 ml # Voids 2 Result Diagram: 02/05/17 0438 02/05/17 0438 Imaging Last Impressions Finger X-Ray 02/04/17 0000 Signed Impressions: Service Date/Time: Saturday, February 04, 2017 12:27 - CONCLUSION: Flexion deformity of the second PIP joint, may be fused. Juan Antonio Park MD Objective Remarks GENERAL: Well-developed well-nourished. In no acute distress. SKIN: Warm and dry. No lesions noted. HEENT: Normocephalic. Pupils equal and round. Mucous membranes pink and moist. CARDIOVASCULAR: Regular rate and rhythm. No murmur appreciated. RESPIRATORY: No accessory muscle use. Clear to auscultation. Breath sounds equal bilaterally. GASTROINTESTINAL: Abdomen soft, non-tender, nondistended. Bowel sounds x4. MUSCULOSKELETAL: S/P right index finger amputation with surgical dressing in place, CDI. Good capillary refill on the remaining fingers on the right hand. Flexes and extends other fingers on his right hand with good strength. Radial and ulnar pulses on the right wrist 2+. NEUROLOGICAL: Awake and alert. No focal neurological deficits. Moves upper and lower extremities spontaneously. Normal speech. PSYCHIATRIC: Appropriate mood and affect; insight and judgment normal. A/P Problem List: (1) Finger infection ICD Code: L08.9 Status: Resolved (2) QUIRINO (acute kidney injury) ICD Code: N17.9 Status: Resolved (3) Alcohol abuse ICD Code: F10.10 Status: Chronic (4) Cocaine abuse ICD Code: F14.10 Status: Chronic (5) Tobacco abuse ICD Code: Z72.0 Status: Chronic Assessment and Plan 46-year-old male with a PMH of Right Index Finger Septic Arthritis, Alcohol Abuse, Cocaine Abuse and Tobacco Abuse who presented to the ER w/ complaints of right index finger pain and redness x2 days. Previous h/o Septic Arthritis s/p I&D x3 and d/c'd w/ PICC for long-term IV Abx, however pt non-compliant, re-admitted 10/30/16 for similar complaints, s/p Wound Vac 10/31 and I&D 11/02/[address] Shi. Right Index Finger Cellulitis: h/o right index finger septic arthritis, s/p multiple debridements. Presented with new acute infection the right index finger, given IV Vanco. Hand surgery, Dr. Shi consulted, performed right index finger amputation 02/04/17. Hand surgery for his pain control and Bactrim DS 1 tab po bid x7days after surgery. Continue oxycodone for pain control, patient counseled regarding narcotics. Emphasized the need to the patient for outpatient follow-up with hand surgery. QUIRINO: Creatinine 1.38, previously 1.20 on 11/18/16. Given IVF, creatinine improved to 0.92. Resolved. Alcohol Abuse: Drinks daily, reports up to 30+ beers. No signs of withdrawal. Patient counseling. Continue CIWA, Seizure Precautions, MVT/Thiamine/Folate replacement. Cocaine Abuse: IVDU. Recent ingestion. Ativan prn if needed. Tobacco Abuse: Patient counseling. Patient smokes 10cigarettes daily. Nicotine patch. DVT Prophylaxis: SCD/Teds. Discharge Planning Discharge patient to home Condition on discharge: Improved Regular Diet as tolerated Regular activity Rx written: Bactrim, oxycodone Follow-up with primary care physician and hand surgery Miguel Stephens Feb 05, 2017 07:58
[2017-02-05 08:05] VITALS: BP 97/53; PULSE 58; RESP 18; TEMP 97.6; O2SAT 100
[2017-02-05] MEDS ORDERED: PHARMACY ORDERED LAB ONE (14:45)
== END 2017-02-05 10:17 | disposition home or self-care (01) ==
LOC: NEPC 01:15 → NEDA 03:05 → NEDH 06:12 → NEPFCDU 08:20
PROVIDERS: ADMIT Hospitalist; ATTEND Hospitalist
PROC: 0X6N0Z1 Detachment at Right Index Finger, High, Open Approach (ICD-10-PCS; principal; 2017-02-04 13:15)
DX: M86.641 Other chronic osteomyelitis, right hand (principal); M00.9 Pyogenic arthritis, unspecified; M20.021 Boutonniere deformity of right finger(s); M21.241 Flexion deformity, right finger joints; N17.9 Acute kidney failure, unspecified; F10.10 Alcohol abuse, uncomplicated; F14.10 Cocaine abuse, uncomplicated; F17.210 Nicotine dependence, cigarettes, uncomplicated; Z71.6 Tobacco abuse counseling; Z86.14 Personal history of Methicillin resistant Staphylococcus aureus infection
CPT/HCPCS: 01922; 26951; 73140; 80053; 82948; 85025; 88305; 88311; 99285; G0378; J1100; J2250; J2405; J2765; J3010; J3370; J7030; J7050; J7120

== ENCOUNTER 2017-02-16 13:22 | Emergency (ER) | payer OTHER ==
[~2017-02-16] VITALS: Ht 180.3 cm; Wt 65.0 kg
[~2017-02-16 13:22] MED LIST changes: -HYDR-3516 PO; +OXYC-395 PO
[2017-02-16 13:24] VITALS: BP 121/76; PULSE 92; RESP 20; TEMP 98.6; O2SAT 98
--- NOTE | 2017-02-16 13:34 | PD ---
Physical Exam Date Seen by Provider: Feb 16, 2017 Time Seen by Provider: 13:32 Narrative 46 yo male here for evaluation for right index finger infection. Had an amputation a week ago. Was put in retirement recently and was discharged today. Comes here as he is suppossed to have follow up so he comes to ED for follow up. No other complains. Vitals are stable in triage. Awaiting bed placement. Data Data Last Documented VS Vital Signs Date Time Temp Pulse Resp B/P Pulse Ox O2 Delivery O2 Flow Rate FiO2 02/16/17 13:24 98.6 92 20 121/76 98 MDM Medical Record Reviewed: Yes Supervised Visit with MELLISSA: Alphonse Jhaveri Feb 16, 2017 13:34
--- NOTE | 2017-02-16 13:47 | PD ---
HPI Chief Complaint: Medical Clearance Time Seen by Provider: 13:36 Travel History International Travel<30 days: No Contact w/Intl Traveler<30days: No Traveled to known affect area: No History of Present Illness HPI This is a 46-year-old male who had a trans-proximal phalangeal amputation of the right 2nd digit on February 04 who presents today for a follow-up. He says he was unable to attend his clinic appointment because he was in [place]. They tried to take his stitches out in [facility] but they were unable to. He says it's been healing well and he hasn't noticed any redness or swelling. He does have pain in the finger but that is fairly chronic for him. He has been taking his antibiotics. PFSH Past Medical History Asthma: No Blood Disorders: No Heart Rhythm Problems: No Cancer: No Cardiovascular Problems: No High Cholesterol: No Chemotherapy: No Chest Pain: No Congestive Heart Failure: No COPD: No Diabetes: No Diminished Hearing: No Endocrine: No Genitourinary: No Immune Disorder: No Musculoskeletal: No Neurologic: No Psychiatric: No Reproductive: No Respiratory: No Radiation Therapy: No Sleep Apnea: No Thyroid Disease: No Social History Alcohol Use: Yes (DAILY) Tobacco Use: Yes (10 CIGARETTES DAY) Substance Use: No (Patient reported snorting cocaoine last night) Allergies-Medications (Allergen,Severity, Reaction): Coded Allergies: Morphine (Verified Allergy, Severe, Rash, 02/04/17) *MDRO Multi-Drug Resistant Organism (Verified Allergy, Intermediate, ) 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 (10/17/2016) Reported Meds & Prescriptions Reported Meds & Active Scripts Active Oxycodone (Oxycodone HCl) 10 Mg Tab 10 Mg PO Q8HR Do not combine this medication with alcohol Bactrim DS (Sulfamethoxazole-Trimethoprim) 800-160 Mg Tab 1 Tab PO Q12HR 7 Days Celexa (Citalopram Hydrobromide) 20 Mg Tab 20 Mg PO DAILY 30 Days Review of Systems General / Constitutional: No: Fever, Chills Cardiovascular: No: Chest Pain or Discomfort Respiratory: No: Shortness of Breath Physical Exam Narrative GENERAL: Well-appearing, no acute distress, nontoxic SKIN: Minimal erythema and warmth of the right 2nd digit stump with well healing wound with no drainage. HEAD: Atraumatic. Normocephalic. ENT: No nasal bleeding or discharge. Moist mucous membranes MUSCULOSKELETAL: amputation mid proximal phalanx of the right second digit NEUROLOGICAL: Awake and alert. No obvious cranial nerve deficits. Moving all extremities. PSYCHIATRIC: Appropriate mood and affect; insight and judgment normal. Data Data Last Documented VS Vital Signs Date Time Temp Pulse Resp B/P Pulse Ox O2 Delivery O2 Flow Rate FiO2 02/16/17 13:24 98.6 92 20 121/76 98 MDM Medical Decision Making Medical Screen Exam Complete: Yes Emergency Medical Condition: Yes Differential Diagnosis Wound infection, well healing wound Narrative Course This is a 46-year-old male who presents to the emergency department requesting a wound check after a finger amputation 11 days ago. His wound appears to be well healing with no signs of infection. I spoke to Dr. Varma who agreed it would be appropriate to remove his sutures. Sutures were removed and the patient was discharged home. Procedures Procedure Narrative 6 nylon sutures were removed from the patient's right second finger. Patient tolerated the procedure well. Diagnosis Primary Impression: Visit for suture removal Patient Instructions: General Instructions Additional Instructions: If you develop redness, swelling or pain return to the emergency department. Med/Other Pt SpecificInfo: No Change to Meds Disposition: 01 DISCHARGE HOME Condition: Stable Radha Zaidi MD Feb 16, 2017 13:47
== END 2017-02-16 14:22 | disposition home or self-care (01) ==
LOC: NEPD 13:22
DX: S68.124D Partial traumatic metacarpophalangeal amputation of right ring finger, subsequent encounter (principal); Z48.02 Encounter for removal of sutures; F17.210 Nicotine dependence, cigarettes, uncomplicated; Z79.899 Other long term (current) drug therapy; Z88.5 Allergy status to narcotic agent
CPT/HCPCS: 99281

== ENCOUNTER 2017-04-04 23:10 | Emergency (ER) | payer OTHER ==
[~2017-04-04] VITALS: Ht 170.2 cm; Wt 70.0 kg
[2017-04-05 04:42] VITALS: BP 128/82; PULSE 94; RESP 20; TEMP 98.2; O2SAT 97
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
== END 2017-04-05 07:14 | disposition home or self-care (01) ==
LOC: NEPD 23:10
DX: F10.129 Alcohol abuse with intoxication, unspecified (principal); S02.2XXA Fracture of nasal bones, initial encounter for closed fracture; F17.210 Nicotine dependence, cigarettes, uncomplicated; Y08.09XA Assault by strike by other specified type of sport equipment, initial encounter; Z79.899 Other long term (current) drug therapy
CPT/HCPCS: 70486; 99284

== ENCOUNTER 2017-04-12 19:53 | Inpatient (IN) | payer OTHER ==
[~2017-04-12] VITALS: Ht 182.9 cm; Wt 63.4 kg
[2017-04-12] VITALS (7 sets, daily range): BP systolic 101–128; BP diastolic 57–79; PULSE 106–131; RESP 15–24; TEMP 100.2–101.3; O2SAT 99–100
[2017-04-12] MEDS ORDERED: SODIUM CHLOR 0.9% 1000 ML INJ 1,000 ML IV SCH (20:04)
[2017-04-12] MEDS ORDERED: NALOXONE HCL 0.4 MG/ML AMP IV PUSH ONE (20:15)
[2017-04-12] MEDS ORDERED: CEFEPIME INJ 2,000 MG in SODIUM CHLORIDE 0.9% INJ 100 ML IV ONE (20:15)
[2017-04-12] MEDS ORDERED: SODIUM CHLORIDE 0.9% FLUSH 5 ML FLUSH IV FLUSH PRN (20:15)
[2017-04-12] MEDS ORDERED: THIAMINE INJ 100 MG in SODIUM CHLORIDE 0.9% INJ 100 ML IV ONE (20:15)
[2017-04-12] MEDS ORDERED: VANCOMYCIN INJ 1,000 MG in SODIUM CHLOR 0.9% 250 ML INJ 250 ML IV ONE (20:15)
[2017-04-12 20:23] LABS: BLOOD GAS BASE EXCESS -2.9 mmol/L (-2-2); BLOOD GAS CARBOXYHEMOGLOBIN 4.1 % (0-4); BLOOD GAS HCO3 21 mmol/L (22-26); BLOOD GAS METHEMOGLOBIN 0.8 % (0-2); BLOOD GAS O2 HGB SATURATION 93 % (90-100); BLOOD GAS OXYGEN CONTENT 17.2 Vol % (12.0-20.0); BLOOD GAS PCO2 32 mmHg (38-42); BLOOD GAS PO2 108 mmHG (61-120); CRITICAL VALUE NO; DRAW SITE RT RADIAL; LITER FLOW 2 L/M; NUMBER OF ARTERIAL PUNCTURES 1; OXYGEN DEVICE NASAL CANNULA; STAT YES; TEMP CORR TO 98.6; ULNAR PULSE PRESENT
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
--- NOTE | 2017-04-12 20:51 | RADRPT ---
EXAM DATE/TIME: 04/12/2017 20:31 [facility] COMPARISON: CHEST SINGLE AP, October 19, 2016, 17:25. INDICATIONS : Shortness of breath. MEDICAL HISTORY : None. SURGICAL HISTORY : None. ENCOUNTER: Initial ACUITY: 1 day PAIN SCORE: Non-responsive. LOCATION: Bilateral chest FINDINGS: A single view of the chest demonstrates the lungs to be symmetrically aerated without evidence of mas s, infiltrate or effusion. The cardiomediastinal contours are unremarkable. Osseous structures are intact. CONCLUSION: No acute disease. Rik Mata MD on April 12, 2017 at 20:49 Board Certified Radiologist. This report was verified electronically.
[2017-04-12 20:57] LABS: AUTOMATED NEUTROPHIL # 9.5 TH/MM3 (1.8-7.7); BASOPHIL % 0.3 % (0.0-2.0); EOSINOPHIL % 0.1 % (0.0-4.0); HEMATOCRIT 41.1 % (39.0-51.0); HEMO FLAGS DIFF FINAL; LYMPH % 8.4 % (9.0-44.0); LYMPHOCYTE # 0.9 TH/MM3 (1.0-4.8); MEAN CELL VOLUME 93.2 FL (80.0-100.0); MEAN CORPUSCULAR HEMOGLOBIN 30.8 PG (27.0-34.0); MONO % 5.2 % (0.0-8.0); PLATELET COUNT 184 TH/MM3 (150-450); RED BLOOD COUNT 4.41 MIL/MM3 (4.50-5.90); RED CELL DISTRIBUTION WIDTH 16.1 % (11.6-17.2)
[2017-04-12] MEDS ORDERED: SODIUM CHLOR 0.9% 1000 ML INJ 1,000 ML IV ONE (21:00)
[2017-04-12] MEDS ORDERED: ACETAMINOPHEN 650 MG SUPP RECTAL ONE (21:00)
[2017-04-12 21:05] LABS: BLOOD, URINE NEG (NEG); GLUCOSE,URINE NEG (NEG); KETONE, URINE 10 mg/dL (NEG); NITRITE,URINE NEG (NEG); PH, URINE 5.5 (5.0-8.5); URINE COLOR LIGHT-YELLOW (YELLW/STRAW)
[2017-04-12 21:08] LABS: COMMENT (UR) CATH-CULT NOT IND; CULTURE IF INDICATED CATH CULTURE NOT IND
[2017-04-12 21:09] LABS: APTT (PATIENT) 29.1 SEC (24.3-30.1); INTERNATIONAL NORMALIZED RATIO 0.9 RATIO
[2017-04-12 21:19] LABS: ANION GAP 11 MEQ/L (5-15); AST (GOT) 138 U/L (15-37); BICARBONATE 23.5 MEQ/L (21.0-32.0); BLOOD UREA NITROGEN 7 MG/DL (7-18); CHLORIDE 106 MEQ/L (98-107); GLOMERULAR FILTRATION RATE 135 ML/MIN (>89); MAGNESIUM 1.9 MG/DL (1.5-2.5); SODIUM (NA) 140 MEQ/L (136-145)
[2017-04-12 21:28] LABS: ACETAMINOPHEN LESS THAN 2.0 MCG/ML (10.0-30.0); ALKALINE PHOSPHATASE 132 U/L (45-117); ALT (GPT) 81 U/L (12-78); CREATINE KINASE 548 U/L (39-308); TOTAL BILIRUBIN ADULT 0.5 MG/DL (0.2-1.0)
[2017-04-12 21:41] LABS: ALCOHOL 298 MG/DL (0-5)
[2017-04-12 21:54] LABS: CKMB 4.1 NG/ML (0.5-3.6)
[2017-04-12] MEDS ORDERED: IOHEXOL 350 MG/ML 10 ML VIAL (for RAD DIAG) IVCONTRAST ONE (22:08)
--- NOTE | 2017-04-12 22:18 | RADRPT ---
EXAM DATE/TIME: 04/12/2017 21:50 [facility] COMPARISON: No previous studies available for comparison. INDICATIONS : Hemoptysis; rule out pulmonary embolus. IV CONTRAST: 100 cc Omnipaque 350 (iohexol) IV ; Cumulative dose for multiple exams. RADIATION DOSE: 13.39 CTDIvol (mGy) ; Combined studies - Thorax/Abdomen/Pelvis MEDICAL HISTORY : Non-responsive. SURGICAL HISTORY : Non-responsive. ENCOUNTER: Initial ACUITY: 1 day PAIN SCALE: Non-responsive LOCATION: chest TECHNIQUE: Volumetric scanning of the chest was performed using a pulmonary embolism protocol MIP images were re constructed. Using automated exposure control and adjustment of the mA and/or kV according to patien t size, radiation dose was kept as low as reasonably achievable to obtain optimal diagnostic quality images. DICOM format image data is available electronically for review and comparison. Follow-up recommendations for detected pulmonary nodules are based at a minimum on nodule size and pa tient risk factors according to Fleischner Society Guidelines. FINDINGS: PULMONARY ARTERIES: No filling defects are seen in the pulmonary arteries through the segmental level. LUNGS: There is no consolidation or pneumothorax . No concerning pulmonary nodule is visualized. PLEURAE: There is no pleural thickening or pleural effusion. MEDIASTINUM: There is good visualization of the great vessels of the middle mediastinum. No evidence of mediastin al or hilar adenopathy/mass. MUSCULOSKELETAL: Within normal limits for patient age. MISCELLANEOUS: The visualized upper abdominal organs demonstrate no acute abnormality. There is diffuse fatty infilt ration of the liver. CONCLUSION: 1. No evidence of pulmonary embolism. 2. Diffuse fatty infiltration of the liver. Rik Mata MD on April 12, 2017 at 22:14 Board Certified Radiologist. This report was verified electronically.
--- NOTE | 2017-04-12 22:22 | RADRPT ---
EXAM DATE/TIME: 04/12/2017 21:47 [facility] COMPARISON: CT ABDOMEN & PELVIS W CONTRAST, March 17, 2016, 14:02. INDICATIONS : Fever. IV CONTRAST: 100 cc Omnipaque 350 (iohexol) IV ; Cumulative dose for multiple exams. ORAL CONTRAST: No oral contrast ingested. RADIATION DOSE: 13.39 CTDIvol (mGy) ; Combined studies - Thorax/Abdomen/Pelvis MEDICAL HISTORY : Non-responsive. SURGICAL HISTORY : Non-responsive. ENCOUNTER: Initial ACUITY: 1 day PAIN SCALE: Non-responsive LOCATION: abdomen TECHNIQUE: Volumetric scanning of the abdomen and pelvis was performed. Using automated exposure control and adjustment of the mA and/or kV according to patient size, radiation dose was kept as low as reasonably achievable to obtain optimal diagnostic quality images. DICOM format image data is av ailable electronically for review and comparison. FINDINGS: LOWER LUNGS: The visualized lower lungs are clear. LIVER: There is an enlarged fatty liver. No focal hepatic mass is noted. Small amount of ascites is noted. There is no dilation of the biliary tree. No calcified gallstones. SPLEEN: Normal size without lesion. PANCREAS: Within normal limits. KIDNEYS: Normal in size and shape. There are stable bilateral renal cysts. There is no mass, sto ne or hydronephrosis. ADRENAL GLANDS: Within normal limits. VASCULAR: There is no aortic aneurysm. BOWEL/MESENTERY: The stomach and small bowel demonstrate no acute abnormality. There is no free intraperitoneal air or fluid. Diffuse ileus is likely. ABDOMINAL WALL: Within normal limits. RETROPERITONEUM: There is no lymphadenopathy. BLADDER: No wall thickening or mass. Jose catheter is noted. REPRODUCTIVE: Within normal limits. INGUINAL: There is no lymphadenopathy or hernia. MUSCULOSKELETAL: There is a stable left-sided pars defect at L5. CONCLUSION: Enlarged fatty liver. Small amount of ascites. Stable bilateral renal cysts. Diffuse ileus is likely. Rik Mata MD on April 12, 2017 at 22:17 Board Certified Radiologist. This report was verified electronically.
--- NOTE | 2017-04-12 22:32 | RADRPT ---
EXAM DATE/TIME: 04/12/2017 21:43 [facility] COMPARISON: CT BRAIN W/O CONTRAST, March 17, 2016, 13:59. INDICATIONS : Altered mental status; ETOH. RADIATION DOSE: 56.35 CTDIvol (mGy) MEDICAL HISTORY : Non-responsive. SURGICAL HISTORY : Non-responsive. ENCOUNTER: Initial ACUITY: 1 day PAIN SCALE: Non-responsive LOCATION: Cranial TECHNIQUE: Multiple contiguous axial images were obtained of the head. Using automated exposure control and adj ustment of the mA and/or kV according to patient size, radiation dose was kept as low as reasonably a chievable to obtain optimal diagnostic quality images. DICOM format image data is available electro nically for review and comparison. FINDINGS: The examination is limited by patient motion during scanning. There is no acute hemorrhage, midline shift, or extraaxial bleed. The ventricles, sulci and cisterns are unremarkable. If there is clinical concern for subtle acute infarct MRI would be more sensitive in this patient. CONCLUSION: 1. No acute hemorrhage, mass effect or extraaxial fluid collection. 2. Limited evaluation due to patient motion during scanning. Rik Mata MD on April 12, 2017 at 22:11 Board Certified Radiologist. This report was verified electronically.
[2017-04-12 22:37] LABS: LACTIC ACID GHOST NOT REPORTABLE
[2017-04-12] MEDS ORDERED: SENNOSIDES 8.6 MG TAB PO PRN (22:45)
[2017-04-12] MEDS ORDERED: LORazepam 2 MG/ML VIAL IV PUSH PRN ×4 (22:45)
[2017-04-12] MEDS ORDERED: HALOPERIDOL LACTATE 5 MG/ML AMP IM PRN (22:45)
[2017-04-12] MEDS ORDERED: Vancomycin Consult Pharmacy 1 EA OTHER SCH (22:45)
[2017-04-12] MEDS ORDERED: BISACODYL 10 MG SUPP RECTAL PRN (22:45)
[2017-04-12] MEDS ORDERED: SODIUM CHLORIDE 0.9% FLUSH 10 ML FLUSH IVF PRN (22:45)
[2017-04-12] MEDS ORDERED: ACETAMINOPHEN 325 MG TAB PO PRN (22:45)
[2017-04-12] MEDS ORDERED: ONDANSETRON HCL 4 MG/2 ML VIAL IVP PRN (22:45)
[2017-04-12] MEDS ORDERED: MAGNESIUM HYDROXIDE SUSP 30 ML CUP PO PRN (22:45)
[2017-04-12] MEDS ORDERED: LORazepam 2 MG TAB PO PRN (22:45)
[2017-04-12] MEDS ORDERED: SODIUM CHLORIDE 0.9% FLUSH 10 ML FLUSH IV FLUSH PRN (22:45)
[2017-04-12] MEDS ORDERED: LACTULOSE SYRUP 20 GM/30 ML CUP PO PRN (22:45)
[2017-04-12] MEDS ORDERED: FLUMAZENIL 0.5 MG/5 ML VIAL IV PUSH PRN (22:45)
[2017-04-12] MEDS: SODIUM CHLOR 0.9% 1000 ML INJ 1,000 ML IV SCH (23:34)
--- NOTE | 2017-04-12 23:48 | HHI.HP ---
[facility] Unknown Admission Diagnosis AMS; SIRS/sepsis;alcohol intox; ileus; infectious dermatitis Diagnoses: (1) Encephalopathy Diagnosis: Principal (2) SIRS (systemic inflammatory response syndrome) Diagnosis: Principal (3) Ileus Diagnosis: Principal (4) Alcohol abuse Diagnosis: Principal (5) Tobacco abuse Diagnosis: Principal Travel History International Travel<30 Days: No Contact w/Intl Traveler <30 Da: No Traveled to Known Affected Are: No History of Present Illness This is a 46-year-old male with a PMH of Schizophrenia, Anxiety, Alcohol Abuse and Tobacco Abuse who was brought to the ER by EMS secondary to AMS and fever. Per report, pt noted to have AMS after falling asleep in hammock, unable to be roused. Per EMS, Temp 101.3. Pt unable to provide much history. Noted to have multiple weeping wounds of extremities. On arrival, BP 150/77, HR 128, O2 sat 100% on 3L NC, Temp 101.3. CBC unremarkable except for elevated neutrophil count. Lactic Acid 2.2. CPK 548. Ammonia 28. Troponin negative. LFTs mildly elevated, similar in comparison to previous labs from 02/05/17. INR 0.9. UA negative. Drug Screen negative. Alcohol 298. CXR with no acute findings. CT Head negative. CT Abd/Pelvis small amount of ascites, likely ileus. CTA Pulm negative for PE. S/p Wound/Blood Cultures, Vanc/Cefepime in ER. Review of Systems Except as stated in HPI: all other systems reviewed are Neg ROS: Unable to obtain secondary to altered mental status. 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 No h/o DM or CAD Social History PAST SOCIAL HISTORY: Positive for Alcohol Abuse. Smokes 1/2ppd. H/o Cocaine. Physical Exam Vital Signs Vital Signs Date Time Temp Pulse Resp B/P (MAP) Pulse Ox O2 Delivery O2 Flow Rate FiO2 04/12/17 21:30 124 15 123/66 (85) 99 Nasal Cannula 2.00 04/12/17 21:00 130 22 120/64 (82) 99 Nasal Cannula 2.00 04/12/17 20:45 131 15 128/79 (95) 99 Nasal Cannula 2.00 04/12/17 20:11 101.3 117 24 115/77 (90) 99 Nasal Cannula 3.00 04/12/17 20:10 24 100 Nasal Cannula 3.00 04/12/17 20:00 101.3 128 18 115/77 (90) Physical Exam PE: GENERAL: Middle-aged white male in no acute distress, appears much older than stated age, disheveled. HEENT: PERRLA, EOMI. No scleral icterus or conjunctival pallor. No lid lag or facial droop. CARDIOVASCULAR: Regular rate and rhythm. No obvious murmurs to auscultation. No chest tenderness to palpation. RESPIRATORY: No obvious rhonchi or wheezing. Clear to auscultation. Breath sounds equal bilaterally. GASTROINTESTINAL: Abdomen soft, non-tender, nondistended. BS normal. MUSCULOSKELETAL: Extremities without clubbing, cyanosis, or edema. No obvious deformities. Multiple lesions to bilateral upper extremities, some with weeping NEUROLOGICAL: Lethargic, answers questions intermittently. No focal neurologic deficits. Moving both upper and lower extremities spontaneously. Laboratory Laboratory Tests Test 04/12/17 20:16 04/12/17 20:20 04/12/17 20:25 04/12/17 22:56 Blood Gas Puncture Site RT RADIAL Blood Gas Patient Temperature 98.6 Blood Gas HCO3 21 Blood Gas Base Excess -2.9 Blood Gas Oxygen Saturation 93 Arterial Blood pH 7.43 Arterial Blood Partial Pressure CO2 32 Arterial Blood Partial Pressure O2 108 Arterial Blood Oxygen Content 17.2 Arterial Blood Carboxyhemoglobin 4.1 Arterial Blood Methemoglobin 0.8 Blood Gas Hemoglobin 13.0 Oxygen Delivery Device NASAL CANNULA Blood Gas Liter Flow 2 Urine Opiates Screen NEG Urine Barbiturates Screen NEG Urine Amphetamines Screen NEG Urine Benzodiazepines Screen NEG Urine Cocaine Screen NEG Urine Cannabinoids Screen NEG White Blood Count 11.0 Red Blood Count 4.41 Hemoglobin 13.6 Hematocrit 41.1 Mean Corpuscular Volume 93.2 Mean Corpuscular Hemoglobin 30.8 Mean Corpuscular Hemoglobin Concent 33.0 Red Cell Distribution Width 16.1 Platelet Count 184 Mean Platelet Volume 7.4 Neutrophils (%) (Auto) 86.0 Lymphocytes (%) (Auto) 8.4 Monocytes (%) (Auto) 5.2 Eosinophils (%) (Auto) 0.1 Basophils (%) (Auto) 0.3 Neutrophils # (Auto) 9.5 Lymphocytes # (Auto) 0.9 Monocytes # (Auto) 0.6 Eosinophils # (Auto) 0.0 Basophils # (Auto) 0.0 CBC Comment DIFF FINAL Differential Comment Prothrombin Time 10.0 Prothromb Time International Ratio 0.9 Activated Partial Thromboplast Time 29.1 Urine Color LIGHT-YELLOW Urine Turbidity CLEAR Urine pH 5.5 Urine Specific [place] 1.010 Urine Protein NEG Urine Glucose (UA) NEG Urine Ketones 10 Urine Occult Blood NEG Urine Nitrite NEG Urine Bilirubin NEG Urine Urobilinogen LESS THAN 2.0 Urine Leukocyte Esterase NEG Urine WBC LESS THAN 1 Microscopic Urinalysis Comment CATH-CULT NOT IND Blood Urea Nitrogen 7 Creatinine 0.64 Random Glucose 84 Total Protein 7.4 Albumin 3.4 Calcium Level 7.9 Magnesium Level 1.9 Alkaline Phosphatase 132 Aspartate Amino Transf (AST/SGOT) 138 Alanine Aminotransferase (ALT/SGPT) 81 Total Bilirubin 0.5 Sodium Level 140 Potassium Level 4.0 Chloride Level 106 Carbon Dioxide Level 23.5 Anion Gap 11 Estimat Glomerular Filtration Rate 135 Lactic Acid Level 2.2 1.9 Ammonia 28 Total Creatine Kinase 548 Creatine Kinase MB 4.1 Creatine Kinase MB % 0.7 Troponin I LESS THAN 0.02 Lipase 153 Thyroid Stimulating Hormone 3rd Gen 0.147 Salicylates Level 3.5 Acetaminophen Level LESS THAN 2.0 Ethyl Alcohol Level 298 Date/Time Source Procedure Growth Status 04/12/17 20:25 Blood Peripheral Aerobic Blood Culture Pending Received 04/12/17 20:25 Blood Peripheral Anaerobic Blood Culture Pending Received 04/12/17 20:25 Wound Arm Gram Stain Pending Received 04/12/17 20:25 Wound Arm Wound Culture Pending Received Result Diagram: 04/12/17202404/12/172024 Caprini VTE Risk Assessment Caprini VTE Risk Assessment: No/Low Risk (score <= 1) Caprini Risk Assessment Model Point Value = 1 Point Value = 2 Point Value = 3 Point Value = 5 Age 41-60 Minor surgery BMI > 25 kg/m2 Swollen legs Varicose veins or History of unexplained or recurrent spontaneous Oral contraceptives or hormone replacement Sepsis (< 1 month) Serious lung disease, including pneumonia (< 1 month) Abnormal pulmonary function Acute myocardial infarction Congestive heart failure (< 1 month) History of inflammatory bowel disease Medical patient at bed rest Age 61-74 Arthroscopic surgery Major open surgery (> 45 min) Laparoscopic surgery (> 45 min) Malignancy Confined to bed (> 72 hours) Immobilizing plaster cast Central venous access Age >= 75 History of VTE Family history of VTE Factor V Leiden Prothrombin [id number] Lupus anticoagulant Anticardiolipin antibodies Elevated serum homocysteine Heparin-induced thrombocytopenia Other congenital or acquired thrombophilia Stroke (< 1 month) Elective arthroplasty Hip, pelvis, or leg fracture Acute spinal cord injury (< 1 month) Prophylaxis Regimen Total Risk Factor Score Risk Level Prophylaxis Regimen 0-1 Low Early ambulation 2 Moderate Order ONE of the following: *Sequential Compression Device (SCD) *Heparin 5000 units SQ BID 3-4 Higher Order ONE of the following medications: *Heparin 5000 units SQ TID *Enoxaparin/Lovenox 40 mg SQ daily (WT < 150 kg, CrCl > 30 mL/min) *Enoxaparin/Lovenox 30 mg SQ daily (WT < 150 kg, CrCl > 10-29 mL/min) *Enoxaparin/Lovenox 30 mg SQ BID (WT < 150 kg, CrCl > 30 mL/min) AND/OR *Sequential Compression Device (SCD) 5 or more Highest Order ONE of the following medications: *Heparin 5000 units SQ TID (Preferred with Epidurals) *Enoxaparin/Lovenox 40 mg SQ daily (WT < 150 kg, CrCl > 30 mL/min) *Enoxaparin/Lovenox 30 mg SQ daily (WT < 150 kg, CrCl > 10-29 mL/min) *Enoxaparin/Lovenox 30 mg SQ BID (WT < 150 kg, CrCl > 30 mL/min) AND *Sequential Compression Device (SCD) Assessment and Plan Problem List: (1) Encephalopathy ICD Code: G93.40 - Encephalopathy, unspecified (2) SIRS (systemic inflammatory response syndrome) ICD Code: R65.10 - Systemic inflammatory response syndrome (SIRS) of non- infectious origin without acute organ dysfunction Status: Acute (3) Ileus ICD Code: K56.7 - Ileus, unspecified Status: Acute (4) Alcohol abuse ICD Code: F10.10 - Alcohol abuse, uncomplicated Status: Chronic (5) Tobacco abuse ICD Code: Z72.0 - Tobacco use Status: Chronic Assessment and Plan A/P: 1. Encephalopathy: likely multifactorial-Alcohol Intoxication and Febrile Illness. CT Head w/ no acute findings, images reviewed by me. Now more arousable, answering questions intermittently. 2. SIRS: Temp 101.3, HR 117, Lactic Acid 2.2, repeat 1.9. Source-unclear, multiple weeping lesions? S/p Blood Cultures/Wound Cultures, Vanc/Cefepime, will follow up cultures, continue IV Abx. 3. Ileus: c/o abdominal pain while in ER, CT Abd/Pelvis w/ enlarged fatty liver, small amount of ascites, diffuse ileus likely, images reviewed by me. K + normal. Clear liquids, advance as tolerated. 4. Alcohol Abuse: w/ Acute Alcohol Intoxication. Alcohol 289. Drinks daily. High risk for withdrawal. CIWA, Seizure Precautions, MVT/Thiamine/Folate 5. Tobacco Abuse: NicoDerm/Ativan prn. 6. Social work for d/c planning as needed. 7. DVT Prophylaxis: SCD/Teds. 8. Case discussed w/ ER physician at length. Physician Certification 2 Midnight Certification Type: Admission for Inpatient Services Order for Inpatient Services The services are ordered in accordance with Medicare regulations or non- Medicare payer requirements, as applicable. In the case of services not specified as inpatient-only, they are appropriately provided as inpatient services in accordance with the 2-midnight benchmark. Estimated LOS (days): 2 days is the estimated time the patient will need to remain in the hospital, assuming treatment plan goals are met and no additional complications. Post-Hospital Plan: Not yet determined Sarah Abdi MD Apr 12, 2017 23:48
[2017-04-13] VITALS (10 sets, daily range): BP systolic 92–143; BP diastolic 51–95; PULSE 66–92; RESP 16–20; TEMP 97.9–99.2; O2SAT 94–99
[2017-04-13] MEDS: LORazepam 1 MG TAB PO PRN ×3 (00:02→20:32)
[2017-04-13] MEDS: VANCOMYCIN INJ 1,250 MG in SODIUM CHLOR 0.9% 250 ML INJ 250 ML IV SCH ×2 (05:47→18:05)
[2017-04-13 07:58] LABS: AUTOMATED NEUTROPHIL # 14.9 TH/MM3 (1.8-7.7); BASOPHIL % 0.2 % (0.0-2.0); HEMATOCRIT 33.9 % (39.0-51.0); HEMO FLAGS DIFF FINAL; LYMPH % 6.2 % (9.0-44.0); LYMPHOCYTE # 1.1 TH/MM3 (1.0-4.8); MEAN CELL VOLUME 94.8 FL (80.0-100.0); MEAN CORPUSCULAR HGB CONC 32.7 % (32.0-36.0); MONO % 8.9 % (0.0-8.0); NEUT % 84.7 % (16.0-70.0); PLATELET COUNT 156 TH/MM3 (150-450); RED BLOOD COUNT 3.58 MIL/MM3 (4.50-5.90); RED CELL DISTRIBUTION WIDTH 15.6 % (11.6-17.2); WHITE BLOOD COUNT 17.6 TH/MM3 (4.0-11.0)
[2017-04-13 08:18] LABS: BICARBONATE 22.2 MEQ/L (21.0-32.0); TOTAL BILIRUBIN ADULT 0.5 MG/DL (0.2-1.0)
[2017-04-13 08:27] LABS: CKMB 1.7 NG/ML (0.5-3.6)
[2017-04-13 08:58] LABS: CALCIUM-PROTEIN CORRECTED 7.2 MG/DL (8.5-10.1)
[2017-04-13] MEDS: SODIUM CHLOR 0.9% 1000 ML INJ 1,000 ML IV SCH ×2 (09:00→19:00)
[2017-04-13] MEDS ORDERED: SODIUM CHLORIDE 0.9% FLUSH 10 ML FLUSH IV FLUSH SCH (09:00)
[2017-04-13] MEDS: DOCUSATE SODIUM 50 MG/SENNA 8.6 MG TAB PO SCH ×2 (09:00→20:30)
[2017-04-13] MEDS: CEFEPIME INJ 1,000 MG in SODIUM CHLORIDE 0.9% INJ 100 ML IV SCH ×2 (10:01→20:28)
[2017-04-13] MEDS: THIAMINE HCL 100 MG TAB PO SCH (10:01)
[2017-04-13] MEDS: FOLIC ACID 1 MG TAB PO SCH (10:02)
[2017-04-13] MEDS: MULTIVITAMINS/MINERALS THERAPEUTIC TAB PO SCH (10:02)
[2017-04-13] MEDS: SODIUM CHLORIDE 0.9% FLUSH 10 ML FLUSH IV FLUSH SCH ×2 (10:02→20:28)
--- NOTE | 2017-04-13 10:19 | HHI.PR ---
Subjective Remarks This is a 46-year-old male with a PMH of Schizophrenia, Anxiety, Alcohol Abuse and Tobacco Abuse who was brought to the ER by EMS secondary to AMS and fever. Per report, pt noted to have AMS after falling asleep in hammock, unable to be roused. Per EMS, Temp 101.3. Pt unable to provide much history. Noted to have multiple weeping wounds of extremities. On arrival, BP 150/77, HR 128, O2 sat 100% on 3L NC, Temp 101.3. CBC unremarkable except for elevated neutrophil count. Lactic Acid 2.2. CPK 548. Ammonia 28. Troponin negative. LFTs mildly elevated, similar in comparison to previous labs from 02/05/17. INR 0.9. UA negative. Drug Screen negative. Alcohol 298. CXR with no acute findings. CT Head negative. CT Abd/Pelvis small amount of ascites, likely ileus. CTA Pulm negative for PE. S/p Wound/Blood Cultures, Vanc/Cefepime in ER. 04/13: Seen in his bedroom and discussed with nurse continue present care. no nausea, vomit or diarrhea. Objective Vital Signs Date Time Temp Pulse Resp B/P (MAP) Pulse Ox O2 Delivery O2 Flow Rate FiO2 04/13/17 08:00 98.8 91 20 106/56 (73) 97 04/13/17 04:00 99.2 91 16 95/53 (67) 98 04/13/17 01:32 99.0 92 16 92/51 (65) 97 04/13/17 01:30 Nasal Cannula 2.00 04/13/17 01:20 90 04/13/17 00:56 04/12/17 23:50 100.2 106 18 101/57 (72) 100 Nasal Cannula 2.00 04/12/17 21:30 124 15 123/66 (85) 99 Nasal Cannula 2.00 04/12/17 21:00 130 22 120/64 (82) 99 Nasal Cannula 2.00 04/12/17 20:45 131 15 128/79 (95) 99 Nasal Cannula 2.00 04/12/17 20:11 101.3 117 24 115/77 (90) 99 Nasal Cannula 3.00 04/12/17 20:10 24 100 Nasal Cannula 3.00 04/12/17 20:00 101.3 128 18 115/77 (90) I/O 04/12/17 04/12/17 04/12/17 04/13/17 04/13/17 04/13/17 07:00 15:00 23:00 07:00 15:00 23:00 Intake Total 2451 ml 547 ml Output Total 1800 ml 600 ml Balance 651 ml -53 ml Intake IV Total 2451 ml 547 ml Output Urine Total 1800 ml 600 ml Result Diagram: 04/13/1762204/13/17622 Imaging Last Impressions Head CT 04/12/172003 Signed Impressions: Service Date/Time: Wednesday, April 12, 2017 21:43 - CONCLUSION: 1. No acute hemorrhage, mass effect or extraaxial fluid collection. 2. Limited evaluation due to patient motion during scanning. Rik Mata MD Chest X-Ray 04/12/172003 Signed Impressions: Service Date/Time: Wednesday, April 12, 2017 20:31 - CONCLUSION: No acute disease. Rik Mata MD CT Angiography 04/12/17 Signed Impressions: Service Date/Time: Wednesday, April 12, 2017 21:50 - CONCLUSION: 1. No evidence of pulmonary embolism. 2. Diffuse fatty infiltration of the liver. Rik Mata MD Abdomen/Pelvis CT 04/12/17 Signed Impressions: Service Date/Time: Wednesday, April 12, 2017 21:47 - CONCLUSION: Enlarged fatty liver. Small amount of ascites. Stable bilateral renal cysts. Diffuse ileus is likely. Rik Mata MD Procedures None Other Results Laboratory Tests Test 04/12/17 20:16 04/12/17 20:20 04/12/17 20:25 04/12/17 22:56 Blood Gas Puncture Site RT RADIAL Blood Gas Patient Temperature 98.6 Blood Gas HCO3 21 mmol/L Blood Gas Base Excess -2.9 mmol/L Blood Gas Oxygen Saturation 93 % Arterial Blood pH 7.43 Arterial Blood Partial Pressure CO2 32 mmHg Arterial Blood Partial Pressure O2 108 mmHG Arterial Blood Oxygen Content 17.2 Vol % Arterial Blood Carboxyhemoglobin 4.1 % Arterial Blood Methemoglobin 0.8 % Blood Gas Hemoglobin 13.0 G/DL Oxygen Delivery Device NASAL CANNULA Blood Gas Liter Flow 2 L/M Urine Opiates Screen NEG Urine Barbiturates Screen NEG Urine Amphetamines Screen NEG Urine Benzodiazepines Screen NEG Urine Cocaine Screen NEG Urine Cannabinoids Screen NEG Prothrombin Time 10.0 SEC Prothromb Time International Ratio 0.9 RATIO Activated Partial Thromboplast Time 29.1 SEC Urine Color LIGHT-YELLOW Urine Turbidity CLEAR Urine pH 5.5 Urine Specific [place] 1.010 Urine Protein NEG mg/dL Urine Glucose (UA) NEG mg/dL Urine Ketones 10 mg/dL Urine Occult Blood NEG Urine Nitrite NEG Urine Bilirubin NEG Urine Urobilinogen LESS THAN 2.0 MG/DL Urine Leukocyte Esterase NEG Urine WBC LESS THAN 1 /hpf Microscopic Urinalysis Comment CATH-CULT NOT IND Blood Urea Nitrogen 7 MG/DL Creatinine 0.64 MG/DL Random Glucose 84 MG/DL Total Protein 7.4 GM/DL Albumin 3.4 GM/DL Calcium Level 7.9 MG/DL Magnesium Level 1.9 MG/DL Alkaline Phosphatase 132 U/L Aspartate Amino Transf (AST/SGOT) 138 U/L Alanine Aminotransferase (ALT/SGPT) 81 U/L Total Bilirubin 0.5 MG/DL Sodium Level 140 MEQ/L Potassium Level 4.0 MEQ/L Chloride Level 106 MEQ/L Carbon Dioxide Level 23.5 MEQ/L Ammonia 28 MCMOL/L Troponin I LESS THAN 0.02 NG/ML Lipase 153 U/L Thyroid Stimulating Hormone 3rd Gen 0.147 uIU/ML Salicylates Level 3.5 MG/DL Acetaminophen Level LESS THAN 2.0 MCG/ML Ethyl Alcohol Level 298 MG/DL Lactic Acid Level 1.9 mmol/L Test 04/13/17 06:23 White Blood Count 17.6 TH/MM3 Red Blood Count 3.58 MIL/MM3 Hemoglobin 11.1 GM/DL Hematocrit 33.9 % Mean Corpuscular Volume 94.8 FL Mean Corpuscular Hemoglobin 31.0 PG Mean Corpuscular Hemoglobin Concent 32.7 % Red Cell Distribution Width 15.6 % Platelet Count 156 TH/MM3 Mean Platelet Volume 7.7 FL Neutrophils (%) (Auto) 84.7 % Lymphocytes (%) (Auto) 6.2 % Monocytes (%) (Auto) 8.9 % Eosinophils (%) (Auto) 0.0 % Basophils (%) (Auto) 0.2 % Neutrophils # (Auto) 14.9 TH/MM3 Lymphocytes # (Auto) 1.1 TH/MM3 Monocytes # (Auto) 1.6 TH/MM3 Eosinophils # (Auto) 0.0 TH/MM3 Basophils # (Auto) 0.0 TH/MM3 CBC Comment DIFF FINAL Differential Comment Blood Urea Nitrogen 8 MG/DL Creatinine 0.61 MG/DL Random Glucose 119 MG/DL Total Protein 6.1 GM/DL Albumin 2.6 GM/DL Calcium Level 6.7 MG/DL Alkaline Phosphatase 100 U/L Aspartate Amino Transf (AST/SGOT) 90 U/L Alanine Aminotransferase (ALT/SGPT) 59 U/L Total Bilirubin 0.5 MG/DL Sodium Level 138 MEQ/L Potassium Level 3.0 MEQ/L Chloride Level 104 MEQ/L Carbon Dioxide Level 22.2 MEQ/L Anion Gap 12 MEQ/L Estimat Glomerular Filtration Rate 143 ML/MIN Protein Corrected Calcium 7.2 MG/DL Total Creatine Kinase 323 U/L Creatine Kinase MB 1.7 NG/ML Creatine Kinase MB % 0.5 % Objective Remarks PE: No acute distress. GENERAL: Middle-aged white male in no acute distress, appears much older than stated age, disheveled. HEENT: PERRLA, EOMI. No scleral icterus or conjunctival pallor. No lid lag or facial droop. CARDIOVASCULAR: Regular rate and rhythm. No obvious murmurs to auscultation. No chest tenderness to palpation. RESPIRATORY: No obvious rhonchi or wheezing. Clear to auscultation. Breath sounds equal bilaterally. GASTROINTESTINAL: Abdomen soft, non-tender, nondistended. BS normal. MUSCULOSKELETAL: Extremities without clubbing, cyanosis, or edema. No obvious deformities. Multiple lesions to bilateral upper extremities, some with weeping NEUROLOGICAL: Lethargic, answers questions intermittently. No focal neurologic deficits. Moving both upper and lower extremities spontaneously. Medications and IVs Current Medications Medications (Trade) Dose Ordered Sig/Shan Route Start Time Stop Time Status Last Admin Pharmacy Profile Note 0 ml @ 0 mls/hr UNSCH OTHER 04/12/17 22:45 Cefepime HCl 1000 mg/Sodium Chloride 100 ml @ 200 mls/hr Q12H IV 04/13/17 09:00 04/13/17 10:01 (Folate) 1 mg DAILY PO 04/13/17 09:00 04/18/17 08:59 04/13/17 10:02 (Vitamin B1) 100 mg DAILY PO 04/13/17 09:00 04/13/17 10:01 (Theragran M Tab) 1 tab DAILY PO 04/13/17 09:00 04/18/17 08:59 04/13/17 10:02 (Romazicon Inj) 0.2 mg Q1M PRN IV PUSH 04/12/17 22:45 (Ativan) 1 mg Q4H PRN PO 04/12/17 22:45 04/13/17 00:02 (Ativan Inj) 1 mg Q4H PRN IV PUSH 04/12/17 22:45 (Ativan) 2 mg Q2H PRN PO 04/12/17 22:45 (Ativan Inj) 2 mg Q2H PRN IV PUSH 04/12/17 22:45 (Ativan Inj) 2 mg Q1H PRN IV PUSH 04/12/17 22:45 (Ativan Inj) 2 mg Q15M PRN IV PUSH 04/12/17 22:45 (Haldol Inj) 2 mg Q15M PRN IM 04/12/17 22:45 Sodium Chloride 1,000 ml @ 100 mls/hr Q10H IV 04/12/17 23:00 04/13/17 09:00 (NS Flush) 2 ml UNSCH PRN IV FLUSH 04/12/17 22:45 (NS Flush) 2 ml BID IV FLUSH 04/13/17 09:00 04/13/17 10:02 (Zofran Inj) 4 mg Q6H PRN IVP 04/12/17 22:45 (Tylenol) 650 mg Q6H PRN PO 04/12/17 22:45 (Irma-Colace) 1 tab BID PO 04/13/17 09:00 04/13/17 09:00 (Milk Of Magnesia Liq) 30 ml Q12H PRN PO 04/12/17 22:45 (Senokot) 17.2 mg Q12H PRN PO 04/12/17 22:45 (Dulcolax Supp) 10 mg DAILY PRN RECTAL 04/12/17 22:45 (Lactulose Liq) 30 ml DAILY PRN PO 04/12/17 22:45 Vancomycin HCl 1250 mg/Sodium Chloride 262.5 ml @ 250 mls/hr Q12H IV 04/13/17 06:00 04/13/17 05:47 Miscellaneous Information SPECIFIC LAB TO BE RYDER... ONCE ONCE .XX 04/14/17 05:45 04/14/17 05:46 (Roxicodone) 5 mg Q4H PRN PO 04/12/17 23:45 (Roxicodone) 10 mg Q4H PRN PO 04/12/17 23:45 04/13/17 00:02 A/P Assessment and Plan 1. Acute Metabolic encephalopathy likely Multifactorial Alcohol intoxication and febrile illness, Improved 2. SIRS: Temp 101.3, HR 117, Lactic Acid 2.2, repeat 1.9. Source-unclear, multiple weeping lesions? S/p Blood Cultures/Wound Cultures, Vanc/Cefepime, will follow up cultures, continue IV Abx. 3. Ileus: c/o abdominal pain while in ER, CT Abd/Pelvis w/ enlarged fatty liver, small amount of ascites, diffuse ileus likely, images Clear liquids, advance as tolerated. not yet IV fluids. 4. Alcohol Abuse: w/ Acute Alcohol Intoxication. Alcohol 289. Drinks daily. High risk for withdrawal. CIWA, Seizure Precautions, MVT/Thiamine/Folate 5. Tobacco Abuse: NicoDerm/Ativan prn. strongly recommended to stop smoking. Social work for d/c planning as needed. DVT Prophylaxis: SCD/Teds. Rusty Conway MD Apr 13, 2017 10:19
[2017-04-13] MEDS ORDERED: POTASSIUM CHLORIDE 20 MEQ CONTROLLED RELEASE TAB PO ONE ×2 (10:30→14:00)
[2017-04-13] MEDS ORDERED: MAGNESIUM SULFATE 1 GM PREMIX 100 ML IV ONE (10:30)
[2017-04-13] MEDS ORDERED: CALCIUM GLUCONATE INJ 1 GM in SODIUM CHLORIDE 0.9% INJ 90 ML IV ONE (12:00)
[2017-04-13] MEDS: ENOXAPARIN SODIUM 40 MG/0.4 ML SYRINGE SQ SCH (13:11)
--- NOTE | 2017-04-13 16:30 | EKG ---
Date Performed: 04/12/2017 Time Performed: 20:06:15 PTAGE: 46 years EKG: SINUS TACHYCARDIA RIGHT BUNDLE BRANCH BLOCK LEFT ANTERIOR FASCICULAR BLOCK Compared to prio r tracing no significant change ABNORMAL ECG PREVIOUS TRACING : 10/16/2016 16.10 DOCTOR: Tanner Saini Interpretating Date/Time 04/13/2017 16:30:21
[2017-04-14] VITALS (7 sets, daily range): BP systolic 117–153; BP diastolic 68–84; PULSE 62–89; RESP 16–18; TEMP 97.7–98.2; O2SAT 93–99
[2017-04-14] MEDS: SODIUM CHLOR 0.9% 1000 ML INJ 1,000 ML IV SCH ×2 (05:00→17:56)
[2017-04-14] MEDS ORDERED: PHARMACY ORDERED LAB ONE (05:45)
[2017-04-14] MEDS: VANCOMYCIN INJ 1,250 MG in SODIUM CHLOR 0.9% 250 ML INJ 250 ML IV SCH ×3 (05:45→21:53)
[2017-04-14] MEDS: SODIUM CHLORIDE 0.9% FLUSH 10 ML FLUSH IV FLUSH SCH ×2 (09:09→21:00)
[2017-04-14] MEDS: THIAMINE HCL 100 MG TAB PO SCH (09:09)
[2017-04-14] MEDS: MULTIVITAMINS/MINERALS THERAPEUTIC TAB PO SCH (09:09)
[2017-04-14] MEDS: FOLIC ACID 1 MG TAB PO SCH (09:09)
[2017-04-14] MEDS: CEFEPIME INJ 1,000 MG in SODIUM CHLORIDE 0.9% INJ 100 ML IV SCH ×2 (09:09→21:00)
[2017-04-14] MEDS: DOCUSATE SODIUM 50 MG/SENNA 8.6 MG TAB PO SCH ×2 (09:09→21:00)
[2017-04-14] MEDS: ENOXAPARIN SODIUM 40 MG/0.4 ML SYRINGE SQ SCH (11:00)
[2017-04-14 14:13] LABS: AUTOMATED NEUTROPHIL # 8.1 TH/MM3 (1.8-7.7); BASOPHIL % 0.3 % (0.0-2.0); EOSINOPHIL % 0.4 % (0.0-4.0); HEMATOCRIT 38.9 % (39.0-51.0); HEMO FLAGS DIFF FINAL; LYMPH % 8.9 % (9.0-44.0); LYMPHOCYTE # 0.9 TH/MM3 (1.0-4.8); MEAN CELL VOLUME 95.1 FL (80.0-100.0); MEAN CORPUSCULAR HEMOGLOBIN 30.9 PG (27.0-34.0); MEAN CORPUSCULAR HGB CONC 32.5 % (32.0-36.0); MONO % 6.4 % (0.0-8.0); PLATELET COUNT 182 TH/MM3 (150-450); RED BLOOD COUNT 4.09 MIL/MM3 (4.50-5.90); RED CELL DISTRIBUTION WIDTH 15.9 % (11.6-17.2); WHITE BLOOD COUNT 9.7 TH/MM3 (4.0-11.0)
[2017-04-14 14:29] LABS: BICARBONATE 26.1 MEQ/L (21.0-32.0); POTASSIUM 3.5 MEQ/L (3.5-5.1)
--- NOTE | 2017-04-14 18:40 | HHI.PR ---
Subjective Remarks This is a 46-year-old male with a PMH of Schizophrenia, Anxiety, Alcohol Abuse and Tobacco Abuse who was brought to the ER by EMS secondary to AMS and fever. Per report, pt noted to have AMS after falling asleep in hammock, unable to be roused. Per EMS, Temp 101.3. Pt unable to provide much history. Noted to have multiple weeping wounds of extremities. On arrival, BP 150/77, HR 128, O2 sat 100% on 3L NC, Temp 101.3. CBC unremarkable except for elevated neutrophil count. Lactic Acid 2.2. CPK 548. Ammonia 28. Troponin negative. LFTs mildly elevated, similar in comparison to previous labs from 02/05/17. INR 0.9. UA negative. Drug Screen negative. Alcohol 298. CXR with no acute findings. CT Head negative. CT Abd/Pelvis small amount of ascites, likely ileus. CTA Pulm negative for PE. S/p Wound/Blood Cultures, Vanc/Cefepime in ER. 04/13: Seen in his bedroom and discussed with nurse continue present care. 04/14: patient stable in his bedroom, discussed with nurse Miss Burgos no complaint, no nausea, vomit or diarrhea, he states he is not been having BM due to that is not eating anything, will advance diet as tolerated and follow no abdominal pain. but states he is dizzi Objective Vital Signs Date Time Temp Pulse Resp B/P (MAP) Pulse Ox O2 Delivery O2 Flow Rate FiO2 04/14/17 16:00 98.0 75 18 127/74 (91) 97 04/14/17 13:48 17 04/14/17 12:00 98.2 89 18 153/68 (96) 93 04/14/17 08:18 97 21 04/14/17 08:00 97.7 68 18 123/68 (86) 96 04/14/17 04:00 Room Air 04/14/17 04:00 97.7 70 16 117/68 (84) 97 04/14/17 00:00 Room Air 04/13/17 22:00 98.2 78 20 110/56 (74) 97 04/13/17 20:00 Room Air 04/13/17 20:00 80 04/13/17 20:00 97.9 66 18 143/95 (111) 99 I/O 04/13/17 04/13/17 04/13/17 04/14/17 04/14/17 04/14/17 07:00 15:00 23:00 07:00 15:00 23:00 Intake Total 547 ml 200 ml 942.5 ml 270 ml 960 ml Output Total 600 ml 1650 ml 1700 ml Balance -53 ml 200 ml 942.5 ml -1380 ml -740 ml Intake Oral 480 ml 270 ml 960 ml IV Total 547 ml 200 ml 462.5 ml Output Urine Total 600 ml 1650 ml 1700 ml # Voids 2 # Bowel Movements 0 0 0 Result Diagram: 04/14/17 1357 04/14/17 1357 Imaging Last Impressions Head CT 04/12/172003 Signed Impressions: Service Date/Time: Wednesday, April 12, 2017 21:43 - CONCLUSION: 1. No acute hemorrhage, mass effect or extraaxial fluid collection. 2. Limited evaluation due to patient motion during scanning. Rik Mata MD Chest X-Ray 04/12/172003 Signed Impressions: Service Date/Time: Wednesday, April 12, 2017 20:31 - CONCLUSION: No acute disease. Rik Mata MD CT Angiography 04/12/17 Signed Impressions: Service Date/Time: Wednesday, April 12, 2017 21:50 - CONCLUSION: 1. No evidence of pulmonary embolism. 2. Diffuse fatty infiltration of the liver. Rik Mata MD Abdomen/Pelvis CT 04/12/17 0000 Signed Impressions: Service Date/Time: Wednesday, April 12, 2017 21:47 - CONCLUSION: Enlarged fatty liver. Small amount of ascites. Stable bilateral renal cysts. Diffuse ileus is likely. Rik Mata MD Procedures None Other Results Laboratory Tests Test 04/12/17 20:16 04/12/17 20:20 04/12/17 20:25 04/12/17 22:56 Blood Gas Puncture Site RT RADIAL Blood Gas Patient Temperature 98.6 Blood Gas HCO3 21 mmol/L Blood Gas Base Excess -2.9 mmol/L Blood Gas Oxygen Saturation 93 % Arterial Blood pH 7.43 Arterial Blood Partial Pressure CO2 32 mmHg Arterial Blood Partial Pressure O2 108 mmHG Arterial Blood Oxygen Content 17.2 Vol % Arterial Blood Carboxyhemoglobin 4.1 % Arterial Blood Methemoglobin 0.8 % Blood Gas Hemoglobin 13.0 G/DL Oxygen Delivery Device NASAL CANNULA Blood Gas Liter Flow 2 L/M Urine Opiates Screen NEG Urine Barbiturates Screen NEG Urine Amphetamines Screen NEG Urine Benzodiazepines Screen NEG Urine Cocaine Screen NEG Urine Cannabinoids Screen NEG Prothrombin Time 10.0 SEC Prothromb Time International Ratio 0.9 RATIO Activated Partial Thromboplast Time 29.1 SEC Urine Color LIGHT-YELLOW Urine Turbidity CLEAR Urine pH 5.5 Urine Specific [place] 1.010 Urine Protein NEG mg/dL Urine Glucose (UA) NEG mg/dL Urine Ketones 10 mg/dL Urine Occult Blood NEG Urine Nitrite NEG Urine Bilirubin NEG Urine Urobilinogen LESS THAN 2.0 MG/DL Urine Leukocyte Esterase NEG Urine WBC LESS THAN 1 /hpf Microscopic Urinalysis Comment CATH-CULT NOT IND Blood Urea Nitrogen 7 MG/DL Creatinine 0.64 MG/DL Random Glucose 84 MG/DL Total Protein 7.4 GM/DL Albumin 3.4 GM/DL Calcium Level 7.9 MG/DL Magnesium Level 1.9 MG/DL Alkaline Phosphatase 132 U/L Aspartate Amino Transf (AST/SGOT) 138 U/L Alanine Aminotransferase (ALT/SGPT) 81 U/L Total Bilirubin 0.5 MG/DL Sodium Level 140 MEQ/L Potassium Level 4.0 MEQ/L Chloride Level 106 MEQ/L Carbon Dioxide Level 23.5 MEQ/L Ammonia 28 MCMOL/L Troponin I LESS THAN 0.02 NG/ML Lipase 153 U/L Thyroid Stimulating Hormone 3rd Gen 0.147 uIU/ML Salicylates Level 3.5 MG/DL Acetaminophen Level LESS THAN 2.0 MCG/ML Ethyl Alcohol Level 298 MG/DL Lactic Acid Level 1.9 mmol/L Test 04/13/17 06:23 04/14/17 05:30 04/14/17 13:57 Protein Corrected Calcium 7.2 MG/DL Blood Urea Nitrogen 8 MG/DL 5 MG/DL Creatinine 0.61 MG/DL 0.74 MG/DL Random Glucose 119 MG/DL 184 MG/DL Total Protein 6.1 GM/DL Albumin 2.6 GM/DL Calcium Level 6.7 MG/DL 7.9 MG/DL Alkaline Phosphatase 100 U/L Aspartate Amino Transf (AST/SGOT) 90 U/L Alanine Aminotransferase (ALT/SGPT) 59 U/L Total Bilirubin 0.5 MG/DL Sodium Level 138 MEQ/L 137 MEQ/L Potassium Level 3.0 MEQ/L 3.5 MEQ/L Chloride Level 104 MEQ/L 105 MEQ/L Carbon Dioxide Level 22.2 MEQ/L 26.1 MEQ/L Total Creatine Kinase 323 U/L Creatine Kinase MB 1.7 NG/ML Creatine Kinase MB % 0.5 % Vancomycin Level Trough 7.8 MCG/ML White Blood Count 9.7 TH/MM3 Red Blood Count 4.09 MIL/MM3 Hemoglobin 12.7 GM/DL Hematocrit 38.9 % Mean Corpuscular Volume 95.1 FL Mean Corpuscular Hemoglobin 30.9 PG Mean Corpuscular Hemoglobin Concent 32.5 % Red Cell Distribution Width 15.9 % Platelet Count 182 TH/MM3 Mean Platelet Volume 8.4 FL Neutrophils (%) (Auto) 84.0 % Lymphocytes (%) (Auto) 8.9 % Monocytes (%) (Auto) 6.4 % Eosinophils (%) (Auto) 0.4 % Basophils (%) (Auto) 0.3 % Neutrophils # (Auto) 8.1 TH/MM3 Lymphocytes # (Auto) 0.9 TH/MM3 Monocytes # (Auto) 0.6 TH/MM3 Eosinophils # (Auto) 0.0 TH/MM3 Basophils # (Auto) 0.0 TH/MM3 CBC Comment DIFF FINAL Differential Comment Anion Gap 6 MEQ/L Estimat Glomerular Filtration Rate 114 ML/MIN Objective Remarks PE: No acute distress. GENERAL: Middle-aged white male in no acute distress, appears much older than stated age, disheveled. HEENT: PERRLA, EOMI. No scleral icterus or conjunctival pallor. No lid lag or facial droop. CARDIOVASCULAR: Regular rate and rhythm. No obvious murmurs to auscultation. No chest tenderness to palpation. RESPIRATORY: No obvious rhonchi or wheezing. Clear to auscultation. Breath sounds equal bilaterally. GASTROINTESTINAL: Abdomen soft, non-tender, nondistended. BS normal. MUSCULOSKELETAL: Extremities without clubbing, cyanosis, or edema. No obvious deformities. Multiple lesions to bilateral upper extremities, some with weeping NEUROLOGICAL: Lethargic, answers questions intermittently. No focal neurologic deficits. Moving both upper and lower extremities spontaneously. Medications and IVs Current Medications Medications (Trade) Dose Ordered Sig/Shan Route Start Time Stop Time Status Last Admin Pharmacy Profile Note 0 ml @ 0 mls/hr UNSCH OTHER 04/12/17 22:45 Cefepime HCl 1000 mg/Sodium Chloride 100 ml @ 200 mls/hr Q12H IV 04/13/17 09:00 04/14/17 09:09 (Folate) 1 mg DAILY PO 04/13/17 09:00 04/18/17 08:59 04/14/17 09:09 (Vitamin B1) 100 mg DAILY PO 04/13/17 09:00 04/14/17 09:09 (Theragran M Tab) 1 tab DAILY PO 04/13/17 09:00 04/18/17 08:59 04/14/17 09:09 (Romazicon Inj) 0.2 mg Q1M PRN IV PUSH 04/12/17 22:45 (Ativan) 1 mg Q4H PRN PO 04/12/17 22:45 04/13/17 20:32 (Ativan Inj) 1 mg Q4H PRN IV PUSH 04/12/17 22:45 (Ativan) 2 mg Q2H PRN PO 04/12/17 22:45 (Ativan Inj) 2 mg Q2H PRN IV PUSH 04/12/17 22:45 (Ativan Inj) 2 mg Q1H PRN IV PUSH 04/12/17 22:45 (Ativan Inj) 2 mg Q15M PRN IV PUSH 04/12/17 22:45 (Haldol Inj) 2 mg Q15M PRN IM 04/12/17 22:45 Sodium Chloride 1,000 ml @ 100 mls/hr Q10H IV 04/12/17 23:00 04/14/17 17:56 (NS Flush) 2 ml UNSCH PRN IV FLUSH 04/12/17 22:45 (NS Flush) 2 ml BID IV FLUSH 04/13/17 09:00 04/14/17 09:09 (Zofran Inj) 4 mg Q6H PRN IVP 04/12/17 22:45 (Tylenol) 650 mg Q6H PRN PO 04/12/17 22:45 (Irma-Colace) 1 tab BID PO 04/13/17 09:00 04/14/17 09:09 (Milk Of Magnesia Liq) 30 ml Q12H PRN PO 04/12/17 22:45 (Senokot) 17.2 mg Q12H PRN PO 04/12/17 22:45 (Dulcolax Supp) 10 mg DAILY PRN RECTAL 04/12/17 22:45 (Lactulose Liq) 30 ml DAILY PRN PO 04/12/17 22:45 04/13/17 18:04 (Roxicodone) 5 mg Q4H PRN PO 04/12/17 23:45 (Roxicodone) 10 mg Q4H PRN PO 04/12/17 23:45 04/14/17 17:57 (Lovenox Inj) 40 mg Q24H SQ 04/13/17 11:00 04/14/17 11:00 Vancomycin HCl 1250 mg/Sodium Chloride 262.5 ml @ 250 mls/hr Q8H IV 04/14/17 14:00 04/14/17 13:48 Miscellaneous Information SPECIFIC LAB TO BE ... ONCE ONCE .XX 04/15/17 05:45 04/15/17 05:46 A/P Assessment and Plan 1. Acute Metabolic encephalopathy likely Multifactorial Alcohol intoxication and febrile illness, Improved 2. SIRS: Temp 101.3, HR 117, Lactic Acid 2.2, repeat 1.9. Source-unclear, multiple weeping lesions? S/p Blood Cultures/Wound Cultures, Vanc/Cefepime, cultures positive for Beta Strep in blood on two bottles and wounds positive for MRSA. continue present care and consult ID specialist. 3. Ileus: c/o abdominal pain while in ER, CT Abd/Pelvis w/ enlarged fatty liver, small amount of ascites, diffuse ileus likely, images Clear liquids, advanced diet and following. 4. Alcohol Abuse: w/ Acute Alcohol Intoxication. Alcohol 289. Drinks daily. High risk for withdrawal. CIWA, Seizure Precautions, MVT/Thiamine/Folate 5. Tobacco Abuse: NicoDerm/Ativan prn. strongly recommended to stop smoking. 6. electrolyte derangement replaced. Social work for d/c planning as needed. DVT Prophylaxis: SCD/Teds. Discharge Planning Once cleared by specialist Rusty Conway MD Apr 14, 2017 18:40
[2017-04-15] VITALS (8 sets, daily range): BP systolic 112–123; BP diastolic 59–83; PULSE 66–75; RESP 16–18; TEMP 97.6–98.8; O2SAT 96–99
[2017-04-15] MEDS: SODIUM CHLOR 0.9% 1000 ML INJ 1,000 ML IV SCH ×3 (00:43→21:03)
[2017-04-15] MEDS ORDERED: PHARMACY ORDERED LAB ONE (05:45)
[2017-04-15] MEDS: VANCOMYCIN INJ 1,250 MG in SODIUM CHLOR 0.9% 250 ML INJ 250 ML IV SCH ×2 (06:00→14:54)
[2017-04-15] MEDS: CEFEPIME INJ 1,000 MG in SODIUM CHLORIDE 0.9% INJ 100 ML IV SCH (08:34)
[2017-04-15] MEDS: SODIUM CHLORIDE 0.9% FLUSH 10 ML FLUSH IV FLUSH SCH ×2 (08:34→21:00)
[2017-04-15] MEDS: MULTIVITAMINS/MINERALS THERAPEUTIC TAB PO SCH (08:35)
[2017-04-15] MEDS: FOLIC ACID 1 MG TAB PO SCH (08:35)
[2017-04-15] MEDS: THIAMINE HCL 100 MG TAB PO SCH (08:35)
[2017-04-15] MEDS: DOCUSATE SODIUM 50 MG/SENNA 8.6 MG TAB PO SCH ×2 (08:37→21:02)
[2017-04-15 09:41] LABS: AUTOMATED NEUTROPHIL # 4.6 TH/MM3 (1.8-7.7); BASOPHIL % 0.5 % (0.0-2.0); EOSINOPHIL # 0.1 TH/MM3 (0-0.4); EOSINOPHIL % 0.9 % (0.0-4.0); HEMATOCRIT 38.6 % (39.0-51.0); HEMO FLAGS DIFF FINAL; LYMPH % 14.7 % (9.0-44.0); LYMPHOCYTE # 0.9 TH/MM3 (1.0-4.8); MEAN CELL VOLUME 94.9 FL (80.0-100.0); MEAN CORPUSCULAR HEMOGLOBIN 31.2 PG (27.0-34.0); MEAN CORPUSCULAR HGB CONC 32.9 % (32.0-36.0); MONO % 10.3 % (0.0-8.0); NEUT % 73.6 % (16.0-70.0); PLATELET COUNT 194 TH/MM3 (150-450); RED BLOOD COUNT 4.07 MIL/MM3 (4.50-5.90); RED CELL DISTRIBUTION WIDTH 15.8 % (11.6-17.2); WHITE BLOOD COUNT 6.2 TH/MM3 (4.0-11.0)
[2017-04-15 10:12] LABS: BICARBONATE 26.8 MEQ/L (21.0-32.0); MAGNESIUM 2.1 MG/DL (1.5-2.5); POTASSIUM 3.7 MEQ/L (3.5-5.1)
--- NOTE | 2017-04-15 13:15 | HHI.PR ---
Subjective Remarks Follow-up for infection and altered mental status Patient is AAO 3. His nurse is at the bedside during the interview. He stated that he feels fatigued but otherwise has no complaints. Patient remains afebrile. During diet. Denies any abdominal pain. Objective Vitals Vital Signs Date Time Temp Pulse Resp B/P (MAP) Pulse Ox O2 Delivery O2 Flow Rate FiO2 04/15/17 12:03 98.3 73 18 112/72 (85) 98 04/15/17 08:00 98.3 68 18 112/69 (83) 96 04/15/17 04:00 97.6 68 18 119/74 (89) 96 04/15/17 04:00 Room Air 04/15/17 00:00 98.0 66 18 123/83 (96) 98 04/15/17 00:00 Room Air 04/14/17 20:00 97.9 72 18 127/84 (98) 99 04/14/17 20:00 70 04/14/17 20:00 Room Air 04/14/17 16:00 98.0 75 18 127/74 (91) 97 04/14/17 13:48 17 I/O 04/14/17 04/14/17 04/14/17 04/15/17 04/15/17 04/15/17 07:00 15:00 23:00 07:00 15:00 23:00 Intake Total 532.5 ml 262.5 ml 1322.5 ml 1240 ml Output Total 1650 ml 1700 ml 1800 ml Balance -1117.5 ml 262.5 ml -377.5 ml -560 ml Intake Oral 270 ml 960 ml 1240 ml IV Total 262.5 ml 262.5 ml 362.5 ml Output Urine Total 1650 ml 1700 ml 1800 ml # Bowel Movements 0 0 Result Diagram: 04/15/1772404/15/17724 Objective Remarks GENERAL: SKIN: Multiple crusted lesions on extremity and trunk and also some weeping wounds. No erythema around the wounds. CARDIOVASCULAR: Regular rate and rhythm without murmurs, gallops, or rubs. RESPIRATORY: Breath sounds equal bilaterally. No accessory muscle use. GASTROINTESTINAL: Abdomen soft, non-tender, nondistended. Medications and IVs Current Medications IV Flush (NS Flush) 2 ml UNSCH PRN IV FLUSH FLUSH AFTER USING IV ACCESS; Start 04/12/17 at 20:15; Status Cancel Sodium Chloride 1,000 ml @ 1,000 mls/hr Q1H IV Last administered on 04/12/17 20:16; Start 04/12/17 at 20:04; Stop 04/12/17 at 21:04; Status DC Thiamine HCl 100 mg/Sodium Chloride 101 ml @ 100 mls/hr ONCE ONCE IV Last administered on 04/12/17 20:50; Start 04/12/17 at 20:15; Stop 04/12/17 at 21:15 ; Status DC Naloxone HCl (Narcan Inj) 0.4 mg ONCE ONCE IV PUSH Last administered on 20:51; Start 04/12/17 at 20:15; Stop 04/12/17 at 21:04; Status DC Cefepime HCl 2000 mg/Sodium Chloride 100 ml @ 200 mls/hr ONCE ONCE IV Last administered on 04/12/17 21:12; Start 04/12/17 at 20:15; Stop 04/12/17 at 21:04 ; Status DC Vancomycin HCl 1000 mg/Sodium Chloride 250 ml @ 250 mls/hr ONCE ONCE IV Last administered on 04/12/17 20:50; Start 04/12/17 at 20:15; Stop 04/12/17 at 21:14 ; Status DC Sodium Chloride 1,000 ml @ 999 mls/hr BOLUS ONCE IV Last administered on 04/12 21:12; Start 04/12/17 at 21:00; Stop 04/12/17 at 22:00; Status DC Acetaminophen (Tylenol Supp) 650 mg ONCE ONCE RECTAL Last administered on 04/12 21:12; Start 04/12/17 at 21:00; Stop 04/12/17 at 21:04; Status DC Iohexol (Omnipaque 350 Inj) 100 ml STK-MED ONCE IVCONTRAST Last administered on 04/12/17 22:08; Start 04/12/17 at 22:08; Stop 04/12/17 at 22:09; Status DC Sodium Chloride (NS Flush) 2 ml BID IV FLUSH ; Start 04/13/17 at 09:00; Status Cancel Sodium Chloride (NS Flush) 2 ml UNSCH PRN IVF FLUSH AFTER USING IV ACCESS; Start 04/12/17 at 22:45; Status Cancel Pharmacy Profile Note 0 ml @ 0 mls/hr UNSCH OTHER ; Start 04/12/17 at 22:45 Cefepime HCl 1000 mg/Sodium Chloride 100 ml @ 200 mls/hr Q12H IV Last administered on 04/15/17 08:34; Start 04/13/17 at 09:00 Folic Acid (Folate) 1 mg DAILY PO Last administered on 04/15/17 08:35; Start 04/13/17 at 09:00; Stop 04/18/17 at 08:59 Thiamine HCl (Vitamin B1) 100 mg DAILY PO Last administered on 04/15/17 08:35 ; Start 04/13/17 at 09:00 Multivitamins/ Minerals Therapeutic (Theragran M Tab) 1 tab DAILY PO Last administered on 04/15/17 08:35; Start 04/13/17 at 09:00; Stop 04/18/17 at 08:59 Flumazenil (Romazicon Inj) 0.2 mg Q1M PRN IV PUSH SEE LABEL COMMENTS; Start at 22:45 Lorazepam (Ativan) 1 mg Q4H PRN PO CIWA 8 - 10 Last administered on 04/13/17 20:32; Start 04/12/17 at 22:45 Lorazepam (Ativan Inj) 1 mg Q4H PRN IV PUSH CIWA 8 - 10; Start 04/12/17 at 22: 45 Lorazepam (Ativan) 2 mg Q2H PRN PO CIWA 11-14; Start 04/12/17 at 22:45 Lorazepam (Ativan Inj) 2 mg Q2H PRN IV PUSH CIWA 11-14; Start 04/12/17 at 22:45 Lorazepam (Ativan Inj) 2 mg Q1H PRN IV PUSH CIWA 15-20; Start 04/12/17 at 22:45 Lorazepam (Ativan Inj) 2 mg Q15M PRN IV PUSH CIWA > 20; Start 04/12/17 at 22:45 Haloperidol Lactate (Haldol Inj) 2 mg Q15M PRN IM SEE LABEL COMMENTS; Start at 22:45 Sodium Chloride 1,000 ml @ 100 mls/hr Q10H IV Last administered on 04/14/17 17:56; Start 04/12/17 at 23:00 Sodium Chloride (NS Flush) 2 ml UNSCH PRN IV FLUSH FLUSH AFTER USING IV ACCESS ; Start 04/12/17 at 22:45 Sodium Chloride (NS Flush) 2 ml BID IV FLUSH Last administered on 04/14/17 09: 09; Start 04/13/17 at 09:00 Ondansetron HCl (Zofran Inj) 4 mg Q6H PRN IVP NAUSEA OR VOMITING; Start at 22:45 Acetaminophen (Tylenol) 650 mg Q6H PRN PO FEVER/PAIN SCALE 1 TO 2; Start at 22:45 Senna/Docusate Sodium (Irma-Colace) 1 tab BID PO Last administered on 08:37; Start 04/13/17 at 09:00 Magnesium Hydroxide (Milk Of Magnesia Liq) 30 ml Q12H PRN PO MILD - MODERATE CONSTIPATION; Start 04/12/17 at 22:45 Sennosides (Senokot) 17.2 mg Q12H PRN PO MODERATE - SEVERE CONSTIPATION; Start 04/12/17 at 22:45 Bisacodyl (Dulcolax Supp) 10 mg DAILY PRN RECTAL SEVERE CONSITIPATION; Start at 22:45 Lactulose (Lactulose Liq) 30 ml DAILY PRN PO SEVERE CONSITIPATION Last administered on 04/13/17 18:04; Start 04/12/17 at 22:45 Vancomycin HCl 1250 mg/Sodium Chloride 262.5 ml @ 250 mls/hr Q12H IV Last administered on 04/14/17 05:45; Start 04/13/17 at 06:00; Stop 04/14/17 at 09:57 ; Status DC Miscellaneous Information SPECIFIC LAB TO BE RYDER... ONCE ONCE .XX Last administered on 04/14/17 05:45; Start 04/14/17 at 05:45; Stop 04/14/17 at 05:46 ; Status DC Oxycodone HCl (Roxicodone) 5 mg Q4H PRN PO PAIN 3-5 Last administered on 08:37; Start 04/12/17 at 23:45 Oxycodone HCl (Roxicodone) 10 mg Q4H PRN PO PAIN 6-10 Last administered on 04/15 02:37; Start 04/12/17 at 23:45 Calcium Gluconate 1 gm/Sodium Chloride 100 ml @ 100 mls/hr ONCE ONCE IV Last administered on 04/13/17 14:29; Start 04/13/17 at 12:00; Stop 04/13/17 at 12:59 ; Status DC Magnesium Sulfate/ Dextrose 100 ml @ 100 mls/hr ONCE ONCE IV Last administered on 04/13/17 13:10; Start 04/13/17 at 10:30; Stop 04/13/17 at 11:29 ; Status DC Potassium Chloride (KCl) 40 meq ONCE ONCE PO Last administered on 04/13/17 13 :11; Start 04/13/17 at 10:30; Stop 04/13/17 at 10:31; Status DC Potassium Chloride (KCl) 40 meq ONCE ONCE PO Last administered on 04/13/17 14 :30; Start 04/13/17 at 14:00; Stop 04/13/17 at 14:01; Status DC Enoxaparin Sodium (Lovenox Inj) 40 mg Q24H SQ Last administered on 04/14/17 11 :00; Start 04/13/17 at 11:00 Vancomycin HCl 1250 mg/Sodium Chloride 262.5 ml @ 250 mls/hr Q8H IV Last administered on 04/15/17 06:00; Start 04/14/17 at 14:00 Miscellaneous Information SPECIFIC LAB TO BE RYDER... ONCE ONCE .XX Last administered on 04/15/17 05:45; Start 04/15/17 at 05:45; Stop 04/15/17 at 05:46 ; Status DC A/P Problem List: (1) Encephalopathy ICD Code: G93.40 - Encephalopathy, unspecified (2) SIRS (systemic inflammatory response syndrome) ICD Code: R65.10 - Systemic inflammatory response syndrome (SIRS) of non- infectious origin without acute organ dysfunction Status: Acute (3) Ileus ICD Code: K56.7 - Ileus, unspecified Status: Acute (4) Alcohol abuse ICD Code: F10.10 - Alcohol abuse, uncomplicated Status: Chronic (5) Tobacco abuse ICD Code: Z72.0 - Tobacco use Status: Chronic Assessment and Plan 46-year-old male presented with altered mental status Bacteremia group A beta strep -4 out of 4 blood cultures grew group a beta strep. Wound cultures grew MRSA and group a beta strep. Patient currently on vancomycin and cefepime. -We will repeat blood cultures. Pending consult from infectious disease. May consider echo pending recommendations. Multiple lung lesions -Lesion seems to be crusted now. Positive for MRSA and group a beta strep. Treatment as above. Acute Metabolic encephalopathy -Resolved. Likely Multifactorial Alcohol intoxication and febrile illness Ileus, resolved. - CT Abd/Pelvis w/ enlarged fatty liver, small amount of ascites, diffuse ileus likely, images Alcohol Abuse: w/ Acute Alcohol Intoxication. Alcohol 289. -CIWA, Seizure Precautions, MVT/Thiamine/Folate Tobacco Abuse: - NicoDerm -Smoking cessation. DVT Prophylaxis: SCD/Teds. Minoo Adame MD Apr 15, 2017 13:15
[2017-04-15] MEDS: ENOXAPARIN SODIUM 40 MG/0.4 ML SYRINGE SQ SCH (14:58)
--- NOTE | 2017-04-15 14:58 | PD.ID.CON ---
History of Present Illness Service ID Consult Requested By Reason for Consult Evaluation and Mment of Grp A Strep bacteremia and skin lesions. Primary Care Physician Unknown Diagnoses: History of Present Illness Mr. Saldivar is a 46 y/o CM with a PMH of Schizophrenia, Anxiety, Alcohol Abuse and Tobacco Abuse who was brought to the ER by EMS secondary to AMS and fever. Per report, pt noted to have AMS after falling asleep in hammock, unable to be roused. Per EMS, Temp 101.3. Pt unable to provide much history. Noted to have multiple weeping wounds of extremities. On arrival, BP 150/77, HR 128, O2 sat 100% on 3L NC, Temp 101.3. CBC unremarkable except for elevated neutrophil count. Lactic Acid 2.2. CPK 548. Ammonia 28. Troponin negative. LFTs mildly elevated, similar in comparison to previous labs from 02/05/17. INR 0.9. UA negative. Drug Screen negative. Alcohol 298. CXR with no acute findings. CT Head negative. CT Abd/Pelvis small amount of ascites, likely ileus. CTA Pulm negative for PE. S/p Wound/Blood Cultures, Vanc/Cefepime in ER. Patient seen on floor awake and alert with no skin lesions. No CP symptoms. ID consulted for evaluation and Mment of Grp A Strep bacteremia. Review of Systems ROS Limitations: Poor Historian Past Family Social History Allergies: Coded Allergies: morphine (Unverified Allergy, Severe, Rash, 04/12/17) Past Medical History Schizophrenia, Anxiety, Alcohol Abuse Tobacco Abuse Past Surgical History right index finger surgery. Reported Medications Reported Meds & Active Scripts Active Oxycodone (Oxycodone HCl) 10 Mg Tab 10 Mg PO Q8HR Do not combine this medication with alcohol Bactrim DS (Sulfamethoxazole-Trimethoprim) 800-160 Mg Tab 1 Tab PO Q12HR 7 Days Celexa (Citalopram Hydrobromide) 20 Mg Tab 20 Mg PO DAILY 30 Days Active Ordered Medications Current Medications Medications (Trade) Dose Ordered Sig/Shan Route Start Time Stop Time Status Last Admin Pharmacy Profile Note 0 ml @ 0 mls/hr UNSCH OTHER 04/12/17 22:45 Cefepime HCl 1000 mg/Sodium Chloride 100 ml @ 200 mls/hr Q12H IV 04/13/17 09:00 04/15/17 08:34 (Folate) 1 mg DAILY PO 04/13/17 09:00 04/18/17 08:59 04/15/17 08:35 (Vitamin B1) 100 mg DAILY PO 04/13/17 09:00 04/15/17 08:35 (Theragran M Tab) 1 tab DAILY PO 04/13/17 09:00 04/18/17 08:59 04/15/17 08:35 (Romazicon Inj) 0.2 mg Q1M PRN IV PUSH 04/12/17 22:45 (Ativan) 1 mg Q4H PRN PO 04/12/17 22:45 04/13/17 20:32 (Ativan Inj) 1 mg Q4H PRN IV PUSH 04/12/17 22:45 (Ativan) 2 mg Q2H PRN PO 04/12/17 22:45 (Ativan Inj) 2 mg Q2H PRN IV PUSH 04/12/17 22:45 (Ativan Inj) 2 mg Q1H PRN IV PUSH 04/12/17 22:45 (Ativan Inj) 2 mg Q15M PRN IV PUSH 04/12/17 22:45 (Haldol Inj) 2 mg Q15M PRN IM 04/12/17 22:45 Sodium Chloride 1,000 ml @ 100 mls/hr Q10H IV 04/12/17 23:00 04/15/17 14:59 (NS Flush) 2 ml UNSCH PRN IV FLUSH 04/12/17 22:45 (NS Flush) 2 ml BID IV FLUSH 04/13/17 09:00 04/14/17 09:09 (Zofran Inj) 4 mg Q6H PRN IVP 04/12/17 22:45 (Tylenol) 650 mg Q6H PRN PO 04/12/17 22:45 (Irma-Colace) 1 tab BID PO 04/13/17 09:00 04/15/17 08:37 (Milk Of Magnesia Liq) 30 ml Q12H PRN PO 04/12/17 22:45 (Senokot) 17.2 mg Q12H PRN PO 04/12/17 22:45 (Dulcolax Supp) 10 mg DAILY PRN RECTAL 04/12/17 22:45 (Lactulose Liq) 30 ml DAILY PRN PO 04/12/17 22:45 04/13/17 18:04 (Roxicodone) 5 mg Q4H PRN PO 04/12/17 23:45 04/15/17 08:37 (Roxicodone) 10 mg Q4H PRN PO 04/12/17 23:45 04/15/17 14:56 (Lovenox Inj) 40 mg Q24H SQ 04/13/17 11:00 04/15/17 14:58 Vancomycin HCl 1250 mg/Sodium Chloride 262.5 ml @ 250 mls/hr Q8H IV 04/14/17 14:00 04/15/17 14:54 Family History Reviewed. No h/o DM or CAD. Social History Positive for Alcohol Abuse. Smokes 1/2ppd. H/o Cocaine. Physical Exam Vital Signs Vital Signs Date Time Temp Pulse Resp B/P (MAP) Pulse Ox O2 Delivery O2 Flow Rate FiO2 04/15/17 12:03 98.3 73 18 112/72 (85) 98 04/15/17 08:00 98.3 68 18 112/69 (83) 96 04/15/17 04:00 97.6 68 18 119/74 (89) 96 04/15/17 04:00 Room Air 04/15/17 00:00 98.0 66 18 123/83 (96) 98 04/15/17 00:00 Room Air 04/14/17 20:00 97.9 72 18 127/84 (98) 99 04/14/17 20:00 70 04/14/17 20:00 Room Air 04/14/17 16:00 98.0 75 18 127/74 (91) 97 Physical Exam GENERAL: This is a well-nourished, well-developed patient, in no apparent distress. SKIN: Bilateral skin ulcerations and scabbed lesions on UE, LE and back. HEAD: Atraumatic. Normocephalic. No temporal or scalp tenderness. EYES: Pupils equal round and reactive. Extraocular motions intact. No scleral icterus. No injection or drainage. ENT: Nose without bleeding, purulent drainage or septal hematoma. Throat without erythema, tonsillar hypertrophy or exudate. Uvula midline. Airway patent. NECK: Trachea midline.Supple, nontender, no meningeal signs. CARDIOVASCULAR: Regular rate and rhythm without murmurs, gallops, or rubs. RESPIRATORY: Clear to auscultation. Breath sounds equal bilaterally. No wheezes , rales, or rhonchi. GASTROINTESTINAL: Abdomen soft, non-tender, nondistended. No hepato-splenomegaly , or palpable masses. No guarding. MUSCULOSKELETAL: Extremities without clubbing, cyanosis, or edema. No joint tenderness, effusion, or edema noted. No calf tenderness. Negative Homans sign bilaterally. NEUROLOGICAL: Awake and alert. Grossly non focal Psych cooperative IV line sites with no e.o infection. Laboratory Laboratory Tests Test 04/15/17 05:30 04/15/17 07:25 Vancomycin Level Trough 14.9 White Blood Count 6.2 Red Blood Count 4.07 Hemoglobin 12.7 Hematocrit 38.6 Mean Corpuscular Volume 94.9 Mean Corpuscular Hemoglobin 31.2 Mean Corpuscular Hemoglobin Concent 32.9 Red Cell Distribution Width 15.8 Platelet Count 194 Mean Platelet Volume 8.9 Neutrophils (%) (Auto) 73.6 Lymphocytes (%) (Auto) 14.7 Monocytes (%) (Auto) 10.3 Eosinophils (%) (Auto) 0.9 Basophils (%) (Auto) 0.5 Neutrophils # (Auto) 4.6 Lymphocytes # (Auto) 0.9 Monocytes # (Auto) 0.6 Eosinophils # (Auto) 0.1 Basophils # (Auto) 0.0 CBC Comment DIFF FINAL Differential Comment Blood Urea Nitrogen 6 Creatinine 0.49 Random Glucose 79 Calcium Level 8.7 Magnesium Level 2.1 Sodium Level 137 Potassium Level 3.7 Chloride Level 103 Carbon Dioxide Level 26.8 Anion Gap 7 Estimat Glomerular Filtration Rate 184 Date/Time Source Procedure Growth Status 04/12/17 20:25 Blood Peripheral Aerobic Blood Culture - Final Group A Beta Strep Complete 04/12/17 20:25 Anaerobic Blood Culture - Final Group A Beta Strep Complete 04/12/17 20:25 Wound Arm Gram Stain - Final Complete 04/12/17 20:25 Wound Culture - Final S. Aureus Mrsa Group A Beta Strep Complete Result Diagram: 04/15/1772404/15/17724 Imaging Last Impressions Head CT 04/12/172003 Signed Impressions: Service Date/Time: Wednesday, April 12, 2017 21:43 - CONCLUSION: 1. No acute hemorrhage, mass effect or extraaxial fluid collection. 2. Limited evaluation due to patient motion during scanning. Rik Mata MD Chest X-Ray 04/12/172003 Signed Impressions: Service Date/Time: Wednesday, April 12, 2017 20:31 - CONCLUSION: No acute disease. Rik Mata MD CT Angiography 04/12/17 Signed Impressions: Service Date/Time: Wednesday, April 12, 2017 21:50 - CONCLUSION: 1. No evidence of pulmonary embolism. 2. Diffuse fatty infiltration of the liver. Rik Mata MD Abdomen/Pelvis CT 04/12/17 Signed Impressions: Service Date/Time: Wednesday, April 12, 2017 21:47 - CONCLUSION: Enlarged fatty liver. Small amount of ascites. Stable bilateral renal cysts. Diffuse ileus is likely. Rik Mata MD Assessment and Plan Assessment and Plan Grp A Strep bacteremia r/o endocarditis MRSA and Strep Grp A wound colonization vs infection/cellulitis. Schizophrenia Recs: DC Cefepime IV DC Vanco IV (suspect MRSA on skin likely colonization) Start Ceftriaxone IV Check 2D ECHO to r/o endocarditis. Follow cultures Follow clinically. Will follow clinically off Vanco IV and reassess clinically. Will follow along. Trudy Emmanuel MD Apr 15, 2017 14:58
[2017-04-15] MEDS: cefTRIAXone INJ 2,000 MG in SODIUM CHLORIDE 0.9% INJ 100 ML IV SCH (21:03)
[2017-04-16 04:02] VITALS: BP 114/6; PULSE 69; RESP 16; TEMP 98.5; O2SAT 97
[2017-04-16] MEDS: SODIUM CHLOR 0.9% 1000 ML INJ 1,000 ML IV SCH ×2 (06:09→17:12)
[2017-04-16 08:00] VITALS: BP 114/66; PULSE 60; RESP 18; TEMP 98.7; O2SAT 98
[2017-04-16 08:28] LABS: HEMATOCRIT 38.1 % (39.0-51.0); MEAN CELL VOLUME 94.2 FL (80.0-100.0); MEAN CORPUSCULAR HEMOGLOBIN 31.6 PG (27.0-34.0); MEAN CORPUSCULAR HGB CONC 33.6 % (32.0-36.0); PLATELET COUNT 241 TH/MM3 (150-450); RED BLOOD COUNT 4.05 MIL/MM3 (4.50-5.90); RED CELL DISTRIBUTION WIDTH 15.1 % (11.6-17.2); REVIEW FLAG FINAL; WHITE BLOOD COUNT 5.9 TH/MM3 (4.0-11.0)
[2017-04-16 08:47] LABS: BICARBONATE 26.5 MEQ/L (21.0-32.0); POTASSIUM 3.8 MEQ/L (3.5-5.1)
[2017-04-16] MEDS: SODIUM CHLORIDE 0.9% FLUSH 10 ML FLUSH IV FLUSH SCH ×2 (09:00→20:45)
[2017-04-16] MEDS: DOCUSATE SODIUM 50 MG/SENNA 8.6 MG TAB PO SCH ×2 (09:47→20:46)
[2017-04-16] MEDS: MULTIVITAMINS/MINERALS THERAPEUTIC TAB PO SCH (09:47)
[2017-04-16] MEDS: FOLIC ACID 1 MG TAB PO SCH (09:47)
[2017-04-16] MEDS: THIAMINE HCL 100 MG TAB PO SCH (09:48)
[2017-04-16] MEDS: ENOXAPARIN SODIUM 40 MG/0.4 ML SYRINGE SQ SCH (09:48)
--- NOTE | 2017-04-16 11:39 | HHI.PR ---
Subjective Remarks Follow-up for infection Patient has no complaints. He remains afebrile. Objective Vitals Vital Signs Date Time Temp Pulse Resp B/P (MAP) Pulse Ox O2 Delivery O2 Flow Rate FiO2 04/16/17 08:00 98.7 60 18 114/66 (82) 98 04/16/17 04:02 98.5 69 16 114/6 (42) 97 04/16/17 04:00 Room Air 04/16/17 00:00 Room Air 04/15/17 23:19 98.8 70 16 116/73 (87) 99 04/15/17 21:05 98.5 70 16 123/59 (80) 98 04/15/17 21:02 71 04/15/17 20:00 Room Air 04/15/17 16:32 98.6 75 17 117/71 (86) 98 04/15/17 12:03 98.3 73 18 112/72 (85) 98 I/O 04/15/17 04/15/17 04/15/17 04/16/17 04/16/17 04/16/17 07:00 15:00 23:00 07:00 15:00 23:00 Intake Total 1240 ml 1720 ml 720 ml Output Total 1800 ml 1400 ml 2025 ml Balance -560 ml 320 ml -1305 ml Intake Oral 1240 ml 720 ml 720 ml IV Total 1000 ml Output Urine Total 1800 ml 1400 ml 2025 ml # Bowel Movements 0 0 Result Diagram: 04/16/17 0730 04/16/17 0730 Objective Remarks GENERAL: SKIN: Multiple crusted lesions on extremity and trunk and also some weeping wounds. No erythema around the wounds. CARDIOVASCULAR: Regular rate and rhythm without murmurs, gallops, or rubs. RESPIRATORY: Breath sounds equal bilaterally. No accessory muscle use. GASTROINTESTINAL: Abdomen soft, non-tender, nondistended. Medications and IVs Current Medications IV Flush (NS Flush) 2 ml UNSCH PRN IV FLUSH FLUSH AFTER USING IV ACCESS; Start 04/12/17 at 20:15; Status Cancel Sodium Chloride 1,000 ml @ 1,000 mls/hr Q1H IV Last administered on 04/12/17t 20:16; Start 04/12/17 at 20:04; Stop 04/12/17 at 21:04; Status DC Thiamine HCl 100 mg/Sodium Chloride 101 ml @ 100 mls/hr ONCE ONCE IV Last administered on 04/12/17 20:50; Start 04/12/17 at 20:15; Stop 04/12/17 at 21:15 ; Status DC Naloxone HCl (Narcan Inj) 0.4 mg ONCE ONCE IV PUSH Last administered on 20:51; Start 04/12/17 at 20:15; Stop 04/12/17 at 21:04; Status DC Cefepime HCl 2000 mg/Sodium Chloride 100 ml @ 200 mls/hr ONCE ONCE IV Last administered on 04/12/17 21:12; Start 04/12/17 at 20:15; Stop 04/12/17 at 21:04 ; Status DC Vancomycin HCl 1000 mg/Sodium Chloride 250 ml @ 250 mls/hr ONCE ONCE IV Last administered on 04/12/17 20:50; Start 04/12/17 at 20:15; Stop 04/12/17 at 21:14 ; Status DC Sodium Chloride 1,000 ml @ 999 mls/hr BOLUS ONCE IV Last administered on 04/12 21:12; Start 04/12/17 at 21:00; Stop 04/12/17 at 22:00; Status DC Acetaminophen (Tylenol Supp) 650 mg ONCE ONCE RECTAL Last administered on 04/12 21:12; Start 04/12/17 at 21:00; Stop 04/12/17 at 21:04; Status DC Iohexol (Omnipaque 350 Inj) 100 ml STK-MED ONCE IVCONTRAST Last administered on 04/12/17 22:08; Start 04/12/17 at 22:08; Stop 04/12/17 at 22:09; Status DC Sodium Chloride (NS Flush) 2 ml BID IV FLUSH ; Start 04/13/17 at 09:00; Status Cancel Sodium Chloride (NS Flush) 2 ml UNSCH PRN IVF FLUSH AFTER USING IV ACCESS; Start 04/12/17 at 22:45; Status Cancel Pharmacy Profile Note 0 ml @ 0 mls/hr UNSCH OTHER ; Start 04/12/17 at 22:45; Stop 04/15/17 at 19:36; Status DC Cefepime HCl 1000 mg/Sodium Chloride 100 ml @ 200 mls/hr Q12H IV Last administered on 04/15/17 08:34; Start 04/13/17 at 09:00; Stop 04/15/17 at 19:36 ; Status DC Folic Acid (Folate) 1 mg DAILY PO Last administered on 04/16/17 09:47; Start 04/13/17 at 09:00; Stop 04/18/17 at 08:59 Thiamine HCl (Vitamin B1) 100 mg DAILY PO Last administered on 04/16/17 09:48 ; Start 04/13/17 at 09:00 Multivitamins/ Minerals Therapeutic (Theragran M Tab) 1 tab DAILY PO Last administered on 04/16/17 09:47; Start 04/13/17 at 09:00; Stop 04/18/17 at 08:59 Flumazenil (Romazicon Inj) 0.2 mg Q1M PRN IV PUSH SEE LABEL COMMENTS; Start at 22:45 Lorazepam (Ativan) 1 mg Q4H PRN PO CIWA 8 - 10 Last administered on 04/13/17 20:32; Start 04/12/17 at 22:45 Lorazepam (Ativan Inj) 1 mg Q4H PRN IV PUSH CIWA 8 - 10; Start 04/12/17 at 22: 45 Lorazepam (Ativan) 2 mg Q2H PRN PO CIWA 11-14; Start 04/12/17 at 22:45 Lorazepam (Ativan Inj) 2 mg Q2H PRN IV PUSH CIWA 11-14; Start 04/12/17 at 22:45 Lorazepam (Ativan Inj) 2 mg Q1H PRN IV PUSH CIWA 15-20; Start 04/12/17 at 22:45 Lorazepam (Ativan Inj) 2 mg Q15M PRN IV PUSH CIWA > 20; Start 04/12/17 at 22:45 Haloperidol Lactate (Haldol Inj) 2 mg Q15M PRN IM SEE LABEL COMMENTS; Start at 22:45 Sodium Chloride 1,000 ml @ 100 mls/hr Q10H IV Last administered on 04/16/17 06:09; Start 04/12/17 at 23:00 Sodium Chloride (NS Flush) 2 ml UNSCH PRN IV FLUSH FLUSH AFTER USING IV ACCESS ; Start 04/12/17 at 22:45 Sodium Chloride (NS Flush) 2 ml BID IV FLUSH Last administered on 04/14/17 09: 09; Start 04/13/17 at 09:00 Ondansetron HCl (Zofran Inj) 4 mg Q6H PRN IVP NAUSEA OR VOMITING; Start at 22:45 Acetaminophen (Tylenol) 650 mg Q6H PRN PO FEVER/PAIN SCALE 1 TO 2; Start at 22:45 Senna/Docusate Sodium (Irma-Colace) 1 tab BID PO Last administered on 09:47; Start 04/13/17 at 09:00 Magnesium Hydroxide (Milk Of Magnesia Liq) 30 ml Q12H PRN PO MILD - MODERATE CONSTIPATION; Start 04/12/17 at 22:45 Sennosides (Senokot) 17.2 mg Q12H PRN PO MODERATE - SEVERE CONSTIPATION; Start 04/12/17 at 22:45 Bisacodyl (Dulcolax Supp) 10 mg DAILY PRN RECTAL SEVERE CONSITIPATION; Start at 22:45 Lactulose (Lactulose Liq) 30 ml DAILY PRN PO SEVERE CONSITIPATION Last administered on 04/13/17 18:04; Start 04/12/17 at 22:45 Vancomycin HCl 1250 mg/Sodium Chloride 262.5 ml @ 250 mls/hr Q12H IV Last administered on 04/14/17 05:45; Start 04/13/17 at 06:00; Stop 04/14/17 at 09:57 ; Status DC Miscellaneous Information SPECIFIC LAB TO BE RYDER... ONCE ONCE .XX Last administered on 04/14/17 05:45; Start 04/14/17 at 05:45; Stop 04/14/17 at 05:46 ; Status DC Oxycodone HCl (Roxicodone) 5 mg Q4H PRN PO PAIN 3-5 Last administered on 08:37; Start 04/12/17 at 23:45 Oxycodone HCl (Roxicodone) 10 mg Q4H PRN PO PAIN 6-10 Last administered on 04/16 09:49; Start 04/12/17 at 23:45 Calcium Gluconate 1 gm/Sodium Chloride 100 ml @ 100 mls/hr ONCE ONCE IV Last administered on 04/13/17 14:29; Start 04/13/17 at 12:00; Stop 04/13/17 at 12:59 ; Status DC Magnesium Sulfate/ Dextrose 100 ml @ 100 mls/hr ONCE ONCE IV Last administered on 04/13/17 13:10; Start 04/13/17 at 10:30; Stop 04/13/17 at 11:29 ; Status DC Potassium Chloride (KCl) 40 meq ONCE ONCE PO Last administered on 04/13/17 13 :11; Start 04/13/17 at 10:30; Stop 04/13/17 at 10:31; Status DC Potassium Chloride (KCl) 40 meq ONCE ONCE PO Last administered on 04/13/17 14 :30; Start 04/13/17 at 14:00; Stop 04/13/17 at 14:01; Status DC Enoxaparin Sodium (Lovenox Inj) 40 mg Q24H SQ Last administered on 04/16/17 09 :48; Start 04/13/17 at 11:00 Vancomycin HCl 1250 mg/Sodium Chloride 262.5 ml @ 250 mls/hr Q8H IV Last administered on 04/15/17 14:54; Start 04/14/17 at 14:00; Stop 04/15/17 at 19:36 ; Status DC Miscellaneous Information SPECIFIC LAB TO BE RYDER... ONCE ONCE .XX Last administered on 04/15/17 05:45; Start 04/15/17 at 05:45; Stop 04/15/17 at 05:46 ; Status DC Ceftriaxone Sodium 2000 mg/ Sodium Chloride 100 ml @ 200 mls/hr Q24H IV Last administered on 04/15/17 21:03; Start 04/15/17 at 20:00 A/P Problem List: (1) Encephalopathy ICD Code: G93.40 - Encephalopathy, unspecified (2) SIRS (systemic inflammatory response syndrome) ICD Code: R65.10 - Systemic inflammatory response syndrome (SIRS) of non- infectious origin without acute organ dysfunction Status: Acute (3) Ileus ICD Code: K56.7 - Ileus, unspecified Status: Acute (4) Alcohol abuse ICD Code: F10.10 - Alcohol abuse, uncomplicated Status: Chronic (5) Tobacco abuse ICD Code: Z72.0 - Tobacco use Status: Chronic Assessment and Plan 46-year-old male presented with altered mental status Bacteremia group A beta strep -4 out of 4 blood cultures grew group a beta strep. Wound cultures grew MRSA and group a beta strep. -Pending repeat blood cultures from 04/15. -Patient is being seen by infectious disease. Status post vancomycin cefepime DC'd on 04/15. Currently on Rocephin. Pending Echo to rule out endocarditis. Multiple lung lesions -Lesion seems to be crusted now. Positive for MRSA and group a beta strep. Treatment as above. Acute Metabolic encephalopathy -Resolved. Likely Multifactorial Alcohol intoxication and febrile illness Ileus, resolved. - CT Abd/Pelvis w/ enlarged fatty liver, small amount of ascites, diffuse ileus likely, images Alcohol Abuse: w/ Acute Alcohol Intoxication. Alcohol 289. -CIWA, Seizure Precautions, MVT/Thiamine/Folate Tobacco Abuse: - NicoDerm -Smoking cessation. DVT Prophylaxis: SCD/Teds. Minoo Adame MD Apr 16, 2017 11:39
[2017-04-16 12:00] VITALS: BP 120/59; PULSE 73; RESP 18; TEMP 98.4; O2SAT 96
[2017-04-16 16:00] VITALS: BP 115/55; PULSE 69; RESP 18; TEMP 98.8; O2SAT 98
--- NOTE | 2017-04-16 16:07 | HHI.IDPN ---
Subjective Subjective Remarks History of Present Illness Mr. Saldivar is a 46 y/o CM with a PMH of Schizophrenia, Anxiety, Alcohol Abuse and Tobacco Abuse who was brought to the ER by EMS secondary to AMS and fever. Per report, pt noted to have AMS after falling asleep in hammock, unable to be roused. Per EMS, Temp 101.3. Pt unable to provide much history. Noted to have multiple weeping wounds of extremities. On arrival, BP 150/77, HR 128, O2 sat 100% on 3L NC, Temp 101.3. CBC unremarkable except for elevated neutrophil count. Lactic Acid 2.2. CPK 548. Ammonia 28. Troponin negative. LFTs mildly elevated, similar in comparison to previous labs from 02/05/17. INR 0.9. UA negative. Drug Screen negative. Alcohol 298. CXR with no acute findings. CT Head negative. CT Abd/Pelvis small amount of ascites, likely ileus. CTA Pulm negative for PE. S/p Wound/Blood Cultures, Vanc/Cefepime in ER. Patient seen on floor awake and alert with no skin lesions. No CP symptoms. ID consulted for evaluation and Mment of Grp A Strep bacteremia. Overnight events reviewed No fevers No rash No diarrhea Antibiotics Ceftriaxone IV Lines Line sites with no e.o infection Past Medical History reviewed Allergies: Coded Allergies: morphine (Unverified Allergy, Severe, Rash, 04/12/17) Objective . Vital Signs Date Time Temp Pulse Resp B/P (MAP) Pulse Ox O2 Delivery O2 Flow Rate FiO2 04/16/17 12:00 98.4 73 18 120/59 (79) 96 04/16/17 08:00 98.7 60 18 114/66 (82) 98 04/16/17 07:15 96 Room Air 04/16/17 04:02 98.5 69 16 114/6 (42) 97 04/16/17 04:00 Room Air 04/16/17 00:00 Room Air 04/15/17 23:19 98.8 70 16 116/73 (87) 99 04/15/17 21:05 98.5 70 16 123/59 (80) 98 04/15/17 21:02 71 04/15/17 20:00 Room Air 04/15/17 16:32 98.6 75 17 117/71 (86) 98 . Laboratory Tests Test 04/15/17 07:25 04/16/17 07:30 White Blood Count 6.2 TH/MM3 5.9 TH/MM3 Red Blood Count 4.07 MIL/MM3 4.05 MIL/MM3 Hemoglobin 12.7 GM/DL 12.8 GM/DL Hematocrit 38.6 % 38.1 % Mean Corpuscular Volume 94.9 FL 94.2 FL Mean Corpuscular Hemoglobin 31.2 PG 31.6 PG Mean Corpuscular Hemoglobin Concent 32.9 % 33.6 % Red Cell Distribution Width 15.8 % 15.1 % Platelet Count 194 TH/MM3 241 TH/MM3 Mean Platelet Volume 8.9 FL 8.6 FL Neutrophils (%) (Auto) 73.6 % Lymphocytes (%) (Auto) 14.7 % Monocytes (%) (Auto) 10.3 % Eosinophils (%) (Auto) 0.9 % Basophils (%) (Auto) 0.5 % Neutrophils # (Auto) 4.6 TH/MM3 Lymphocytes # (Auto) 0.9 TH/MM3 Monocytes # (Auto) 0.6 TH/MM3 Eosinophils # (Auto) 0.1 TH/MM3 Basophils # (Auto) 0.0 TH/MM3 CBC Comment DIFF FINAL Differential Comment Laboratory Tests Test 04/15/17 07:25 04/16/17 07:30 Blood Urea Nitrogen 6 MG/DL 11 MG/DL Creatinine 0.49 MG/DL 0.69 MG/DL Random Glucose 79 MG/DL 90 MG/DL Calcium Level 8.7 MG/DL 8.4 MG/DL Magnesium Level 2.1 MG/DL Sodium Level 137 MEQ/L 138 MEQ/L Potassium Level 3.7 MEQ/L 3.8 MEQ/L Chloride Level 103 MEQ/L 105 MEQ/L Carbon Dioxide Level 26.8 MEQ/L 26.5 MEQ/L Anion Gap 7 MEQ/L 7 MEQ/L Estimat Glomerular Filtration Rate 184 ML/MIN 124 ML/MIN C-Reactive Protein 3.90 MG/DL Microbiology Date/Time Source Procedure Growth Status 04/15/17 20:57 Blood Peripheral Aerobic Blood Culture - Preliminary NO GROWTH IN 1 DAY Resulted 04/15/17 20:57 Blood Peripheral Anaerobic Blood Culture - Preliminary NO GROWTH IN 1 DAY Resulted 04/15/17 20:50 Blood Peripheral Aerobic Blood Culture - Preliminary NO GROWTH IN 1 DAY Resulted 04/15/17 20:50 Blood Peripheral Anaerobic Blood Culture - Preliminary NO GROWTH IN 1 DAY Resulted Imaging Last Impressions Head CT 04/12/172003 Signed Impressions: Service Date/Time: Wednesday, April 12, 2017 21:43 - CONCLUSION: 1. No acute hemorrhage, mass effect or extraaxial fluid collection. 2. Limited evaluation due to patient motion during scanning. Rik Mata MD Chest X-Ray 04/12/172003 Signed Impressions: Service Date/Time: Wednesday, April 12, 2017 20:31 - CONCLUSION: No acute disease. Rik Mata MD CT Angiography 04/12/17 0000 Signed Impressions: Service Date/Time: Wednesday, April 12, 2017 21:50 - CONCLUSION: 1. No evidence of pulmonary embolism. 2. Diffuse fatty infiltration of the liver. Rik Mata MD Abdomen/Pelvis CT 04/12/17 Signed Impressions: Service Date/Time: Wednesday, April 12, 2017 21:47 - CONCLUSION: Enlarged fatty liver. Small amount of ascites. Stable bilateral renal cysts. Diffuse ileus is likely. Rik Mata MD Physical Exam GENERAL: This is a well-nourished, well-developed patient, in no apparent distress. SKIN: Bilateral skin ulcerations and scabbed lesions on UE, LE and back. HEAD: Atraumatic. Normocephalic. No temporal or scalp tenderness. EYES: Pupils equal round and reactive. Extraocular motions intact. No scleral icterus. No injection or drainage. ENT: Nose without bleeding, purulent drainage or septal hematoma. Throat without erythema, tonsillar hypertrophy or exudate. Uvula midline. Airway patent. NECK: Trachea midline.Supple, nontender, no meningeal signs. CARDIOVASCULAR: Regular rate and rhythm without murmurs, gallops, or rubs. RESPIRATORY: Clear to auscultation. Breath sounds equal bilaterally. No wheezes , rales, or rhonchi. GASTROINTESTINAL: Abdomen soft, non-tender, nondistended. No hepato-splenomegaly , or palpable masses. No guarding. MUSCULOSKELETAL: Extremities without clubbing, cyanosis, or edema. No joint tenderness, effusion, or edema noted. No calf tenderness. Negative Homans sign bilaterally. NEUROLOGICAL: Awake and alert. Grossly non focal Psych cooperative IV line sites with no e.o infection Assessment & Plan Remarks Grp A Strep bacteremia r/o endocarditis MRSA and Strep Grp A wound colonization vs infection/cellulitis. Schizophrenia Recs: Continue Ceftriaxone IV Follow 2D ECHO to r/o endocarditis. Follow cultures Follow clinically. Will follow along. Trudy Emmanuel MD Apr 16, 2017 16:07
--- NOTE | 2017-04-16 17:27 | ECHRPT ---
Indication: SEPSIS, ?ENDOCARDITIS CONCLUSIONS Normal left ventricular size. Wall thickness is normal. The left ventricular systolic function is normal with an estimated ejection fraction in the range of 55-60%. The left atrial size is mildly dilated. The right atrial size is mildly dilated. The interatrial septum not well visualized. Trace mitral valve regurgitation. No aortic valve regurgitation. No aortic valve stenosis. There is trace tricuspid valve regurgitation. Normal estimated pulmonary pressures. The pulmonary valve is not well visualized. The inferior vena cava was not well visualized. BP: / HR: Rhythm: Sinus MEASUREMENTS (Male / Female) Normal Values Technical Quality:Technically difficult study 2D ECHO LV Diastolic Diameter PLAX 4.1 cm 4.2 - 5.9 / 3.9 - 5.3 cm LV Systolic Diameter PLAX 3.1 cm IVS Diastolic Thickness 0.8 cm 0.6 - 1.0 / 0.6 - 0.9 cm LVPW Diastolic Thickness 0.8 cm 0.6 - 1.0 / 0.6 - 0.9 cm LV Relative Wall Thickness 0.4 LVOT Diameter 2.2 cm Aortic Root Diameter 3.4 cm LA Systolic Diameter LX 3.2 cm 3.0 - 4.0 / 2.7 - 3.8 cm M-MODE AV Cusp Separation MM 2.3 cm DOPPLER AV Peak Velocity 113.0 cm/s AV Peak Gradient 5.1 mmHg AV Mean Gradient 3.0 mmHg AV Velocity Time Integral 17.4 cm LVOT Peak Velocity 68.4 cm/s LVOT Peak Gradient 1.9 mmHg LVOT Velocity Time Integral 11.6 cm AV Area Cont Eq vti 2.5 cm AV Area Cont Eq pk 2.3 cm Mitral E Point Velocity 52.3 cm/s Mitral A Point Velocity 51.8 cm/s Mitral E to A Ratio 1.0 LV E' Lateral Velocity 13.9 cm/s Mitral E to LV E' Lateral Ratio 3.8 LV E' Septal Velocity 11.0 cm/s Mitral E to LV E' Septal Ratio 4.8 TR Peak Velocity 235.0 cm/s TR Peak Gradient 22.1 mmHg Right Atrial Pressure 10.0 mmHg Pulmonary Artery Systolic Pressu 32.1 mmHg Right Ventricular Systolic Press 32.1 mmHg PV Peak Velocity 30.8 cm/s PV Peak Gradient 0.4 mmHg FINDINGS LEFT VENTRICLE Normal left ventricular size. Wall thickness is normal. The left ventricular systolic function is normal with an estimated ejection fraction in the range of 55-60%. Left ventricular diastolic function parameters are normal. RIGHT VENTRICLE Normal right ventricular size and systolic function. LEFT ATRIUM The left atrial size is mildly dilated. RIGHT ATRIUM The right atrial size is mildly dilated. ATRIAL SEPTUM The interatrial septum not well visualized. AORTA The aortic root and proximal ascending aorta are normal in size on limited imaging. MITRAL VALVE Structurally normal mitral valve. Trace mitral valve regurgitation. AORTIC VALVE Trileaflet aortic valve. No aortic valve regurgitation. No aortic valve stenosis. TRICUSPID VALVE Structurally normal tricuspid valve. There is trace tricuspid valve regurgitation. Normal estimated pulmonary pressures. PULMONARY VALVE The pulmonary valve is not well visualized. VESSELS The inferior vena cava was not well visualized. PERICARDIUM No pericardial effusion. Juan Antonio Booth MD, FACC (Electronically Signed) Final Date:16 April 2017 17:26
[2017-04-16 19:34] VITALS: PULSE 62
[2017-04-16] MEDS: cefTRIAXone INJ 2,000 MG in SODIUM CHLORIDE 0.9% INJ 100 ML IV SCH (20:46)
[2017-04-17] VITALS (11 sets, daily range): BP systolic 104–135; BP diastolic 55–82; PULSE 68–96; RESP 16–18; TEMP 98–99; O2SAT 94–99
[2017-04-17] MEDS: SODIUM CHLOR 0.9% 1000 ML INJ 1,000 ML IV SCH ×3 (03:02→23:00)
[2017-04-17] MEDS: THIAMINE HCL 100 MG TAB PO SCH (08:15)
[2017-04-17] MEDS: MULTIVITAMINS/MINERALS THERAPEUTIC TAB PO SCH (08:15)
[2017-04-17] MEDS: FOLIC ACID 1 MG TAB PO SCH (08:15)
[2017-04-17] MEDS: SODIUM CHLORIDE 0.9% FLUSH 10 ML FLUSH IV FLUSH SCH ×2 (08:58→19:59)
[2017-04-17] MEDS: DOCUSATE SODIUM 50 MG/SENNA 8.6 MG TAB PO SCH ×2 (08:58→19:59)
[2017-04-17] MEDS: ENOXAPARIN SODIUM 40 MG/0.4 ML SYRINGE SQ SCH (11:52)
--- NOTE | 2017-04-17 11:53 | HHI.PR ---
Subjective Remarks Follow-up on patient with bacteremia. Patient seen and examined. Patient complains of ongoing dizziness and decreased vision since he sustained a fall hitting his head one week ago. Reports intermittent headache. Denies any photophobia or phonophobia. He reports constantly alternating between hot and cold which he says he's had "for years". Denies any chest pain or dyspnea. Denies any N/V or abdominal pain. Denies any diarrhea, constipation or urinary difficulties. Objective Vitals Vital Signs Date Time Temp Pulse Resp B/P (MAP) Pulse Ox O2 Delivery O2 Flow Rate FiO2 04/17/17 08:00 99.0 74 18 121/60 (80) 96 04/17/17 08:00 Room Air 04/17/17 06:38 68 04/17/17 04:00 98.3 68 16 104/56 (72) 97 04/17/17 00:00 98.0 68 16 111/65 (80) 94 04/16/17 19:34 62 04/16/17 18:24 18 04/16/17 16:00 98.8 69 18 115/55 (75) 98 04/16/17 12:00 98.4 73 18 120/59 (79) 96 I/O 04/16/17 04/16/17 04/16/17 04/17/17 04/17/17 04/17/17 07:00 15:00 23:00 07:00 15:00 23:00 Intake Total 720 ml 1960 ml Output Total 2025 ml 2600 ml 2250 ml Balance -1305 ml -640 ml -2250 ml Intake Oral 720 ml 960 ml IV Total 1000 ml Output Urine Total 2025 ml 2600 ml 2250 ml # Bowel Movements 0 0 Result Diagram: 04/16/17 0730 04/16/17 0730 Imaging Last Impressions Head CT 04/12/172003 Signed Impressions: Service Date/Time: Wednesday, April 12, 2017 21:43 - CONCLUSION: 1. No acute hemorrhage, mass effect or extraaxial fluid collection. 2. Limited evaluation due to patient motion during scanning. Rik Mata MD Chest X-Ray 04/12/172003 Signed Impressions: Service Date/Time: Wednesday, April 12, 2017 20:31 - CONCLUSION: No acute disease. Rik Mata MD CT Angiography 9/22/17 0000 Signed Impressions: Service Date/Time: Wednesday, April 12, 2017 21:50 - CONCLUSION: 1. No evidence of pulmonary embolism. 2. Diffuse fatty infiltration of the liver. Rik Mata MD Abdomen/Pelvis CT 04/12/17 0000 Signed Impressions: Service Date/Time: Wednesday, April 12, 2017 21:47 - CONCLUSION: Enlarged fatty liver. Small amount of ascites. Stable bilateral renal cysts. Diffuse ileus is likely. Rik Mata MD Objective Remarks GENERAL: Well-nourished, well-developed patient in NAD. Asleep but easily awakens to voice. SKIN: Warm and dry. Multiple crusted lesions on extremities and trunk. HEAD: Normocephalic. Atraumatic. EYES: EOMI. No scleral icterus. No injection or drainage. ENT: No nasal bleeding or discharge. Mucous membranes pink and moist. NECK: Supple. Trachea midline. CARDIOVASCULAR: Regular rate and rhythm. S1, S2 noted. No murmur appreciated. RESPIRATORY: No accessory muscle use. Clear to auscultation. Breath sounds equal bilaterally. GASTROINTESTINAL: Abdomen soft, non-tender, nondistended. Normoactive bowel sounds x4. MUSCULOSKELETAL: Extremities without clubbing, cyanosis, or edema. NEUROLOGICAL: Awake and alert. Able to move all extremities. Nonfocal. Normal speech. Medications and IVs Current Medications Medications (Trade) Dose Ordered Sig/[facility] Route Start Time Stop Time Status Last Admin (Folate) 1 mg DAILY PO 04/13/17 09:00 04/18/17 08:59 04/17/17 08:15 (Vitamin B1) 100 mg DAILY PO 04/13/17 09:00 04/17/17 08:15 (Theragran M Tab) 1 tab DAILY PO 04/13/17 09:00 04/18/17 08:59 04/17/17 08:15 (Romazicon Inj) 0.2 mg Q1M PRN IV PUSH 04/12/17 22:45 (Ativan) 1 mg Q4H PRN PO 04/12/17 22:45 04/13/17 20:32 (Ativan Inj) 1 mg Q4H PRN IV PUSH 04/12/17 22:45 (Ativan) 2 mg Q2H PRN PO 04/12/17 22:45 (Ativan Inj) 2 mg Q2H PRN IV PUSH 04/12/17 22:45 (Ativan Inj) 2 mg Q1H PRN IV PUSH 04/12/17 22:45 (Ativan Inj) 2 mg Q15M PRN IV PUSH 04/12/17 22:45 (Haldol Inj) 2 mg Q15M PRN IM 04/12/17 22:45 Sodium Chloride 1,000 ml @ 100 mls/hr Q10H IV 04/12/17 23:00 04/17/17 03:02 (NS Flush) 2 ml UNSCH PRN IV FLUSH 04/12/17 22:45 (NS Flush) 2 ml BID IV FLUSH 04/13/17 09:00 04/14/17 09:09 (Zofran Inj) 4 mg Q6H PRN IVP 04/12/17 22:45 (Tylenol) 650 mg Q6H PRN PO 04/12/17 22:45 (Irma-Colace) 1 tab BID PO 04/13/17 09:00 04/16/17 20:46 (Milk Of Magnesia Liq) 30 ml Q12H PRN PO 04/12/17 22:45 (Senokot) 17.2 mg Q12H PRN PO 04/12/17 22:45 (Dulcolax Supp) 10 mg DAILY PRN RECTAL 04/12/17 22:45 (Lactulose Liq) 30 ml DAILY PRN PO 04/12/17 22:45 04/13/17 18:04 (Roxicodone) 5 mg Q4H PRN PO 04/12/17 23:45 04/15/17 08:37 (Roxicodone) 10 mg Q4H PRN PO 04/12/17 23:45 04/17/17 08:16 (Lovenox Inj) 40 mg Q24H SQ 04/13/17 11:00 04/16/17 09:48 Ceftriaxone Sodium 2000 mg/ Sodium Chloride 100 ml @ 200 mls/hr Q24H IV 04/15/17 20:00 04/16/17 20:46 A/P Problem List: (1) Encephalopathy ICD Code: G93.40 - Encephalopathy, unspecified (2) SIRS (systemic inflammatory response syndrome) ICD Code: R65.10 - Systemic inflammatory response syndrome (SIRS) of non- infectious origin without acute organ dysfunction Status: Acute (3) Ileus ICD Code: K56.7 - Ileus, unspecified Status: Acute (4) Alcohol abuse ICD Code: F10.10 - Alcohol abuse, uncomplicated Status: Chronic (5) Tobacco abuse ICD Code: Z72.0 - Tobacco use Status: Chronic Assessment and Plan 46-year-old male presented with altered mental status Bacteremia group A beta strep -4 out of 4 blood cultures grew group a beta strep. Wound cultures grew MRSA and group a beta strep. -Pending repeat blood cultures from 04/15 - currently no growth in 2 days -Patient is being seen by infectious disease. Status post vancomycin cefepime DC'd on 04/15. Currently on Rocephin. -2D Echo to rule out endocarditis - EF 55-60%, no vegetation noted. Multiple skin lesions -Lesion seems to be crusted now. Positive for MRSA and group a beta strep. Treatment as above. Acute Metabolic encephalopathy -Resolved. Likely Multifactorial Alcohol intoxication and febrile illness Ileus, resolved. - CT Abd/Pelvis w/ enlarged fatty liver, small amount of ascites, diffuse ileus likely Alcohol Abuse: w/ Acute Alcohol Intoxication. Alcohol 289. -CIWA, Seizure Precautions, MVT/Thiamine/Folate Dizziness/headache/vision changes s/p fall one week ago -CT head 04/12 showed no acute hemorrhage, mass effect or extraaxial fluid collection -Facial CT 04/05 showed asymmetric swelling in the subcutaneous tissues overlying the left cheek, zygomatic arch and maxilla, no associated fracture -obtain orthostatic BP measurements -PT eval -trial of meclizine Tobacco Abuse: - NicoDerm -Smoking cessation. DVT Prophylaxis: SCD/Teds. Discussed with patient and Dr. Adame Discharge Planning ID recommendations Carina Colbert Apr 17, 2017 11:53
[2017-04-17] MEDS: MECLIZINE HCL 25 MG TAB PO SCH ×2 (14:15→21:18)
[2017-04-17] MEDS: cefTRIAXone INJ 2,000 MG in SODIUM CHLORIDE 0.9% INJ 100 ML IV SCH (20:00)
[2017-04-18 04:34] VITALS: BP 111/57; PULSE 68; RESP 16; TEMP 98.6; O2SAT 97
[2017-04-18] MEDS: MECLIZINE HCL 25 MG TAB PO SCH ×2 (06:29→14:15)
[2017-04-18] MEDS: SODIUM CHLOR 0.9% 1000 ML INJ 1,000 ML IV SCH (07:45)
[2017-04-18] MEDS: SODIUM CHLORIDE 0.9% FLUSH 10 ML FLUSH IV FLUSH SCH (07:47)
[2017-04-18] MEDS: THIAMINE HCL 100 MG TAB PO SCH (07:47)
[2017-04-18] MEDS: DOCUSATE SODIUM 50 MG/SENNA 8.6 MG TAB PO SCH (07:47)
[2017-04-18] MEDS: FOLIC ACID 1 MG TAB PO SCH (07:51)
[2017-04-18] MEDS: MULTIVITAMINS/MINERALS THERAPEUTIC TAB PO SCH (07:51)
[2017-04-18 08:00] VITALS: BP 105/58; PULSE 74; RESP 16; TEMP 98.5; O2SAT 97
[2017-04-18 08:09] VITALS: PULSE 71
--- NOTE | 2017-04-18 11:26 | HHI.PR ---
Subjective Remarks Follow-up on patient with bacteremia. Patient seen and examined. Patient reports his dizziness is much improved since beginning the Meclizine. Denies any c/o headache. States his vision is intermittently "fuzzy" but states it's clear at this time. He denies any other complaints. Denies any fever or chills. Denies any chest pain or shortness of breath. Denies any nausea, vomiting or abdominal pain. Denies any diarrhea, constipation or urinary complaints. Objective Vitals Vital Signs Date Time Temp Pulse Resp B/P (MAP) Pulse Ox O2 Delivery O2 Flow Rate FiO2 04/18/17 08:09 71 04/18/17 08:00 98.5 74 16 105/58 (74) 97 04/18/17 07:52 Room Air 04/18/17 04:34 Room Air 04/18/17 04:34 98.6 68 16 111/57 (75) 97 04/17/17 23:50 Room Air 04/17/17 23:50 98.8 78 16 122/59 (80) 99 04/17/17 20:25 Room Air 04/17/17 20:25 99.0 79 16 114/55 (74) 98 04/17/17 20:00 77 04/17/17 16:00 98.6 71 18 135/61 (85) 97 04/17/17 14:58 78 118/64 (82) 04/17/17 14:57 96 129/82 (98) 04/17/17 14:57 69 135/63 (87) 04/17/17 12:00 98.6 69 18 109/57 (74) 97 I/O 04/17/17 04/17/17 04/17/17 04/18/17 04/18/17 04/18/17 07:00 15:00 23:00 07:00 15:00 23:00 Intake Total 2871 ml 1967 ml 1737 ml Output Total 2250 ml 1800 ml 2325 ml Balance -2250 ml 2871 ml 167 ml -588 ml Intake Oral 960 ml 1200 ml IV Total 2871 ml 1007 ml 537 ml Output Urine Total 2250 ml 1800 ml 2325 ml # Bowel Movements 0 0 Result Diagram: 04/16/1772904/16/17729 Imaging Last Impressions Head CT 04/12/172003 Signed Impressions: Service Date/Time: Wednesday, April 12, 2017 21:43 - CONCLUSION: 1. No acute hemorrhage, mass effect or extraaxial fluid collection. 2. Limited evaluation due to patient motion during scanning. Rik Mata MD Chest X-Ray 04/12/172003 Signed Impressions: Service Date/Time: Wednesday, April 12, 2017 20:31 - CONCLUSION: No acute disease. Rik Mata MD CT Angiography 04/12/17 0000 Signed Impressions: Service Date/Time: Wednesday, April 12, 2017 21:50 - CONCLUSION: 1. No evidence of pulmonary embolism. 2. Diffuse fatty infiltration of the liver. Rik Mata MD Abdomen/Pelvis CT 04/12/17 0000 Signed Impressions: Service Date/Time: Wednesday, April 12, 2017 21:47 - CONCLUSION: Enlarged fatty liver. Small amount of ascites. Stable bilateral renal cysts. Diffuse ileus is likely. Rik Mata MD Objective Remarks GENERAL: Well-nourished, well-developed patient in NAD. Lying in hospital bed. Awake and alert. SKIN: Warm and dry. Multiple crusted lesions on extremities and trunk. HEAD: Normocephalic. Atraumatic. EYES: EOMI. No scleral icterus. No injection or drainage. ENT: No nasal bleeding or discharge. Mucous membranes pink and moist. NECK: Supple. Trachea midline. CARDIOVASCULAR: Regular rate and rhythm. S1, S2 noted. No murmur appreciated. RESPIRATORY: No accessory muscle use. Clear to auscultation. Breath sounds equal bilaterally. GASTROINTESTINAL: Abdomen soft, non-tender, nondistended. Normoactive bowel sounds x4. MUSCULOSKELETAL: Extremities without clubbing, cyanosis, or edema. NEUROLOGICAL: Awake and alert. Able to move all extremities. Nonfocal. Normal speech. Medications and IVs Current Medications Medications (Trade) Dose Ordered Sig/[facility] Route Start Time Stop Time Status Last Admin (Vitamin B1) 100 mg DAILY PO 04/13/17 09:00 04/18/17 07:47 (Romazicon Inj) 0.2 mg Q1M PRN IV PUSH 04/12/17 22:45 (Ativan) 1 mg Q4H PRN PO 04/12/17 22:45 04/13/17 20:32 (Ativan Inj) 1 mg Q4H PRN IV PUSH 04/12/17 22:45 (Ativan) 2 mg Q2H PRN PO 04/12/17 22:45 (Ativan Inj) 2 mg Q2H PRN IV PUSH 04/12/17 22:45 (Ativan Inj) 2 mg Q1H PRN IV PUSH 04/12/17 22:45 (Ativan Inj) 2 mg Q15M PRN IV PUSH 04/12/17 22:45 (Haldol Inj) 2 mg Q15M PRN IM 04/12/17 22:45 Sodium Chloride 1,000 ml @ 100 mls/hr Q10H IV 04/12/17 23:00 04/18/17 07:45 (NS Flush) 2 ml UNSCH PRN IV FLUSH 04/12/17 22:45 (NS Flush) 2 ml BID IV FLUSH 04/13/17 09:00 04/14/17 09:09 (Zofran Inj) 4 mg Q6H PRN IVP 04/12/17 22:45 (Tylenol) 650 mg Q6H PRN PO 04/12/17 22:45 (Irma-Colace) 1 tab BID PO 04/13/17 09:00 04/16/17 20:46 (Milk Of Magnesia Liq) 30 ml Q12H PRN PO 04/12/17 22:45 (Senokot) 17.2 mg Q12H PRN PO 04/12/17 22:45 (Dulcolax Supp) 10 mg DAILY PRN RECTAL 04/12/17 22:45 (Lactulose Liq) 30 ml DAILY PRN PO 04/12/17 22:45 04/13/17 18:04 (Roxicodone) 5 mg Q4H PRN PO 04/12/17 23:45 04/15/17 08:37 (Roxicodone) 10 mg Q4H PRN PO 04/12/17 23:45 04/18/17 06:29 (Lovenox Inj) 40 mg Q24H SQ 04/13/17 11:00 04/17/17 11:52 Ceftriaxone Sodium 2000 mg/ Sodium Chloride 100 ml @ 200 mls/hr Q24H IV 04/15/17 20:00 04/17/17 20:00 (Antivert) 25 mg Q8HR PO 04/17/17 14:00 04/18/17 06:29 A/P Problem List: (1) Encephalopathy ICD Code: G93.40 - Encephalopathy, unspecified (2) SIRS (systemic inflammatory response syndrome) ICD Code: R65.10 - Systemic inflammatory response syndrome (SIRS) of non- infectious origin without acute organ dysfunction Status: Acute (3) Ileus ICD Code: K56.7 - Ileus, unspecified Status: Acute (4) Alcohol abuse ICD Code: F10.10 - Alcohol abuse, uncomplicated Status: Chronic (5) Tobacco abuse ICD Code: Z72.0 - Tobacco use Status: Chronic Assessment and Plan 46-year-old male presented with altered mental status Bacteremia group A beta strep -4 out of 4 blood cultures grew group a beta strep. Wound cultures grew MRSA and group a beta strep. -Pending repeat blood cultures from 04/15 - currently no growth in 2 days -Patient is being seen by infectious disease. Status post vancomycin cefepime DC'd on 04/15. Currently on Rocephin. -2D Echo to rule out endocarditis - EF 55-60%, no vegetation noted. -Patient remains afebrile Hep C -Hep C antibody reactive 04/16 -Standard precautions -Patient will need a follow-up with GI as outpatient to discuss possible treatment options Multiple skin lesions -Lesion seems to be crusted now. Positive for MRSA and group a beta strep. Treatment as above. Acute Metabolic encephalopathy -Resolved. Likely Multifactorial Alcohol intoxication and febrile illness Ileus, resolved. - CT Abd/Pelvis w/ enlarged fatty liver, small amount of ascites, diffuse ileus likely Alcohol Abuse: w/ Acute Alcohol Intoxication. Alcohol 289. -CIWA, Seizure Precautions, MVT/Thiamine/Folate Dizziness/headache/vision changes s/p fall one week ago -CT head 04/12 showed no acute hemorrhage, mass effect or extraaxial fluid collection -Facial CT 04/05 showed asymmetric swelling in the subcutaneous tissues overlying the left cheek, zygomatic arch and maxilla, no associated fracture -Improved on meclizine. Continue. -orthostatic BP measurements unremarkable. -Continue with PT. Tobacco Abuse: - NicoDerm -Smoking cessation. DVT Prophylaxis: SCD/Teds. Discussed with patient, nursing staff and Dr. Adame Discharge Planning ID recommendations Carina Colbert Apr 18, 2017 11:26
[2017-04-18] MEDS: ENOXAPARIN SODIUM 40 MG/0.4 ML SYRINGE SQ SCH (11:58)
[2017-04-18 12:00] VITALS: BP 113/63; PULSE 69; RESP 16; TEMP 98.2; O2SAT 99
[2017-04-18 12:30] LABS: AUTOMATED NEUTROPHIL # 3.1 TH/MM3 (1.8-7.7); BASOPHIL # 0.1 TH/MM3 (0-0.2); EOSINOPHIL # 0.1 TH/MM3 (0-0.4); EOSINOPHIL % 1.1 % (0.0-4.0); HEMATOCRIT 39.6 % (39.0-51.0); HEMO FLAGS DIFF FINAL; LYMPH % 29.4 % (9.0-44.0); LYMPHOCYTE # 1.7 TH/MM3 (1.0-4.8); MEAN CELL VOLUME 95.3 FL (80.0-100.0); MEAN CORPUSCULAR HEMOGLOBIN 31.2 PG (27.0-34.0); MEAN CORPUSCULAR HGB CONC 32.8 % (32.0-36.0); NEUT % 52.5 % (16.0-70.0); PLATELET COUNT 295 TH/MM3 (150-450); RED BLOOD COUNT 4.15 MIL/MM3 (4.50-5.90); RED CELL DISTRIBUTION WIDTH 15.7 % (11.6-17.2); WHITE BLOOD COUNT 5.9 TH/MM3 (4.0-11.0)
[2017-04-18 12:57] LABS: BICARBONATE 28.4 MEQ/L (21.0-32.0); POTASSIUM 3.5 MEQ/L (3.5-5.1)
[2017-04-18] MEDS ORDERED: LEVA750T9 PO (14:31)
[2017-04-18] MEDS ORDERED: BACT800T5 PO (14:36)
[2017-04-18] MEDS ORDERED: MECL1TAB42 PO (14:59)
[2017-04-18] MEDS ORDERED: WALKER WHEELS/F1 MIS (15:00)
--- NOTE | 2017-04-18 15:02 | HHI.DCPOC ---
Discharge Care Plan Diagnosis: (1) Tobacco abuse (2) Alcohol intoxication (3) Ileus (4) Encephalopathy (5) Altered mental status (6) Hep C w/o coma, chronic (7) SIRS (systemic inflammatory response syndrome) (8) Bacteremia due to methicillin resistant Staphylococcus aureus (9) Group beta Strep positive (10) Vertigo Goals to Promote Your Health * To prevent worsening of your condition and complications * To maintain your health at the optimal level Directions to Meet Your Goals Please quit smoking Take your medications as prescribed Follow your dietary instruction Follow activity as directed Keep your appointments as scheduled Take your immunizations and boosters as scheduled If your symptoms worsen call your PCP, if no PCP go to Urgent Care Center or Emergency Room Smoking is Dangerous to Your Health. Avoid second hand smoke Call the 24-hour hour crisis hotline for domestic abuse at Carina Colbert Apr 18, 2017 15:02
[2017-04-18] MEDS ORDERED: GNP100TA3 PO (15:04)
[2017-04-18] MEDS ORDERED: FOLI800T PO (15:04)
--- NOTE | 2017-04-18 15:05 | HHI.DS ---
Discharge Summary Admission Date Apr 12, 2017 at 22:39 Discharge Date: Apr 18, 2017 Admitting Diagnosis AMS; SIRS/sepsis;alcohol intox; ileus; infectious dermatitis (1) Altered mental status ICD Code: R41.82 - Altered mental status, unspecified Status: Acute (2) Encephalopathy ICD Code: G93.40 - Encephalopathy, unspecified (3) SIRS (systemic inflammatory response syndrome) ICD Code: R65.10 - Systemic inflammatory response syndrome (SIRS) of non- infectious origin without acute organ dysfunction Status: Acute (4) Bacteremia due to methicillin resistant Staphylococcus aureus ICD Code: R78.81 - Bacteremia (5) Group beta Strep positive ICD Code: B95.1 - Streptococcus, group B, as the cause of diseases classified elsewhere (6) Hep C w/o coma, chronic ICD Code: B18.2 - Chronic viral hepatitis C (7) Alcohol intoxication ICD Code: F10.129 - Alcohol abuse with intoxication, unspecified Status: Acute (8) Ileus ICD Code: K56.7 - Ileus, unspecified Status: Acute (9) Alcohol abuse ICD Code: F10.10 - Alcohol abuse, uncomplicated Status: Chronic (10) Tobacco abuse ICD Code: Z72.0 - Tobacco use Status: Chronic (11) Vertigo ICD Code: R42 - Dizziness and giddiness Procedures None Brief History - From Admission This is a 46-year-old male with a PMH of Schizophrenia, Anxiety, Alcohol Abuse and Tobacco Abuse who was brought to the ER by EMS secondary to AMS and fever. Per report, pt noted to have AMS after falling asleep in hammock, unable to be roused. Per EMS, Temp 101.3. Pt unable to provide much history. Noted to have multiple weeping wounds of extremities. On arrival, BP 150/77, HR 128, O2 sat 100% on 3L NC, Temp 101.3. CBC unremarkable except for elevated neutrophil count. Lactic Acid 2.2. CPK 548. Ammonia 28. Troponin negative. LFTs mildly elevated, similar in comparison to previous labs from 02/05/17. INR 0.9. UA negative. Drug Screen negative. Alcohol 298. CXR with no acute findings. CT Head negative. CT Abd/Pelvis small amount of ascites, likely ileus. CTA Pulm negative for PE. S/p Wound/Blood Cultures, Vanc/Cefepime in ER. CBC/BMP: 04/18/17 1139 04/18/17 1139 Significant Findings Laboratory Tests Test 04/16/17 07:30 04/18/17 11:39 Red Blood Count 4.05 MIL/MM3 (4.50-5.90) 4.15 MIL/MM3 (4.50-5.90) Hemoglobin 12.8 GM/DL (13.0-17.0) Hematocrit 38.1 % (39.0-51.0) Calcium Level 8.4 MG/DL (8.5-10.1) 8.3 MG/DL (8.5-10.1) Hepatitis C Antibody REACTIVE (NEGATIVE) Monocytes (%) (Auto) 16.0 % (0.0-8.0) Imaging Last Impressions Head CT 04/12/172003 Signed Impressions: Service Date/Time: Wednesday, April 12, 2017 21:43 - CONCLUSION: 1. No acute hemorrhage, mass effect or extraaxial fluid collection. 2. Limited evaluation due to patient motion during scanning. Rik Mata MD Chest X-Ray 04/12/172003 Signed Impressions: Service Date/Time: Wednesday, April 12, 2017 20:31 - CONCLUSION: No acute disease. Rik Mata MD CT Angiography 04/12/17 Signed Impressions: Service Date/Time: Wednesday, April 12, 2017 21:50 - CONCLUSION: 1. No evidence of pulmonary embolism. 2. Diffuse fatty infiltration of the liver. Rik Mata MD Abdomen/Pelvis CT 04/12/17 0000 Signed Impressions: Service Date/Time: Wednesday, April 12, 2017 21:47 - CONCLUSION: Enlarged fatty liver. Small amount of ascites. Stable bilateral renal cysts. Diffuse ileus is likely. Rik Mata MD PE at Discharge GENERAL: Well-nourished, well-developed patient in NAD. Lying in hospital bed. Awake and alert. SKIN: Warm and dry. Multiple crusted lesions on extremities and trunk. HEAD: Normocephalic. Atraumatic. EYES: EOMI. No scleral icterus. No injection or drainage. ENT: No nasal bleeding or discharge. Mucous membranes pink and moist. NECK: Supple. Trachea midline. CARDIOVASCULAR: Regular rate and rhythm. S1, S2 noted. No murmur appreciated. RESPIRATORY: No accessory muscle use. Clear to auscultation. Breath sounds equal bilaterally. GASTROINTESTINAL: Abdomen soft, non-tender, nondistended. Normoactive bowel sounds x4. MUSCULOSKELETAL: Extremities without clubbing, cyanosis, or edema. NEUROLOGICAL: Awake and alert. Able to move all extremities. Nonfocal. Normal speech. Pt update on day of discharge Patient seen and examined. Patient reports his dizziness is much improved since beginning the Meclizine. Denies any c/o headache. States his vision is intermittently "fuzzy" but states it's clear at this time. He denies any other complaints. Denies any fever or chills. Denies any chest pain or shortness of breath. Denies any nausea, vomiting or abdominal pain. Denies any diarrhea, constipation or urinary complaints. Discussed with Dr. Emmanuel ID - patient cleared for discharge on po antibiotics. Discussed with patient positive Hep C antibody and instructed him to abstain from alcohol and follow up with airway traffic controller as an outpatient. Hospital Course 46-year-old male with schizophrenia, history of alcohol abuse and tobacco abuse presented with AMS and fever. Patient admitted with encephalopathy likely multifactorial due to alcohol intoxication and febrile illness. CT of the head was unremarkable. Patient met SIRS criteria with elevated temperature 101.3, heart rate of 117 and lactic acid 2.2. Patient was also noted to have multiple weeping lesions. Patient was treated with vancomycin and cefepime. Patients alcohol level was 298. Patient had some complaints of abdominal pain in the ED and CT abdomen and pelvis showed enlarged fatty liver, small amount of ascites with diffuse ileus likely. UA was negative. Ammonia level is 28. Drug screen was negative. Patient admitted to daily alcohol use and was placed on CIWA protocol, seizure precautions and daily thiamine and folate and multivitamin. Patient's acute metabolic encephalopathy resolved. Patient defervesced on day 2 of his hospitalization and remained afebrile. Patient's ileus resolved. 4 out of 4 blood cultures grew group a beta strep. Wound cultures grew MRSA and group A beta strep. Infectious disease was consulted for bacteremia. Echocardiogram was obtained rule out endocarditis which showed no evidence of vegetation and the EF 55-60%. Hepatitis panel was obtained which was positive for hep C antibody. Per ID, cefepime was discontinued as was vancomycin. They suspected MRSA on the skin was likely colonization. Patient was started on IV ceftriaxone. Repeat blood cultures failed to show any growth. Patient had some complaints of vertigo which responded well to trial of meclizine. Patient was cleared for discharge by ID on oral antibiotics consisting of Levaquin 750 mg daily for 14 days and Bactrim DS 1 by mouth twice a day for 7 days. Prior to discharge, discussed with patient his positive hep C antibody testing and recommended that he abstain from any alcohol consumption and that he follow-up with a airway traffic controller as an outpatient to discuss treatment options. Patient was also instructed to follow-up with his primary care physician in one week following discharge. Discussed with patient, Dr. Emmanuel and Dr. Adame Pt Condition on Discharge: Stable Discharge Disposition: Discharge Home Discharge Time: > 30 minutes Discharge Instructions DIET: Follow Instructions for: As Tolerated, No Restrictions Activities you can perform: Regular-No Restrictions Follow up Referrals: Gastroenterology - 2 Weeks PCP Follow-up - 1 Week New Medications: Folic Acid (Folic Acid) 0.8 Mg Tab 1 GM PO DAILY for Nutritional Supplement for 30 Days, TAB 0 Refills Levofloxacin (Levaquin) 750 Mg Tablet 750 MG PO DAILY for Infection for 14 Days, #14 TAB 0 Refills Sulfamethoxazole-Trimethoprim (Bactrim DS) 800-160 Mg Tab 1 TAB PO BID for Infection, #14 TAB 0 Refills Walker with Front Wheels (Walker with Front Wheels) 1 Mis Mis EA .ROUTE DIRECTED, #1 0 Refills Meclizine HCl (Meclizine 25) 25 Mg Tab 25 MG PO PRN for Dizziness for 30 Days, #30 TAB Thiamine HCl (Gnp Vitamin B-1) 100 Mg Tab 100 MG PO DAILY for VITAMIN DEFICIENCY for 30 Days, #30 TAB Continued Medications: Citalopram (Celexa) 20 Mg Tab 20 MG PO DAILY for Anxiety for 30 Days, TAB Oxycodone (Oxycodone) 10 Mg Tab 10 MG PO Q8HR for Pain Management, #15 TAB 0 Refills Do not combine this medication with alcohol Discontinued Medications: Sulfamethoxazole-Trimethoprim (Bactrim DS) 800-160 Mg Tab 1 TAB PO Q12HR for Infection for 7 Days, TAB Carina Colbert Apr 18, 2017 15:05
--- NOTE | 2017-04-18 15:19 | HHI.IDPN ---
Subjective Subjective Remarks History of Present Illness Mr. Saldivar is a 46 y/o CM with a PMH of Schizophrenia, Anxiety, Alcohol Abuse and Tobacco Abuse who was brought to the ER by EMS secondary to AMS and fever. Per report, pt noted to have AMS after falling asleep in hammock, unable to be roused. Per EMS, Temp 101.3. Pt unable to provide much history. Noted to have multiple weeping wounds of extremities. On arrival, BP 150/77, HR 128, O2 sat 100% on 3L NC, Temp 101.3. CBC unremarkable except for elevated neutrophil count. Lactic Acid 2.2. CPK 548. Ammonia 28. Troponin negative. LFTs mildly elevated, similar in comparison to previous labs from 02/05/17. INR 0.9. UA negative. Drug Screen negative. Alcohol 298. CXR with no acute findings. CT Head negative. CT Abd/Pelvis small amount of ascites, likely ileus. CTA Pulm negative for PE. S/p Wound/Blood Cultures, Vanc/Cefepime in ER. Patient seen on floor awake and alert with no skin lesions. No CP symptoms. ID consulted for evaluation and Mment of Grp A Strep bacteremia. Overnight events reviewed No fevers No rash No diarrhea Antibiotics Ceftriaxone IV Lines Line sites with no e.o infection Past Medical History reviewed Allergies: Coded Allergies: morphine (Unverified Allergy, Severe, Rash, 04/12/17) Objective . Vital Signs Date Time Temp Pulse Resp B/P (MAP) Pulse Ox O2 Delivery O2 Flow Rate FiO2 04/18/17 12:00 98.2 69 16 113/63 (80) 99 04/18/17 08:09 71 04/18/17 08:00 98.5 74 16 105/58 (74) 97 04/18/17 07:52 Room Air 04/18/17 04:34 Room Air 04/18/17 04:34 98.6 68 16 111/57 (75) 97 04/17/17 23:50 Room Air 04/17/17 23:50 98.8 78 16 122/59 (80) 99 04/17/17 20:25 Room Air 04/17/17 20:25 99.0 79 16 114/55 (74) 98 04/17/17 20:00 77 04/17/17 16:00 98.6 71 18 135/61 (85) 97 . Laboratory Tests Test 04/18/17 11:39 White Blood Count 5.9 TH/MM3 Red Blood Count 4.15 MIL/MM3 Hemoglobin 13.0 GM/DL Hematocrit 39.6 % Mean Corpuscular Volume 95.3 FL Mean Corpuscular Hemoglobin 31.2 PG Mean Corpuscular Hemoglobin Concent 32.8 % Red Cell Distribution Width 15.7 % Platelet Count 295 TH/MM3 Mean Platelet Volume 8.4 FL Neutrophils (%) (Auto) 52.5 % Lymphocytes (%) (Auto) 29.4 % Monocytes (%) (Auto) 16.0 % Eosinophils (%) (Auto) 1.1 % Basophils (%) (Auto) 1.0 % Neutrophils # (Auto) 3.1 TH/MM3 Lymphocytes # (Auto) 1.7 TH/MM3 Monocytes # (Auto) 0.9 TH/MM3 Eosinophils # (Auto) 0.1 TH/MM3 Basophils # (Auto) 0.1 TH/MM3 CBC Comment DIFF FINAL Differential Comment Laboratory Tests Test 04/18/17 11:39 Blood Urea Nitrogen 14 MG/DL Creatinine 0.80 MG/DL Random Glucose 104 MG/DL Calcium Level 8.3 MG/DL Sodium Level 140 MEQ/L Potassium Level 3.5 MEQ/L Chloride Level 106 MEQ/L Carbon Dioxide Level 28.4 MEQ/L Anion Gap 6 MEQ/L Estimat Glomerular Filtration Rate 105 ML/MIN Microbiology Date/Time Source Procedure Growth Status 04/15/17 20:57 Blood Peripheral Aerobic Blood Culture - Preliminary NO GROWTH IN 3 DAYS Resulted 04/15/17 20:57 Blood Peripheral Anaerobic Blood Culture - Preliminary NO GROWTH IN 3 DAYS Resulted 04/15/17 20:50 Blood Peripheral Aerobic Blood Culture - Preliminary NO GROWTH IN 3 DAYS Resulted 04/15/17 20:50 Blood Peripheral Anaerobic Blood Culture - Preliminary NO GROWTH IN 3 DAYS Resulted Imaging Last Impressions Head CT 04/12/172003 Signed Impressions: Service Date/Time: Wednesday, April 12, 2017 21:43 - CONCLUSION: 1. No acute hemorrhage, mass effect or extraaxial fluid collection. 2. Limited evaluation due to patient motion during scanning. Rik Mata MD Chest X-Ray 04/12/172003 Signed Impressions: Service Date/Time: Wednesday, April 12, 2017 20:31 - CONCLUSION: No acute disease. Rik Mata MD CT Angiography 04/12/17 0000 Signed Impressions: Service Date/Time: Wednesday, April 12, 2017 21:50 - CONCLUSION: 1. No evidence of pulmonary embolism. 2. Diffuse fatty infiltration of the liver. Rik Mata MD Abdomen/Pelvis CT 04/12/17 0000 Signed Impressions: Service Date/Time: Wednesday, April 12, 2017 21:47 - CONCLUSION: Enlarged fatty liver. Small amount of ascites. Stable bilateral renal cysts. Diffuse ileus is likely. Rik Mata MD Physical Exam GENERAL: This is a well-nourished, well-developed patient, in no apparent distress. SKIN: Bilateral skin ulcerations and scabbed lesions on UE, LE and back. HEAD: Atraumatic. Normocephalic. No temporal or scalp tenderness. EYES: Pupils equal round and reactive. Extraocular motions intact. No scleral icterus. No injection or drainage. ENT: Nose without bleeding, purulent drainage or septal hematoma. Throat without erythema, tonsillar hypertrophy or exudate. Uvula midline. Airway patent. NECK: Trachea midline.Supple, nontender, no meningeal signs. CARDIOVASCULAR: Regular rate and rhythm without murmurs, gallops, or rubs. RESPIRATORY: Clear to auscultation. Breath sounds equal bilaterally. No wheezes , rales, or rhonchi. GASTROINTESTINAL: Abdomen soft, non-tender, nondistended. No hepato-splenomegaly , or palpable masses. No guarding. MUSCULOSKELETAL: Extremities without clubbing, cyanosis, or edema. No joint tenderness, effusion, or edema noted. No calf tenderness. Negative Homans sign bilaterally. NEUROLOGICAL: Awake and alert. Grossly non focal Psych cooperative IV line sites with no e.o infection Assessment & Plan Remarks Grp A Strep bacteremia r/o endocarditis MRSA and Strep Grp A wound colonization vs infection/cellulitis. Schizophrenia Recs: DC Ceftriaxone IV Discharge home on oral levaquin for 14 days Plus Bactrim for 7 days. Follow 2D ECHO to r/o endocarditis. Follow cultures Follow clinically. Will sign off please call back if any change in clinical condition or questions. Trudy Emmanuel MD Apr 18, 2017 15:19
== END 2017-04-18 16:19 | disposition home or self-care (01) | DRG 71 ==
LOC: NEDAMB 19:53 → NEDA 22:39 → N04B 04-13 01:05
PROVIDERS: ADMIT Family Medicine; ATTEND Family Medicine
DX: G93.41 Metabolic encephalopathy (principal); R65.10 Systemic inflammatory response syndrome (SIRS) of non-infectious origin without acute organ dysfunction; R78.81 Bacteremia; K56.7 Ileus, unspecified; F20.9 Schizophrenia, unspecified; L98.9 Disorder of the skin and subcutaneous tissue, unspecified; B95.62 Methicillin resistant Staphylococcus aureus infection as the cause of diseases classified elsewhere; B95.1 Streptococcus, group B, as the cause of diseases classified elsewhere; F10.129 Alcohol abuse with intoxication, unspecified; Y90.8 Blood alcohol level of 240 mg/100 ml or more; F17.210 Nicotine dependence, cigarettes, uncomplicated; B18.2 Chronic viral hepatitis C; R42 Dizziness and giddiness; F41.9 Anxiety disorder, unspecified
CPT/HCPCS: 36600; 51702; 70450; 71010; 71275; 74177; 80048; 80053; 80074; 80202; 80307; 81001; 82140; 82550; 82552; 82565; 82805; 82948; 83605; 83690; 83735; 84443; 84484; 85025; 85027; 85610; 85730; 86140; 86403; 87040; 87070; 87147; 87186; 87205; 87389; 93005; 93306; 96361; 96365; 96368; 96375; J0610; J0692; J0696; J1650; J2310; J3370; J3411; J3475; J7030; J7050; Q9967

== ENCOUNTER 2017-05-29 17:29 | Inpatient (IN) | payer OTHER ==
[~2017-05-29] VITALS: Ht 177.8 cm; Wt 64.0 kg
[~2017-05-29 17:29] MED LIST changes: +FOLI800T PO; +LEVA750T9 PO; +MECL1TAB42 PO; +PHENYLEPH/NS 1000 MCG/10 ML SYR IV ONE; +PHENYLEPHRINE HCL 10 MG/ML VIAL IV ONE; +ROCURONIUM INJ 50 MG/5 ML SYRINGE IV PUSH ONE; +THIA100 PO; +WALKER WHEELS/F1 MIS; +ePHEDrine/NS 25 MG/5 ML SYR IV ONE
[2017-05-29] MEDS ORDERED: SODIUM CHLOR 0.9% 1000 ML INJ 1,000 ML IV SCH (17:36)
[2017-05-29] MEDS ORDERED: DIPHTH/TETANUS/ACEL PERTUSSIS (BOOSTER) 0.5 ML VIAL/PFS IM ONE (17:45)
[2017-05-29] MEDS ORDERED: SODIUM CHLORIDE 0.9% FLUSH 10 ML FLUSH IVF PRN ×2 (17:45→18:45)
--- NOTE | 2017-05-29 17:58 | RADRPT ---
EXAM DATE/TIME: 05/29/2017 17:51 [facility] COMPARISON: CHEST SINGLE AP, April 12, 2017, 20:31. INDICATIONS : Evaluate lung status. Trauma 2. Patient fell. MEDICAL HISTORY : Unobtainable. SURGICAL HISTORY : Unobtainable. ENCOUNTER: Initial ACUITY: 1 day PAIN SCORE: Non-responsive. LOCATION: Bilateral chest FINDINGS: A single view of the chest demonstrates the lungs to be symmetrically aerated without evidence of mas s, infiltrate or effusion. The cardiomediastinal contours are unremarkable. Osseous structures are intact. CONCLUSION: No acute disease. Charlie Edmond Jr., MD on May 29, 2017 at 17:54 Board Certified Radiologist. This report was verified electronically.
[2017-05-29] MEDS ORDERED: LORazepam 2 MG/ML VIAL IV PUSH ONE ×2 (18:00→23:30)
[2017-05-29 18:02] LABS: AUTOMATED NEUTROPHIL # 3.7 TH/MM3 (1.8-7.7); BASOPHIL # 0.1 TH/MM3 (0-0.2); BASOPHIL % 0.8 % (0.0-2.0); EOSINOPHIL # 0.1 TH/MM3 (0-0.4); HEMATOCRIT 36.6 % (39.0-51.0); HEMO FLAGS DIFF FINAL; LYMPH % 51.8 % (9.0-44.0); LYMPHOCYTE # 4.9 TH/MM3 (1.0-4.8); MEAN CELL VOLUME 94.7 FL (80.0-100.0); MEAN CORPUSCULAR HEMOGLOBIN 31.8 PG (27.0-34.0); MEAN CORPUSCULAR HGB CONC 33.6 % (32.0-36.0); MONO % 7.4 % (0.0-8.0); PLATELET COUNT 242 TH/MM3 (150-450); RED BLOOD COUNT 3.86 MIL/MM3 (4.50-5.90); RED CELL DISTRIBUTION WIDTH 15.7 % (11.6-17.2); WHITE BLOOD COUNT 9.4 TH/MM3 (4.0-11.0)
[2017-05-29] MEDS ORDERED: MANNITOL INJ 50 ML ONE (18:04)
[2017-05-29 18:10] LABS: I-STAT POTASSIUM 3.5 MMOL/L (3.5-4.9)
--- NOTE | 2017-05-29 18:10 | RADRPT ---
EXAM DATE/TIME: 05/29/2017 17:48 [facility] COMPARISON: CT BRAIN W/O CONTRAST, April 12, 2017, 21:43. INDICATIONS : Trauma Alert-Head pain due to fall. RADIATION DOSE: 56.35 CTDIvol (mGy) MEDICAL HISTORY : Non-responsive. SURGICAL HISTORY : Non-responsive. ENCOUNTER: Initial ACUITY: 1 day PAIN SCALE: Non-responsive LOCATION: Bilateral cranial TECHNIQUE: Multiple contiguous axial images were obtained of the head. Using automated exposure control and adj ustment of the mA and/or kV according to patient size, radiation dose was kept as low as reasonably a chievable to obtain optimal diagnostic quality images. DICOM format image data is available electro nically for review and comparison. FINDINGS: Examination is abnormal. Large 2.7 cm left epidural hematoma with approximately 7 mm left to right balderas bfalcine herniation. There are also counter coup subarachnoid blood products in the parietotemporal m id to high convexities. Basilar cisterns are intact at this time. No intraventricular blood products. Brain stem and cerebellum are intact. Calvarium appears intact without definite acute fracture. Mucu s retention cyst in the left maxillary sinus. No paranasal sinus fluid. Mastoid air cells are clear. CONCLUSION: 1. Large left epidural hematoma measuring up to 2.7 cm in axial dimension was approximately 7 mm left -to-right subfalcine herniation. 2. Countercoup subarachnoid blood products in the parietotemporal mid to high convexities. Findings were personally discussed with Dr. Frank Abarca MD on May 29, 2017 at 18:03 Board Certified Radiologist. This report was verified electronically.
[2017-05-29 18:11] LABS: APTT (PATIENT) 23.9 SEC (24.3-30.1); INTERNATIONAL NORMALIZED RATIO 0.9 RATIO; PROTHROMBIN TIME - PATIENT 10.3 SEC (9.8-11.6)
[2017-05-29] MEDS ORDERED: PROPOFOL 1000 MG/100 ML INJ 100 ML ONE (18:14)
--- NOTE | 2017-05-29 18:19 | PD.OP ---
Operative Report Date of Surgery: May 29, 2017 Preoperative Diagnosis: (1) TBI (traumatic brain injury) (2) Traumatic epidural hematoma 1. Traumatic brain injury 2. Acute left temporal parietal epidural hematoma Postoperative Diagnosis: (1) TBI (traumatic brain injury) (2) Traumatic epidural hematoma 1. Traumatic brain injury 2. Acute left temporal parietal epidural hematoma Procedure: 1. Left temporoparietal craniotomy, evacuation of acute epidural hematoma. 2. Left frontal twist drill for ICP monitor placement Anesthesia: General Surgeon: Jose Roberto Og Test Developer(s): Lily Overton Operation and Findings: Findings: Large acute left temporoparietal epidural hematoma. Nondisplaced left temporal bone fracture with laceration of the middle meningeal artery. The patient was brought into the operating room and general endotracheal anesthesia induced without difficulty. The Jose catheter, and sequential compression devices were in place. The lines were established per anesthesia. The patient was placed in semilateral position on the 3080 table with the head on the horseshoe headrest. All extremities were appropriately padded Appropriate timeout procedure was performed with all personnel present and in agreement The left side of the head was shaved with the clippers and sterilely prepped and draped 1% Xylocaine was used for local infiltration over the incision site which was made over the left temporoparietal area in a curvilinear fashion and carried sharply down to the cranium through the temporalis muscle and fascia. The scalp and temporalis muscle flap were elevated in a single layer with the periosteal elevator and retracted r over a laparotomy sponge with the large scalp hooks. The compacting machine operator/tender was used to place a single bur hole in the posterior left posterior temporal region and the craniotome was used since to incise the bone flap. The large acute epidural hematoma was evacuated with gentle suction and irrigation. The bipolar forceps were used to control any bleeding at the operative site. The hematoma had dissected far down into the base of the skull, adjacent to the falx and mid to lateral left temporal bone. Any bone bleeding was controlled with application of bone wax. The brain was soft and pulsatile at the time of closure. A 7 mm flat fluted drain was left in place in the epidural space The drain was brought through a small incision at the left posterior temporal region and secured to the skin with nylon suture and attached to sterile suction. The closure was performed with 2-0 Vicryl for the temporalis muscle fascia and galeal closure and blanca for the skin closure. A small incision was made at the left posterior frontal region approximately 10 cm above the supraorbital rim in the mid pupillary line and carried sharply down to the cranium. The hand drill was used to place a single twist drill opening and the ICP bolt was secured to the cranium. The dura was opened with a 18-gauge spinal needle. The ICP monitor leads was zeroed and placed intracranially and secured to the bolt. Initial ICP was 0-1. A dressing of sterile Telfa, 4 x 4's, and a loose head stockinette was applied. The patient was taken to recovery room in stable condition All counts were correct at the end of the case. Estimated blood loss was 500 cc No specimen was sent to pathology Jose Roberto Og MD May 29, 2017 18:19
--- NOTE | 2017-05-29 18:25 | RADRPT ---
EXAM DATE/TIME: 05/29/2017 17:49 [facility] COMPARISON: CT CERVICAL SPINE W/O CONTRAST, March 17, 2016, 13:59. INDICATIONS : Trauma Alert- neck pain due to fall. RADIATION DOSE: 38.03 CTDIvol (mGy) MEDICAL HISTORY : Non-responsive. SURGICAL HISTORY : Non-responsive. ENCOUNTER: Initial ACUITY: 1 day PAIN SCALE: Non-responsive LOCATION: Bilateral neck region. TECHNIQUE: Volumetric scanning of the cervical spine was performed. Multiplanar reconstructions in the sagittal, coronal and oblique axial planes were performed. Using automated exposure control and adjustment o f the mA and/or kV according to patient size, radiation dose was kept as low as reasonably achievable to obtain optimal diagnostic quality images. DICOM format image data is available electronically f or review and comparison. FINDINGS: VERTEBRAE: Normal vertebral body height. ALIGNMENT: There is a minimal retrolisthesis of C4 on C5. This is unchanged. Alignment is otherwise preserved. C2-C3: The bony spinal canal is normal in size. No evidence of disc bulge or herniation. The neural forami na are bilaterally patent. C3-C4: There is a small central bulge that abuts the ventral portion of the cord. Prominent bony uncovertebr al hypertrophy generating mild bilateral lateral recess and neural foraminal narrowing. C4-C5: There is a broad-based disc osteophyte complex without abutment of the cord. This narrows the lateral recesses bilaterally. Bony uncovertebral hypertrophy generates moderate bilateral neural foraminal n arrowing. C5-C6: A mild broad-based disc bulge. No central canal stenosis. Neural foramina are patent bilaterally. C6-C7: The bony spinal canal is normal in size. No evidence of disc bulge or herniation. The neural forami na are bilaterally patent. C7-T1: The bony spinal canal is normal in size. No evidence of disc bulge or herniation. The neural forami na are bilaterally patent. CONCLUSION: 1. No fracture or dislocation. 2. Degenerative changes as detailed above. Charlie Edmond Jr., MD on May 29, 2017 at 18:20 Board Certified Radiologist. This report was verified electronically.
[2017-05-29] MEDS ORDERED: THROMBIN (TOPICAL) 5,000 UNIT VIAL ONE (18:29)
[2017-05-29] MEDS ORDERED: GELFOAM SIZE 100 ONE (18:30)
[2017-05-29] MEDS ORDERED: LIDOCAINE 1%/EPINEPHrine 1:100,000 SOLN 50 ML VIAL ONE (18:30)
[2017-05-29] MEDS ORDERED: GENTAMICIN SULFATE 80 MG/2 ML VIAL ONE (18:30)
[2017-05-29] MEDS ORDERED: SODIUM CHLOR 0.9% 1000 ML INJ 1,000 ML IV ONE (18:37)
[2017-05-29] MEDS ORDERED: ETOMIDATE 20 MG/10 ML VIAL IVP ONE (18:45)
[2017-05-29] MEDS ORDERED: PROPOFOL 1000 MG/100 ML INJ 100 ML IV PRN ×2 (18:45→23:00)
[2017-05-29] MEDS ORDERED: SUCCINYLCHOLINE CHLORIDE 200 MG/10 ML VIAL IV PUSH ONE (18:45)
[2017-05-29] MEDS ORDERED: MAGNESIUM HYDROXIDE SUSP 30 ML CUP PO PRN (19:15)
[2017-05-29] MEDS ORDERED: ONDANSETRON HCL 4 MG/2 ML VIAL IV PUSH PRN (19:15)
[2017-05-29] MEDS ORDERED: MISCELLANEOUS NURSING INFORMATION XX SCH (19:15)
[2017-05-29] MEDS ORDERED: ENALAPRILAT 1.25 MG/ML VIAL IV PUSH PRN (19:15)
[2017-05-29] MEDS ORDERED: CHLORHEXIDINE GLUCONATE 2 % 1 PACK (2 CLOTHS) TOP PRN (19:15)
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
[2017-05-29] MEDS ORDERED: ceFAZolin 2 GM PREMIX 50 ML IV ONE (19:54)
[2017-05-29] MEDS: PANTOPRAZOLE SODIUM 40 MG VIAL IVP SCH (20:00)
[2017-05-29] MEDS: DOCUSATE SODIUM 100 MG CAP PO SCH (21:00)
[2017-05-29] MEDS: MULTIVITAMIN INJ 10 ML, THIAMINE INJ 100 MG, FOLIC ACID INJ 1 MG in SODIUM CHLORID 0.9%... IV SCH (21:15)
[2017-05-29 21:55] VITALS: O2SAT 100
[2017-05-29 22:00] VITALS: BP 106/61; PULSE 131; RESP 20; TEMP 97.4; O2SAT 100
[2017-05-29] MEDS ORDERED: PHENYLEPHRINE HCL 10 MG/ML VIAL ONE (22:02)
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
[2017-05-29] MEDS: SODIUM CHLOR 0.9% 1000 ML INJ 1,000 ML IV SCH (22:53)
[2017-05-29] MEDS: PROPOFOL 1000 MG/100 ML INJ 100 ML IV PRN (22:55)
[2017-05-29] MEDS: fentaNYL DRIP 250 ML IV PRN (22:56)
[2017-05-29] MEDS ORDERED: TERBUTALINE INJ 1 MG/ML AMP SQ PRN (23:00)
[2017-05-29] MEDS ORDERED: PHENYLEPHRINE INJ 40 MG in DEXTROSE 5% IN WATE 500 ML INJ 496 ML IV PRN ×2 (23:00)
[2017-05-29 23:22] LABS: BLOOD GAS BASE EXCESS -3.5 mmol/L (-2-2); BLOOD GAS CARBOXYHEMOGLOBIN 2.5 % (0-4); BLOOD GAS HCO3 21 mmol/L (22-26); BLOOD GAS METHEMOGLOBIN 1.3 % (0-2); BLOOD GAS O2 HGB SATURATION 95 % (90-100); BLOOD GAS OXYGEN CONTENT 14.8 Vol % (12.0-20.0); BLOOD GAS PCO2 41 mmHg (38-42); BLOOD GAS PO2 157 mmHg (61-120); BLOOD GAS TOTAL HGB 10.8 G/DL (12.0-16.0); CRITICAL VALUE NO; OXYGEN DEVICE VENTILATOR; TEMP CORR TO 98.6
[2017-05-29 23:23] LABS: DRAW SITE ALINE; FIO2 40 %; STAT NO
[2017-05-29] MEDS ORDERED: RESP: ALBUTEROL 2.5 MG/3 ML NEB (PRN) NEB (23:45)
[2017-05-30] VITALS (17 sets, daily range): BP systolic 111–129; BP diastolic 53–56; PULSE 68–95; RESP 20; TEMP 99–100.1; O2SAT 99–100
[2017-05-30] MEDS ORDERED: MAGNESIUM SULFATE INJ 4 GM in SODIUM CHLORIDE 0.9% INJ 92 ML IV PRN ×2
[2017-05-30] MEDS ORDERED: POTASSIUM PHOSPHATE MONOBASIC 500 MG TAB PO/TUBE PRN
[2017-05-30] MEDS ORDERED: MAGNESIUM SULFATE INJ 2 GM in SODIUM CHLORIDE 0.9% INJ 96 ML IV PRN ×2
[2017-05-30] MEDS ORDERED: SODIUM PHOSPHATE INJ 30 MMOL in SODIUM CHLOR 0.9% 250 ML INJ 240 ML IV PRN ×2
[2017-05-30] MEDS ORDERED: POTASSIUM PHOSPHATE MONOBASIC 500 MG TAB PO PRN
[2017-05-30] MEDS ORDERED: POTASSIUM CHLOR 40 MEQ PREMIX 100 ML IV PRN ×2
[2017-05-30] MEDS ORDERED: MAGNESIUM OXIDE 400 MG TAB PO PRN
[2017-05-30] MEDS ORDERED: POTASSIUM PHOSPHATE INJ 30 MMOL in SODIUM CHLOR 0.9% 250 ML INJ 250 ML IV PRN ×2
[2017-05-30] MEDS ORDERED: POTASSIUM CHLOR 20 MEQ PREMIX 100 ML IV PRN ×2
--- NOTE | 2017-05-30 00:11 | RADRPT ---
EXAM DATE/TIME: 05/29/2017 23:51 [facility] COMPARISON: CHEST SINGLE AP, May 29, 2017, 17:51. INDICATIONS : Respiratory failure. MEDICAL HISTORY : None. SURGICAL HISTORY : None. ENCOUNTER: Subsequent ACUITY: 1 day PAIN SCORE: Non-responsive. LOCATION: Bilateral chest FINDINGS: The cardiac silhouette is normal in transverse diameter. The lungs are free of acute parenchymal opac ity. No effusions are identified. Endotracheal tube is in good position above the will. A nasogastr ic tube is in place with its tip in the stomach. CONCLUSION: 1. Satisfactory position of endotracheal tube as above. Mauro Dorado MD on May 30, 2017 at 0:09 Board Certified Radiologist. This report was verified electronically.
[2017-05-30] MEDS: levETIRAcetam INJ 500 MG in SODIUM CHLORIDE 0.9% INJ 100 ML IV SCH ×3 (00:48→20:07)
[2017-05-30 01:35] LABS: HEMATOCRIT 32.2 % (39.0-51.0); MEAN CELL VOLUME 93.3 FL (80.0-100.0); MEAN CORPUSCULAR HEMOGLOBIN 31.6 PG (27.0-34.0); MEAN CORPUSCULAR HGB CONC 33.9 % (32.0-36.0); PLATELET COUNT 217 TH/MM3 (150-450); RED BLOOD COUNT 3.45 MIL/MM3 (4.50-5.90); RED CELL DISTRIBUTION WIDTH 15.9 % (11.6-17.2); REVIEW FLAG FINAL; WHITE BLOOD COUNT 10.4 TH/MM3 (4.0-11.0)
[2017-05-30 01:48] LABS: MAGNESIUM 1.7 MG/DL (1.5-2.5)
[2017-05-30] MEDS: PROPOFOL 1000 MG/100 ML INJ 100 ML IV PRN ×4 (01:52→13:33)
[2017-05-30] MEDS: MULTIVITAMIN INJ 10 ML, THIAMINE INJ 100 MG, FOLIC ACID INJ 1 MG in SODIUM CHLORID 0.9%... IV SCH (01:53)
[2017-05-30] MEDS ORDERED: MULTIVITAMIN INJ 10 ML, THIAMINE INJ 100 MG, FOLIC ACID INJ 1 MG in SODIUM CHLORID 0.9%... IV SCH (02:00)
[2017-05-30] MEDS: CHLORHEXIDINE GLUCONATE 2 % 1 PACK (2 CLOTHS) TOP SCH (02:09)
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
[2017-05-30] MEDS: RESP: ALBUTEROL 2.5 MG/IPRATROPIUM 0.5 MG NEB (SCH) NEB ×4 (03:57→20:00)
[2017-05-30] MEDS: SODIUM CHLOR 0.9% 1000 ML INJ 1,000 ML IV SCH ×4 (04:10→20:07)
[2017-05-30 06:02] LABS: AUTOMATED NEUTROPHIL # 6.7 TH/MM3 (1.8-7.7); BASOPHIL # 0.1 TH/MM3 (0-0.2); BASOPHIL % 0.8 % (0.0-2.0); EOSINOPHIL % 0.5 % (0.0-4.0); HEMATOCRIT 29.8 % (39.0-51.0); HEMO FLAGS DIFF FINAL; LYMPHOCYTE # 1.3 TH/MM3 (1.0-4.8); MEAN CORPUSCULAR HEMOGLOBIN 31.8 PG (27.0-34.0); MEAN CORPUSCULAR HGB CONC 33.8 % (32.0-36.0); MONO % 7.7 % (0.0-8.0); PLATELET COUNT 180 TH/MM3 (150-450); RED BLOOD COUNT 3.17 MIL/MM3 (4.50-5.90); RED CELL DISTRIBUTION WIDTH 15.8 % (11.6-17.2); WHITE BLOOD COUNT 8.8 TH/MM3 (4.0-11.0)
[2017-05-30 06:39] LABS: BICARBONATE 24.8 MEQ/L (21.0-32.0); POTASSIUM 3.4 MEQ/L (3.5-5.1); TOTAL BILIRUBIN ADULT 0.5 MG/DL (0.2-1.0)
[2017-05-30 06:42] LABS: CALCIUM-PROTEIN CORRECTED 7.1 MG/DL (8.5-10.1)
[2017-05-30] MEDS ORDERED: PHENYLEPHRINE HCL 10 MG/ML VIAL ONE (06:59)
[2017-05-30] MEDS: CHLORHEXIDINE 0.12% (ORAL KIT) 15 ML CUP MT SCH ×2 (08:00→20:00)
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
[2017-05-30] MEDS: PHENYLEPHRINE INJ 40 MG in SODIUM CHLORID 0.9% 500 ML INJ 496 ML IV PRN ×2 (08:30→13:33)
[2017-05-30] MEDS: DOCUSATE SODIUM 100 MG CAP PO SCH ×2 (09:00→20:08)
[2017-05-30] MEDS ORDERED: CISATRACURIUM BESYLATE 20 MG/10 ML VIAL IV PUSH ONE (10:15)
[2017-05-30] MEDS ORDERED: IOHEXOL 350 MG/ML 10 ML VIAL (for RAD DIAG) IVCONTRAST ONE (10:38)
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
[2017-05-30] MEDS: VALPROIC ACID SYRUP 250 MG/5 ML UDC PO SCH ×2 (12:01→20:08)
[2017-05-30] MEDS: MIDAZOLAM 100 MG/100 ML INJ 100 ML IV PRN (13:51)
[2017-05-30] MEDS ORDERED: ALBUMIN 5% INJ 500 ML IV ONE (14:00)
[2017-05-30] MEDS: POTASSIUM CHLORIDE 25 MEQ EFFERVESCENT TAB PO PRN (16:44)
[2017-05-30] MEDS: PANTOPRAZOLE SODIUM 40 MG VIAL IVP SCH (20:07)
[2017-05-30] MEDS: MUPIROCIN 2% OINT 1 APPLIC/GM SYR NASAL SCH (20:08)
[2017-05-31] VITALS (18 sets, daily range): BP systolic 125–149; BP diastolic 51–65; PULSE 75–104; RESP 20–23; TEMP 99–101.7; O2SAT 97–100
[2017-05-31] MEDS: PROPOFOL 1000 MG/100 ML INJ 100 ML IV PRN (00:15)
[2017-05-31] MEDS: CHLORHEXIDINE GLUCONATE 2 % 1 PACK (2 CLOTHS) TOP SCH (01:29)
[2017-05-31] MEDS: MULTIVITAMIN INJ 10 ML, THIAMINE INJ 100 MG in SODIUM CHLORID 0.9% 500 ML INJ 500 ML IV SCH (02:08)
[2017-05-31] MEDS: MIDAZOLAM 100 MG/100 ML INJ 100 ML IV PRN ×4 (02:09→23:50)
[2017-05-31 02:32] LABS: BLOOD GAS BASE EXCESS -1.5 mmol/L (-2-2); BLOOD GAS CARBOXYHEMOGLOBIN 1.8 % (0-4); BLOOD GAS HCO3 23 mmol/L (22-26); BLOOD GAS METHEMOGLOBIN 1.3 % (0-2); BLOOD GAS O2 HGB SATURATION 93 % (90-100); BLOOD GAS OXYGEN CONTENT 11.7 Vol % (12.0-20.0); BLOOD GAS PCO2 41 mmHg (38-42); BLOOD GAS PO2 84 mmHg (61-120); BLOOD GAS TOTAL HGB 8.8 G/DL (12.0-16.0); CRITICAL VALUE NO; OXYGEN DEVICE VENTILATOR; TEMP CORR TO 98.6
[2017-05-31 02:33] LABS: DRAW SITE ART LINE; FIO2 30 %; STAT NO; VENT SETTINGS COMMENTS
[2017-05-31] MEDS: RESP: ALBUTEROL 2.5 MG/IPRATROPIUM 0.5 MG NEB (SCH) NEB ×4 (02:39→21:34)
[2017-05-31] MEDS: SODIUM CHLOR 0.9% 1000 ML INJ 1,000 ML IV SCH ×2 (02:50→14:45)
[2017-05-31] MEDS: fentaNYL DRIP 250 ML IV PRN ×2 (03:37→18:44)
[2017-05-31] MEDS: ACETAMINOPHEN 650 MG/20.3 ML UDC PO PRN ×2 (03:56→12:16)
[2017-05-31] MEDS: PHENYLEPHRINE INJ 40 MG in SODIUM CHLORID 0.9% 500 ML INJ 496 ML IV PRN ×4 (04:00→23:03)
[2017-05-31] MEDS: HALOPERIDOL LACTATE 5 MG/ML AMP IV PRN (04:00)
[2017-05-31] MEDS ORDERED: EPINEPHrine HCL (1:10,000) 1 MG/10 ML SYRINGE ONE (04:06)
[2017-05-31] MEDS ORDERED: ATROPINE SULFATE 1 MG/10 ML SYRINGE ONE (04:06)
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
[2017-05-31 05:39] LABS: AUTOMATED NEUTROPHIL # 4.5 TH/MM3 (1.8-7.7); BASOPHIL % 0.7 % (0.0-2.0); EOSINOPHIL # 0.1 TH/MM3 (0-0.4); EOSINOPHIL % 1.4 % (0.0-4.0); HEMATOCRIT 25.3 % (39.0-51.0); HEMO FLAGS DIFF FINAL; LYMPH % 14.4 % (9.0-44.0); LYMPHOCYTE # 0.9 TH/MM3 (1.0-4.8); MEAN CORPUSCULAR HEMOGLOBIN 32.3 PG (27.0-34.0); MONO % 7.4 % (0.0-8.0); NEUT % 76.1 % (16.0-70.0); PLATELET COUNT 129 TH/MM3 (150-450); RED BLOOD COUNT 2.66 MIL/MM3 (4.50-5.90); RED CELL DISTRIBUTION WIDTH 15.6 % (11.6-17.2); WHITE BLOOD COUNT 5.9 TH/MM3 (4.0-11.0)
[2017-05-31 07:04] LABS: BICARBONATE 23.3 MEQ/L (21.0-32.0); CALCIUM-PROTEIN CORRECTED 7.5 MG/DL (8.5-10.1); MAGNESIUM 1.7 MG/DL (1.5-2.5); POTASSIUM 3.2 MEQ/L (3.5-5.1); TOTAL BILIRUBIN ADULT 0.5 MG/DL (0.2-1.0)
[2017-05-31] MEDS: levETIRAcetam INJ 500 MG in SODIUM CHLORIDE 0.9% INJ 100 ML IV SCH ×2 (07:48→20:12)
[2017-05-31] MEDS: FOLIC ACID 1 MG TAB PO SCH (07:49)
[2017-05-31] MEDS: VALPROIC ACID SYRUP 250 MG/5 ML UDC PO SCH ×4 (07:49→20:12)
[2017-05-31] MEDS: DOCUSATE SODIUM 100 MG CAP PO SCH ×2 (07:49→20:12)
[2017-05-31] MEDS: CHLORHEXIDINE 0.12% (ORAL KIT) 15 ML CUP MT SCH ×2 (07:50→20:12)
[2017-05-31] MEDS: MUPIROCIN 2% OINT 1 APPLIC/GM SYR NASAL SCH ×2 (07:50→20:12)
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
[2017-05-31] MEDS: ACETAMINOPHEN 1000 MG/100 ML 100 ML IV SCH ×2 (12:58→23:41)
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
[2017-05-31] MEDS: MAGNESIUM HYDROXIDE SUSP 30 ML CUP PO SCH ×2 (17:30→23:40)
[2017-05-31] MEDS: PANTOPRAZOLE SODIUM 40 MG VIAL IVP SCH (20:12)
[2017-06-01] VITALS (20 sets, daily range): BP systolic 125–152; BP diastolic 57–78; PULSE 73–150; RESP 15–25; TEMP 99.2–101.3; O2SAT 93–100
[2017-06-01] MEDS: MULTIVITAMIN INJ 10 ML, THIAMINE INJ 100 MG in SODIUM CHLORID 0.9% 500 ML INJ 500 ML IV SCH (00:18)
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
[2017-06-01] MEDS: RESP: ALBUTEROL 2.5 MG/IPRATROPIUM 0.5 MG NEB (SCH) NEB ×4 (03:40→20:27)
[2017-06-01] MEDS: CHLORHEXIDINE GLUCONATE 2 % 1 PACK (2 CLOTHS) TOP SCH (04:00)
[2017-06-01] MEDS: MAGNESIUM HYDROXIDE SUSP 30 ML CUP PO SCH ×3 (04:42→18:42)
[2017-06-01] MEDS: SODIUM CHLOR 0.9% 1000 ML INJ 1,000 ML IV SCH (04:42)
[2017-06-01] MEDS: PHENYLEPHRINE INJ 40 MG in SODIUM CHLORID 0.9% 500 ML INJ 496 ML IV PRN ×3 (05:08→22:06)
[2017-06-01 05:41] LABS: AUTOMATED NEUTROPHIL # 3.8 TH/MM3 (1.8-7.7); BASOPHIL % 0.6 % (0.0-2.0); EOSINOPHIL # 0.1 TH/MM3 (0-0.4); EOSINOPHIL % 1.4 % (0.0-4.0); HEMATOCRIT 28.4 % (39.0-51.0); HEMO FLAGS DIFF FINAL; LYMPH % 16.3 % (9.0-44.0); LYMPHOCYTE # 0.8 TH/MM3 (1.0-4.8); MEAN CELL VOLUME 95.6 FL (80.0-100.0); MEAN CORPUSCULAR HEMOGLOBIN 31.8 PG (27.0-34.0); MEAN CORPUSCULAR HGB CONC 33.3 % (32.0-36.0); NEUT % 72.7 % (16.0-70.0); PLATELET COUNT 151 TH/MM3 (150-450); RED BLOOD COUNT 2.97 MIL/MM3 (4.50-5.90); RED CELL DISTRIBUTION WIDTH 15.4 % (11.6-17.2); WHITE BLOOD COUNT 5.2 TH/MM3 (4.0-11.0)
[2017-06-01 05:46] LABS: BLOOD GAS BASE EXCESS -2.6 mmol/L (-2-2); BLOOD GAS CARBOXYHEMOGLOBIN 1.8 % (0-4); BLOOD GAS HCO3 22 mmol/L (22-26); BLOOD GAS O2 HGB SATURATION 92 % (90-100); BLOOD GAS OXYGEN CONTENT 11.9 Vol % (12.0-20.0); BLOOD GAS PCO2 41 mmHg (38-42); BLOOD GAS PO2 76 mmHg (61-120); BLOOD GAS TOTAL HGB 9.1 G/DL (12.0-16.0); CRITICAL VALUE NO; DRAW SITE ART LINE; FIO2 40 %; OXYGEN DEVICE VENT; STAT NO; TEMP CORR TO 98.6; ULNAR PULSE PRESENT; VENT SETTINGS SEE COMMENTS
[2017-06-01 06:02] LABS: BICARBONATE 21.8 MEQ/L (21.0-32.0); POTASSIUM 3.6 MEQ/L (3.5-5.1)
[2017-06-01 06:29] LABS: CALCIUM-PROTEIN CORRECTED 7.8 MG/DL (8.5-10.1)
[2017-06-01] MEDS: CHLORHEXIDINE 0.12% (ORAL KIT) 15 ML CUP MT SCH ×2 (08:00→19:44)
[2017-06-01] MEDS: DOCUSATE SODIUM 100 MG CAP PO SCH ×2 (09:00→19:44)
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
[2017-06-01] MEDS: levETIRAcetam INJ 500 MG in SODIUM CHLORIDE 0.9% INJ 100 ML IV SCH ×2 (09:37→19:44)
[2017-06-01] MEDS: MIDAZOLAM 100 MG/100 ML INJ 100 ML IV PRN (09:38)
[2017-06-01] MEDS: FOLIC ACID 1 MG TAB PO SCH (09:38)
[2017-06-01] MEDS: LACTULOSE SYRUP 20 GM/30 ML CUP PO SCH (09:38)
[2017-06-01] MEDS: MUPIROCIN 2% OINT 1 APPLIC/GM SYR NASAL SCH ×2 (09:38→19:44)
[2017-06-01] MEDS: VALPROIC ACID SYRUP 250 MG/5 ML UDC PO SCH ×4 (09:38→19:44)
[2017-06-01] MEDS: SODIUM CHLORIDE IV SCH (10:36)
[2017-06-01] MEDS: SODIUM CHLOR 0.9% IV SCH (10:36)
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
[2017-06-01] MEDS: chlordiazePOXIDE 25 MG CAP PO SCH ×2 (12:29→18:43)
[2017-06-01] MEDS: ACETAMINOPHEN 1000 MG/100 ML 100 ML IV SCH (12:29)
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
[2017-06-01] MEDS: PANTOPRAZOLE SODIUM 40 MG VIAL IVP SCH (19:43)
[2017-06-01] MEDS: HALOPERIDOL LACTATE 5 MG/ML AMP IV PRN (20:05)
[2017-06-01] MEDS ORDERED: LORazepam 2 MG/ML VIAL IV ONE (21:00)
[2017-06-02] VITALS (18 sets, daily range): BP systolic 104–113; BP diastolic 60–84; PULSE 62–112; RESP 15; TEMP 98.2–99.2; O2SAT 100
[2017-06-02] MEDS: MIDAZOLAM 100 MG/100 ML INJ 100 ML IV PRN (00:09)
[2017-06-02] MEDS: fentaNYL DRIP 250 ML IV PRN ×2 (00:09→15:35)
[2017-06-02] MEDS: ACETAMINOPHEN 1000 MG/100 ML 100 ML IV SCH ×2 (00:10→12:27)
[2017-06-02] MEDS: MAGNESIUM HYDROXIDE SUSP 30 ML CUP PO SCH ×4 (00:10→15:45)
[2017-06-02] MEDS: RESP: ALBUTEROL 2.5 MG/IPRATROPIUM 0.5 MG NEB (SCH) NEB ×4 (03:17→19:56)
[2017-06-02] MEDS: CHLORHEXIDINE GLUCONATE 2 % 1 PACK (2 CLOTHS) TOP SCH (04:00)
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
[2017-06-02 04:59] LABS: AUTOMATED NEUTROPHIL # 2.6 TH/MM3 (1.8-7.7); BASOPHIL % 1.1 % (0.0-2.0); EOSINOPHIL # 0.1 TH/MM3 (0-0.4); EOSINOPHIL % 2.6 % (0.0-4.0); HEMATOCRIT 28.2 % (39.0-51.0); HEMO FLAGS DIFF FINAL; LYMPH % 14.9 % (9.0-44.0); LYMPHOCYTE # 0.6 TH/MM3 (1.0-4.8); MEAN CORPUSCULAR HEMOGLOBIN 31.8 PG (27.0-34.0); MEAN CORPUSCULAR HGB CONC 32.8 % (32.0-36.0); MONO % 16.8 % (0.0-8.0); NEUT % 64.6 % (16.0-70.0); PLATELET COUNT 169 TH/MM3 (150-450); RED BLOOD COUNT 2.91 MIL/MM3 (4.50-5.90); RED CELL DISTRIBUTION WIDTH 15.5 % (11.6-17.2); WHITE BLOOD COUNT 4.1 TH/MM3 (4.0-11.0)
[2017-06-02 05:24] LABS: BICARBONATE 24.1 MEQ/L (21.0-32.0); POTASSIUM 3.4 MEQ/L (3.5-5.1)
[2017-06-02] MEDS: CHLORHEXIDINE 0.12% (ORAL KIT) 15 ML CUP MT SCH ×2 (07:53→20:37)
[2017-06-02] MEDS: MUPIROCIN 2% OINT 1 APPLIC/GM SYR NASAL SCH ×2 (08:11→20:37)
[2017-06-02] MEDS: POTASSIUM CHLORIDE 25 MEQ EFFERVESCENT TAB PO PRN (08:11)
[2017-06-02] MEDS: VALPROIC ACID SYRUP 250 MG/5 ML UDC PO SCH ×4 (08:11→20:37)
[2017-06-02] MEDS: LACTULOSE SYRUP 20 GM/30 ML CUP PO SCH (08:11)
[2017-06-02] MEDS: levETIRAcetam INJ 500 MG in SODIUM CHLORIDE 0.9% INJ 100 ML IV SCH ×2 (08:11→20:37)
[2017-06-02] MEDS: DOCUSATE SODIUM 100 MG CAP PO SCH ×2 (08:12→20:37)
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
[2017-06-02] MEDS ORDERED: BISACODYL 10 MG SUPP RECTAL ONE (08:45)
[2017-06-02] MEDS: PHENYLEPHRINE INJ 40 MG in SODIUM CHLORID 0.9% 500 ML INJ 496 ML IV PRN (09:36)
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
[2017-06-02] MEDS: chlordiazePOXIDE 25 MG CAP PO SCH ×2 (09:47→18:22)
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
[2017-06-02] MEDS: SODIUM CHLOR 0.9% IV SCH (12:15)
[2017-06-02] MEDS: SODIUM CHLORIDE IV SCH (12:15)
[2017-06-02] MEDS: PANTOPRAZOLE SODIUM 40 MG VIAL IVP SCH (20:36)
[2017-06-03] VITALS (18 sets, daily range): BP systolic 95–167; BP diastolic 54–70; PULSE 90–132; RESP 15–18; TEMP 98–101.3; O2SAT 99–100
[2017-06-03] MEDS: MAGNESIUM HYDROXIDE SUSP 30 ML CUP PO SCH ×4 (00:24→17:38)
[2017-06-03] MEDS: ACETAMINOPHEN 1000 MG/100 ML 100 ML IV SCH ×2 (00:24→12:58)
[2017-06-03] MEDS: chlordiazePOXIDE 25 MG CAP PO SCH ×3 (02:31→17:38)
[2017-06-03] MEDS: RESP: ALBUTEROL 2.5 MG/IPRATROPIUM 0.5 MG NEB (SCH) NEB ×4 (03:33→21:54)
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
[2017-06-03] MEDS: CHLORHEXIDINE GLUCONATE 2 % 1 PACK (2 CLOTHS) TOP SCH (04:00)
[2017-06-03] MEDS: fentaNYL DRIP 250 ML IV PRN (04:15)
[2017-06-03] MEDS: MIDAZOLAM 100 MG/100 ML INJ 100 ML IV PRN (04:16)
[2017-06-03 04:22] LABS: BLOOD GAS BASE EXCESS 2.3 mmol/L (-2-2); BLOOD GAS CARBOXYHEMOGLOBIN 1.4 % (0-4); BLOOD GAS HCO3 27 mmol/L (22-26); BLOOD GAS METHEMOGLOBIN 0.5 % (0-2); BLOOD GAS O2 HGB SATURATION 97 % (90-100); BLOOD GAS PCO2 44 mmHg (38-42); BLOOD GAS PO2 122 mmHG (61-120); BLOOD GAS TOTAL HGB 8.6 G/DL (12.0-16.0); TEMP CORR TO 98.6
[2017-06-03 04:23] LABS: CRITICAL VALUE NO; DRAW SITE LT RADIAL; FIO2 40 %; NUMBER OF ARTERIAL PUNCTURES 1; OXYGEN DEVICE VENTILATOR; STAT NO; ULNAR PULSE PRESENT; VENT SETTINGS 15/500/IT1.0/5PEEP
[2017-06-03 05:14] LABS: AUTOMATED NEUTROPHIL # 2.4 TH/MM3 (1.8-7.7); BASOPHIL % 0.2 % (0.0-2.0); EOSINOPHIL # 0.1 TH/MM3 (0-0.4); EOSINOPHIL % 2.9 % (0.0-4.0); HEMATOCRIT 27.8 % (39.0-51.0); HEMO FLAGS DIFF FINAL; LYMPH % 19.4 % (9.0-44.0); LYMPHOCYTE # 0.8 TH/MM3 (1.0-4.8); MEAN CELL VOLUME 96.1 FL (80.0-100.0); MEAN CORPUSCULAR HEMOGLOBIN 31.1 PG (27.0-34.0); MEAN CORPUSCULAR HGB CONC 32.3 % (32.0-36.0); MONO % 20.6 % (0.0-8.0); NEUT % 56.9 % (16.0-70.0); PLATELET COUNT 203 TH/MM3 (150-450); RED CELL DISTRIBUTION WIDTH 15.5 % (11.6-17.2); WHITE BLOOD COUNT 4.1 TH/MM3 (4.0-11.0)
[2017-06-03 06:21] LABS: BICARBONATE 26.5 MEQ/L (21.0-32.0); POTASSIUM 3.8 MEQ/L (3.5-5.1)
--- NOTE | 2017-06-03 06:33 | RADRPT ---
EXAM DATE/TIME: 06/03/2017 05:10 [facility] COMPARISON: CT BRAIN W/O CONTRAST, May 31, 2017, 4:21. INDICATIONS : Post-op craniotomy. RADIATION DOSE: 50.21 CTDIvol (mGy) MEDICAL HISTORY : Non-responsive. SURGICAL HISTORY : Non-responsive. ENCOUNTER: Subsequent ACUITY: 3 days PAIN SCALE: Non-responsive LOCATION: cranial TECHNIQUE: Multiple contiguous axial images were obtained of the head. Using automated exposure control and adj ustment of the mA and/or kV according to patient size, radiation dose was kept as low as reasonably a chievable to obtain optimal diagnostic quality images. DICOM format image data is available electro nically for review and comparison. FINDINGS: CEREBRUM: The ventricles are normal for age. No evidence of midline shift, mass lesion, or acute infarction. T here are some areas of subarachnoid hemorrhage again layering in the right frontal region. There some areas of ventricle hemorrhage in the left temporal lobe and the right posterior temporal lobe unchan ged from the previous study. There some subarachnoid hemorrhage in the sylvian fissure on the right. There is a left frontal pressure catheter placed. There is a subdural drain in the left temporal region status post craniotomy.. POSTERIOR FOSSA: There some hemorrhage layering on the right tentorium. The cerebellum and brainstem are intact. The 4th ventricle is midline. The cerebellopontine angle is unremarkable. EXTRACRANIAL: The visualized portion of the orbits is intact. There is diffuse ethmoidal and maxillary sinus diseas e SKULL: The calvaria is intact. No evidence of skull fracture. CONCLUSION: Scattered areas of intraparenchymal, subarachnoid, and tentorial hemorrhage and a very similar patter n and amount to the 05/31/17 exam. No significant new hemorrhage is identified. Ventricles remain nor mal in size. A subdural drain in good position. Juan Antonio Park MD on June 03, 2017 at 6:29 Board Certified Radiologist. This report was verified electronically.
[2017-06-03] MEDS: CHLORHEXIDINE 0.12% (ORAL KIT) 15 ML CUP MT SCH ×2 (08:00→19:54)
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
[2017-06-03] MEDS ORDERED: MEPERIDINE HCL 25 MG/ML VIAL IM PRN (09:30)
[2017-06-03] MEDS: levETIRAcetam INJ 500 MG in SODIUM CHLORIDE 0.9% INJ 100 ML IV SCH ×2 (10:00→20:16)
[2017-06-03] MEDS: DOCUSATE SODIUM 100 MG CAP PO SCH ×2 (10:02→22:11)
[2017-06-03] MEDS: LACTULOSE SYRUP 20 GM/30 ML CUP PO SCH (10:02)
[2017-06-03] MEDS: MUPIROCIN 2% OINT 1 APPLIC/GM SYR NASAL SCH ×2 (10:02→20:17)
[2017-06-03] MEDS: VALPROIC ACID SYRUP 250 MG/5 ML UDC PO SCH ×4 (10:03→22:11)
[2017-06-03] MEDS: oxyCODONE HCL ORAL CONC 5 MG/0.25 ML SYRINGE PO SCH ×3 (10:04→22:11)
[2017-06-03] MEDS: ACETAMINOPHEN 650 MG/20.3 ML UDC PO PRN (10:06)
[2017-06-03] MEDS ORDERED: Vancomycin Consult Pharmacy 1 EA OTHER SCH (10:30)
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
[2017-06-03] MEDS: SODIUM CHLORIDE IV SCH (11:00)
[2017-06-03] MEDS: SODIUM CHLOR 0.9% IV SCH (11:00)
[2017-06-03] MEDS: DEXMEDETOMIDINE INJ 200 MCG in SODIUM CHLORIDE 0.9% INJ 50 ML IV PRN ×2 (11:39→22:10)
[2017-06-03] MEDS: PIPERACIL-TAZO 3.375 GM PREMIX 50 ML IV SCH ×3 (11:39→22:11)
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
[2017-06-03] MEDS ORDERED: VANCOMYCIN INJ 1,250 MG in SODIUM CHLOR 0.9% 250 ML INJ 250 ML IV ONE (13:00)
[2017-06-03] MEDS: PANTOPRAZOLE SODIUM 40 MG VIAL IVP SCH (19:54)
[2017-06-04] VITALS (19 sets, daily range): BP systolic 145–167; BP diastolic 67–78; PULSE 79–106; RESP 15–27; TEMP 98.4–100.5; O2SAT 99–100
[2017-06-04] MEDS: ACETAMINOPHEN 1000 MG/100 ML 100 ML IV SCH ×2 (00:50→11:55)
[2017-06-04] MEDS: MAGNESIUM HYDROXIDE SUSP 30 ML CUP PO SCH ×5 (00:50→23:26)
[2017-06-04] MEDS: VANCOMYCIN INJ 1,250 MG in SODIUM CHLOR 0.9% 250 ML INJ 250 ML IV SCH ×2 (00:50→11:03)
[2017-06-04] MEDS: chlordiazePOXIDE 25 MG CAP PO SCH ×3 (01:12→17:43)
[2017-06-04] MEDS: CHLORHEXIDINE GLUCONATE 2 % 1 PACK (2 CLOTHS) TOP SCH (03:05)
[2017-06-04] MEDS: RESP: ALBUTEROL 2.5 MG/IPRATROPIUM 0.5 MG NEB (SCH) NEB ×4 (03:49→20:10)
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
[2017-06-04 05:15] LABS: AUTOMATED NEUTROPHIL # 4.7 TH/MM3 (1.8-7.7); BASOPHIL % 0.3 % (0.0-2.0); EOSINOPHIL % 0.1 % (0.0-4.0); HEMATOCRIT 26.9 % (39.0-51.0); HEMO FLAGS DIFF FINAL; LYMPH % 7.7 % (9.0-44.0); LYMPHOCYTE # 0.5 TH/MM3 (1.0-4.8); MEAN CELL VOLUME 94.6 FL (80.0-100.0); MEAN CORPUSCULAR HEMOGLOBIN 31.2 PG (27.0-34.0); MONO % 18.3 % (0.0-8.0); NEUT % 73.6 % (16.0-70.0); PLATELET COUNT 266 TH/MM3 (150-450); RED BLOOD COUNT 2.84 MIL/MM3 (4.50-5.90); RED CELL DISTRIBUTION WIDTH 15.4 % (11.6-17.2); WHITE BLOOD COUNT 6.4 TH/MM3 (4.0-11.0)
[2017-06-04] MEDS: oxyCODONE HCL ORAL CONC 5 MG/0.25 ML SYRINGE PO SCH ×4 (05:35→21:02)
[2017-06-04 05:40] LABS: ANION GAP 8 MEQ/L (5-15); AST (GOT) 25 U/L (15-37); BICARBONATE 28.9 MEQ/L (21.0-32.0); BLOOD UREA NITROGEN 13 MG/DL (7-18); CHLORIDE 107 MEQ/L (98-107); GLOMERULAR FILTRATION RATE 118 ML/MIN (>89); POTASSIUM 3.7 MEQ/L (3.5-5.1); SODIUM (NA) 144 MEQ/L (136-145)
[2017-06-04] MEDS: PIPERACIL-TAZO 3.375 GM PREMIX 50 ML IV SCH ×4 (05:40→23:26)
[2017-06-04] MEDS: MIDAZOLAM 100 MG/100 ML INJ 100 ML IV PRN (05:41)
[2017-06-04] MEDS: DEXMEDETOMIDINE INJ 200 MCG in SODIUM CHLORIDE 0.9% INJ 50 ML IV PRN ×3 (05:41→20:50)
[2017-06-04 05:42] LABS: ALT (GPT) 23 U/L (12-78)
[2017-06-04 05:44] LABS: ALKALINE PHOSPHATASE 96 U/L (45-117); TOTAL BILIRUBIN ADULT 0.4 MG/DL (0.2-1.0)
[2017-06-04] MEDS: CHLORHEXIDINE 0.12% (ORAL KIT) 15 ML CUP MT SCH ×2 (08:00→19:55)
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
[2017-06-04] MEDS: MUPIROCIN 2% OINT 1 APPLIC/GM SYR NASAL SCH ×2 (09:44→20:50)
[2017-06-04] MEDS: VALPROIC ACID SYRUP 250 MG/5 ML UDC PO SCH ×4 (09:45→21:01)
[2017-06-04] MEDS: LACTULOSE SYRUP 20 GM/30 ML CUP PO SCH (09:45)
[2017-06-04] MEDS: METOPROLOL TARTRATE 5 MG/5 ML VIAL IV PUSH SCH ×3 (09:45→21:01)
[2017-06-04] MEDS: DOCUSATE SODIUM 100 MG CAP PO SCH ×2 (09:45→21:01)
[2017-06-04] MEDS: levETIRAcetam INJ 500 MG in SODIUM CHLORIDE 0.9% INJ 100 ML IV SCH ×2 (09:46→20:49)
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
[2017-06-04] MEDS: PANTOPRAZOLE SODIUM 40 MG VIAL IVP SCH (20:49)
[2017-06-04] MEDS: SODIUM CHLORIDE 0.9% FLUSH 10 ML FLUSH IV FLUSH PRN (20:49)
[2017-06-04] MEDS ORDERED: PHARMACY ORDERED LAB ONE (23:45)
[2017-06-05] VITALS (19 sets, daily range): BP systolic 118–165; BP diastolic 70–79; PULSE 71–109; RESP 15–25; TEMP 98.6–101.2; O2SAT 100
[2017-06-05] MEDS: VANCOMYCIN INJ 1,250 MG in SODIUM CHLOR 0.9% 250 ML INJ 250 ML IV SCH (00:25)
[2017-06-05] MEDS: ACETAMINOPHEN 1000 MG/100 ML 100 ML IV SCH ×2 (00:26→12:45)
[2017-06-05] MEDS: chlordiazePOXIDE 25 MG CAP PO SCH ×3 (01:35→17:18)
[2017-06-05] MEDS: DEXMEDETOMIDINE INJ 200 MCG in SODIUM CHLORIDE 0.9% INJ 50 ML IV PRN ×2 (01:36→05:52)
[2017-06-05] MEDS: RESP: ALBUTEROL 2.5 MG/IPRATROPIUM 0.5 MG NEB (SCH) NEB ×4 (03:39→19:59)
[2017-06-05] MEDS: CHLORHEXIDINE GLUCONATE 2 % 1 PACK (2 CLOTHS) TOP SCH (04:00)
[2017-06-05] MEDS: METOPROLOL TARTRATE 5 MG/5 ML VIAL IV PUSH SCH ×4 (04:45→22:08)
[2017-06-05] MEDS: oxyCODONE HCL ORAL CONC 5 MG/0.25 ML SYRINGE PO SCH ×4 (04:45→22:09)
[2017-06-05] MEDS: PIPERACIL-TAZO 3.375 GM PREMIX 50 ML IV SCH ×2 (04:45→09:53)
[2017-06-05] MEDS: MAGNESIUM HYDROXIDE SUSP 30 ML CUP PO SCH ×4 (04:46→22:29)
[2017-06-05 05:11] LABS: HEMATOCRIT 27.7 % (39.0-51.0); MEAN CELL VOLUME 94.4 FL (80.0-100.0); MEAN CORPUSCULAR HEMOGLOBIN 30.7 PG (27.0-34.0); MEAN CORPUSCULAR HGB CONC 32.5 % (32.0-36.0); PLATELET COUNT 309 TH/MM3 (150-450); RED BLOOD COUNT 2.93 MIL/MM3 (4.50-5.90); RED CELL DISTRIBUTION WIDTH 16.1 % (11.6-17.2)
[2017-06-05 05:16] LABS: HEMO FLAGS AUTO DIFF
[2017-06-05 05:32] LABS: ANION GAP 6 MEQ/L (5-15); AST (GOT) 22 U/L (15-37); BICARBONATE 29.6 MEQ/L (21.0-32.0); BLOOD UREA NITROGEN 16 MG/DL (7-18); CHLORIDE 108 MEQ/L (98-107); GLOMERULAR FILTRATION RATE 126 ML/MIN (>89); POTASSIUM 3.3 MEQ/L (3.5-5.1); SODIUM (NA) 144 MEQ/L (136-145)
[2017-06-05 05:34] LABS: ALT (GPT) 23 U/L (12-78)
[2017-06-05 05:36] LABS: ALKALINE PHOSPHATASE 92 U/L (45-117); TOTAL BILIRUBIN ADULT 0.3 MG/DL (0.2-1.0)
[2017-06-05 07:00] LABS: BANDS 29 % (0-6); BLASTS 1 % (0-0); EOSINOPHILS 2 % (0-4); MYELOCYTES 1 % (0-0); NEUTROPHIL # MANUAL DIFF 4.3 TH/MM3 (1.8-7.7); POLYS (SEG NEUTROPHILS) 41 % (16-70); WBC DIFF SAMPLE 100
[2017-06-05 07:02] LABS: PLATELET ESTIMATE SMEAR NORMAL (NORMAL)
[2017-06-05 07:03] LABS: DOHLE BODIES PRESENT (NONE SEEN); PLATELET MORPHOLOGY NORMAL (NORMAL); SCAN/DIFF FINAL DIFF MANUAL
[2017-06-05] MEDS: CHLORHEXIDINE 0.12% (ORAL KIT) 15 ML CUP MT SCH ×2 (08:00→20:00)
[2017-06-05] MEDS: LACTULOSE SYRUP 20 GM/30 ML CUP PO SCH (08:16)
[2017-06-05] MEDS: MUPIROCIN 2% OINT 1 APPLIC/GM SYR NASAL SCH ×2 (08:16→21:12)
[2017-06-05] MEDS: VALPROIC ACID SYRUP 250 MG/5 ML UDC PO SCH ×4 (08:16→20:53)
[2017-06-05] MEDS: DOCUSATE SODIUM 100 MG CAP PO SCH ×2 (08:16→20:12)
[2017-06-05] MEDS: VANCOMYCIN 1,000 MG/NS 250 ML IV SCH ×4 (08:18→16:19)
[2017-06-05] MEDS: levETIRAcetam INJ 500 MG in SODIUM CHLORIDE 0.9% INJ 100 ML IV SCH ×2 (08:18→20:54)
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
[2017-06-05] MEDS: ENOXAPARIN SODIUM 40 MG/0.4 ML SYRINGE SQ SCH (10:13)
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
[2017-06-05] MEDS ORDERED: cefTRIAXone INJ 2,000 MG in SODIUM CHLORIDE 0.9% INJ 100 ML IV SCH (14:00)
[2017-06-05] MEDS: HALOPERIDOL LACTATE 5 MG/ML AMP IV PRN (14:36)
--- NOTE | 2017-06-05 15:57 | RADRPT ---
EXAM DATE/TIME: 06/05/2017 14:05 [facility] COMPARISON: No previous studies available for comparison. INDICATIONS : Bilateral leg swelling. Fever. MEDICAL HISTORY : Anxiety. Substance use. MRSA. SURGICAL HISTORY : Right index finger surgery x6. ENCOUNTER: Initial ACUITY: unknown PAIN SCORE: none LOCATION: Bilateral leg. TECHNIQUE: Venous ultrasound of the left and right leg was performed from the inguinal ligament to the proximal calf. Real-time, color Doppler and spectral tracing, compression and augmentation techniques were us ed. FINDINGS: RIGHT LEG: There is normal compressibility of the deep venous system from the inguinal region to the proximal ca lf. No echogenic clot is seen in the lumen of the common femoral, femoral, popliteal, and posterior tibial veins. There is a normal response of the venous system to proximal and distal augmentation an d respiration. LEFT LEG: There is normal compressibility of the deep venous system from the inguinal region to the proximal ca lf. No echogenic clot is seen in the lumen of the common femoral, femoral, popliteal, and posterior tibial veins. There is a normal response of the venous system to proximal and distal augmentation an d respiration. CONCLUSION: Normal examination. Charlie Edmond Jr., MD on June 05, 2017 at 15:49 Board Certified Radiologist. This report was verified electronically.
--- NOTE | 2017-06-05 16:00 | RADRPT ---
EXAM DATE/TIME: 06/05/2017 14:31 [facility] COMPARISON: US ARM BILATERAL VENOUS DOPPLER, November 16, 2016, 15:58. INDICATIONS : Bilateral arm swelling. Fever. MEDICAL HISTORY : Anxiety. Substance use. MRSA. SURGICAL HISTORY : Right index finger surgery x6. ENCOUNTER: Subsequent ACUITY: 1 day PAIN SCORE: Non-responsive LOCATION: Bilateral arm. FINDINGS: RIGHT UPPER EXTREMITY: There is spontaneous flow documented in the brachial, basilic, cephalic, axillary, and subclavian vei ns. The vessels are compressible and augmentation response is documented. There is a small focus of nonocclusive echogenic thrombus involving the basilic vein with its distal aspect. No filling defects are seen. The flow is phasic with respiration. Direction of flow in the jugular vein is caudal. LEFT UPPER EXTREMITY: There is spontaneous flow documented in the brachial, basilic, cephalic, axillary, and subclavian vei ns. The vessels are compressible and augmentation response is documented. No filling defects are se en. The flow is phasic with respiration. Direction of flow in the jugular vein is caudal. CONCLUSION: 1. Small focus of chronic thrombus which is nonocclusive involving the right basilic vein. This is im proved from the prior study. No acute DVT. Charlie Edmond Jr., MD on June 05, 2017 at 15:55 Board Certified Radiologist. This report was verified electronically.
[2017-06-05] MEDS: FAMOTIDINE 20 MG TAB PO SCH (20:54)
[2017-06-06] VITALS (19 sets, daily range): BP systolic 116–135; BP diastolic 69–81; PULSE 92–113; RESP 15–40; TEMP 99.6–100.3; O2SAT 99–100
[2017-06-06] MEDS: VANCOMYCIN 1,000 MG/NS 250 ML IV SCH ×4 (01:10→11:12)
[2017-06-06] MEDS: ACETAMINOPHEN 650 MG/20.3 ML UDC PO PRN (01:28)
[2017-06-06] MEDS: chlordiazePOXIDE 25 MG CAP PO SCH ×2 (01:28→10:00)
[2017-06-06] MEDS: HALOPERIDOL LACTATE 5 MG/ML AMP IV PRN (02:37)
[2017-06-06] MEDS: RESP: ALBUTEROL 2.5 MG/IPRATROPIUM 0.5 MG NEB (SCH) NEB ×2 (03:52→08:42)
[2017-06-06] MEDS: CHLORHEXIDINE GLUCONATE 2 % 1 PACK (2 CLOTHS) TOP SCH (04:00)
[2017-06-06] MEDS: METOPROLOL TARTRATE 5 MG/5 ML VIAL IV PUSH SCH ×4 (04:00→22:00)
[2017-06-06 04:11] LABS: AUTOMATED NEUTROPHIL # 4.6 TH/MM3 (1.8-7.7); BASOPHIL % 0.3 % (0.0-2.0); EOSINOPHIL # 0.1 TH/MM3 (0-0.4); EOSINOPHIL % 1.5 % (0.0-4.0); HEMATOCRIT 27.1 % (39.0-51.0); LYMPH % 16.8 % (9.0-44.0); LYMPHOCYTE # 1.3 TH/MM3 (1.0-4.8); MEAN CELL VOLUME 92.1 FL (80.0-100.0); MEAN CORPUSCULAR HGB CONC 32.5 % (32.0-36.0); MONO % 22.1 % (0.0-8.0); NEUT % 59.3 % (16.0-70.0); PLATELET COUNT 379 TH/MM3 (150-450); RED BLOOD COUNT 2.94 MIL/MM3 (4.50-5.90); RED CELL DISTRIBUTION WIDTH 16.1 % (11.6-17.2); WHITE BLOOD COUNT 7.8 TH/MM3 (4.0-11.0)
[2017-06-06 04:13] LABS: HEMO FLAGS AUTO DIFF
[2017-06-06] MEDS: MAGNESIUM HYDROXIDE SUSP 30 ML CUP PO SCH ×3 (04:39→17:39)
[2017-06-06] MEDS: oxyCODONE HCL ORAL CONC 5 MG/0.25 ML SYRINGE PO SCH ×4 (04:40→22:00)
[2017-06-06 04:41] LABS: ANION GAP 7 MEQ/L (5-15); AST (GOT) 29 U/L (15-37); BICARBONATE 27.2 MEQ/L (21.0-32.0); BLOOD UREA NITROGEN 9 MG/DL (7-18); CHLORIDE 106 MEQ/L (98-107); GLOMERULAR FILTRATION RATE 161 ML/MIN (>89); POTASSIUM 3.3 MEQ/L (3.5-5.1); SODIUM (NA) 140 MEQ/L (136-145)
[2017-06-06 04:45] LABS: ALKALINE PHOSPHATASE 78 U/L (45-117); ALT (GPT) 20 U/L (12-78); TOTAL BILIRUBIN ADULT 0.2 MG/DL (0.2-1.0)
[2017-06-06 05:46] LABS: BANDS 21 % (0-6); BASOPHILS 1 % (0-2); BLASTS 1 % (0-0); EOSINOPHILS 1 % (0-4); MYELOCYTES 1 % (0-0); NEUTROPHIL # MANUAL DIFF 5.2 TH/MM3 (1.8-7.7); POLYS (SEG NEUTROPHILS) 45 % (16-70); WBC DIFF SAMPLE 100
[2017-06-06 05:49] LABS: SCAN/DIFF FINAL DIFF MANUAL
[2017-06-06 05:52] LABS: PLATELET ESTIMATE SMEAR NORMAL (NORMAL)
[2017-06-06 05:53] LABS: DOHLE BODIES PRESENT (NONE SEEN); PLATELET MORPHOLOGY NORMAL (NORMAL)
[2017-06-06] MEDS: POTASSIUM CHLORIDE 25 MEQ EFFERVESCENT TAB PO PRN (06:26)
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
[2017-06-06] MEDS: CHLORHEXIDINE 0.12% (ORAL KIT) 15 ML CUP MT SCH ×2 (08:00→20:00)
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
[2017-06-06] MEDS: LACTULOSE SYRUP 20 GM/30 ML CUP PO SCH (08:44)
[2017-06-06] MEDS: DOCUSATE SODIUM 100 MG CAP PO SCH ×2 (08:44→21:00)
[2017-06-06] MEDS ORDERED: PHARMACY ORDERED LAB ONE (08:45)
[2017-06-06] MEDS: FAMOTIDINE 20 MG TAB PO SCH ×2 (09:00→22:01)
[2017-06-06] MEDS: VALPROIC ACID SYRUP 250 MG/5 ML UDC PO SCH ×4 (09:00→22:01)
[2017-06-06] MEDS ORDERED: RESP: RACEPINEPHRINE 2.25% 0.5 ML NEB ONE (09:22)
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
[2017-06-06] MEDS: ENOXAPARIN SODIUM 40 MG/0.4 ML SYRINGE SQ SCH (11:04)
[2017-06-06] MEDS: MUPIROCIN 2% OINT 1 APPLIC/GM SYR NASAL SCH (11:05)
[2017-06-06] MEDS: SODIUM CHLORIDE 23.4% INJ 188 MEQ in SODIUM CHLOR 0.9% 1000 ML INJ 1,000 ML IV SCH (12:43)
[2017-06-06] MEDS ORDERED: MIDAZOLAM HCL 5 MG/5 ML VIAL IV PUSH ONE (12:45)
[2017-06-06] MEDS ORDERED: ROCURONIUM INJ 100 MG/10 ML VIAL IV ONE (12:45)
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
[2017-06-06] MEDS ORDERED: PROPOFOL 1000 MG/100 ML INJ 100 ML IV PRN (13:30)
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
--- NOTE | 2017-06-06 15:26 | RADRPT ---
EXAM DATE/TIME: 06/06/2017 14:30 [facility] COMPARISON: CHEST SINGLE AP, June 06, 2017, 5:59. INDICATIONS : OG tube placement. MEDICAL HISTORY : MRSA. SURGICAL HISTORY : Right second digit surgery. ENCOUNTER: Subsequent ACUITY: 2 weeks PAIN SCORE: Non-responsive. LOCATION: Bilateral chest FINDINGS: The ET tube and nasogastric tube are in good position. There is patchy airspace disease involving bot h lung bases. This is similar in appearance to previous date 06/06/70. No pneumothorax is seen. The visualized bony structures are intact. CONCLUSION: 1. The support equipment is in good position. 2. There are patchy areas of airspace disease in the lung bases concerning for pneumonia. Changes are similar compared to previous Dmitry Min MD on June 06, 2017 at 15:24 Board Certified Radiologist. This report was verified electronically.
[2017-06-06] MEDS: QUEtiapine FUMARATE 25 MG TAB PO SCH (15:44)
[2017-06-06] MEDS ORDERED: VANCOMYCIN INJ 1,250 MG in SODIUM CHLOR 0.9% 250 ML INJ 250 ML IV SCH (18:00)
[2017-06-06] MEDS: QUEtiapine FUMARATE 100 MG TAB PO SCH (22:01)
[2017-06-07] VITALS (20 sets, daily range): BP systolic 115–127; BP diastolic 69–75; PULSE 94–105; RESP 15–28; TEMP 99–100.6; O2SAT 99–100
[2017-06-07] MEDS: ACETAMINOPHEN 650 MG/20.3 ML UDC PO PRN (01:03)
[2017-06-07] MEDS: CHLORHEXIDINE GLUCONATE 2 % 1 PACK (2 CLOTHS) TOP SCH (04:00)
[2017-06-07] MEDS: METOPROLOL TARTRATE 5 MG/5 ML VIAL IV PUSH SCH ×2 (04:00→20:54)
[2017-06-07] MEDS: oxyCODONE HCL ORAL CONC 5 MG/0.25 ML SYRINGE PO SCH ×4 (04:52→23:25)
[2017-06-07 05:26] LABS: AUTOMATED NEUTROPHIL # 5.6 TH/MM3 (1.8-7.7); BASOPHIL % 0.3 % (0.0-2.0); EOSINOPHIL # 0.1 TH/MM3 (0-0.4); EOSINOPHIL % 0.9 % (0.0-4.0); HEMATOCRIT 27.6 % (39.0-51.0); LYMPH % 17.8 % (9.0-44.0); LYMPHOCYTE # 1.6 TH/MM3 (1.0-4.8); MEAN CELL VOLUME 91.6 FL (80.0-100.0); MEAN CORPUSCULAR HGB CONC 33.8 % (32.0-36.0); MONO % 19.7 % (0.0-8.0); NEUT % 61.3 % (16.0-70.0); PLATELET COUNT 546 TH/MM3 (150-450); RED BLOOD COUNT 3.01 MIL/MM3 (4.50-5.90); RED CELL DISTRIBUTION WIDTH 16.4 % (11.6-17.2); WHITE BLOOD COUNT 9.1 TH/MM3 (4.0-11.0)
[2017-06-07 05:33] LABS: HEMO FLAGS AUTO DIFF
[2017-06-07 05:50] LABS: BICARBONATE 26.4 MEQ/L (21.0-32.0); POTASSIUM 3.6 MEQ/L (3.5-5.1)
[2017-06-07 07:45] LABS: BANDS 5 % (0-6); CORRECTED NUCLEATED RBC 1 /100 WBC (0-0); METAMYELOCYTES 2 % (0-1); MYELOCYTES 3 % (0-0); NEUTROPHIL # MANUAL DIFF 5.4 TH/MM3 (1.8-7.7); POLYS (SEG NEUTROPHILS) 49 % (16-70); WBC DIFF SAMPLE 100
[2017-06-07 07:46] LABS: PLATELET ESTIMATE SMEAR HIGH (NORMAL); PLATELET MORPHOLOGY NORMAL (NORMAL); SCAN/DIFF FINAL DIFF MANUAL
[2017-06-07] MEDS: CHLORHEXIDINE 0.12% (ORAL KIT) 15 ML CUP MT SCH ×2 (08:00→20:00)
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
[2017-06-07] MEDS ORDERED: MISC INFORMATION OTHER ONE (09:15)
[2017-06-07] MEDS ORDERED: ROCURONIUM INJ 50 MG/5 ML VIAL IV ONE (09:15)
[2017-06-07] MEDS: ENOXAPARIN SODIUM 40 MG/0.4 ML SYRINGE SQ SCH (09:43)
[2017-06-07] MEDS: QUEtiapine FUMARATE 25 MG TAB PO SCH ×2 (09:43→14:04)
[2017-06-07] MEDS: FAMOTIDINE 20 MG TAB PO SCH ×2 (09:44→20:53)
[2017-06-07] MEDS: VALPROIC ACID SYRUP 250 MG/5 ML UDC PO SCH ×4 (09:44→20:53)
[2017-06-07] MEDS: SODIUM CHLORIDE 23.4% INJ 188 MEQ in SODIUM CHLOR 0.9% 1000 ML INJ 1,000 ML IV SCH (10:00)
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
[2017-06-07] MEDS ORDERED: MIDAZOLAM HCL 5 MG/ML VIAL (1 ML) ONE (10:58)
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
[2017-06-07] MEDS ORDERED: QUEtiapine FUMARATE 25 MG TAB PO SCH (14:00)
--- NOTE | 2017-06-07 14:25 | RADRPT ---
EXAM DATE/TIME: 06/07/2017 13:40 [facility] COMPARISON: No previous studies available for comparison. INDICATIONS : Confirm nasogastric tube placement. MEDICAL HISTORY : MRSA SURGICAL HISTORY : None. ENCOUNTER: Initial ACUITY: 1 week PAIN SCORE: Non-responsive. LOCATION: Bilateral abdomen FINDINGS: Examination of the abdomen demonstrates a normal bowel gas pattern. No free air is identified. No o rganomegaly is evident. Osseous structures are intact. Nasogastric tube is present with the tip proj ected over the mid stomach. CONCLUSION: No evidence of obstruction. Nasogastric tube in place with the tip projected over the mid stomach. Juliocesar Ghosh MD on June 07, 2017 at 14:23 Board Certified Radiologist. This report was verified electronically.
[2017-06-07] MEDS: QUEtiapine FUMARATE 100 MG TAB PO SCH (20:53)
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
[2017-06-07] MEDS: SODIUM CHLORIDE 0.9% FLUSH 10 ML FLUSH IV FLUSH PRN (20:54)
[2017-06-08] VITALS (18 sets, daily range): BP systolic 105–127; BP diastolic 62–77; PULSE 82–100; RESP 18–23; TEMP 98.7–99.5; O2SAT 99–100
[2017-06-08] MEDS ORDERED: PHARMACY ORDERED LAB ONE (01:45)
[2017-06-08] MEDS: CHLORHEXIDINE GLUCONATE 2 % 1 PACK (2 CLOTHS) TOP SCH (04:00)
[2017-06-08] MEDS: oxyCODONE HCL ORAL CONC 5 MG/0.25 ML SYRINGE PO SCH ×4 (04:43→21:21)
[2017-06-08 06:13] LABS: AUTOMATED NEUTROPHIL # 7.6 TH/MM3 (1.8-7.7); BASOPHIL % 0.4 % (0.0-2.0); EOSINOPHIL # 0.1 TH/MM3 (0-0.4); EOSINOPHIL % 1.2 % (0.0-4.0); HEMATOCRIT 29.5 % (39.0-51.0); LYMPH % 16.8 % (9.0-44.0); LYMPHOCYTE # 1.9 TH/MM3 (1.0-4.8); MEAN CELL VOLUME 92.4 FL (80.0-100.0); MEAN CORPUSCULAR HEMOGLOBIN 30.3 PG (27.0-34.0); MEAN CORPUSCULAR HGB CONC 32.8 % (32.0-36.0); MONO % 13.5 % (0.0-8.0); NEUT % 68.1 % (16.0-70.0); PLATELET COUNT 699 TH/MM3 (150-450); RED BLOOD COUNT 3.19 MIL/MM3 (4.50-5.90); RED CELL DISTRIBUTION WIDTH 16.4 % (11.6-17.2); WHITE BLOOD COUNT 11.2 TH/MM3 (4.0-11.0)
[2017-06-08 06:17] LABS: HEMO FLAGS AUTO DIFF
[2017-06-08 06:40] LABS: BICARBONATE 25.8 MEQ/L (21.0-32.0); POTASSIUM 3.4 MEQ/L (3.5-5.1)
[2017-06-08 07:09] LABS: BANDS 9 % (0-6); CORRECTED NUCLEATED RBC 2 /100 WBC (0-0); EOSINOPHILS 1 % (0-4); METAMYELOCYTES 2 % (0-1); MYELOCYTES 1 % (0-0); NEUTROPHIL # MANUAL DIFF 8.1 TH/MM3 (1.8-7.7); POLYS (SEG NEUTROPHILS) 60 % (16-70); WBC DIFF SAMPLE 100
[2017-06-08 07:10] LABS: BLASTS 1 % (0-0); PLATELET ESTIMATE SMEAR HIGH (NORMAL); PLATELET MORPHOLOGY NORMAL (NORMAL)
[2017-06-08 07:11] LABS: SCAN/DIFF FINAL DIFF MANUAL
[2017-06-08] MEDS: CHLORHEXIDINE 0.12% (ORAL KIT) 15 ML CUP MT SCH ×2 (07:35→20:09)
[2017-06-08] MEDS: FAMOTIDINE 20 MG TAB PO SCH ×2 (08:52→20:08)
[2017-06-08] MEDS: VALPROIC ACID SYRUP 250 MG/5 ML UDC PO SCH ×4 (08:52→20:08)
[2017-06-08] MEDS: QUEtiapine FUMARATE 25 MG TAB PO SCH ×2 (08:52→14:19)
[2017-06-08] MEDS: POTASSIUM CHLORIDE 25 MEQ EFFERVESCENT TAB PO PRN (08:52)
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
[2017-06-08] MEDS: METOPROLOL TARTRATE 5 MG/5 ML VIAL IV PUSH SCH ×2 (09:00→20:08)
[2017-06-08] MEDS: SODIUM CHLORIDE 23.4% INJ 188 MEQ in SODIUM CHLOR 0.9% 1000 ML INJ 1,000 ML IV SCH (10:00)
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
[2017-06-08] MEDS: HALOPERIDOL LACTATE 5 MG/ML AMP IV PRN ×2 (11:57→18:46)
[2017-06-08] MEDS: QUEtiapine FUMARATE 100 MG TAB PO SCH (20:08)
[2017-06-09] VITALS (15 sets, daily range): BP systolic 109–126; BP diastolic 60–82; PULSE 79–101; RESP 15–25; TEMP 98.7–100.6; O2SAT 100
[2017-06-09] MEDS: CHLORHEXIDINE GLUCONATE 2 % 1 PACK (2 CLOTHS) TOP SCH (04:00)
[2017-06-09] MEDS: oxyCODONE HCL ORAL CONC 5 MG/0.25 ML SYRINGE PO SCH ×4 (04:44→22:34)
[2017-06-09] MEDS: HALOPERIDOL LACTATE 5 MG/ML AMP IV PRN (04:45)
[2017-06-09 06:44] LABS: AUTOMATED NEUTROPHIL # 11.3 TH/MM3 (1.8-7.7); BASOPHIL # 0.1 TH/MM3 (0-0.2); BASOPHIL % 0.4 % (0.0-2.0); EOSINOPHIL # 0.2 TH/MM3 (0-0.4); EOSINOPHIL % 1.1 % (0.0-4.0); HEMATOCRIT 27.3 % (39.0-51.0); LYMPH % 14.8 % (9.0-44.0); LYMPHOCYTE # 2.3 TH/MM3 (1.0-4.8); MEAN CELL VOLUME 92.5 FL (80.0-100.0); MEAN CORPUSCULAR HEMOGLOBIN 30.8 PG (27.0-34.0); MEAN CORPUSCULAR HGB CONC 33.3 % (32.0-36.0); MONO % 10.6 % (0.0-8.0); NEUT % 73.1 % (16.0-70.0); PLATELET COUNT 801 TH/MM3 (150-450); RED BLOOD COUNT 2.95 MIL/MM3 (4.50-5.90); RED CELL DISTRIBUTION WIDTH 16.9 % (11.6-17.2); WHITE BLOOD COUNT 15.4 TH/MM3 (4.0-11.0)
[2017-06-09 07:03] LABS: HEMO FLAGS AUTO DIFF
[2017-06-09 07:12] LABS: BICARBONATE 27.1 MEQ/L (21.0-32.0); POTASSIUM 3.6 MEQ/L (3.5-5.1)
[2017-06-09 08:40] LABS: BANDS 13 % (0-6); MYELOCYTES 1 % (0-0); NEUTROPHIL # MANUAL DIFF 12.3 TH/MM3 (1.8-7.7); PLATELET ESTIMATE SMEAR HIGH (NORMAL); PLATELET MORPHOLOGY NORMAL (NORMAL); POLYS (SEG NEUTROPHILS) 66 % (16-70); WBC DIFF SAMPLE 100
[2017-06-09 08:41] LABS: SCAN/DIFF FINAL DIFF MANUAL
[2017-06-09] MEDS: METOPROLOL TARTRATE 5 MG/5 ML VIAL IV PUSH SCH ×2 (09:13→19:31)
[2017-06-09] MEDS: CHLORHEXIDINE 0.12% (ORAL KIT) 15 ML CUP MT SCH ×2 (09:14→19:32)
[2017-06-09] MEDS: VALPROIC ACID SYRUP 250 MG/5 ML UDC PO SCH ×4 (09:14→19:31)
[2017-06-09] MEDS: FAMOTIDINE 20 MG TAB PO SCH ×2 (09:14→19:48)
[2017-06-09] MEDS: QUEtiapine FUMARATE 25 MG TAB PO SCH ×2 (09:14→13:57)
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
[2017-06-09] MEDS ORDERED: QUEtiapine FUMARATE 25 MG TAB PO ONE (15:30)
[2017-06-09] MEDS: SODIUM CHLORIDE 0.9% FLUSH 10 ML FLUSH IV FLUSH PRN (19:26)
[2017-06-09] MEDS: QUEtiapine FUMARATE 100 MG TAB PO SCH (19:48)
[2017-06-10] VITALS (10 sets, daily range): BP systolic 103–122; BP diastolic 58–78; PULSE 87–116; RESP 15–24; TEMP 98.1–99.1; O2SAT 95–100
[2017-06-10] MEDS: CHLORHEXIDINE GLUCONATE 2 % 1 PACK (2 CLOTHS) TOP SCH (03:26)
[2017-06-10] MEDS: oxyCODONE HCL ORAL CONC 5 MG/0.25 ML SYRINGE PO SCH ×4 (03:29→21:12)
--- NOTE | 2017-06-10 04:47 | RADRPT ---
EXAM DATE/TIME: 06/10/2017 04:28 [facility] COMPARISON: CT BRAIN W/O CONTRAST, June 03, 2017, 5:10. INDICATIONS : Post-op craniotomy. RADIATION DOSE: 31.32 CTDIvol (mGy) MEDICAL HISTORY : Non-responsive. SURGICAL HISTORY : Craniotomy. ENCOUNTER: Subsequent ACUITY: 1 week PAIN SCALE: Non-responsive LOCATION: cranial TECHNIQUE: Multiple contiguous axial images were obtained of the head. Using automated exposure control and adj ustment of the mA and/or kV according to patient size, radiation dose was kept as low as reasonably a chievable to obtain optimal diagnostic quality images. DICOM format image data is available electro nically for review and comparison. FINDINGS: Subacute bilateral convexity subdural hematomas are again noted that measure approximate millimeters in maximal thickness on the right and 9.5 mm in maximal thickness on the left. Previously seen pneumo cephaly has resolved. The pressure monitoring bolt has been removed in the interim. Left craniotomy c hanges are again noted. Resolving parenchymal hemorrhage with evolving encephalomalacia of the right temporal and pariet al lobes. No new/acute blood. No midline shift. No evidence of an acute ischemic event. CONCLUSION: 1. Bilateral subacute subdural hematomas are not significantly changed in size. 2. Resolving parenchymal hemorrhage with some developing encephalomalacia of the right temporal and p arietal lobes. 3. No no blood. 4. No midline shift. Priyank Young MD on June 10, 2017 at 4:43 Board Certified Radiologist. This report was verified electronically.
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
[2017-06-10] MEDS: VALPROIC ACID SYRUP 250 MG/5 ML UDC PO SCH ×4 (08:56→21:11)
[2017-06-10] MEDS: METOPROLOL TARTRATE 5 MG/5 ML VIAL IV PUSH SCH ×2 (08:57→21:11)
[2017-06-10] MEDS: CHLORHEXIDINE 0.12% (ORAL KIT) 15 ML CUP MT SCH ×2 (08:57→19:18)
[2017-06-10] MEDS: FAMOTIDINE 20 MG TAB PO SCH ×2 (08:57→21:11)
[2017-06-10] MEDS ORDERED: QUEtiapine FUMARATE 25 MG TAB PO SCH ×2 (09:00→14:00)
[2017-06-10] MEDS: ENOXAPARIN SODIUM 40 MG/0.4 ML SYRINGE SQ SCH (10:28)
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
--- NOTE | 2017-06-10 17:31 | RADRPT ---
EXAM DATE/TIME: 06/10/2017 16:44 [facility] COMPARISON: CHEST SINGLE AP, June 06, 2017, 14:30. INDICATIONS : Dobhoff tube placement MEDICAL HISTORY : epidural bleed, MRSA SURGICAL HISTORY : Craniotomy. ENCOUNTER: Subsequent ACUITY: 2 weeks PAIN SCORE: Non-responsive. LOCATION: Bilateral chest FINDINGS: Portable AP views of the chest demonstrate feeding tube distal tip at the GE junction, likely in the distal esophagus. Tracheostomy remains present. There is patchy airspace opacity bilaterally. CONCLUSION: The feeding tube distal tip is at the GE junction. Priyank Lowry MD on June 10, 2017 at 17:28 Board Certified Radiologist. This report was verified electronically.
--- NOTE | 2017-06-10 19:20 | PD.PROCEDR ---
Procedure Note Procedure Delayed node entry. I provided the service on 06/07/2017 Procedure: Diagnostic and therapeutic Fiberoptic Bronchoscopy Diagnosis: Chronic respiratory failure requiring percutaneous dilation tracheostomy Indications: Preoperative planning for percutaneous tracheostomy Consent: Obtained Anesthesia: Versed 10 mg IV, Rocuronium 50 mg IV Description of the Procedure: The patient was sedated and mechanically ventilated. The patient was placed on 100% FIO2 and a volume control mode of ventilation. The fiberoptic bronchoscopy was inserted via 8.0 oral endotracheal tube. The trachea, right and left mainstem bronchi, and sub- segmental bronchi were evaluated. The endobronchial anatomy was normal. Findings: Minimal amount of thin secretions were present. Tracheostomy performed by Dr. Anderson. Please see separately documented procedure note for details. The needle, guidewire, dilators, and tracheostomy were all visualized in the lumen of the trachea under direct Realtime bronchoscopic guidance. Before positive pressure ventilation, the 8.0 cuffed Shiley tracheostomy tube was confirmed in the lumen of the trachea by visual inspection under bronchoscopy. BAL samples: None The patient tolerated the procedure well with no hemodynamic instability or hypoxia. There were no immediate complications noted. At the conclusion of the procedure, the patient was placed back on their pre-procedure ventilatory settings. There was minimal EBL. A chest x-ray has been ordered. I personally performed the procedure. Adrian Brown MD Jun 10, 2017 19:20
--- NOTE | 2017-06-10 21:02 | RADRPT ---
EXAM DATE/TIME: 06/10/2017 17:59 [facility] COMPARISON: ABDOMEN SINGLE VIEW, June 07, 2017, 13:40. INDICATIONS : Dobhoff placement. MEDICAL HISTORY : None. SURGICAL HISTORY : None. ENCOUNTER: Initial ACUITY: 1 day PAIN SCORE: Non-responsive. LOCATION: middle abdomen. FINDINGS: View of the lower chest and upper abdomen demonstrates metallic tip of the Dobbhoff catheter at the l evel of the GE junction. Vertebral mildly dilated loops of small bowel measure up to 3.5 cm in dimen shanel. Stable opacity in the right midlung. CONCLUSION: Dobbhoff catheter metallic tip at the GE junction. Charlie Valerio MD on June 10, 2017 at 21:00 Board Certified Radiologist. This report was verified electronically.
[2017-06-10] MEDS: QUEtiapine FUMARATE 100 MG TAB PO SCH (21:11)
[2017-06-11] VITALS (9 sets, daily range): BP systolic 95–121; BP diastolic 50–90; PULSE 88–112; RESP 18–20; TEMP 96.9–99; O2SAT 94–100
[2017-06-11] MEDS: CHLORHEXIDINE GLUCONATE 2 % 1 PACK (2 CLOTHS) TOP SCH (04:00)
--- NOTE | 2017-06-11 06:00 | HHI.PR ---
Addendum to Inpatient Note Addendum Reason: Additional Documentation Additional Information Transferred to floor. Fevers appear to be defervescing. Continue to observe off antibiotics. Will sign off. If any change in clinical condition or questions please call back. Trudy Emmanuel MD Jun 11, 2017 06:00
[2017-06-11] MEDS ORDERED: POVIDONE IODINE 5% (ANTISEPSIS KIT) 4 APPLICATIONS EACH NARE PRN (07:00)
[2017-06-11] MEDS ORDERED: LACTATED RINGER'S 1000 ML IV PRN (07:00)
[2017-06-11] MEDS ORDERED: CHLORHEXIDINE GLUCONATE 2 % 1 PACK (2 CLOTHS) TOPICAL PRN (07:00)
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
[2017-06-11] MEDS: FAMOTIDINE 20 MG TAB PO SCH ×2 (09:00→21:11)
[2017-06-11] MEDS: VALPROIC ACID SYRUP 250 MG/5 ML UDC PO SCH ×4 (09:00→21:13)
[2017-06-11] MEDS: oxyCODONE HCL ORAL CONC 5 MG/0.25 ML SYRINGE PO SCH ×3 (10:00→21:22)
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
[2017-06-11] MEDS: HALOPERIDOL LACTATE 5 MG/ML AMP IV PUSH PRN (11:31)
--- NOTE | 2017-06-11 11:43 | HHI.GIFU ---
GI Follow-up Note Consult Follow-up Subjective: Patient laying in bed comfortably, no new complaints except confusion Objective: PHYSICAL EXAMINATION: Vitals signs stable No fever HEENT: Pupils round and reactive to light; normocephalic; atraumatic; no jaundice. Throat is clear. NECK: Neck is supple, no JVD, no lymphadenopathy. CHEST: Chest is clear to auscultation and percussion. CARDIAC: Regular rate and rhythm with no murmur gallop or rubs. ABDOMEN: Soft, nondistended, nontender; no hepatosplenomegaly; bowel sounds are present in all four quadrants. EXTREMITIES: No clubbing, cyanosis, or edema. SKIN: Normal; no rash; no jaundice. ATTENDANT SALES: No focal deficits; alert and oriented times three. Available Data (labs, X- Rays, Procedues) : Last Impressions Head CT 06/10/17 0600 Signed Impressions: Service Date/Time: Saturday, June 10, 2017 04:28 - CONCLUSION: 1. Bilateral subacute subdural hematomas are not significantly changed in size. 2. Resolving parenchymal hemorrhage with some developing encephalomalacia of the right temporal and parietal lobes. 3. No no blood. 4. No midline shift. Priyank Young MD Chest X-Ray 06/10/17 0000 Signed Impressions: Service Date/Time: Saturday, June 10, 2017 16:44 - CONCLUSION: The feeding tube distal tip is at the GE junction. Priyank Lowry MD Abdomen X-Ray 06/10/17 0000 Signed Impressions: Service Date/Time: Saturday, June 10, 2017 17:59 - CONCLUSION: Dobbhoff catheter metallic tip at the GE junction. Charlie Valerio MD Upper Extremity Ultrasound 06/05/17 0000 Signed Impressions: Service Date/Time: Monday, June 05, 2017 14:31 - CONCLUSION: 1. Small focus of chronic thrombus which is nonocclusive involving the right basilic vein. This is improved from the prior study. No acute DVT. Charlie Edmond Jr., MD Lower Extremity Ultrasound 06/05/17 0000 Signed Impressions: Service Date/Time: Monday, June 05, 2017 14:05 - CONCLUSION: Normal examination. Charlie Edmond Jr., MD Chest CT 05/30/17 [id number] Signed Impressions: Service Date/Time: May 10:41 - CONCLUSION: 1. No evidence of traumatic injury to the chest. 2. Hepatic steatosis. 3. Left sternoclavicular joint deformity which does not appear acute. 4. Indwelling endotracheal and nasogastric tubes which are in good position. Arthur Molina MD Abdomen/Pelvis CT 05/30/[id number] Signed Impressions: Service Date/Time: May 10:41 - CONCLUSION: 1. Hepatic steatosis 2. No evidence of traumatic soft tissue injury involving the abdominal or pelvic structures. 3. Indwelling Nasogastric tube and Jose catheter. Arthur Molina MD Cervical Spine CT 05/29/[id number] Signed Impressions: Service Date/Time: Monday, May 29, 2017 17:49 - CONCLUSION: 1. No fracture or dislocation. 2. Degenerative changes as detailed above. Charlie Edmond Jr., MD Allergies Coded Allergies Type Severity Reaction Last Updated Verified morphine Allergy Severe Rash 04/12/17 No Active Scripts Medications Dose Route/Sig Max Daily Dose Days Date Category Dose Instructions Folic Acid 0.8 Mg Tab 1 Gm PO DAILY 30 04/18/17 Rx Gnp Vitamin B-1 (Thiamine HCl) 100 Mg Tab 100 Mg PO DAILY 30 04/18/17 Rx Walker with Front Wheels (Device) 1 Mis Mis Ea .ROUTE DIRECTED 04/18/17 Rx Meclizine 25 (Meclizine HCl) 25 Mg Tab 25 Mg PO PRN 30 04/18/17 Rx Bactrim DS (Sulfamethoxazole-Trimethoprim) 800-160 Mg Tab 1 Tab PO BID 04/18/17 Rx Levaquin (Levofloxacin) 750 Mg Tablet 750 Mg PO DAILY 14 04/18/17 Rx Oxycodone (Oxycodone HCl) 10 Mg Tab 10 Mg PO Q8HR 02/05/17 Rx Do not combine this medication with alcohol Celexa (Citalopram Hydrobromide) 20 Mg Tab 20 Mg PO DAILY 30 11/19/16 Rx ASSESSMENT/PLAN: Seen and examined, consents for peg not obtained from sister. She would like to hold off on PEG for now till she can come down to visit his brother. Replace DBT for now. Discussed with nurse. Reconsult GI as needed. Thank you It was a pleasure seeing Priyank Saldivar. Thank you for this consult. Entered by: Dorita Jean MD Jun 11, 2017 11:43
--- NOTE | 2017-06-11 14:43 | RADRPT ---
EXAM DATE/TIME: 06/11/2017 14:22 [facility] COMPARISON: CT THORAX W CONTRAST, May 30, 2017, 10:41. CHEST SINGLE AP, June 10, 2017, 16:44. INDICATIONS : Post dubhoff placement. MEDICAL HISTORY : epidural bleed, MRSA SURGICAL HISTORY : Craniotomy. ENCOUNTER: Subsequent ACUITY: 1 day PAIN SCORE: 0/10 LOCATION: Bilateral chest FINDINGS: Stable tracheostomy. Interval repositioning of the feeding type nasoenteric catheter with tip in the gastric fundus. Progressive linear airspace disease in the right midlung zone and stable patchy left midlung zone airspace disease. Cardiomediastinal contours are stable. Remainder of exam is unchanged. CONCLUSION: 1. Nasoenteric feeding tube (dubhoff) tip is in the gastric fundus. 2. Progressive atelectasis in the right midlung zone. 3. Stable patchy airspace disease in the left midlung zone. Darryl Abarca MD on June 11, 2017 at 14:38 Board Certified Radiologist. This report was verified electronically.
[2017-06-11] MEDS: QUEtiapine FUMARATE 100 MG TAB PO SCH ×2 (14:55→21:11)
[2017-06-11] MEDS: HYOSCYAMINE 0.125 MG TAB PO PRN (14:56)
[2017-06-11] MEDS: CHLORHEXIDINE GLUCONATE 0.12% 15 ML CUP SWISH-SPIT SCH (21:16)
[2017-06-12] VITALS (8 sets, daily range): BP systolic 93–109; BP diastolic 51–59; PULSE 84–101; RESP 18–21; TEMP 96.2–99.4; O2SAT 95–100
[2017-06-12 04:39] LABS: BASOPHIL # 0.1 TH/MM3 (0-0.2); BASOPHIL % 0.5 % (0.0-2.0); EOSINOPHIL # 0.2 TH/MM3 (0-0.4); EOSINOPHIL % 1.2 % (0.0-4.0); HEMATOCRIT 29.1 % (39.0-51.0); HEMO FLAGS DIFF FINAL; LYMPH % 10.8 % (9.0-44.0); LYMPHOCYTE # 1.8 TH/MM3 (1.0-4.8); MEAN CELL VOLUME 91.8 FL (80.0-100.0); MEAN CORPUSCULAR HEMOGLOBIN 30.9 PG (27.0-34.0); MEAN CORPUSCULAR HGB CONC 33.7 % (32.0-36.0); MONO % 9.1 % (0.0-8.0); NEUT % 78.4 % (16.0-70.0); PLATELET COUNT 1243 TH/MM3 (150-450); RED BLOOD COUNT 3.17 MIL/MM3 (4.50-5.90); RED CELL DISTRIBUTION WIDTH 17.2 % (11.6-17.2); WHITE BLOOD COUNT 16.6 TH/MM3 (4.0-11.0)
[2017-06-12 04:53] LABS: BICARBONATE 27.3 MEQ/L (21.0-32.0); POTASSIUM 4.4 MEQ/L (3.5-5.1)
[2017-06-12] MEDS: oxyCODONE HCL ORAL CONC 5 MG/0.25 ML SYRINGE PO SCH ×3 (04:56→23:50)
[2017-06-12] MEDS: CHLORHEXIDINE GLUCONATE 0.12% 15 ML CUP SWISH-SPIT SCH ×2 (08:11→23:57)
[2017-06-12] MEDS: FAMOTIDINE 20 MG TAB PO SCH ×2 (08:13→23:50)
[2017-06-12] MEDS: VALPROIC ACID SYRUP 250 MG/5 ML UDC PO SCH ×3 (08:35→18:00)
[2017-06-12] MEDS: SODIUM CHLORIDE 1 GRAM TAB PO SCH ×2 (08:35→23:50)
[2017-06-12] MEDS: QUEtiapine FUMARATE 100 MG TAB PO SCH ×3 (08:35→23:50)
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
--- NOTE | 2017-06-12 15:01 | RADRPT ---
EXAM DATE/TIME: 06/12/2017 14:16 [facility] COMPARISON: ABDOMEN SINGLE VIEW, June 10, 2017, 17:59. INDICATIONS : Dobhoff placement. MEDICAL HISTORY : None. SURGICAL HISTORY : Craniotomy. ENCOUNTER: Subsequent ACUITY: 1 day PAIN SCORE: Non-responsive. LOCATION: Abdomen, upper quadrant. FINDINGS: Feeding-type mesentery catheter has been advanced and is coiled in the gastric fundus. Redemonstratio n of mildly dilated air-filled small bowel loops in the midabdomen. No gross free air or pneumatosis. Stable bilateral midlung opacities. Remainder of exam is unchanged CONCLUSION: 1. Dobbhoff catheter coiled in the gastric fundus. Darryl Abarca MD on June 12, 2017 at 14:58 Board Certified Radiologist. This report was verified electronically.
[2017-06-12] MEDS ORDERED: SODIUM CHLOR 0.9% 1000 ML INJ 1,000 ML IV ONE (18:00)
[2017-06-12] MEDS: HALOPERIDOL LACTATE 5 MG/ML AMP IV PUSH PRN (22:36)
--- NOTE | 2017-06-12 23:27 | RADRPT ---
EXAM DATE/TIME: 06/12/2017 21:12 [facility] COMPARISON: ABDOMEN SINGLE VIEW, June 12, 2017, 14:16. INDICATIONS : Evaluate NG placement MEDICAL HISTORY : None. SURGICAL HISTORY : Craniotomy. ENCOUNTER: Subsequent ACUITY: 3 days PAIN SCORE: Non-responsive. LOCATION: Bilateral Abdomen FINDINGS: Nonobstructive bowel gas pattern. No free air. There is a Dobbhoff feeding tube with tip in the upper stomach. CONCLUSION: Tip of the Dobbhoff feeding tube is in the gastric fundus. Priyank Young MD on June 12, 2017 at 23:25 Board Certified Radiologist. This report was verified electronically.
[2017-06-12] MEDS: HYOSCYAMINE 0.125 MG TAB PO PRN (23:50)
[2017-06-13] VITALS (9 sets, daily range): BP systolic 104–120; BP diastolic 63–76; PULSE 70–102; RESP 17–22; TEMP 97–97.9; O2SAT 95–100
[2017-06-13] MEDS: SODIUM CHLOR 0.9% 1000 ML INJ 1,000 ML IV SCH ×3 (02:51→21:43)
[2017-06-13] MEDS: oxyCODONE HCL ORAL CONC 5 MG/0.25 ML SYRINGE PO SCH ×4 (05:53→19:37)
[2017-06-13] MEDS: HALOPERIDOL LACTATE 5 MG/ML AMP IV PUSH PRN ×2 (05:53→17:23)
[2017-06-13] MEDS: VALPROIC ACID SYRUP 250 MG/5 ML UDC PO SCH (08:37)
[2017-06-13] MEDS: QUEtiapine FUMARATE 100 MG TAB PO SCH ×3 (08:38→19:35)
[2017-06-13] MEDS: FAMOTIDINE 20 MG TAB PO SCH ×2 (08:38→19:35)
[2017-06-13] MEDS: SODIUM CHLORIDE 1 GRAM TAB PO SCH ×2 (08:38→19:36)
[2017-06-13] MEDS: CHLORHEXIDINE GLUCONATE 0.12% 15 ML CUP SWISH-SPIT SCH ×2 (09:00→19:36)
[2017-06-13] MEDS: ENOXAPARIN SODIUM 40 MG/0.4 ML SYRINGE SQ SCH (09:00)
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
[2017-06-13] MEDS: VALPROATE INJ 500 MG in SODIUM CHLORIDE 0.9% INJ 100 ML IV SCH ×2 (14:38→21:43)
[2017-06-14] VITALS (8 sets, daily range): BP systolic 94–128; BP diastolic 52–66; PULSE 75–90; RESP 18–20; TEMP 97.1–98.8; O2SAT 96–100
[2017-06-14] MEDS: HALOPERIDOL LACTATE 5 MG/ML AMP IV PUSH PRN ×2 (00:23→15:27)
[2017-06-14] MEDS: VALPROATE INJ 500 MG in SODIUM CHLORIDE 0.9% INJ 100 ML IV SCH ×2 (05:08→15:27)
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
[2017-06-14] MEDS: SODIUM CHLOR 0.9% 1000 ML INJ 1,000 ML IV SCH (08:45)
[2017-06-14] MEDS: CHLORHEXIDINE GLUCONATE 0.12% 15 ML CUP SWISH-SPIT SCH ×2 (09:00→21:00)
[2017-06-14] MEDS: FAMOTIDINE 20 MG TAB PO SCH ×3 (09:00→21:00)
[2017-06-14] MEDS: SODIUM CHLORIDE 1 GRAM TAB PO SCH ×3 (09:00→21:00)
[2017-06-14] MEDS: QUEtiapine FUMARATE 100 MG TAB PO SCH ×4 (09:00→21:00)
[2017-06-14] MEDS: ENOXAPARIN SODIUM 40 MG/0.4 ML SYRINGE SQ SCH (10:00)
[2017-06-14 10:59] LABS: AUTOMATED NEUTROPHIL # 7.9 TH/MM3 (1.8-7.7); BASOPHIL # 0.1 TH/MM3 (0-0.2); BASOPHIL % 1.3 % (0.0-2.0); EOSINOPHIL # 0.2 TH/MM3 (0-0.4); HEMATOCRIT 28.1 % (39.0-51.0); HEMO FLAGS DIFF FINAL; LYMPHOCYTE # 1.7 TH/MM3 (1.0-4.8); MEAN CELL VOLUME 90.8 FL (80.0-100.0); MEAN CORPUSCULAR HEMOGLOBIN 31.1 PG (27.0-34.0); MEAN CORPUSCULAR HGB CONC 34.2 % (32.0-36.0); NEUT % 72.7 % (16.0-70.0); PLATELET COUNT 1235 TH/MM3 (150-450); RED CELL DISTRIBUTION WIDTH 16.6 % (11.6-17.2); WHITE BLOOD COUNT 10.8 TH/MM3 (4.0-11.0)
[2017-06-14 11:20] LABS: BICARBONATE 22.9 MEQ/L (21.0-32.0); POTASSIUM 3.8 MEQ/L (3.5-5.1)
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
[2017-06-14] MEDS: oxyCODONE HCL ORAL CONC 5 MG/0.25 ML SYRINGE PO SCH ×3 (14:00→22:00)
--- NOTE | 2017-06-14 17:04 | RADRPT ---
EXAM DATE/TIME: 06/14/2017 16:32 [facility] COMPARISON: ABDOMEN KUB ONLY, June 12, 2017, 21:12. INDICATIONS : ceasar placement. MEDICAL HISTORY : None. SURGICAL HISTORY : Craniotomy. ENCOUNTER: Subsequent ACUITY: 1 day PAIN SCORE: Non-responsive. LOCATION: Abdomen. FINDINGS: A single frontal view of the upper abdomen and lower chest reveal a weighted feeding tube with the ti p in the fundus. Lung bases are clear. Gas-filled loops of large and small bowel partially visualized . CONCLUSION: Tip of the feeding tube in the fundus of the stomach. Charlie Edmond Jr., MD on June 14, 2017 at 17:02 Board Certified Radiologist. This report was verified electronically.
[2017-06-15] VITALS (10 sets, daily range): BP systolic 92–109; BP diastolic 52–63; PULSE 59–81; RESP 16–20; TEMP 95.7–98; O2SAT 94–100
[2017-06-15] MEDS: HALOPERIDOL LACTATE 5 MG/ML AMP IV PUSH PRN ×2 (03:11→20:04)
[2017-06-15] MEDS: SODIUM CHLORIDE 0.9% FLUSH 10 ML FLUSH IV FLUSH PRN (03:12)
[2017-06-15] MEDS: SODIUM CHLOR 0.9% 1000 ML INJ 1,000 ML IV SCH ×3 (03:23→13:31)
[2017-06-15] MEDS: VALPROATE INJ 500 MG in SODIUM CHLORIDE 0.9% INJ 100 ML IV SCH ×4 (03:24→21:31)
[2017-06-15] MEDS: oxyCODONE HCL ORAL CONC 5 MG/0.25 ML SYRINGE PO SCH ×4 (06:21→20:00)
[2017-06-15] MEDS: FAMOTIDINE 20 MG TAB PO SCH ×2 (10:46→20:00)
[2017-06-15] MEDS: QUEtiapine FUMARATE 100 MG TAB PO SCH ×4 (10:46→20:00)
[2017-06-15] MEDS: ENOXAPARIN SODIUM 40 MG/0.4 ML SYRINGE SQ SCH (10:46)
[2017-06-15] MEDS: SODIUM CHLORIDE 1 GRAM TAB PO SCH ×2 (10:46→20:00)
[2017-06-15] MEDS: CHLORHEXIDINE GLUCONATE 0.12% 15 ML CUP SWISH-SPIT SCH ×2 (10:47→20:00)
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
--- NOTE | 2017-06-15 14:31 | RADRPT ---
EXAM DATE/TIME: 06/15/2017 12:22 [facility] COMPARISON: No previous studies available for comparison. INDICATIONS : Dobhoff placement. MEDICAL HISTORY : None. SURGICAL HISTORY : Craniotomy. ENCOUNTER: Initial ACUITY: 1 day PAIN SCORE: Non-responsive. LOCATION: Bilateral abdomen. FINDINGS: Examination of the abdomen demonstrates a normal bowel gas pattern. NG tip is in the stomach with the side-port in the distal esophagus. Feeding tube is not visualized. CONCLUSION: 1. NG tip in stomach with side-port in distal esophagus. 2. Feeding tube not visualized. If present chest x-ray should be obtained. Pascual Mcintyre MD on June 15, 2017 at 14:28 Board Certified Radiologist. This report was verified electronically.
--- NOTE | 2017-06-15 17:13 | RADRPT ---
EXAM DATE/TIME: 06/15/2017 16:40 [facility] COMPARISON: CHEST SINGLE AP, June 11, 2017, 14:22. INDICATIONS : NG tube placement. MEDICAL HISTORY : None. SURGICAL HISTORY : Craniotomy. ENCOUNTER: Initial ACUITY: 1 day PAIN SCORE: Non-responsive. LOCATION: Bilateral chest FINDINGS: NG tube tip and side port is projected within the stomach. Tracheostomy in place. Ill-defined area of opacity in the lateral left lung measures 1.3 cm and a small infiltrate in the lateral right lung is more linear oriented. In the left upper chest, there are 3 parallel interfaces which are located 7 mm, 1.7 cm, and 3.2 cm from the lateral surface. These could represent a pneumothorax, however the multiple nature suggests the possibility of skin folds. The heart is normal size. CONCLUSION: 1. Gastric tube is present within the stomach. 2. Multiple interfaces in the upper left chest could represent pneumothorax versus skin fold. Recomm end repeat examination, expiratory and erect. Charlie Valerio MD on June 15, 2017 at 17:08 Board Certified Radiologist. This report was verified electronically.
[2017-06-16] VITALS (9 sets, daily range): BP systolic 91–106; BP diastolic 52–58; PULSE 65–74; RESP 16–19; TEMP 96.6–98.6; O2SAT 94–100
[2017-06-16] MEDS: SODIUM CHLOR 0.9% 1000 ML INJ 1,000 ML IV SCH ×2 (00:45→11:10)
[2017-06-16] MEDS: HALOPERIDOL LACTATE 5 MG/ML AMP IV PUSH PRN ×4 (02:01→21:25)
[2017-06-16] MEDS: VALPROATE INJ 500 MG in SODIUM CHLORIDE 0.9% INJ 100 ML IV SCH ×3 (05:35→21:25)
[2017-06-16] MEDS: oxyCODONE HCL ORAL CONC 5 MG/0.25 ML SYRINGE PO SCH ×3 (06:00→19:30)
[2017-06-16] MEDS: CHLORHEXIDINE GLUCONATE 0.12% 15 ML CUP SWISH-SPIT SCH ×2 (09:14→19:30)
[2017-06-16] MEDS: ENOXAPARIN SODIUM 40 MG/0.4 ML SYRINGE SQ SCH (09:14)
[2017-06-16] MEDS: SODIUM CHLORIDE 1 GRAM TAB PO SCH ×2 (09:15→19:30)
[2017-06-16] MEDS: FAMOTIDINE 20 MG TAB PO SCH ×2 (09:15→19:29)
[2017-06-16] MEDS: QUEtiapine FUMARATE 100 MG TAB PO SCH ×3 (09:15→19:29)
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
[2017-06-16] MEDS: DEXT 5%-NACL 0.9% 1000 ML INJ 1,000 ML IV SCH ×2 (12:40→21:26)
[2017-06-17] VITALS (10 sets, daily range): BP systolic 99–112; BP diastolic 55–73; PULSE 66–90; RESP 16–20; TEMP 96.5–98.3; O2SAT 82–99
[2017-06-17] MEDS: oxyCODONE HCL ORAL CONC 5 MG/0.25 ML SYRINGE PO SCH (05:20)
[2017-06-17] MEDS: VALPROATE INJ 500 MG in SODIUM CHLORIDE 0.9% INJ 100 ML IV SCH ×3 (05:20→23:59)
[2017-06-17] MEDS ORDERED: oxyCODONE HCL ORAL CONC 5 MG/0.25 ML SYRINGE PO PRN (07:30)
[2017-06-17] MEDS: DEXT 5%-NACL 0.9% 1000 ML INJ 1,000 ML IV SCH (08:15)
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
[2017-06-17] MEDS: SODIUM CHLORIDE 1 GRAM TAB PO SCH ×2 (09:00→21:00)
[2017-06-17] MEDS: QUEtiapine FUMARATE 100 MG TAB PO SCH ×3 (09:00→21:00)
[2017-06-17] MEDS: FAMOTIDINE 20 MG TAB PO SCH ×2 (09:00→21:00)
[2017-06-17] MEDS: CHLORHEXIDINE GLUCONATE 0.12% 15 ML CUP SWISH-SPIT SCH ×2 (09:00→21:00)
[2017-06-17] MEDS: ENOXAPARIN SODIUM 40 MG/0.4 ML SYRINGE SQ SCH (09:42)
[2017-06-17] MEDS ORDERED: BISACODYL 10 MG SUPP RECTAL ONE (12:00)
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
[2017-06-17] MEDS ORDERED: ACETAMINOPHEN 1000 MG/100 ML 100 ML IV PRN (18:00)
[2017-06-17] MEDS: HALOPERIDOL LACTATE 5 MG/ML AMP IV PUSH PRN (20:17)
[2017-06-17] MEDS ORDERED: MAGN30S PO (21:55)
[2017-06-17] MEDS ORDERED: DOCU1CAP39 PO (21:55)
[2017-06-18] VITALS: BP 111/67; PULSE 69; RESP 16; TEMP 97.5; O2SAT 95
[2017-06-18] MEDS: DEXT 5%-NACL 0.9% 1000 ML INJ 1,000 ML IV SCH ×3 (00:16→14:06)
[2017-06-18 04:51] LABS: AUTOMATED NEUTROPHIL # 4.2 TH/MM3 (1.8-7.7); BASOPHIL # 0.1 TH/MM3 (0-0.2); EOSINOPHIL # 0.1 TH/MM3 (0-0.4); EOSINOPHIL % 1.3 % (0.0-4.0); HEMATOCRIT 31.1 % (39.0-51.0); HEMO FLAGS DIFF FINAL; LYMPH % 24.5 % (9.0-44.0); LYMPHOCYTE # 1.6 TH/MM3 (1.0-4.8); MEAN CORPUSCULAR HEMOGLOBIN 30.5 PG (27.0-34.0); MEAN CORPUSCULAR HGB CONC 33.5 % (32.0-36.0); MONO % 11.2 % (0.0-8.0); PLATELET COUNT 1071 TH/MM3 (150-450); RED BLOOD COUNT 3.42 MIL/MM3 (4.50-5.90); RED CELL DISTRIBUTION WIDTH 16.8 % (11.6-17.2); WHITE BLOOD COUNT 6.7 TH/MM3 (4.0-11.0)
[2017-06-18 05:13] LABS: BICARBONATE 26.8 MEQ/L (21.0-32.0); POTASSIUM 3.7 MEQ/L (3.5-5.1)
[2017-06-18] MEDS: VALPROATE INJ 500 MG in SODIUM CHLORIDE 0.9% INJ 100 ML IV SCH ×3 (05:53→19:51)
[2017-06-18 08:00] VITALS: BP 102/55; PULSE 73; RESP 20; TEMP 98; O2SAT 98
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
[2017-06-18] MEDS: QUEtiapine FUMARATE 100 MG TAB PO SCH ×3 (09:00→19:52)
[2017-06-18] MEDS: CHLORHEXIDINE GLUCONATE 0.12% 15 ML CUP SWISH-SPIT SCH ×2 (09:00→19:51)
[2017-06-18] MEDS: SODIUM CHLORIDE 1 GRAM TAB PO SCH ×2 (09:00→19:51)
[2017-06-18] MEDS: BISACODYL 10 MG SUPP RECTAL SCH (09:00)
[2017-06-18] MEDS: FAMOTIDINE 20 MG TAB PO SCH ×2 (09:00→19:52)
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
[2017-06-18 10:46] VITALS: O2SAT 96
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
--- NOTE | 2017-06-18 11:16 | RADRPT ---
EXAM DATE/TIME: 06/18/2017 00:00 [facility] COMPARISON: No previous studies available for comparison. INDICATIONS : Dysphagia. FLUORO TIME: 3.2 minutes IMAGE COUNT: 0 CONTRAST: Dose as prescribed by speech pathologist. MEDICAL HISTORY : None. SURGICAL HISTORY : None. ENCOUNTER: Initial ACUITY: 2 weeks PAIN SCORE: 0/10 LOCATION: Esophagus. FINDINGS: A modified barium swallow was performed with speech pathology. Patient was given a variety of liquids to swallow. Patient was evaluated in the lateral projection using real-time fluoroscopy in cooperation with [facility] pathology. Patient showed a single episode of laryngeal penetration with possible mild aspiration w ith thin liquid contrast. No shows showed a single episode of silent aspiration with the nectar contr ast. Patient appeared to tolerate the honey thick and solid barium food consistencies without difficu lty. For a full detailed report, see report by the speech pathologist. CONCLUSION: Modified barium swallow as above. Mata Castro MD on June 18, 2017 at 11:12 Board Certified Radiologist. This report was verified electronically.
[2017-06-18] MEDS: ENOXAPARIN SODIUM 40 MG/0.4 ML SYRINGE SQ SCH (11:29)
[2017-06-18 12:00] VITALS: BP 107/74; PULSE 80; RESP 20; TEMP 97.9; O2SAT 96
[2017-06-18] MEDS: DOCUSATE SODIUM 50 MG/SENNA 8.6 MG TAB PO SCH (14:30)
[2017-06-18 16:00] VITALS: BP 126/45; PULSE 82; RESP 19; TEMP 97.2; O2SAT 96
[2017-06-18] MEDS: MAGNESIUM HYDROXIDE SUSP 30 ML CUP PO SCH (19:57)
[2017-06-18 20:00] VITALS: BP 100/53; PULSE 80; RESP 18; TEMP 96.7; O2SAT 100
[2017-06-19] VITALS: BP 98/57; PULSE 82; RESP 18; TEMP 98.5; O2SAT 100
[2017-06-19] MEDS: DEXT 5%-NACL 0.9% 1000 ML INJ 1,000 ML IV SCH ×2 (02:00→11:38)
[2017-06-19] MEDS: VALPROATE INJ 500 MG in SODIUM CHLORIDE 0.9% INJ 100 ML IV SCH (05:01)
[2017-06-19] MEDS: ACETAMINOPHEN 650 MG/20.3 ML UDC PO PRN (07:07)
[2017-06-19 08:00] VITALS: BP 95/62; PULSE 77; RESP 20; TEMP 98.6; O2SAT 100
--- NOTE | 2017-06-19 08:29 | HHI.NSPN ---
History Chief Complaint: Unable to obtain due to patient's clinical condition. Interval History Remains on tracheostomy. Exam Results Vital Signs Date Time Temp Pulse Resp B/P (MAP) Pulse Ox O2 Delivery O2 Flow Rate FiO2 06/19/17 00:00 98.5 82 18 98/57 (71) 100 06/18/17 20:09 T-Piece 5.00 28 Intake and Output 06/19/17 06/19/17 06/19/17 07:59 15:59 23:59 Intake Total 1408 ml Output Total 1350 ml Balance 58 ml Physical Examination Awake and alert. He is mouthing words with tracheostomy in place. Speech therapy is working with the patient. May indicate that he is progressing well. Incisions are healing well. He is following commands Medical Decision Making Impression and Plan Impression: He is making steady progress following severe traumatic brain injury, status post craniotomy for evacuation hematoma. Plan: A follow-up CT scan of the head will be obtained in the next week to make certain that the residual hematoma is resolving properly. Attending speech, occupational, physical therapy. He is stable for discharge to rehabilitation from a neurosurgical standpoint. Jose Roberto Og MD Jun 19, 2017 08:29
[2017-06-19] MEDS: SODIUM CHLORIDE 1 GRAM TAB PO SCH ×2 (08:45→20:04)
[2017-06-19] MEDS: QUEtiapine FUMARATE 100 MG TAB PO SCH ×3 (08:46→20:05)
[2017-06-19] MEDS: FAMOTIDINE 20 MG TAB PO SCH ×2 (08:46→20:04)
[2017-06-19] MEDS: DOCUSATE SODIUM 50 MG/SENNA 8.6 MG TAB PO SCH (08:46)
[2017-06-19] MEDS: BISACODYL 10 MG SUPP RECTAL SCH (08:48)
[2017-06-19] MEDS: CHLORHEXIDINE GLUCONATE 0.12% 15 ML CUP SWISH-SPIT SCH ×2 (08:48→20:04)
[2017-06-19] MEDS: ENOXAPARIN SODIUM 40 MG/0.4 ML SYRINGE SQ SCH (10:00)
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
[2017-06-19 12:00] VITALS: BP 101/57; PULSE 84; RESP 19; TEMP 98; O2SAT 98
[2017-06-19 16:00] VITALS: BP 95/54; PULSE 80; RESP 20; TEMP 98.9; O2SAT 96
[2017-06-19] MEDS: VALPROIC ACID SYRUP 250 MG/5 ML UDC PO SCH (17:44)
[2017-06-19] MEDS: MAGNESIUM HYDROXIDE SUSP 30 ML CUP PO SCH (20:07)
[2017-06-19 20:49] VITALS: BP 99/59; PULSE 74; RESP 20; TEMP 98.1; O2SAT 96
[2017-06-20 00:23] VITALS: BP 96/55; PULSE 85; RESP 18; TEMP 98.8; O2SAT 96
[2017-06-20 08:00] VITALS: BP 102/53; PULSE 72; RESP 17; TEMP 98; O2SAT 98
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
[2017-06-20] MEDS: CHLORHEXIDINE GLUCONATE 0.12% 15 ML CUP SWISH-SPIT SCH (09:00)
[2017-06-20] MEDS: BISACODYL 10 MG SUPP RECTAL SCH (09:00)
[2017-06-20] MEDS: QUEtiapine FUMARATE 100 MG TAB PO SCH (10:06)
[2017-06-20] MEDS: ENOXAPARIN SODIUM 40 MG/0.4 ML SYRINGE SQ SCH (10:06)
[2017-06-20] MEDS: SODIUM CHLORIDE 1 GRAM TAB PO SCH (10:06)
[2017-06-20] MEDS: DOCUSATE SODIUM 50 MG/SENNA 8.6 MG TAB PO SCH (10:06)
[2017-06-20] MEDS: FAMOTIDINE 20 MG TAB PO SCH (10:06)
[2017-06-20] MEDS: ACETAMINOPHEN 650 MG/20.3 ML UDC PO PRN (10:12)
[2017-06-20] MEDS: VALPROIC ACID SYRUP 250 MG/5 ML UDC PO SCH ×2 (10:50→12:40)
--- NOTE | 2017-06-20 11:37 | HHI.PYPN ---
Subjective Remarks I have seen and examined this patient today for psychiatric reevaluation. Chart reviewed. Case discussed with nursing charge and also with nurse charge and also with primary medical team. Apparently patient has been agitated, requesting to be discharged, to leave the hospital AMA. Today on psychiatric evaluation the patient is found calm and cooperative, but requesting that he doesn't want to be in the hospital anymore. Patient says that he is now tolerating by mouth food, doesn't have any pain, doesn't have any distress, he can continue his medical care as outpatient. Patient is fully oriented 3, with intact language, naming, recent and immediate recall, abstraction and also executive function. She is able to a fair understanding of the reason of his hospitalization, current medical situation and consequences of leaving the hospital AMA. he denies depressive symptoms, karthik, psychosis and also denies anxiety at the moment. Even though the patient has been requesting to be discharged as soon as possible, he had not been agitated or violent today. He says that he will wait his tracheostomy is removed, but cannot be done today or tomorrow he would like to be discharged and he will come back to have it removed electively. Review of Systems Except as stated in HPI: all other systems reviewed are Neg Mental Status Examination Appearance: Appropriate Consciousness: Alert Orientation: x4 Motor Activity: Normal gait Speech: Unremarkable Language: Adequate Fund of Knowledge: Adequate Attention and Concentration: Adequate Memory: Unremarkable Mood: Appropriate Affect: Appropriate Thought Process & Associations: Intact Thought Content: Appropriate Hallucination Type: None Delusion Type: None Suicidal Ideation: No Suicidal Plan: No Suicidal Intention: No Homicidal Ideation: No Homicidal Plan: No Homicidal Intention: No Insight: Adequate Judgment: Adequate Results Labs Date/Time Source Procedure Growth Status 06/03/17 11:52 Sputum Endotracheal Gram Stain - Final Complete 06/03/17 11:52 Sputum Culture - Final Klebsiella Oxytoca S. Aureus Mrsa Complete Vitals/IOs Vital Signs Date Time Temp Pulse Resp B/P (MAP) Pulse Ox O2 Delivery O2 Flow Rate FiO2 06/20/17 08:00 98.0 72 17 102/53 (69) 98 06/19/17 20:13 Room Air 06/18/17 20:09 5.00 28 Intake and Output 06/20/17 06/20/17 06/21/17 08:00 16:00 00:00 Intake Total 780 ml Output Total 2000 ml Balance -1220 ml Assessment & Plan Problem List: (1) Major neurocognitive disorder as late effect of traumatic brain injury with behavioral disturbance ICD Codes: S06.9X9S - Unspecified intracranial injury with loss of consciousness of unspecified duration, sequela; F02.81 - Dementia in other diseases classified elsewhere with behavioral disturbance Status: Acute Assessment & Plan: At the moment of this evaluation the patient denies depressive symptoms, he denies anxiety, karthik and psychosis. She is logical, coherent and relevant. He is fully oriented 3, DIANA is 29/30. Able to verbalize a rational understanding of recent of his hospitalization, current medical condition and consequences of leaving the hospital AMA. At this moment I did not observe any psychiatric contraindication for the patient to leave AMA , he has decision-making capacity to participate in medical treatment and to leave AMA. Case has been discussed with primary treating team. Assessment & Plan Estimated LOS: days Justification for Cont. Inpt. He does not meet criteria for involuntary psychiatric admission Albert Rawls MD Jun 20, 2017 11:37
[2017-06-20 12:00] VITALS: BP 106/57; PULSE 75; RESP 17; TEMP 97.4; O2SAT 98
[2017-06-20] MEDS ORDERED: QUET1TAB8 PO (13:33)
[2017-06-20] MEDS ORDERED: VALP250UDC PO (13:33)
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
== END 2017-06-20 13:45 | disposition left against medical advice (07) | DRG 3 ==
LOC: HOR 17:29 → NEDA 18:40 → N03A 21:50 → N07A 06-10 21:41
PROVIDERS: ADMIT Surgery; ATTEND Surgery
PROC: 00C30ZZ Extirpation of Matter from Intracranial Epidural Space, Open Approach (ICD-10-PCS; 2017-05-29)
PROC: 5A1955Z Respiratory Ventilation, Greater than 96 Consecutive Hours (ICD-10-PCS; 2017-05-29)
PROC: 00H032Z Insertion of Monitoring Device into Brain, Percutaneous Approach (ICD-10-PCS; 2017-05-29)
PROC: 0BH17EZ Insertion of Endotracheal Airway into Trachea, Via Natural or Artificial Opening (ICD-10-PCS; 2017-05-29)
PROC: 4A103BD Monitoring of Intracranial Pressure, Percutaneous Approach (ICD-10-PCS; 2017-05-29)
PROC: 0BH17EZ Insertion of Endotracheal Airway into Trachea, Via Natural or Artificial Opening (ICD-10-PCS; 2017-06-06)
PROC: 0B110F4 Bypass Trachea to Cutaneous with Tracheostomy Device, Open Approach (ICD-10-PCS; principal; 2017-06-07)
PROC: 0BJ08ZZ Inspection of Tracheobronchial Tree, Via Natural or Artificial Opening Endoscopic (ICD-10-PCS; 2017-06-07)
PROC: 5A1955Z Respiratory Ventilation, Greater than 96 Consecutive Hours (ICD-10-PCS; 2017-06-07)
DX: S06.4X1A Epidural hemorrhage with loss of consciousness of 30 minutes or less, initial encounter (principal); J69.0 Pneumonitis due to inhalation of food and vomit; F02.81 Dementia in other diseases classified elsewhere, unspecified severity, with behavioral disturbance; J96.00 Acute respiratory failure, unspecified whether with hypoxia or hypercapnia; F10.230 Alcohol dependence with withdrawal, uncomplicated; E46 Unspecified protein-calorie malnutrition; F20.9 Schizophrenia, unspecified; Y90.8 Blood alcohol level of 240 mg/100 ml or more; S02.19XA Other fracture of base of skull, initial encounter for closed fracture; Y92.481 Parking lot as the place of occurrence of the external cause; Y04.2XXA Assault by strike against or bumped into by another person, initial encounter; R40.2421 Glasgow coma scale score 9-12, in the field [EMT or ambulance]; Z86.14 Personal history of Methicillin resistant Staphylococcus aureus infection; F41.9 Anxiety disorder, unspecified; F17.290 Nicotine dependence, other tobacco product, uncomplicated; D64.9 Anemia, unspecified; F10.220 Alcohol dependence with intoxication, uncomplicated; B95.62 Methicillin resistant Staphylococcus aureus infection as the cause of diseases classified elsewhere; S06.6X1A Traumatic subarachnoid hemorrhage with loss of consciousness of 30 minutes or less, initial encounter; E87.6 Hypokalemia; R13.10 Dysphagia, unspecified; R50.2 Drug induced fever; R45.1 Restlessness and agitation; S06.2X1A Diffuse traumatic brain injury with loss of consciousness of 30 minutes or less, initial encounter; Z59.0 Homelessness; Z78.1 Physical restraint status
CPT/HCPCS: 31500; 31600; 31624; 36600; 70450; 71010; 71260; 72125; 74000; 74177; 74230; 80048; 80053; 80202; 80307; 82435; 82565; 82805; 82947; 83735; 84100; 84132; 84145; 84155; 84295; 84520; 85007; 85025; 85027; 85610; 85730; 86403; 86850; 86900; 86901; 87070; 87077; 87186; 87205; 87641; 93970; 94002; 94003; 94640; 94770; A7520; A7521; C1713; C9113; J0131; J0171; J0461; J0690; J0696; J1580; J1630; J1650; J1953; J2060; J2150; J2175; J2250; J2370; J2543; J3010; J3370; J3411; J3480; J7030; J7040; J7042; J7050; J7060; J7613; P9045; Q9967